=== PATIENT | female | born 1955 | race Caucasian/White ===

== ENCOUNTER 2016-06-13 16:34 | Inpatient (IN) | payer OTHER ==
[~2016-06-13] VITALS: Ht 160 cm; Wt 73.0 kg
[~2016-06-13 16:34] MED LIST: AMIT10 PO; LANSO15 PO; LEVO.025 PO; PROM25TA5 PO; ZOFR8TAB PO
[2016-06-13 16:47] VITALS: BP 142/100; PULSE 121; RESP 16; TEMP 98.3; O2SAT 97
[2016-06-13] MEDS ORDERED: RESP: ALBUTEROL 2.5 MG/3 ML NEB (SCH) INH ONE (17:30)
--- NOTE | 2016-06-13 17:36 | PD ---
HPI Chief Complaint: Psychiatric Symptoms Time Seen by Provider: 17:33 Travel History International Travel<30 days: No Contact w/Intl Traveler<30days: No Traveled to known affect area: No History of Present Illness HPI 60-year-old female that presents to the ED for evaluation of altered psych evaluation. Patient comes from a assisted-living facility and per report patient is here for basically psychiatric evaluation. Her report from assisted living facility patient has been hallucinating and seeing things that are not there. Per ED nurse report patient also has been talking to something that is not there. She reports no injuries. Nose is all homicidal ideation. She does use a urinary catheter chronically. She has a history of COPD and uses inhalers and nebulizers. Patient states that she does feel somewhat short of breath. She denies any chest pain though. She denies any fevers chills or sweats. She has had some falls recently secondary to chronic weakness but denies any head injury or loss of consciousness. Denies taking any blood thinners. She denies any drugs or alcohol. She does have a history of schizoaffective disorder and anemia. PFSH Past Medical History Asthma: Yes Blood Disorders: No Anxiety: Yes Heart Rhythm Problems: Yes Cancer: No Cardiovascular Problems: No High Cholesterol: No Chemotherapy: No Congestive Heart Failure: No Diabetes: No Diminished Hearing: No Endocrine: No Gastrointestinal Disorders: Yes (IBS) Genitourinary: Yes (stress incontinence ) Implanted Vascular Access Dvce: Yes Musculoskeletal: Yes Neurologic: No Psychiatric: Yes Respiratory: Yes Radiation Therapy: No Thyroid Disease: No Menopausal: Yes Past Surgical History Abdominal Surgery: Yes (REPAIR OF ABD MUSCLE) Body Medical Devices: breast implants Hysterectomy: Yes Joint Replacement: Yes (LEFT TKR) Other Surgery: Yes (abdomen/left knee/abdominal/partial hysterectomy) Social History Alcohol Use: Yes (2-3 GLASSES PER DAY ) Tobacco Use: No Substance Use: No Allergies-Medications (Allergen,Severity, Reaction): Coded Allergies: Cephalosporins (Verified Allergy, Severe, 06/13/16) Iodine (Verified Allergy, Severe, Anaphylaxis, 06/13/16) Latex (Verified Allergy, Severe, 06/13/16) Reglan (Verified Allergy, Severe, 06/13/16) Sulfa (Verified Allergy, Severe, 06/13/16) Reported Meds & Prescriptions Reported Meds & Active Scripts Active Levothyroxine 25 mcg (Levothyroxine Sodium) 25 Mcg Tab 25 Mcg PO DAILY Phenergan 25 mg (Promethazine HCl) 25 Mg Tab 25 Mg PO Q6H PRN Zofran Tab (Ondansetron HCl) 8 Mg Tab 8 Mg PO BID PRN Reported Prevacid 15 Mg Solutab (Lansoprazole) 15 Mg Tab 15 Mg PO DAILY Elavil 10 Mg Tab (Amitriptyline HCl) 10 Mg Tab 40 Mg PO HS Review of Systems Except as stated in HPI: all other systems reviewed are Neg Physical Exam Narrative GENERAL: SKIN: Warm and dry. HEAD: Atraumatic. Normocephalic. EYES: Pupils equal and round. No scleral icterus. No injection or drainage. ENT: No nasal bleeding or discharge. Mucous membranes pink and moist. Tongue is midline. No uvula deviation. NECK: Trachea midline. No JVD. CARDIOVASCULAR: Regular rate and rhythm. No murmurs, S3, S4. RESPIRATORY: No accessory muscle use. Clear to auscultation. Breath sounds equal bilaterally. GASTROINTESTINAL: Abdomen soft, non-tender, nondistended. Hepatic and splenic margins not palpable. MUSCULOSKELETAL: Extremities without clubbing, cyanosis, or edema. No obvious deformities. NEUROLOGICAL: Awake and alert. No obvious cranial nerve deficits. Motor grossly within normal limits. Five out of 5 muscle strength in the arms and legs. Normal speech. PSYCHIATRIC: psychotic mood and affect; insight and judgment questionable, seems to be talking with hallucinations Data Data Last Documented VS Vital Signs Date Time Temp Pulse Resp B/P Pulse Ox O2 Delivery O2 Flow Rate FiO2 06/13/16 16:47 98.3 121 16 142/100 97 Orders Complete Blood Count With Diff (06/13/16 16:55) Comprehensive Metabolic Panel (06/13/16 16:55) Drug Screen, Random Urine (06/13/16 16:55) Alcohol (Ethanol) (06/13/16 16:55) Psych Screen (06/13/16 16:55) Chest, Single Ap (06/13/16 17:29) Albuterol Neb (Albuterol Neb) (06/13/16 17:30) MDM Medical Decision Making Medical Screen Exam Complete: Yes Emergency Medical Condition: Yes Medical Record Reviewed: Yes Differential Diagnosis Depression versus suicidal ideation versus anxiety versus adjustment disorder versus mood disorder versus bipolar disorder versus schizophrenia versus paranoid disorder versus psychosis versus substance abuse versus alcohol abuse versus alcohol induced psychosis versus homicidality addition versus cutting versus personality disorder Narrative Course 60-year-old female that presents to the ED for evaluation of psych. Patient was properly examined and was found to have signs and symptoms consistent appears to be psychiatric illness. Labs and imaging ordered. EKG was ordered as patient was found to be tachycardic on initial examination. Rashaun Dave Jun 13, 2016 17:36
--- NOTE | 2016-06-13 18:06 | RADRPT ---
EXAM DATE/TIME: 06/13/2016 17:36 [facility] COMPARISON: CHEST SINGLE AP, January 13, 2015, 23:08. INDICATIONS : Wheezing. MEDICAL HISTORY : Lupus. Hypothyroidism. SURGICAL HISTORY : Esophageal dilations. ENCOUNTER: Subsequent ACUITY: 3 days PAIN SCORE: 0/10 LOCATION: Bilateral chest FINDINGS: Bibasilar streakiness is noted consistent with probable atelectasis. The heart is stable. The pulmo nary vascular pattern is normal. Degenerative changes are noted within the thoracic spine. CONCLUSION: Bibasilar streakiness consistent with probable atelectasis. Diogenes Lynch MD on June 13, 2016 at 17:50 Board Certified Radiologist. This report was verified electronically.
[2016-06-13 18:08] LABS: AUTOMATED NEUTROPHIL # 14.9 TH/MM3 (1.8-7.7); BASOPHIL # 0.1 TH/MM3 (0-0.2); BASOPHIL % 0.5 % (0.0-2.0); HEMATOCRIT 38.9 % (35.0-46.0); LYMPH % 1.9 % (9.0-44.0); LYMPHOCYTE # 0.3 TH/MM3 (1.0-4.8); MEAN CELL VOLUME 89.6 FL (80.0-100.0); MEAN CORPUSCULAR HEMOGLOBIN 30.4 PG (27.0-34.0); MEAN CORPUSCULAR HGB CONC 33.9 % (32.0-36.0); MONO % 2.5 % (0.0-8.0); NEUT % 95.1 % (16.0-70.0); PLATELET COUNT 200 TH/MM3 (150-450); RED BLOOD COUNT 4.34 MIL/MM3 (4.00-5.30); RED CELL DISTRIBUTION WIDTH 15.6 % (11.6-17.2); WHITE BLOOD COUNT 15.7 TH/MM3 (4.0-11.0)
[2016-06-13 18:14] LABS: AMPHETAMINE, URINE NEG (NEG); BARBITURATES, URINE NEG (NEG); COCAINE, URINE NEG (NEG); HEMO FLAGS AUTO DIFF
[2016-06-13 18:31] LABS: ANION GAP 10 MEQ/L (5-15); AST (GOT) 72 U/L (15-37); BICARBONATE 25.1 MEQ/L (21.0-32.0); BLOOD UREA NITROGEN 24 MG/DL (7-18); CHLORIDE 107 MEQ/L (98-107); GLOMERULAR FILTRATION RATE 69 ML/MIN (>89); POTASSIUM 4.2 MEQ/L (3.5-5.1); SODIUM (NA) 142 MEQ/L (136-145)
[2016-06-13] MEDS ORDERED: SODIUM CHLOR 0.9% 1000 ML INJ 1,000 ML IV ONE (18:32)
[2016-06-13 18:34] LABS: ALKALINE PHOSPHATASE 191 U/L (45-117); ALT (GPT) 123 U/L (10-53); TOTAL BILIRUBIN ADULT 0.7 MG/DL (0.2-1.0)
[2016-06-13] MEDS ORDERED: FERR325T PO (18:43)
[2016-06-13] MEDS ORDERED: LORA-392 PO (18:43)
[2016-06-13] MEDS ORDERED: PRED20 PO (18:43)
[2016-06-13] MEDS ORDERED: LAC-12LO3 TOPICAL (18:43)
[2016-06-13] MEDS ORDERED: HYDR50TA94 PO (18:43)
[2016-06-13] MEDS ORDERED: COLL30T TOPICAL (18:43)
[2016-06-13] MEDS ORDERED: OXYC-395 PO (18:43)
[2016-06-13] MEDS ORDERED: TRAZ50TA12 PO (18:43)
[2016-06-13] MEDS ORDERED: INSU1INJ18 SQ (18:43)
[2016-06-13] MEDS ORDERED: CHLO.12%30 SWISH-SPIT (18:43)
[2016-06-13] MEDS ORDERED: ZOFR4TAB PO (18:43)
[2016-06-13] MEDS ORDERED: SERO100T PO (18:43)
[2016-06-13] MEDS ORDERED: CALC1TAB12 PO (18:43)
[2016-06-13] MEDS ORDERED: VITA1000 PO (18:43)
[2016-06-13] MEDS ORDERED: MULTTAB67 PO (18:43)
[2016-06-13] MEDS ORDERED: FAMO20TA2 PO (18:43)
[2016-06-13] MEDS ORDERED: AMLO2.5T PO (18:43)
[2016-06-13] MEDS ORDERED: LEVO25TA4 PO (18:43)
[2016-06-13] MEDS ORDERED: NOVOLOGP2 SQ (18:43)
[2016-06-13] MEDS ORDERED: ASCO500C PO (18:43)
[2016-06-13] MEDS ORDERED: ACET650S4 RECTAL (18:43)
[2016-06-13] MEDS ORDERED: PERM5CRE11 TOPICAL (18:43)
[2016-06-13] MEDS ORDERED: LEXA10TA PO (18:43)
[2016-06-13] MEDS ORDERED: BACL10TA PO (18:43)
[2016-06-13] MEDS ORDERED: ERGO1CAP30 PO (18:43)
[2016-06-13 18:45] LABS: PLATELET ESTIMATE SMEAR NORMAL (NORMAL); PLATELET MORPHOLOGY NORMAL (NORMAL); SCAN/DIFF AUTO DIFF CONFIRMED
--- NOTE | 2016-06-13 19:03 | RADRPT ---
EXAM DATE/TIME: 06/13/2016 18:49 [facility] COMPARISON: CT BRAIN W/O CONTRAST, January 14, 2015, 17:32. INDICATIONS : Altered mental status. RADIATION DOSE: 38.36 CTDIvol (mGy) MEDICAL HISTORY : None Carcinoma, not otherwise specified. SURGICAL HISTORY : Hysterectomy. ENCOUNTER: Initial ACUITY: 1 day PAIN SCALE: Non-responsive LOCATION: cranial TECHNIQUE: Multiple contiguous axial images were obtained of the head. Using automated exposure control and adj ustment of the mA and/or kV according to patient size, radiation dose was kept as low as reasonably a chievable to obtain optimal diagnostic quality images. FINDINGS: CEREBRUM: The ventricles are normal for age. No evidence of midline shift, mass lesion, hemorrhage or acute in farction. No extra-axial fluid collections are seen. POSTERIOR FOSSA: The cerebellum and brainstem are intact. The 4th ventricle is midline. The cerebellopontine angle i s unremarkable. EXTRACRANIAL: The visualized portion of the orbits is intact. SKULL: The calvaria is intact. No evidence of skull fracture. CONCLUSION: Normal examination for a patient of this age. No significant change has occurred. Nba Marion MD on June 13, 2016 at 18:59 Board Certified Radiologist. This report was verified electronically.
[2016-06-13 19:22] LABS: BACTERIA, URINE FEW /hpf; BLOOD, URINE SMALL (NEG); COMMENT (UR) CATH-CULTURE IND; CULTURE IF INDICATED CATH CULTURE IND; GLUCOSE,URINE NEG (NEG); KETONE, URINE NEG (NEG); MUCUS URINE FEW /lpf (OCC); NITRITE,URINE NEG (NEG); PH, URINE 6.5 (5.0-8.5); URINE COLOR YELLOW (YELLW/STRAW)
[2016-06-13] MEDS ORDERED: CIPROFLOXACIN 200 MG PREMIX 100 ML IV ONE (19:30)
[2016-06-13 19:39] VITALS: PULSE 118
[2016-06-13 20:01] VITALS: BP 152/92; PULSE 109; RESP 16; TEMP 98.3; O2SAT 96
--- NOTE | 2016-06-13 20:02 | PD ---
Physical Exam Date Seen by Provider: Jun 13, 2016 Time Seen by Provider: 19:57 Narrative 60-year-old female that presents to the ED for evaluation of psych. Please refer to my previous note. Unfortunately my attending signed my note before I finished a note. This is just a continuation of my prior note. Data Data Last Documented VS Vital Signs Date Time Temp Pulse Resp B/P Pulse Ox O2 Delivery O2 Flow Rate FiO2 06/13/16 19:39 118 06/13/16 16:47 98.3 16 142/100 97 Orders Complete Blood Count With Diff (06/13/16 16:55) Comprehensive Metabolic Panel (06/13/16 16:55) Drug Screen, Random Urine (06/13/16 16:55) Alcohol (Ethanol) (06/13/16 16:55) Psych Screen (06/13/16 16:55) Chest, Single Ap (06/13/16 17:29) Albuterol Neb (Albuterol Neb) (06/13/16 17:30) Ct Brain W/O Iv Contrast(Rout) (06/13/16 17:37) Electrocardiogram (06/13/16 ) Sodium Chlor 0.9% 1000 Ml Inj (Ns 1000 M (06/13/16 18:32) Urinalysis - C+S If Indicated (06/13/16 18:47) Urine Culture (06/13/16 17:30) Ciprofloxacin 200 Mg Premix (Cipro 200 M (06/13/16 19:30) Admit Order (Ed Use Only) (06/13/16 19:55) Lactic Acid (06/13/16 19:56) Labs Laboratory Tests Test 06/13/16 17:30 White Blood Count 15.7 TH/MM3 Red Blood Count 4.34 MIL/MM3 Hemoglobin 13.2 GM/DL Hematocrit 38.9 % Mean Corpuscular Volume 89.6 FL Mean Corpuscular Hemoglobin 30.4 PG Mean Corpuscular Hemoglobin 33.9 % Concent Red Cell Distribution Width 15.6 % Platelet Count 200 TH/MM3 Mean Platelet Volume 7.9 FL Neutrophils (%) (Auto) 95.1 % Lymphocytes (%) (Auto) 1.9 % Monocytes (%) (Auto) 2.5 % Eosinophils (%) (Auto) 0.0 % Basophils (%) (Auto) 0.5 % Neutrophils # (Auto) 14.9 TH/MM3 Lymphocytes # (Auto) 0.3 TH/MM3 Monocytes # (Auto) 0.4 TH/MM3 Eosinophils # (Auto) 0.0 TH/MM3 Basophils # (Auto) 0.1 TH/MM3 CBC Comment AUTO DIFF Differential Comment AUTO DIFF CONFIRMED Platelet Estimate NORMAL Platelet Morphology Comment NORMAL Red Cell Morphology Comment NORMAL Urine Color YELLOW Urine Turbidity CLOUDY Urine pH 6.5 Urine Specific [place] 1.012 Urine Protein TRACE mg/dL Urine Glucose (UA) NEG mg/dL Urine Ketones NEG mg/dL Urine Occult Blood SMALL Urine Nitrite NEG Urine Bilirubin NEG Urine Urobilinogen LESS THAN 2.0 MG/DL Urine Leukocyte Esterase LARGE Urine RBC 4 /hpf Urine WBC 93 /hpf Urine Amorphous Sediment RARE Urine Bacteria FEW /hpf Urine Mucus FEW /lpf Microscopic Urinalysis Comment CATH-CULTURE IND Sodium Level 142 MEQ/L Potassium Level 4.2 MEQ/L Chloride Level 107 MEQ/L Carbon Dioxide Level 25.1 MEQ/L Anion Gap 10 MEQ/L Blood Urea Nitrogen 24 MG/DL Creatinine 0.84 MG/DL Estimat Glomerular Filtration 69 ML/MIN Rate Random Glucose 168 MG/DL Calcium Level 9.1 MG/DL Total Bilirubin 0.7 MG/DL Aspartate Amino Transf 72 U/L (AST/SGOT) Alanine Aminotransferase 123 U/L (ALT/SGPT) Alkaline Phosphatase 191 U/L Total Protein 6.7 GM/DL Albumin 3.2 GM/DL Urine Opiates Screen NEG Urine Barbiturates Screen NEG Urine Amphetamines Screen NEG Urine Benzodiazepines Screen NEG Urine Cocaine Screen NEG Urine Cannabinoids Screen NEG Ethyl Alcohol Level LESS THAN 3 MG/DL [facility] Medical Record Reviewed: Yes Supervised Visit with ESDRAS: No Interpretation(s) CBC & BMP Diagram 06/13/16 17:30 UA shows UTI EKG shows sinus tachycardia with no sign of ischemia read by me and attending. Last Impressions Head CT 06/13/16 9137 Signed Impressions: Service Date/Time: Monday, June 13, 2016 18:49 - CONCLUSION: Normal examination for a patient of this age. No significant change has occurred. Nba Marion MD CXR negative for acute disease LFTS elevated Differential Diagnosis Sepsis versus urosepsis versus psychosis Narrative Course 60-year-old female that presents to the ED for evaluation of psych. Patient was properly examined and was found to have signs and symptoms consistent appears to be psychosis with possible UTI. Patient has a urinary catheter. Labs and imaging were done. This is a continuation of my prior note. Labs show elevated WBCs as well as tachycardia on EKG as well as on initial presentation as well as what appears to be UTI. I cannot completely exclude the patient is having worsening psychosis secondary to UTI. Patient he has a catheter. Recomendation is for admission for medical for evaluation of the sepsis, IV fluids, antibiotics and have psych consult. Patient is agreeable with this plan. Case was discussed with His doctor or Dr. Harp who agrees to admission. Sepsis Criteria SIRS Criteria (2 or more): Heart rate over 90, WBC > 87855, < 4000 or > 10% bands Sepsis Criteria (SIRS+source): Infect source susp/known Criteria Outcome: Meets sepsis criteria Diagnosis Primary Impression: UTI (urinary tract infection) Qualified Code: N30.01 - Acute cystitis with hematuria Additional Impressions: Psychoses Qualified Code: F25.9 - Schizoaffective disorder, unspecified type Sepsis Qualified Code: A41.9 - Sepsis, due to unspecified organism Admitting Information Admitting Physician Requests: Rashaun Carvajal Jun 13, 2016 20:02
[2016-06-13] MEDS ORDERED: SODIUM CHLORIDE 0.9% FLUSH 5 ML FLUSH FLUSH PRN (20:15)
[2016-06-13] MEDS ORDERED: NALOXONE HCL 0.4 MG/ML AMP IV PRN (20:15)
[2016-06-13 20:19] VITALS: BP 173/80; PULSE 101; RESP 16; O2SAT 95
[2016-06-13 20:36] VITALS: BP 154/77; PULSE 90; RESP 13; O2SAT 95
[2016-06-13] MEDS: SODIUM CHLOR 0.9% 1000 ML INJ 1,000 ML IV SCH (20:53)
[2016-06-13] MEDS: SODIUM CHLORIDE 0.9% FLUSH 5 ML FLUSH FLUSH SCH (20:55)
--- NOTE | 2016-06-13 22:17 | HHI.HP ---
HPI Service [facility] Primary Care Physician No Primary Care Physician Admission Diagnosis UTI, sepsis, worsening psychosis Diagnoses: Chief Complaint: Hallucinations, confusion Travel History International Travel<30 Days: No Contact w/Intl Traveler <30 Da: No Traveled to Known Affected Are: No History of Present Illness History taken from patient, ED physician, and patients chart. 60-year-old female with a history of COPD, hypertension, diabetes, hypothyroidism, and schizoaffective disorder presented to the ED via [facility] from [facility] for psych eval. Per the report from the shelter chart patient was confused, combative and throwing herself on the floor. Upon admission patient was found to have a UTI. When Patient was examined she was very uncooperative and confused. She was stating the doctors and people in the halls were holding her against her will. She was able to answer some questions asked, and denies any fever, sob, chills or chest pain. She does have a urinary catheter and she does not know why or when it was last changed out. She also has a colostomy and she refused to allow me to see her dressing. She does have a cough, and she says she has had it for a long time She was recently screened by her primary Dr. Hill Chest xray on 05/28/16 was negative Bilateral doppler ultrasound on 05/31/16 was negative Review of Systems ROS Limitations: Uncooperative Constitutional: DENIES: Fever, Chills Respiratory: COMPLAINS OF: Cough, DENIES: Sputum production, Shortness of breath Cardiovascular: DENIES: Chest pain, Lower Extremity Edema Past Family Social History Past Medical History Per EMR Hypertension Schizoaffective disorder Anemia Diabetes Depression Anxiety Hypothyroidism Past Surgical History Per EMR December 2015 colostomy and ileostomy, status post bowel perforation expiratory lap Breast augmentation hysterectomy LTKR Reported Medications Reported Meds & Active Scripts Active Reported Vitamin D-1000 (Cholecalciferol) 1,000 Unit Tab 5,000 Units PO DAILY Vitamin C (Ascorbic Acid) 500 Mg Cap 500 Mg PO BID Trazodone (Trazodone HCl) 50 Mg Tab 25 Mg PO HS Seroquel (Quetiapine Fumarate) 100 Mg Tab 100 Mg PO BID Santyl Topical (Collagenase) 250 Unit/Gm Oint 1 Applic TOPICAL DAILY Prednisone 20 Mg Tab 20 Mg PO BID Oxycodone (Oxycodone HCl) 10 Mg Tab 10 Mg PO Q4H PRN Zofran (Ondansetron HCl) 4 Mg Tab 4 Mg PO Q8HR PRN Novolog Inj (Insulin Aspart) 1,000 Unit/10 Ml Vial 0 SQ DIRECTED Sliding Scale as directed. Multiple Vitamin 1 Tab 1 Tab PO DAILY Lexapro (Escitalopram Oxalate) 10 Mg Tab 10 Mg PO DAILY Levothyroxine (Levothyroxine Sodium) 25 Mcg Tab 25 Mcg PO DAILY Lac-Hydrin (Lactic Acid (Ammonium Lactate)) 12% Lotn 1 Applic TOPICAL BID Basaglar Kwikpen (Insulin Glargine) 100 Unit/Ml Pen 8 Units SQ HS Hydroxyzine HCl 50 Mg Tab 50 Mg PO HS Ferrous Sulfate 325 Mg Tab 325 Mg PO DAILY Famotidine 20 Mg Tab 20 Mg PO BID Ergocalciferol 50,000 Unit Cap 50,000 Units PO Q7D Elimite Topical (Permethrin) 5% Cream 1 Applic TOPICAL ONCE Chlorhexidine Gluconate (Mouth) Liq (Chlorhexidine Gluconate) 0.12% Soln 15 Ml SWISH-SPIT BID Calcium 500 +D (Calcium Carbonate-Cholecalciferol) 500-400 Mg-Unit Tab 1 Tab PO BID Baclofen 10 Mg Tab 10 Mg PO BID Ativan (Lorazepam) 0.5 Mg Tab 0.5 Mg PO Q4H PRN Amlodipine (Amlodipine Besylate) 2.5 Mg Tab 2.5 Mg PO DAILY Acetaminophen Supp (Acetaminophen) 650 Mg Supp 650 Mg RECTAL Q6H PRN Allergies: Coded Allergies: Cephalosporins (Verified Allergy, Severe, 06/13/16) Iodine (Verified Allergy, Severe, Anaphylaxis, 06/13/16) Latex (Verified Allergy, Severe, 06/13/16) Reglan (Verified Allergy, Severe, 06/13/16) Sulfa (Verified Allergy, Severe, 06/13/16) Active Ordered Medications Current Medications Medications (Trade) Dose Ordered Sig/Trent Route Start Time Stop Time Status Last Admin (NS 1000 ml Inj) 1,000 ml @ 100 mls/hr Q10H IV 06/13/16 20:02 06/13/16 20:53 (NS Flush) 2 ml UNSCH PRN FLUSH 06/13/16 20:15 (NS Flush) 2 ml BID FLUSH 06/13/16 21:00 (Lovenox Inj) 40 mg Q24H SQ 06/14/16 09:00 Naloxone HCl 0.4 mg 0.4 mg UNSCH PRN IV 06/13/16 20:15 (Cipro 400 Mg Premix) 200 ml @ 200 mls/hr Q12H IV 06/14/16 07:00 Family History Patient is uncooperative, denies any family history Social History Tobacco use: Denies Alcohol use: Daily Drug use denies Physical Exam Vital Signs Vital Signs Date Time Temp Pulse Resp B/P Pulse Ox O2 Delivery O2 Flow Rate FiO2 06/13/16 20:36 90 13 154/77 95 Room Air 06/13/16 20:22 99 18 06/13/16 20:19 101 16 173/80 95 Room Air 06/13/16 20:01 98.3 109 16 152/92 96 Room Air 06/13/16 19:39 118 06/13/16 16:47 98.3 121 16 142/100 97 Physical Exam GENERAL: This is a confused, uncooperative patient. SKIN: No rashes, ecchymoses or lesions. Cool and dry. HEAD: Atraumatic. Normocephalic. EYES: Pupils equal round and reactive. ENT: Nose without bleeding, purulent drainage or septal hematoma. NECK: Trachea midline. No JVD. CARDIOVASCULAR: Regular rate and rhythm without murmurs, gallops, or rubs. RESPIRATORY: Clear to auscultation. Breath sounds equal bilaterally. No wheezes , rales, or rhonchi. GASTROINTESTINAL: Abdomen soft, non-tender, nondistended. Colostomy bag in place. MUSCULOSKELETAL: Extremities without clubbing, cyanosis, or edema. No calf tenderness. URINARY: Catheter in place with cloudy urine with sediment NEUROLOGICAL: Awake and confused. Motor and sensory grossly within normal limits.Normal speech. Laboratory Laboratory Tests Test 06/13/16 17:30 White Blood Count 15.7 Red Blood Count 4.34 Hemoglobin 13.2 Hematocrit 38.9 Mean Corpuscular Volume 89.6 Mean Corpuscular Hemoglobin 30.4 Mean Corpuscular Hemoglobin 33.9 Concent Red Cell Distribution Width 15.6 Platelet Count 200 Mean Platelet Volume 7.9 Neutrophils (%) (Auto) 95.1 Lymphocytes (%) (Auto) 1.9 Monocytes (%) (Auto) 2.5 Eosinophils (%) (Auto) 0.0 Basophils (%) (Auto) 0.5 Neutrophils # (Auto) 14.9 Lymphocytes # (Auto) 0.3 Monocytes # (Auto) 0.4 Eosinophils # (Auto) 0.0 Basophils # (Auto) 0.1 CBC Comment AUTO DIFF Differential Comment AUTO DIFF CONFIRMED Platelet Estimate NORMAL Platelet Morphology Comment NORMAL Red Cell Morphology Comment NORMAL Urine Color YELLOW Urine Turbidity CLOUDY Urine pH 6.5 Urine Specific [place] 1.012 Urine Protein TRACE Urine Glucose (UA) NEG Urine Ketones NEG Urine Occult Blood SMALL Urine Nitrite NEG Urine Bilirubin NEG Urine Urobilinogen LESS THAN 2.0 Urine Leukocyte Esterase LARGE Urine RBC 4 Urine WBC 93 Urine Amorphous Sediment RARE Urine Bacteria FEW Urine Mucus FEW Microscopic Urinalysis Comment CATH-CULTURE IND Sodium Level 142 Potassium Level 4.2 Chloride Level 107 Carbon Dioxide Level 25.1 Anion Gap 10 Blood Urea Nitrogen 24 Creatinine 0.84 Estimat Glomerular Filtration 69 Rate Random Glucose 168 Calcium Level 9.1 Total Bilirubin 0.7 Aspartate Amino Transf 72 (AST/SGOT) Alanine Aminotransferase 123 (ALT/SGPT) Alkaline Phosphatase 191 Total Protein 6.7 Albumin 3.2 Urine Opiates Screen NEG Urine Barbiturates Screen NEG Urine Amphetamines Screen NEG Urine Benzodiazepines Screen NEG Urine Cocaine Screen NEG Urine Cannabinoids Screen NEG Ethyl Alcohol Level LESS THAN 3 Date/Time Procedure Status Source Growth 06/13/16 17:30 Urine Culture Received Urine Catheterized Urine Pending Result Diagram: 06/13/16 1730 06/13/16 1730 Imaging Last Impressions Head CT 06/13/16 1737 Signed Impressions: Service Date/Time: Monday, June 13, 2016 18:49 - CONCLUSION: Normal examination for a patient of this age. No significant change has occurred. Nba Marion MD Assessment and Plan Problem List: (1) Psychoses ICD Code: F29 Status: Acute (2) UTI (urinary tract infection) ICD Code: N39.0 Status: Acute (3) HTN (hypertension) ICD Code: I10 Status: Chronic (4) Diabetes ICD Code: E11.9 Status: Chronic (5) Hypothyroidism ICD Code: E03.9 Status: Chronic Assessment and Plan 60-year-old female with a history of COPD, hypertension, diabetes, hypothyroidism, and schizoaffective disorder presented to the ED via [facility] from [facility] for psych eval. Psychoses Images reviewed: Head CT unremarkable - Psych consult for recommendations -Cont home medications Lexapro, trazodone, Seroquel, and hydroxyzine UTI Labs: UA showed large leukocyte Esterase -Cipro 400mg IV Q12hrs -Culture pending Leukocytosis, likely due to UTI Labs reviewed: WBC 15.7, neutrophils 95% -CBC in a.m. -Antibiotics as above Hypertension,chronic -Monitor vital -Order home medications: Norvasc Diabetes, chronic -Accu checks ac and hs Hypothyroidism, chronic -continue home medications Synthroid DVT prophylaxis: Lovenox GI prophylaxis: Famotidine Written by Stefanie DEAN, acting as scribe for Dr. Harp on 06/13/16 at 2335. The documentation accurately reflects the work performed [id number] and decisions made by me and the physician Dr Harp on 06/13/16. The documentation accurately reflects the work performed [id number] by me on 06/13/16 at 2335 Discussed Condition With Patient, RN and ED physician Problem Qualifiers (1) Psychoses: Qualified Code: F25.9 - Schizoaffective disorder, unspecified type (2) UTI (urinary tract infection): Qualified Code: N30.01 - Acute cystitis with hematuria Stefanie Saenz Jun 13, 2016 22:17 Arlen Harp MD Jun 14, 2016 07:11
[2016-06-13 22:39] VITALS: BP_SYST 168; BP_SYST 174; BP_DIAS 94; PULSE 88; RESP 20; TEMP 97.8; O2SAT 96
[2016-06-14] MEDS ORDERED: GLUCAGON 1 MG/ML VIAL OTHER PRN (01:00)
[2016-06-14] MEDS ORDERED: DEXTROSE 50% IN WATER 50 ML VIAL(D50) IV PUSH PRN (01:00)
[2016-06-14] MEDS ORDERED: oxyCODONE/ACETAMINOPHEN 5 MG/325 MG TAB PO ONE (03:30)
[2016-06-14] MEDS: CIPROFLOXACIN 400 MG PREMIX 200 ML IV SCH ×2 (05:39→17:04)
[2016-06-14] MEDS: LEVOTHYROXINE SODIUM 25 MCG TAB PO SCH (05:39)
[2016-06-14] MEDS: SODIUM CHLOR 0.9% 1000 ML INJ 1,000 ML IV SCH ×2 (06:02→17:00)
[2016-06-14] MEDS: INSULIN ASPART SUPPLEMENTAL SCALE SQ SCH ×4 (06:20→20:32)
[2016-06-14 08:00] VITALS: BP 174/83; PULSE 83; PULSE 85; RESP 20; TEMP 96.8; O2SAT 93
[2016-06-14 08:49] LABS: AUTOMATED NEUTROPHIL # 13.3 TH/MM3 (1.8-7.7); BASOPHIL # 0.2 TH/MM3 (0-0.2); BASOPHIL % 1.3 % (0.0-2.0); EOSINOPHIL # 0.1 TH/MM3 (0-0.4); EOSINOPHIL % 0.5 % (0.0-4.0); HEMATOCRIT 38.9 % (35.0-46.0); LYMPH % 9.2 % (9.0-44.0); LYMPHOCYTE # 1.5 TH/MM3 (1.0-4.8); MEAN CELL VOLUME 88.6 FL (80.0-100.0); MEAN CORPUSCULAR HEMOGLOBIN 30.3 PG (27.0-34.0); MEAN CORPUSCULAR HGB CONC 34.2 % (32.0-36.0); MONO % 5.2 % (0.0-8.0); NEUT % 83.8 % (16.0-70.0); PLATELET COUNT 224 TH/MM3 (150-450); RED BLOOD COUNT 4.38 MIL/MM3 (4.00-5.30); RED CELL DISTRIBUTION WIDTH 15.4 % (11.6-17.2); WHITE BLOOD COUNT 15.9 TH/MM3 (4.0-11.0)
[2016-06-14 08:51] LABS: HEMO FLAGS AUTO DIFF
[2016-06-14] MEDS ORDERED: QUEtiapine FUMARATE 100 MG TAB PO SCH (09:00)
[2016-06-14 09:16] LABS: BICARBONATE 25.8 MEQ/L (21.0-32.0); POTASSIUM 3.3 MEQ/L (3.5-5.1)
[2016-06-14 09:50] LABS: SCAN/DIFF AUTO DIFF CONFIRMED
[2016-06-14] MEDS: ESCITALOPRAM OXALATE 10 MG TAB PO SCH (09:51)
[2016-06-14] MEDS: oxyCODONE/ACETAMINOPHEN 5 MG/325 MG TAB PO PRN ×2 (09:51→20:35)
[2016-06-14] MEDS: FERROUS SULFATE 325 MG (65 MG ELEMENTAL IRON) TAB PO SCH (09:51)
[2016-06-14] MEDS: predniSONE 20 MG TAB PO SCH ×2 (09:51→20:34)
[2016-06-14] MEDS: FAMOTIDINE 20 MG TAB PO SCH ×2 (09:51→20:34)
[2016-06-14] MEDS: ENOXAPARIN SODIUM 40 MG/0.4 ML SYRINGE SQ SCH (09:52)
[2016-06-14] MEDS: amLODIPine BESYLATE 5 MG TAB PO SCH (09:52)
[2016-06-14] MEDS: SODIUM CHLORIDE 0.9% FLUSH 5 ML FLUSH FLUSH SCH ×2 (09:52→20:32)
--- NOTE | 2016-06-14 09:58 | PD.CONS ---
Provisional Diagnosis Admission Date Jun 13, 2016 at 19:57 [place] I. Delirium due to underlying medical condition, medical induced psychosis [place] II. Deferred [place] III. DM, HTN, UTI History of Present Illness Service Psychiatry Consult Requested By Primary Care Physician No Primary Care Physician HPI The patient is a 60-year-old woman, with psychiatric history of schizoaffective disorder, no previous hospitalizations, no previous suicidal attempts, with a history of COPD, hypertension, diabetes, hypothyroidism, who presented to the ED via [facility] from [facility] for psych eval. Per the report from the long-term chart patient was confused, combative and throwing herself on the floor. Upon admission patient was found to have a UTI. When Patient was examined she was very uncooperative and confused. She was stating the doctors and people in the halls were holding her against her will. She was consulted to psychiatry due to visual hallucinations and erratic behavior, chart was reviewed, case discussed with nurse in charge. On evaluation patient was guarded, irritable, oppositional to the interview. She says that she doesn't need to be seen by a psychiatrist, and she doesn't have any psychiatric problem at the moment and her problem is a medical problem. She says that she has been having very dense while nightmares in the last 2 weeks, he some occasions he has been very difficult for her to differentiate between the nightmares and hallucinations. She also has been experiences periods of confusion and visual hallucinations of people around her, at times she has been reluctant to believe that they are unreal. But she denies depressive symptoms, denies anxiety, karolyn, suicidal or homicidal ideation. At this moment the patient denies any perceptual disturbances, denies confusion, denies memory problems. Patient is fully oriented 3, able to answer most of our questions, but refused to cooperate with cognitive test. Patient denies the use of alcohol or any illicit drugs. Review of Systems ROS Limitations: Uncooperative Constitutional: COMPLAINS OF: Change in appetite Eyes: DENIES: Blurred vision, Diplopia, Eye inflammation, Eye pain, Vision loss , Photosensitivity, Double Vision Respiratory: COMPLAINS OF: Cough Cardiovascular: DENIES: Chest pain, Palpitations, Syncope, Dyspnea on Exertion , PND, Lower Extremity Edema, Orthopnea, Claudication Gastrointestinal: DENIES: Abdominal pain, Black stools, Bloody stools, Constipation, Diarrhea, Nausea, Vomiting, Difficulty Swallowing, Anorexia Musculoskeletal: COMPLAINS OF: Joint pain, Back pain Hematologic/lymphatic: DENIES: Bruising, Lymphadenopathy Immunologic/allergic: DENIES: Eczema, Urticaria Neurologic: DENIES: Abnormal gait, Headache, Localized weakness, Paresthesias, Seizures, Speech Problems, Tremor, Poor Balance Psychiatric: COMPLAINS OF: Hallucinations Past Family Social History Coded Allergies: Cephalosporins (Verified Allergy, Severe, 06/13/16) Iodine (Verified Allergy, Severe, Anaphylaxis, 06/13/16) Latex (Verified Allergy, Severe, 06/13/16) Reglan (Verified Allergy, Severe, 06/13/16) Sulfa (Verified Allergy, Severe, 06/13/16) Reported Medications Cholecalciferol (Vitamin D-1000)1,000 Unit Tab5,000 Units PO DAILY #1 BOTTLE Ref 0 06/13/16 Ascorbic Acid (Vitamin C)500 Mg [id number] Mg PO BID Ref 0 06/13/16 Trazodone 50 Mg Tab25 Mg PO HS #30 TAB Ref 0 06/13/16 Quetiapine (Seroquel)100 Mg [id number] Mg PO BID #60 TAB Ref 0 06/13/16 Collagenase Topical (Santyl Topical)250 Unit/Gm Oint1 Applic TOPICAL DAILY #15 GM Ref 0 06/13/16 Prednisone 20 Mg Tab20 Mg PO BID Ref 0 06/13/16 Oxycodone 10 Mg Tab10 Mg PO Q4H PRN (PAIN) Ref 0 06/13/16 Ondansetron (Zofran)4 Mg Tab4 Mg PO Q8HR PRN (NAUSEA OR VOMITING) Ref 0 06/13/16 Insulin Aspart Inj (Novolog Inj)1,000 Unit/10 Ml Vial SQ DIRECTED #10 ML Ref 0 Sliding Scale as directed. 06/13/16 Multiple Vitamin 1 Tab1 Tab PO DAILY Ref 0 06/13/16 Escitalopram (Lexapro)10 Mg Tab10 Mg PO DAILY #30 TAB Ref 0 06/13/16 Levothyroxine 25 Mcg Tab25 Mcg PO DAILY #30 TAB Ref 0 06/13/16 Lactic Acid (Ammonium Lactate) (Lac-Hydrin)12% Lotn1 Applic TOPICAL BID #225 ML Ref 0 06/13/16 Insulin Glargine (Basaglar Kwikpen)100 Unit/Ml Pen8 Units SQ HS #5 PEN Ref 0 06/13/16 Hydroxyzine HCl 50 Mg Tab50 Mg PO HS Ref 0 06/13/16 Ferrous Sulfate 325 Mg Puy243 Mg PO DAILY #30 TAB Ref 0 06/13/16 Famotidine 20 Mg Tab20 Mg PO BID #60 TAB Ref 0 06/13/16 Ergocalciferol 50,000 Unit Cap50,000 Units PO Q7D #30 CAP Ref 0 06/13/16 Permethrin Topical (Elimite Topical)5% Cream1 Applic TOPICAL ONCE #1 TUBE Ref 0 06/13/16 Chlorhexidine Gluconate (Mouth) Liq 0.12% Soln15 Ml SWISH-SPIT BID #473 ML Ref 0 06/13/16 Calcium Carbonate-Cholecalciferol (Calcium 500 +D)500-400 Mg-Unit Tab1 Tab PO BID Ref 0 06/13/16 Baclofen 10 Mg Tab10 Mg PO BID Ref 0 06/13/16 Lorazepam (Ativan)0.5 Mg Tab0.5 Mg PO Q4H PRN (For mild anxiety / dyspnea) Ref 0 06/13/16 Amlodipine 2.5 Mg Tab2.5 Mg PO DAILY #30 TAB Ref 0 06/13/16 Acetaminophen Supp 650 Mg Alui302 Mg RECTAL Q6H PRN (FEVER) Ref 0 06/13/16 Current Medications Medications (Trade) Dose Ordered Sig/Trent Route Start Time Stop Time Status Last Admin (NS 1000 ml Inj) 1,000 ml @ 100 mls/hr Q10H IV 06/13/16 20:02 06/13/16 20:53 (NS Flush) 2 ml UNSCH PRN FLUSH 06/13/16 20:15 (NS Flush) 2 ml BID FLUSH 06/13/16 21:00 (Lovenox Inj) 40 mg Q24H SQ 06/14/16 09:00 Naloxone HCl 0.4 mg 0.4 mg UNSCH PRN IV 06/13/16 20:15 (Cipro 400 Mg Premix) 200 ml @ 200 mls/hr Q12H IV 06/14/16 07:00 06/14/16 05:39 (Norvasc) 2.5 mg DAILY PO 06/14/16 09:00 (Lexapro) 10 mg DAILY PO 06/14/16 09:00 (Atarax) 50 mg HS PO 06/14/16 21:00 (Synthroid) 25 mcg DAILY@0600 PO 06/14/16 06:00 06/14/16 05:39 (SEROquel) 100 mg BID PO 06/14/16 09:00 (Desyrel) 25 mg HS PO 06/14/16 21:00 (D50w (Vial) Inj) 25 ml UNSCH PRN IV PUSH 06/14/16 01:00 (Glucagon Inj) 1 mg UNSCH PRN OTHER 06/14/16 01:00 (Pepcid) 20 mg BID PO 06/14/16 09:00 (Ferrous Sulfate) 325 mg DAILY PO 06/14/16 09:00 (Deltasone) 20 mg BID PO 06/14/16 09:00 (Percocet 5-325 Mg) 1 tab Q6H PRN PO 06/14/16 07:45 Physical Exam Vital Signs Vital Signs Date Time Temp Pulse Resp B/P Pulse Ox O2 Delivery O2 Flow Rate FiO2 06/14/16 08:00 96.8 85 20 174/83 93 06/13/16 20:36 Room Air Mental Status Examination Appearance Overweight woman, age appearing, oppositional, irritable, resistant to the evaluation Speech: Hesitant Orientation: x3 Memory: Unremarkable Thought Process: Logical Thought Content: Unremarkable Hallucination Type: Visual Suicidal Ideation: No Previous Suicide Attempts: No Homicidal Ideation: No Previous Homicide Attempts: No Judgement: Poor Affect: Irritable Mood: Angry, Irritable Motor Activity: Normal gait Assessment & Plan Problem List: (1) Delirium due to another medical condition Assessment & Plan: The patient is a 60-year-old woman, with psychiatric history of schizoaffective disorder, she denies previous hospitalizations, she denies suicidal attempts, she is on Seroquel 100 mg twice a day, trazodone 50 mg, and citalopram 20 mg. Admitted due to new onset altered mental status, confusion, agitation and visual hallucinations in the context of underlines acute medical conditions, most probably UTI. On psychiatric evaluation patient is oppositional, irritable, refusing to cooperate with the argument that she is not here for any psychiatric evaluation , but medical problems. She denies depressive symptoms, denies anxiety, denies karolyn, but reports confusion, episodic vivid visual hallucinations and wild dreams. At the moment of the evaluation the patient denies this visual hallucinations, she doesn't seem to be internally preoccupied, she is oriented 3, doesn't seem to have any attention or concentration deficits. My impression is that this neuropsychiatric symptoms are secondary to delirium most probably related with acute UTI. Onset, progression, nature and frequency of these symptoms are no characteristics of a decompensation of primary psychiatric conditions. However, we will increase Seroquel to 100 mg in the morning and 200 mg at night. Would prescribe Haldol 5 mg IM when necessary aggressive behavior and agitation. Irritability, impulsiveness, oppositional behavior observed in this patient seems to be more part of her character than due to neuropsychiatric symptoms She does not meet criteria for psychiatric hospitalization at his mom We'll follow-up ICD Code: F05 Assessment & Plan Estimated LOS: Ronaldo Hdz MD Jun 14, 2016 09:58
[2016-06-14 12:00] VITALS: BP 131/75; PULSE 88; RESP 20; TEMP 96.6; O2SAT 95
--- NOTE | 2016-06-14 12:18 | HHI.PR ---
Subjective Remarks Follow up for confusion, combative behavior, with UTI. The patient is unpleasant this morning, demanding pain medications, initially refusing to discuss anything other than her pain medications. Also initially refusing any evaluation by the physician however after thorough discussion, she allows under the impression that she will be receiving pain medications after evaluation. She complains of pain throughout her head into the forehead/face, pain at back and bilateral feet, and diffuse non-localized abdominal pain. She otherwise denies any other medical complaints including no fever/chills, nausea/vomiting, or diarrhea. Objective Vitals Vital Signs Date Time Temp Pulse Resp B/P Pulse Ox O2 Delivery O2 Flow Rate FiO2 06/14/16 08:00 96.8 85 20 174/83 93 06/13/16 22:39 97.8 88 20 168/94 96 06/13/16 20:36 90 13 154/77 95 Room Air 06/13/16 20:22 99 18 06/13/16 20:19 101 16 173/80 95 Room Air 06/13/16 20:01 98.3 109 16 152/92 96 Room Air 06/13/16 19:39 118 06/13/16 16:47 98.3 121 16 142/100 97 I/O 06/13/16 06/13/16 06/13/16 06/14/16 06/14/16 06/14/16 06:59 14:59 22:59 06:59 14:59 22:59 Output Total 1200 ml Balance -1200 ml Output Urine Total 1200 ml Result Diagram: 06/14/16 0836 06/14/16 0836 Imaging Last Impressions Head CT 06/13/167 Signed Impressions: Service Date/Time: Monday, June 13, 2016 18:49 - CONCLUSION: Normal examination for a patient of this age. No significant change has occurred. Nba Marion MD Chest X-Ray 06/13/16 1729 Signed Impressions: Service Date/Time: Monday, June 13, 2016 17:36 - CONCLUSION: Bibasilar streakiness consistent with probable atelectasis. Diogenes Lynch MD Objective Remarks GENERAL: Well-nourished, well-developed obese unkempt appearing female patient in [place]. SKIN: Warm and dry. No rash. HEAD: Normocephalic. Atraumatic. EYES: Pupils equal and round. No scleral icterus. No injection or drainage. ENT: No nasal bleeding or discharge. Mucous membranes pink and moist. NECK: Supple. Trachea midline. CARDIOVASCULAR: Regular rate and rhythm. No murmur appreciated. RESPIRATORY: No accessory muscle use. Clear to auscultation. Breath sounds equal bilaterally. GASTROINTESTINAL: Abdomen soft, non-tender, nondistended. Normoactive bowel sounds x4. Colostomy in place. MUSCULOSKELETAL: No obvious deformities. Extremities without clubbing, cyanosis , or edema. NEUROLOGICAL: Awake and alert. No obvious cranial nerve deficits. Motor grossly within normal limits. Normal speech PSYCHIATRIC: Agitated and uncooperative mood; insight and judgment fair. Medications and IVs Current Medications Medications (Trade) Dose Ordered Sig/Trent Route Start Time Stop Time Status Last Admin (NS 1000 ml Inj) 1,000 ml @ 100 mls/hr Q10H IV 06/13/16 20:02 06/13/16 20:53 (NS Flush) 2 ml UNSCH PRN FLUSH 06/13/16 20:15 (NS Flush) 2 ml BID FLUSH 06/13/16 21:00 06/14/16 09:52 (Lovenox Inj) 40 mg Q24H SQ 06/14/16 09:00 06/14/16 09:52 Naloxone HCl 0.4 mg 0.4 mg UNSCH PRN IV 06/13/16 20:15 (Cipro 400 Mg Premix) 200 ml @ 200 mls/hr Q12H IV 06/14/16 07:00 06/14/16 05:39 (Norvasc) 2.5 mg DAILY PO 06/14/16 09:00 06/14/16 09:52 (Lexapro) 10 mg DAILY PO 06/14/16 09:00 06/14/16 09:51 (Atarax) 50 mg HS PO 06/14/16 21:00 (Synthroid) 25 mcg DAILY@0600 PO 06/14/16 06:00 06/14/16 05:39 (Desyrel) 25 mg HS PO 06/14/16 21:00 (D50w (Vial) Inj) 25 ml UNSCH PRN IV PUSH 06/14/16 01:00 (Glucagon Inj) 1 mg UNSCH PRN OTHER 06/14/16 01:00 (Pepcid) 20 mg BID PO 06/14/16 09:00 06/14/16 09:51 (Ferrous Sulfate) 325 mg DAILY PO 06/14/16 09:00 06/14/16 09:51 (Deltasone) 20 mg BID PO 06/14/16 09:00 06/14/16 09:51 (Percocet 5-325 Mg) 1 tab Q6H PRN PO 06/14/16 07:45 06/14/16 09:51 (SEROquel) 100 mg DAILY@0600 PO 06/15/16 06:00 (SEROquel) 200 mg HS PO 06/14/16 21:00 A/P Problem List: (1) Psychoses ICD Code: F29 Status: Acute (2) UTI (urinary tract infection) ICD Code: N39.0 Status: Acute (3) HTN (hypertension) ICD Code: I10 Status: Chronic (4) Diabetes ICD Code: E11.9 Status: Chronic (5) Hypothyroidism ICD Code: E03.9 Status: Chronic Assessment and Plan 60-year-old female with a history of COPD, hypertension, diabetes, hypothyroidism, and schizoaffective disorder presented to the ED via [facility] from [facility] for psych eval. Psychosis/Delirium: suspect secondary to UTI in addition to patient's underlying personality. Head CT images reviewed, unremarkable. UA +UTI, started on IV Cipro. Continued patient's Lexapro, trazodone, Seroquel, Hydroxizine. Psych consulted for assistance, increase Seroquel dosing to 100mg in am and 20mmg hs, added Haldo 5mg IM prn aggressive behavior/agitation. UTI: UA reviewed, showed large leukocyte Esterase. Continue Cipro 400mg IV Q12hrs. Follow urine culture. Leukocytosis, likely due to UTI: Labs reviewed, WBC 15.7, neutrophils 95%. CBC with persistent leukocytosis. Continue to monitor CBC. Hypertension,chronic: Continue patient's home Norvasc. Monitor BP, adjust antihypertensives as needed. Diabetes, chronic: Accu checks ac and hs, SSI. Hypothyroidism, chronic: continue home medications Synthroid DVT prophylaxis: Lovenox GI prophylaxis: Famotidine Written by Kate Reza, acting as scribe for Dr. Baird on 06/14/16 at 08: 40. The documentation accurately reflects the work performed [id number] by Dr. Baird on 06/14/16 at 08:40. Problem Qualifiers (1) Psychoses: Qualified Code: F25.9 - Schizoaffective disorder, unspecified type (2) UTI (urinary tract infection): Qualified Code: N30.01 - Acute cystitis with hematuria Kate Reza PA-C Jun 14, 2016 12:18 Colleen Baird MD Jun 14, 2016 15:28
--- NOTE | 2016-06-14 15:02 | EKG ---
Date Performed: 06/13/2016 Time Performed: 19:31:43 PTAGE: 60 years EKG: SINUS TACHYCARDIA POSSIBLE LEFT ATRIAL ENLARGEMENT BORDERLINE LEFT AXIS DEVIATION NONSPECIF IC ST & T-WAVE ABNORMALITY Since previous tracing, no significant change noted ABNORMAL RHYTHM ECG PREVIOUS TRACING : 01/14/2015 00.17 DOCTOR: Jalil Bazzi Interpretating Date/Time 06/14/2016 15:00:17
[2016-06-14 16:00] VITALS: BP 159/75; PULSE 90; RESP 20; TEMP 96.3; O2SAT 95
[2016-06-14 19:55] VITALS: BP 137/87; PULSE 91; RESP 21; TEMP 98.1; O2SAT 98
[2016-06-14 20:26] VITALS: PULSE 91
[2016-06-14] MEDS: QUEtiapine FUMARATE 200 MG TAB PO SCH (20:34)
[2016-06-14] MEDS: traZODone HCL 50 MG TAB PO SCH (20:34)
[2016-06-14] MEDS: hydrOXYzine HCL 50 MG TAB PO SCH (20:34)
[2016-06-15] VITALS (7 sets, daily range): BP systolic 104–152; BP diastolic 56–86; PULSE 74–93; RESP 18–20; TEMP 97.7–98.5; O2SAT 93–98
[2016-06-15] MEDS: SODIUM CHLOR 0.9% 1000 ML INJ 1,000 ML IV SCH ×3 (00:58→20:43)
[2016-06-15] MEDS: NYSTATIN 100,000 U/GM PWD 15 GM BTL TOPICAL SCH ×3 (00:59→20:43)
[2016-06-15] MEDS: oxyCODONE/ACETAMINOPHEN 5 MG/325 MG TAB PO PRN ×3 (05:44→20:42)
[2016-06-15] MEDS: CIPROFLOXACIN 400 MG PREMIX 200 ML IV SCH ×2 (05:44→18:44)
[2016-06-15] MEDS: LEVOTHYROXINE SODIUM 25 MCG TAB PO SCH (05:44)
[2016-06-15] MEDS: QUEtiapine FUMARATE 100 MG TAB PO SCH (05:44)
[2016-06-15 06:01] LABS: BACTERIA, URINE OCC /hpf; BLOOD, URINE SMALL (NEG); COMMENT (UR) CATH-CULTURE IND; CULTURE IF INDICATED CATH CULTURE IND; GLUCOSE,URINE NEG (NEG); KETONE, URINE NEG (NEG); MUCUS URINE FEW /lpf (OCC); NITRITE,URINE NEG (NEG); PH, URINE 6.5 (5.0-8.5); URINE COLOR YELLOW (YELLW/STRAW)
[2016-06-15] MEDS: INSULIN ASPART SUPPLEMENTAL SCALE SQ SCH ×4 (07:00→20:42)
[2016-06-15] MEDS ORDERED: POTASSIUM CHLORIDE 10 MEQ CONTROLLED RELEASE TAB PO ONE (07:30)
--- NOTE | 2016-06-15 09:06 | HHI.PR ---
Subjective Remarks Follow up for confusion, combative behavior, and UTI. The patient is sleeping upon our arrival, easily awakens. She is much more pleasant today. She states she is feeling much better. Her generalized pains have improved. Denies fevers or chills. She states she really appreciates the staff and everyone has been very nice to her. Night RN reports the patient was calm and cooperative throughout the night. The patient has no other medical complaints to report at this time. Objective Vitals Vital Signs Date Time Temp Pulse Resp B/P Pulse Ox O2 Delivery O2 Flow Rate FiO2 06/15/16 04:07 98.5 74 18 152/62 98 06/15/16 00:32 98.3 76 18 147/67 97 06/14/16 20:26 91 06/14/16 19:55 98.1 91 21 137/87 98 06/14/16 16:00 96.3 90 20 159/75 95 06/14/16 12:00 96.6 88 20 131/75 95 I/O 06/14/16 06/14/16 06/14/16 06/15/16 06/15/16 06/15/16 07:00 15:00 23:00 07:00 15:00 23:00 Intake Total 0 ml 250 ml Output Total 1200 ml 500 ml 0 ml Balance -1200 ml -500 ml 0 ml 250 ml Intake Oral 0 ml 250 ml Output Urine Total 1200 ml 500 ml 0 ml # Voids 1 1 Result Diagram: 06/14/16 0836 06/14/16 0836 Imaging Last Impressions Head CT 06/13/167 Signed Impressions: Service Date/Time: Monday, June 13, 2016 18:49 - CONCLUSION: Normal examination for a patient of this age. No significant change has occurred. Nba Marion MD Chest X-Ray 06/13/16 1729 Signed Impressions: Service Date/Time: Monday, June 13, 2016 17:36 - CONCLUSION: Bibasilar streakiness consistent with probable atelectasis. Diogenes Lynch MD Objective Remarks GENERAL: Well-nourished, well-developed obese unkempt appearing female patient in [facility]. SKIN: Warm and dry. No rash. HEENT: Normocephalic. Atraumatic. Pupils equal and round. No scleral icterus. Mucous membranes pink and moist. NECK: Supple. Trachea midline. CARDIOVASCULAR: Regular rate and rhythm. No murmur appreciated. RESPIRATORY: No accessory muscle use. Clear to auscultation. Breath sounds equal bilaterally. GASTROINTESTINAL: Abdomen soft, non-tender, nondistended. Normoactive bowel sounds x4. Colostomy in place. MUSCULOSKELETAL: No obvious deformities. Extremities without clubbing, cyanosis , or edema. NEUROLOGICAL: Awake and alert. No obvious cranial nerve deficits. Motor grossly within normal limits. Normal speech PSYCHIATRIC: Calm and cooperative mood; insight and judgment normal. Medications and IVs Current Medications Medications (Trade) Dose Ordered Sig/Trent Route Start Time Stop Time Status Last Admin (NS 1000 ml Inj) 1,000 ml @ 100 mls/hr Q10H IV 06/13/16 20:02 06/15/16 00:58 (NS Flush) 2 ml UNSCH PRN FLUSH 06/13/16 20:15 (NS Flush) 2 ml BID FLUSH 06/13/16 21:00 06/14/16 09:52 (Lovenox Inj) 40 mg Q24H SQ 06/14/16 09:00 06/14/16 09:52 Naloxone HCl 0.4 mg 0.4 mg UNSCH PRN IV 06/13/16 20:15 (Cipro 400 Mg Premix) 200 ml @ 200 mls/hr Q12H IV 06/14/16 07:00 06/15/16 05:44 (Norvasc) 2.5 mg DAILY PO 06/14/16 09:00 06/14/16 09:52 (Lexapro) 10 mg DAILY PO 06/14/16 09:00 06/14/16 09:51 (Atarax) 50 mg HS PO 06/14/16 21:00 06/14/16 20:34 (Synthroid) 25 mcg DAILY@0600 PO 06/14/16 06:00 06/15/16 05:44 (Desyrel) 25 mg HS PO 06/14/16 21:00 06/14/16 20:34 (D50w (Vial) Inj) 25 ml UNSCH PRN IV PUSH 06/14/16 01:00 (Glucagon Inj) 1 mg UNSCH PRN OTHER 06/14/16 01:00 (Pepcid) 20 mg BID PO 06/14/16 09:00 06/14/16 20:34 (Ferrous Sulfate) 325 mg DAILY PO 06/14/16 09:00 06/14/16 09:51 (Deltasone) 20 mg BID PO 06/14/16 09:00 06/14/16 20:34 (Percocet 5-325 Mg) 1 tab Q6H PRN PO 06/14/16 07:45 06/15/16 05:44 (SEROquel) 100 mg DAILY@0600 PO 06/15/16 06:00 06/15/16 05:44 (SEROquel) 200 mg HS PO 06/14/16 21:00 06/14/16 20:34 (Mycostatin Powder) 1 applic Q12HR TOPICAL 06/14/16 21:00 06/15/16 00:59 (Santyl Oint) 1 applic DAILY TOP 06/15/16 09:00 Urinary Catheter: Yes Assessment to: Continue Moon insert reason: Stage III/IV Press Ulcer Date of Insertion: Jun 14, 2016 Vascular Central Line Catheter: No A/P Problem List: (1) Psychoses ICD Code: F29 Status: Acute (2) UTI (urinary tract infection) ICD Code: N39.0 Status: Acute (3) HTN (hypertension) ICD Code: I10 Status: Chronic (4) Diabetes ICD Code: E11.9 Status: Chronic (5) Hypothyroidism ICD Code: E03.9 Status: Chronic Assessment and Plan 60-year-old female with a history of COPD, hypertension, diabetes, hypothyroidism, and schizoaffective disorder presented to the ED via EVAC from [facility] for psych eval. Psychosis/Delirium: suspect secondary to UTI in addition to patient's underlying personality. Head CT images reviewed, unremarkable. UA +UTI, started on IV Cipro. Continued patient's Lexapro, trazodone, Seroquel, Hydroxyzine. Psych consulted for assistance, increased Seroquel dosing to 100mg in am and 200mg hs, added Haldol 5mg IM prn aggressive behavior/agitation. Patient much improved. UTI: UA reviewed, showed large leukocyte Esterase. Moon replaced 06/14. Continue Cipro 400mg IV Q12hrs. Follow urine culture. Leukocytosis, likely due to UTI: Labs reviewed, WBC 15.7, neutrophils 95%. CBC with persistent leukocytosis. Continue to monitor CBC. Hypertension,chronic: Continue patient's home Norvasc. Monitor BP, adjust antihypertensives as needed. Diabetes, chronic: Accu checks ac and hs, SSI. Hypothyroidism, chronic: continue home medications Synthroid DVT prophylaxis: Lovenox GI prophylaxis: Famotidine Written by Kate Reza, acting as scribe for Dr. Baird on 06/15/16 at 07: 40. The documentation accurately reflects the work performed [id number] by me Dr. Baird on 06/15/16 at 07:40. Discharge Planning Possible discharge tomorrow, awaiting urine culture. Problem Qualifiers (1) Psychoses: Qualified Code: F25.9 - Schizoaffective disorder, unspecified type (2) UTI (urinary tract infection): Qualified Code: N30.01 - Acute cystitis with hematuria Kate Reza PA-C Jun 15, 2016 09:06 Colleen Baird MD Jun 15, 2016 20:52
--- NOTE | 2016-06-15 10:09 | HHI.PYPN ---
Subjective Remarks Patient was seen today for reevaluation, today she is calmer more cooperative than yesterday, she states that she feels much better, describes her mood as fine, no acute depressive symptoms. Patient had a good sleep last night, she denies recent visual hallucinations and vivid dreams. She denies suicidal and homicidal ideation. No agitation, aggressive behavior, mood and behavior dysregulation observed or reported. Patient is fully oriented in 3, no confusion, attention deficit, or any gross cognitive impairment observed. She has been medication compliant, increased Seroquel dose discussed with the patient, she agrees, denies any side effects. Review of Systems Other No significant changes since 06/14/2006 Objective Alert: Yes [employer]: Person, Place, Date, Situation Mood: Calm Affect: Labile Memory Intact: Immediate, Recent Hallucinations: Other (she denies) Delusions: No Delusion Type: Other (none elicited) Suicidal: Ideation (she denies) Homicidal: Ideation (she denies) Insight/Judgement fair Labs Test 06/15/16 05:41 Urine Color YELLOW Urine Turbidity CLEAR Urine pH 6.5 Urine Specific [place] 1.009 Urine Protein NEG mg/dL Urine Glucose (UA) NEG mg/dL Urine Ketones NEG mg/dL Urine Occult Blood SMALL Urine Nitrite NEG Urine Bilirubin NEG Urine Urobilinogen LESS THAN 2.0 MG/DL Urine Leukocyte Esterase MOD Urine RBC 3 /hpf Urine WBC 12 /hpf Urine Bacteria OCC /hpf Urine Mucus FEW /lpf Microscopic Urinalysis Comment CATH-CULTURE IND Date/Time Procedure Status Source Growth 06/15/16 05:41 Urine Culture Received Urine Catheterized Urine Pending 06/13/16 17:30 Urine Culture - Final Complete Urine Catheterized Urine Vitals/IOs Vital Signs Date Time Temp Pulse Resp B/P Pulse Ox O2 Delivery O2 Flow Rate FiO2 06/15/16 08:00 97.7 87 20 104/56 93 06/13/16 20:36 Room Air Intake and Output 06/14/16 06/14/16 06/14/16 07:59 15:59 23:59 Output Total 1200 ml 500 ml Balance -1200 ml -500 ml Assessment & Plan Problem List: (1) Delirium due to another medical condition Assessment & Plan: On psychiatric evaluation today the patient does not present any evidence of acute depression, karolyn, anxiety or perceptual disturbances. Patient is fully oriented 3, no confusion, delirium observe, she denies visual and auditory hallucinations, she denies suicidal anxiety. Patient has showed good response to medical treatment and psychotropics. Will continue current medication regimen. Patient does not need any immediate psychiatric intervention at this moment. ICD Code: F05 Assessment & Plan Estimated LOS: days Justification for Cont. Inpt. No psychiatric admission indicated at this time Ronaldo Duncan MD Jun 15, 2016 10:09
[2016-06-15] MEDS: SODIUM CHLORIDE 0.9% FLUSH 5 ML FLUSH FLUSH SCH ×2 (10:38→20:42)
[2016-06-15] MEDS: FERROUS SULFATE 325 MG (65 MG ELEMENTAL IRON) TAB PO SCH (10:41)
[2016-06-15] MEDS: predniSONE 20 MG TAB PO SCH ×2 (10:41→20:41)
[2016-06-15] MEDS: amLODIPine BESYLATE 5 MG TAB PO SCH (10:41)
[2016-06-15] MEDS: FAMOTIDINE 20 MG TAB PO SCH ×2 (10:41→20:41)
[2016-06-15] MEDS: ESCITALOPRAM OXALATE 10 MG TAB PO SCH (10:41)
[2016-06-15] MEDS: ENOXAPARIN SODIUM 40 MG/0.4 ML SYRINGE SQ SCH (10:42)
[2016-06-15] MEDS: COLLAGENASE OINT 30 GM TUBE TOP SCH (15:13)
[2016-06-15] MEDS: hydrOXYzine HCL 50 MG TAB PO SCH (20:41)
[2016-06-15] MEDS: QUEtiapine FUMARATE 200 MG TAB PO SCH (20:41)
[2016-06-15] MEDS: traZODone HCL 50 MG TAB PO SCH (20:41)
[2016-06-16] VITALS (10 sets, daily range): BP systolic 130–169; BP diastolic 69–84; PULSE 66–99; RESP 18–20; TEMP 97.6–98; O2SAT 94–97
[2016-06-16] MEDS: oxyCODONE/ACETAMINOPHEN 5 MG/325 MG TAB PO PRN ×4 (03:00→21:22)
[2016-06-16] MEDS: LEVOTHYROXINE SODIUM 25 MCG TAB PO SCH (05:21)
[2016-06-16] MEDS: QUEtiapine FUMARATE 100 MG TAB PO SCH (05:21)
[2016-06-16] MEDS: INSULIN ASPART SUPPLEMENTAL SCALE SQ SCH ×4 (06:10→21:18)
[2016-06-16] MEDS: SODIUM CHLOR 0.9% 1000 ML INJ 1,000 ML IV SCH ×2 (06:16→17:28)
[2016-06-16] MEDS: CIPROFLOXACIN 400 MG PREMIX 200 ML IV SCH ×2 (06:16→18:11)
[2016-06-16] MEDS: amLODIPine BESYLATE 5 MG TAB PO SCH (08:22)
[2016-06-16] MEDS: ENOXAPARIN SODIUM 40 MG/0.4 ML SYRINGE SQ SCH (08:22)
[2016-06-16] MEDS: predniSONE 20 MG TAB PO SCH ×2 (08:22→21:16)
[2016-06-16] MEDS: FAMOTIDINE 20 MG TAB PO SCH ×2 (08:22→21:16)
[2016-06-16] MEDS: ESCITALOPRAM OXALATE 10 MG TAB PO SCH (08:22)
[2016-06-16] MEDS: FERROUS SULFATE 325 MG (65 MG ELEMENTAL IRON) TAB PO SCH (08:22)
[2016-06-16] MEDS: NYSTATIN 100,000 U/GM PWD 15 GM BTL TOPICAL SCH ×2 (08:23→21:58)
[2016-06-16] MEDS: COLLAGENASE OINT 30 GM TUBE TOP SCH (08:23)
[2016-06-16 08:59] LABS: AUTOMATED NEUTROPHIL # 10.1 TH/MM3 (1.8-7.7); BASOPHIL % 0.1 % (0.0-2.0); EOSINOPHIL % 0.1 % (0.0-4.0); HEMATOCRIT 33.6 % (35.0-46.0); HEMO FLAGS DIFF FINAL; LYMPH % 6.2 % (9.0-44.0); LYMPHOCYTE # 0.7 TH/MM3 (1.0-4.8); MEAN CELL VOLUME 89.2 FL (80.0-100.0); MEAN CORPUSCULAR HEMOGLOBIN 30.1 PG (27.0-34.0); MEAN CORPUSCULAR HGB CONC 33.8 % (32.0-36.0); MONO % 4.6 % (0.0-8.0); PLATELET COUNT 167 TH/MM3 (150-450); RED BLOOD COUNT 3.77 MIL/MM3 (4.00-5.30); RED CELL DISTRIBUTION WIDTH 15.5 % (11.6-17.2); WHITE BLOOD COUNT 11.4 TH/MM3 (4.0-11.0)
[2016-06-16] MEDS: SODIUM CHLORIDE 0.9% FLUSH 5 ML FLUSH FLUSH SCH ×2 (09:00→21:00)
[2016-06-16 09:29] LABS: BICARBONATE 23.6 MEQ/L (21.0-32.0); POTASSIUM 3.6 MEQ/L (3.5-5.1)
--- NOTE | 2016-06-16 13:21 | HHI.PR ---
Subjective Remarks Follow up for sepsis with UTI. The patient is awake, alert, oriented today. She reports a mild headache however overall feels much improved. Denies fevers or chills. Denies any nausea/vomiting/diarrhea. Denies any other medical complaints at this time. Objective Vitals Vital Signs Date Time Temp Pulse Resp B/P Pulse Ox O2 Delivery O2 Flow Rate FiO2 06/16/16 11:38 97.9 92 18 130/ 94 06/16/16 08:07 97.7 81 18 134/76 97 06/16/16 04:02 97.8 66 18 169/77 95 06/16/16 03:57 20 06/16/16 00:17 97.6 69 18 145/69 95 06/16/16 00:00 75 06/15/16 20:00 87 06/15/16 19:07 80 06/15/16 16:00 98.2 93 20 135/77 94 I/O 06/15/16 06/15/16 06/15/16 06/16/16 06/16/16 06/16/16 07:00 15:00 23:00 07:00 15:00 23:00 Intake Total 0 ml 250 ml 400 ml 800 ml 480 ml Output Total 0 ml 1050 ml Balance 0 ml 250 ml 400 ml -250 ml 480 ml Intake Oral 0 ml 250 ml 480 ml IV Total 400 ml 800 ml Output Urine Total 0 ml 750 ml Stool Total 300 ml # Voids 1 1 Result Diagram: 06/16/16 0835 06/16/16 0835 Imaging Last Impressions Head CT 06/13/167 Signed Impressions: Service Date/Time: Monday, June 13, 2016 18:49 - CONCLUSION: Normal examination for a patient of this age. No significant change has occurred. Nba Marion MD Chest X-Ray 06/13/16 1729 Signed Impressions: Service Date/Time: Monday, June 13, 2016 17:36 - CONCLUSION: Bibasilar streakiness consistent with probable atelectasis. Diogenes Lynch MD Objective Remarks GENERAL: Well-nourished, well-developed obese unkempt appearing female patient in [facility]. SKIN: Warm and dry. No rash. HEENT: Normocephalic. Atraumatic. Pupils equal and round. No scleral icterus. Mucous membranes pink and moist. NECK: Supple. Trachea midline. CARDIOVASCULAR: Regular rate and rhythm. No murmur appreciated. RESPIRATORY: No accessory muscle use. Clear to auscultation. Breath sounds equal bilaterally. GASTROINTESTINAL: Abdomen soft, non-tender, nondistended. Normoactive bowel sounds x4. Colostomy in place. MUSCULOSKELETAL: No obvious deformities. Extremities without clubbing, cyanosis , or edema. NEUROLOGICAL: Awake and alert. No obvious cranial nerve deficits. Motor grossly within normal limits. Normal speech PSYCHIATRIC: Calm and cooperative mood; insight and judgment normal. Medications and IVs Current Medications Medications (Trade) Dose Ordered Sig/Trent Route Start Time Stop Time Status Last Admin (NS 1000 ml Inj) 1,000 ml @ 100 mls/hr Q10H IV 06/13/16 20:02 06/16/16 06:16 (NS Flush) 2 ml UNSCH PRN FLUSH 06/13/16 20:15 (NS Flush) 2 ml BID FLUSH 06/13/16 21:00 06/15/16 20:42 (Lovenox Inj) 40 mg Q24H SQ 06/14/16 09:00 06/16/16 08:22 Naloxone HCl 0.4 mg 0.4 mg UNSCH PRN IV 06/13/16 20:15 (Cipro 400 Mg Premix) 200 ml @ 200 mls/hr Q12H IV 06/14/16 07:00 06/16/16 06:16 (Norvasc) 2.5 mg DAILY PO 06/14/16 09:00 06/16/16 08:22 (Lexapro) 10 mg DAILY PO 06/14/16 09:00 06/16/16 08:22 (Atarax) 50 mg HS PO 06/14/16 21:00 06/15/16 20:41 (Synthroid) 25 mcg DAILY@0600 PO 06/14/16 06:00 06/16/16 05:21 (Desyrel) 25 mg HS PO 06/14/16 21:00 06/15/16 20:41 (D50w (Vial) Inj) 25 ml UNSCH PRN IV PUSH 06/14/16 01:00 (Glucagon Inj) 1 mg UNSCH PRN OTHER 06/14/16 01:00 (Pepcid) 20 mg BID PO 06/14/16 09:00 06/16/16 08:22 (Ferrous Sulfate) 325 mg DAILY PO 06/14/16 09:00 06/16/16 08:22 (Deltasone) 20 mg BID PO 06/14/16 09:00 06/16/16 08:22 (Percocet 5-325 Mg) 1 tab Q6H PRN PO 06/14/16 07:45 06/16/16 09:18 (SEROquel) 100 mg DAILY@0600 PO 06/15/16 06:00 06/16/16 05:21 (SEROquel) 200 mg HS PO 06/14/16 21:00 06/15/16 20:41 (Mycostatin Powder) 1 applic Q12HR TOPICAL 06/14/16 21:00 06/16/16 08:23 (Santyl Oint) 1 applic DAILY TOP 06/15/16 09:00 06/16/16 08:23 Urinary Catheter: Yes Assessment to: Continue Moon insert reason: Stage III/IV Press Ulcer Date of Insertion: Jun 14, 2016 Vascular Central Line Catheter: No A/P Problem List: (1) Psychoses ICD Code: F29 Status: Acute (2) UTI (urinary tract infection) ICD Code: N39.0 Status: Acute (3) HTN (hypertension) ICD Code: I10 Status: Chronic (4) Diabetes ICD Code: E11.9 Status: Chronic (5) Hypothyroidism ICD Code: E03.9 Status: Chronic Assessment and Plan 60-year-old female with a history of COPD, hypertension, diabetes, hypothyroidism, and schizoaffective disorder presented to the ED via [facility] from [facility] for psych eval. Metabolic Encephalopathy with Psychosis/Delirium: suspect secondary to UTI in addition to patient's underlying personality. Head CT images reviewed, unremarkable. UA +UTI, started on IV Cipro. Continued patient's Lexapro, trazodone, Seroquel, Hydroxyzine. Psych consulted for assistance, increased Seroquel dosing to 100mg in am and 200mg hs, added Haldol 5mg IM prn aggressive behavior/agitation. Patient's mood much improved. Sepsis with UTI: +leukocytosis WBC 15.7K, tachycardic. UA reviewed, showed large leuks. Moon replaced 06/14. Continue Cipro 400mg IV Q12hrs. Preliminary urine culture growing gram negative rods and S.aureus MRSA. Added IV Vanco. Consult infectious disease. Leukocytosis, secondary to UTI: Labs reviewed, WBC 15.7, neutrophils 95%. CBC with persistent leukocytosis. Continue to monitor CBC, improving, WBC 11K today. Hypertension,chronic: Continue patient's home Norvasc. Monitor BP, adjust antihypertensives as needed. Diabetes, chronic: Accu checks ac and hs, SSI. Hypothyroidism, chronic: continue home medications Synthroid Hypokalemia: K 3.3 on 06/15. Given oral KCl replacement. K 3.6 today. Resolved. DVT prophylaxis: Lovenox GI prophylaxis: Famotidine Written by Kate Reza, acting as scribe for Dr. Richard on 06/16/16 at 12 :00. Discharge Planning Admit to inpatient with sepsis/UTI. Awaiting infectious disease consultation. Attending Statement The documentation accurately reflects the work performed [id number] by me on 06/16/16 at 12:00. Problem Qualifiers (1) Psychoses: Qualified Code: F25.9 - Schizoaffective disorder, unspecified type (2) UTI (urinary tract infection): Qualified Code: N30.01 - Acute cystitis with hematuria (3) HTN (hypertension): Qualified Code: I10 - Essential hypertension Kate Reza PA-C Jun 16, 2016 13:21 Lopez Sheets MD Jun 22, 2016 20:26
[2016-06-16] MEDS ORDERED: Vancomycin Consult Pharmacy 1 EA OTHER SCH (13:30)
[2016-06-16] MEDS: VANCOMYCIN 1,000 MG/NS 250 ML IV SCH ×2 (15:21)
[2016-06-16] MEDS: QUEtiapine FUMARATE 200 MG TAB PO SCH (21:15)
[2016-06-16] MEDS: hydrOXYzine HCL 50 MG TAB PO SCH (21:16)
[2016-06-16] MEDS: traZODone HCL 50 MG TAB PO SCH (21:18)
[2016-06-17 03:36] VITALS: BP 151/96; PULSE 91; RESP 20; TEMP 97.9; O2SAT 96
[2016-06-17] MEDS: VANCOMYCIN 1,000 MG/NS 250 ML IV SCH ×4 (03:42→14:29)
[2016-06-17] MEDS: oxyCODONE/ACETAMINOPHEN 5 MG/325 MG TAB PO PRN ×5 (03:43→23:22)
[2016-06-17] MEDS: SODIUM CHLOR 0.9% 1000 ML INJ 1,000 ML IV SCH ×2 (05:13→14:29)
[2016-06-17] MEDS: QUEtiapine FUMARATE 100 MG TAB PO SCH (06:14)
[2016-06-17] MEDS: LEVOTHYROXINE SODIUM 25 MCG TAB PO SCH (06:14)
[2016-06-17] MEDS: CIPROFLOXACIN 400 MG PREMIX 200 ML IV SCH (06:15)
[2016-06-17] MEDS: INSULIN ASPART SUPPLEMENTAL SCALE SQ SCH ×4 (07:00→21:10)
[2016-06-17 08:02] VITALS: PULSE 72
[2016-06-17 08:47] VITALS: BP 138/76; PULSE 73; RESP 18; TEMP 97.1; O2SAT 96
[2016-06-17] MEDS: SODIUM CHLORIDE 0.9% FLUSH 5 ML FLUSH FLUSH SCH ×2 (09:00→21:00)
[2016-06-17] MEDS: ENOXAPARIN SODIUM 40 MG/0.4 ML SYRINGE SQ SCH (09:12)
[2016-06-17] MEDS: NYSTATIN 100,000 U/GM PWD 15 GM BTL TOPICAL SCH ×2 (09:12→21:00)
[2016-06-17] MEDS: amLODIPine BESYLATE 5 MG TAB PO SCH (09:12)
[2016-06-17] MEDS: FERROUS SULFATE 325 MG (65 MG ELEMENTAL IRON) TAB PO SCH (09:12)
[2016-06-17] MEDS: predniSONE 20 MG TAB PO SCH ×2 (09:12→20:58)
[2016-06-17] MEDS: FAMOTIDINE 20 MG TAB PO SCH ×2 (09:12→20:58)
[2016-06-17] MEDS: ESCITALOPRAM OXALATE 10 MG TAB PO SCH (09:12)
[2016-06-17] MEDS: COLLAGENASE OINT 30 GM TUBE TOP SCH ×2 (09:13→20:59)
--- NOTE | 2016-06-17 10:50 | RADRPT ---
EXAM DATE/TIME: 06/17/2016 10:02 [place] COMPARISON: No previous studies available for comparison. INDICATIONS : Fall pain with any motion. MEDICAL HISTORY : Renal calculi. SURGICAL HISTORY : Colostomy. ENCOUNTER: Subsequent ACUITY: 1 week PAIN SCORE: 10/10 LOCATION: Left hip FINDINGS: There is no acute fracture or dislocation of the bony pelvis. Mild degenerative changes are noted in volving the hip joints bilaterally. Mild degenerative changes and scoliosis of the lower lumbar spin e are noted. CONCLUSION: 1. No acute fracture or dislocation of the bony pelvis. 2. Mild degenerative changes involving the hip joints bilaterally. 3. Mild degenerative changes and scoliosis of the lower lumbar spine. Diogenes Lynch MD on June 17, 2016 at 10:36 Board Certified Radiologist. This report was verified electronically.
[2016-06-17 12:02] VITALS: BP 153/70; PULSE 75; RESP 18; TEMP 97.7; O2SAT 96
--- NOTE | 2016-06-17 12:18 | HHI.PR ---
Subjective Remarks Follow-up for UTI. The patient states that she is not doing well today. She complains of pain in her left hip. She says that she had a recent fall where she landed there. She states "I feel like it's fractured". When asked about her fall she states "I don't want to talk about it". She says occasionally she feels feverish and has nausea. She denies any shortness of breath and states her breathing is at baseline. She states that she remembers feeling confused yesterday, but she feels she is thinking clearer today. She denies any change in her ostomy output. Objective Vitals Vital Signs Date Time Temp Pulse Resp B/P Pulse Ox O2 Delivery O2 Flow Rate FiO2 06/17/16 12:02 97.7 75 18 153/70 96 06/17/16 08:47 97.1 73 18 138/76 96 06/17/16 08:02 72 06/17/16 04:45 18 06/17/16 03:36 97.9 91 20 151/96 96 06/16/16 23:56 97.9 81 20 148/74 95 06/16/16 21:18 89 06/16/16 19:26 97.8 96 18 151/84 95 06/16/16 15:05 98.0 99 20 150/79 94 I/O 06/16/16 06/16/16 06/16/16 06/17/16 06/17/16 06/17/16 07:00 15:00 23:00 07:00 15:00 23:00 Intake Total 800 ml 480 ml 500 ml Output Total 1050 ml 1200 ml 1000 ml 1000 ml Balance -250 ml -720 ml -1000 ml -500 ml Intake Oral 480 ml 200 ml IV Total 800 ml 300 ml Output Urine Total 750 ml 900 ml 1000 ml 1000 ml Stool Total 300 ml 300 ml # Voids 1 Result Diagram: 06/16/16 0835 06/16/16 0835 Imaging Last Impressions Hip and Pelvis X-Ray 06/17/16 0000 Signed Impressions: Service Date/Time: Friday, June 17, 2016 10:02 - CONCLUSION: 1. No acute fracture or dislocation of the bony pelvis. 2. Mild degenerative changes involving the hip joints bilaterally. 3. Mild degenerative changes and scoliosis of the lower lumbar spine. Diogenes Lynch MD Head CT 06/13/16 9977 Signed Impressions: Service Date/Time: Monday, June 13, 2016 18:49 - CONCLUSION: Normal examination for a patient of this age. No significant change has occurred. Nba Marion MD Chest X-Ray 06/13/16 1729 Signed Impressions: Service Date/Time: Monday, June 13, 2016 17:36 - CONCLUSION: Bibasilar streakiness consistent with probable atelectasis. Diogenes Lynch MD Objective Remarks GENERAL: Well-developed well-nourished obese. In no acute distress. SKIN: Warm and dry. Stage IV decubitus ulcer. HEENT: Normocephalic. Pupils equal and round. Mucous membranes pink and moist. CARDIOVASCULAR: Regular rate and rhythm. No murmur appreciated. RESPIRATORY: No accessory muscle use. Clear to auscultation. Breath sounds equal bilaterally. GASTROINTESTINAL: Abdomen soft, non-tender, nondistended. Bowel sounds x4. Ostomy in place. MUSCULOSKELETAL: No obvious deformities. No clubbing or cyanosis. No edema. NEUROLOGICAL: Awake and alert. No focal neurological deficits. Moves upper and lower extremities spontaneously. Normal speech. PSYCHIATRIC: Appropriate mood and affect; insight and judgment normal. Medications and IVs Current Medications Medications (Trade) Dose Ordered Sig/Trent Route Start Time Stop Time Status Last Admin (NS 1000 ml Inj) 1,000 ml @ 100 mls/hr Q10H IV 06/13/16 20:02 06/22/16 15:03 (NS Flush) 2 ml UNSCH PRN FLUSH 06/13/16 20:15 (NS Flush) 2 ml BID FLUSH 06/13/16 21:00 06/21/16 20:18 (Lovenox Inj) 40 mg Q24H SQ 06/14/16 09:00 06/22/16 08:28 (Narcan Inj) 0.4 mg UNSCH PRN IV 06/13/16 20:15 (Norvasc) 2.5 mg DAILY PO 06/14/16 09:00 06/22/16 08:27 (Lexapro) 10 mg DAILY PO 06/14/16 09:00 06/22/16 08:28 (Atarax) 50 mg HS PO 06/14/16 21:00 06/22/16 19:32 (Synthroid) 25 mcg DAILY@0600 PO 06/14/16 06:00 06/22/16 05:56 (Desyrel) 25 mg HS PO 06/14/16 21:00 06/22/16 19:32 (D50w (Vial) Inj) 25 ml UNSCH PRN IV PUSH 06/14/16 01:00 (Glucagon Inj) 1 mg UNSCH PRN OTHER 06/14/16 01:00 (Pepcid) 20 mg BID PO 06/14/16 09:00 06/22/16 19:32 (Ferrous Sulfate) 325 mg DAILY PO 06/14/16 09:00 06/22/16 08:26 (Deltasone) 20 mg BID PO 06/14/16 09:00 06/22/16 19:32 (SEROquel) 100 mg DAILY@0600 PO 06/15/16 06:00 06/22/16 05:56 (SEROquel) 200 mg HS PO 06/14/16 21:00 06/22/16 21:02 (Mycostatin Powder) 1 applic Q12HR TOPICAL 06/14/16 21:00 06/22/16 19:33 (Santyl Oint) 1 applic DAILY TOP 06/15/16 09:00 06/22/16 08:30 Oxycodone/ Acetaminophen 1 tab 1 tab Q4H PRN PO 06/17/16 11:45 06/22/16 21:03 (Zosyn 3.375 Gm Premix) 50 ml @ 100 mls/hr Q6H IV 06/17/16 14:00 06/22/16 19:32 (Ativan) 0.5 mg Q4H PRN PO 06/19/16 17:00 06/22/16 21:03 Date of Insertion: Jun 14, 2016 A/P Problem List: (1) Psychoses ICD Code: F29 Status: Acute (2) UTI (urinary tract infection) ICD Code: N39.0 Status: Acute (3) HTN (hypertension) ICD Code: I10 Status: Chronic (4) Diabetes ICD Code: E11.9 Status: Chronic (5) Hypothyroidism ICD Code: E03.9 Status: Chronic Assessment and Plan 60-year-old female with a history of COPD, hypertension, diabetes, hypothyroidism, and schizoaffective disorder presented to the ED via [facility] from [facility] for psych eval. Metabolic Encephalopathy with Psychosis/Delirium: suspect secondary to UTI in addition to patient's underlying personality. Head CT unremarkable. UA +UTI, started on IV Cipro. Continued patient's Lexapro, trazodone, Seroquel, Hydroxyzine. Psych consulted for assistance, increased Seroquel dosing to 100mg in am and 200mg hs, added Haldol 5mg IM prn aggressive behavior/agitation. Patient's mood much improved. Sepsis with UTI: +leukocytosis, tachycardic. Urine culture growing Escherichia coli, MRSA, and Raoultella Ornithinolytica. Moon replaced 06/14. Change IV Cipro to Zosyn based on sensitivities. Continue IV vancomycin. Consulted infectious disease appreciate specialist input. Leukocytosis, secondary to UTI: WBC 15.7, trending down to 11.4. Continue to monitor CBC, improving. Left hip pain: Reportedly secondary to recent fall. Checked x-ray of the left hip and pelvis, no acute fractures, chronic changes. PT eval. Continue pain control with Percocet. Hypertension,chronic: Continue patient's home Norvasc. Monitor BP, adjust antihypertensives as needed. Diabetes, chronic: Accu checks ac and hs, SSI. Hypothyroidism, chronic: continue home medications Synthroid Hypokalemia: K 3.3 on 06/15. Given oral KCl replacement. K 3.6. Resolved. DVT prophylaxis: Lovenox GI prophylaxis: Famotidine Written by Burke Oneal, acting as scribe for Dr. Richard on 06/17/16 at 12:14. Discharge Planning Disposition pending clinical course. Attending Statement The documentation accurately reflects the work performed [id number] by me on 06/17/16 at 12:14. Problem Qualifiers (1) Psychoses: Qualified Code: F25.9 - Schizoaffective disorder, unspecified type (2) UTI (urinary tract infection): Qualified Code: N30.01 - Acute cystitis with hematuria (3) HTN (hypertension): Qualified Code: I10 - Essential hypertension Burke Oneal Jun 17, 2016 12:18 Lopez Sheets MD Jun 22, 2016 21:11
[2016-06-17] MEDS: PIPERACIL-TAZO 3.375 GM PREMIX 50 ML IV SCH ×2 (13:04→20:57)
[2016-06-17 16:43] VITALS: BP 142/76; PULSE 78; RESP 18; TEMP 97.7; O2SAT 95
[2016-06-17 19:52] VITALS: BP 151/77; PULSE 83; RESP 18; TEMP 98.9; O2SAT 98
[2016-06-17] MEDS: QUEtiapine FUMARATE 200 MG TAB PO SCH (20:58)
[2016-06-17] MEDS: hydrOXYzine HCL 50 MG TAB PO SCH (20:58)
[2016-06-17] MEDS: traZODone HCL 50 MG TAB PO SCH (20:59)
--- NOTE | 2016-06-17 21:34 | PD.ID.CON ---
History of Present Illness Service ID Consult Requested By Kate DEAN Reason for Consult complicated UTI Primary Care Physician No Primary Care Physician Diagnoses: History of Present Illness 60 yo female whose health rapidly started deteriorate about 2 mos ago. She is a poor historia and states she has memory deficits. HSe tells me she falls ferquently and her L hip and head are hurting She [facility] combativeness and delirium Her urinalysis was abnormal and she was started on broad spectrum abx (zosyn and vancomycin) SHe grew out MRSA and two gram negative rods ESCHERICHIA COLI and RAOULTELLA ORNITHINOLYTICA Pt denied any urinary simptoms. SHe did not have a fever but had leukocytosis on presentation which has improved since admission Blood clx not done on admission Review of Systems ROS Limitations: Poor Historian Past Family Social History Allergies: Coded Allergies: Cephalosporins (Verified Allergy, Severe, 06/13/16) Iodine (Verified Allergy, Severe, Anaphylaxis, 06/13/16) Latex (Verified Allergy, Severe, 06/13/16) Reglan (Verified Allergy, Severe, 06/13/16) Sulfa (Verified Allergy, Severe, 06/13/16) *MDRO Multi-Drug Resistant Organism (Verified Adverse Reaction, Unknown, MRSA, 06/16/16) MRSA (urine) - 06/15/16 Past Medical History schizoaffective disorder, no previous hospitalizations, no previous suicidal attempts, with a history of COPD, hypertension, diabetes, hypothyroidism, Past Surgical History esophageal dilation L knee replacement Active Ordered Medications Medications where reviewed in EMR Antibiotics Include: zosyn vancomycin Family History Non-Contributory. Social History No Tobacco. No ETOH. No Illicit Drugs. Physical Exam Vital Signs Vital Signs Date Time Temp Pulse Resp B/P Pulse Ox O2 Delivery O2 Flow Rate FiO2 06/17/16 20:02 18 06/17/16 19:52 98.9 83 18 151/77 98 06/17/16 16:43 97.7 78 18 142/76 95 06/17/16 12:02 97.7 75 18 153/70 96 06/17/16 08:47 97.1 73 18 138/76 96 06/17/16 08:02 72 06/17/16 04:45 18 06/17/16 03:36 97.9 91 20 151/96 96 06/16/16 23:56 97.9 81 20 148/74 95 06/16/16 21:18 89 Physical Exam CONSTITUTIONAL/GENERAL: This is an obese cushingoid appearing female patient with central obesity and wasted extremeties , in no apparent distress. TUBES/LINES/DRAINS: SKIN: No jaundice, rashes, or lesions. Ecchymoses on upper extremities. Skin temperature appropriate. Not diaphoretic. HEAD: Atraumatic. Normocephalic. EYES: Pupils equal and round and reactive. Extraocular motions intact. No scleral icterus. No injection or drainage. Fundi not examined. ENT: Hearing grossly normal. Nose without bleeding or purulent drainage. Oral mucosae without visible erythema, exudates, masses, or lesions. NECK: Trachea midline. Supple, nontender. CARDIOVASCULAR: Regular rate and rhythm without murmurs, gallops, or rubs. No JVD. Peripheral pulses symmetric. RESPIRATORY/CHEST: Symmetric, unlabored respirations. Clear to auscultation. Breath sounds equal bilaterally. No wheezes, rales, or rhonchi. GASTROINTESTINAL: Abdomen soft, non-tender, nondistended. No hepato-splenomegaly , or palpable masses. No guarding. Bowel sounds present. GENITOURINARY: Without palpable bladder distension. MUSCULOSKELETAL: Extremities without clubbing, cyanosis, + trace edema. + L hip joint tenderness no effusion noted. No calf tenderness. No mottling or clubbing. LYMPHATICS: No palpable cervical or supraclavicular adenopathy. NEUROLOGICAL: Awake and alert. Motor and sensory grossly within normal limits. Follows commands. Normal speech. Problems with memory. Moves all extremities. PSYCHIATRIC: Irritable, forgetful, but overall cooperative and calm Laboratory Date/Time Procedure Status Source Growth 06/15/16 05:41 Urine Culture - Final Complete Urine Catheterized Urine Escherichia Coli Raoultella Ornithinolytica S. Aureus Mrsa Result Diagram: 06/16/16 0835 06/16/16 0835 Imaging Last Impressions Hip and Pelvis X-Ray 06/17/16 0000 Signed Impressions: Service Date/Time: Friday, June 17, 2016 10:02 - CONCLUSION: 1. No acute fracture or dislocation of the bony pelvis. 2. Mild degenerative changes involving the hip joints bilaterally. 3. Mild degenerative changes and scoliosis of the lower lumbar spine. Diogenes Lynch MD Head CT 06/13/16 1737 Signed Impressions: Service Date/Time: Monday, June 13, 2016 18:49 - CONCLUSION: Normal examination for a patient of this age. No significant change has occurred. Nba Marion MD Chest X-Ray 06/13/16 1729 Signed Impressions: Service Date/Time: Monday, June 13, 2016 17:36 - CONCLUSION: Bibasilar streakiness consistent with probable atelectasis. Diogenes Lynch MD Assessment and Plan Assessment and Plan UTI, ESCHERICHIA COLI and RAOULTELLA ORNITHINOLYTICA MRSA bacteriuria- likely colonisation - tyically not a urinary pathogen COndition improved - cont zosyn, vanco for now - Repeat UA, C+S - chk blood clx to exclude occult MRSA bactermeia since frequently MRSA bacteruria is a secondary to bacteremia - consider to chk cortisol levels (pt has cushingoid appearance and newlky diagnosed DM w/o external sterroids) Ashia Bazzi MD Jun 17, 2016 21:34 Ashia Bazzi MD Jun 17, 2016 21:34
[2016-06-17 23:48] LABS: BLOOD, URINE TRACE (NEG); COMMENT (UR) CATH-CULTURE IND; CULTURE IF INDICATED CATH CULTURE IND; GLUCOSE,URINE NEG (NEG); HYALINE CAST, URINE 1 /lpf (RARE); KETONE, URINE NEG (NEG); MUCUS URINE FEW /lpf (OCC); NITRITE,URINE POS (NEG); PH, URINE 5.5 (5.0-8.5); URINE COLOR LIGHT-YELLOW (YELLW/STRAW)
[2016-06-18] VITALS (10 sets, daily range): BP systolic 116–167; BP diastolic 64–89; PULSE 66–98; RESP 16–20; TEMP 97.5–98.9; O2SAT 94–98
[2016-06-18] MEDS: SODIUM CHLOR 0.9% 1000 ML INJ 1,000 ML IV SCH ×3 (02:11→20:02)
[2016-06-18] MEDS: PIPERACIL-TAZO 3.375 GM PREMIX 50 ML IV SCH ×4 (02:11→20:01)
[2016-06-18] MEDS ORDERED: PHARMACY ORDERED LAB XX ONE ×2 (02:45→14:45)
[2016-06-18] MEDS: VANCOMYCIN 1,000 MG/NS 250 ML IV SCH ×4 (03:25→16:03)
[2016-06-18] MEDS: LEVOTHYROXINE SODIUM 25 MCG TAB PO SCH (06:37)
[2016-06-18] MEDS: QUEtiapine FUMARATE 100 MG TAB PO SCH (06:37)
[2016-06-18] MEDS: INSULIN ASPART SUPPLEMENTAL SCALE SQ SCH ×4 (07:00→20:05)
[2016-06-18] MEDS: FERROUS SULFATE 325 MG (65 MG ELEMENTAL IRON) TAB PO SCH (09:14)
[2016-06-18] MEDS: amLODIPine BESYLATE 5 MG TAB PO SCH (09:14)
[2016-06-18] MEDS: predniSONE 20 MG TAB PO SCH ×2 (09:14→20:01)
[2016-06-18] MEDS: FAMOTIDINE 20 MG TAB PO SCH ×2 (09:14→20:02)
[2016-06-18] MEDS: ENOXAPARIN SODIUM 40 MG/0.4 ML SYRINGE SQ SCH (09:14)
[2016-06-18] MEDS: ESCITALOPRAM OXALATE 10 MG TAB PO SCH (09:14)
[2016-06-18] MEDS: SODIUM CHLORIDE 0.9% FLUSH 5 ML FLUSH FLUSH SCH ×2 (09:15→20:04)
[2016-06-18] MEDS: COLLAGENASE OINT 30 GM TUBE TOP SCH (09:15)
[2016-06-18] MEDS: NYSTATIN 100,000 U/GM PWD 15 GM BTL TOPICAL SCH ×2 (09:16→20:05)
--- NOTE | 2016-06-18 09:29 | HHI.PR ---
Subjective Remarks Follow-up for UTI. The patient states that she feels tired today. She reports occasional nausea, no vomiting. She reports occasional chills, no fevers. She continues to complain of left hip pain, 78/10 in severity. She does not typically have an indwelling Moon catheter, however is demanding to keep Moon catheter for now with severe hip pain. Objective Vitals Vital Signs Date Time Temp Pulse Resp B/P Pulse Ox O2 Delivery O2 Flow Rate FiO2 06/18/16 05:50 68 06/18/16 04:28 98.1 74 18 145/74 98 06/18/16 04:25 98.4 06/18/16 02:05 18 06/18/16 00:17 98.9 74 18 154/73 97 06/17/16 19:52 98.9 83 18 151/77 98 06/17/16 16:43 97.7 78 18 142/76 95 06/17/16 12:02 97.7 75 18 153/70 96 I/O 06/17/16 06/17/16 06/17/16 06/18/16 06/18/16 06/18/16 07:00 15:00 23:00 07:00 15:00 23:00 Intake Total 500 ml 1240 ml 240 ml Output Total 1000 ml 1800 ml 1200 ml Balance -500 ml -560 ml -960 ml Intake Oral 200 ml 540 ml 240 ml IV Total 300 ml 700 ml Output Urine Total 1000 ml 1500 ml 1200 ml Stool Total 300 ml # Voids 1 2 Result Diagram: 06/16/16 0835 06/18/16 0542 Imaging Last Impressions Hip and Pelvis X-Ray 06/17/16 0000 Signed Impressions: Service Date/Time: Friday, June 17, 2016 10:02 - CONCLUSION: 1. No acute fracture or dislocation of the bony pelvis. 2. Mild degenerative changes involving the hip joints bilaterally. 3. Mild degenerative changes and scoliosis of the lower lumbar spine. Diogenes Lynch MD Head CT 06/13/16 8194 Signed Impressions: Service Date/Time: Monday, June 13, 2016 18:49 - CONCLUSION: Normal examination for a patient of this age. No significant change has occurred. Nba Marion MD Chest X-Ray 06/13/16 0657 Signed Impressions: Service Date/Time: Monday, June 13, 2016 17:36 - CONCLUSION: Bibasilar streakiness consistent with probable atelectasis. Diogenes Lynch MD Objective Remarks GENERAL: Well-developed well-nourished obese. In no acute distress. SKIN: Warm and dry. Stage IV decubitus ulcer. Areas of ecchymosis on the upper extremities. HEENT: Normocephalic. Pupils equal and round. Mucous membranes pink and moist. CARDIOVASCULAR: Regular rate and rhythm. No murmur appreciated. RESPIRATORY: No accessory muscle use. Clear to auscultation. Breath sounds equal bilaterally. GASTROINTESTINAL: Abdomen soft, non-tender, nondistended. Bowel sounds x4. Ostomy in place. MUSCULOSKELETAL: No obvious deformities. No clubbing or cyanosis. No edema. NEUROLOGICAL: Awake and alert. No focal neurological deficits. Moves upper and lower extremities spontaneously. Normal speech. PSYCHIATRIC: Appropriate mood and affect; insight and judgment normal. Date of Insertion: Jun 14, 2016 A/P Problem List: (1) Psychoses ICD Code: F29 Status: Acute (2) UTI (urinary tract infection) ICD Code: N39.0 Status: Acute (3) HTN (hypertension) ICD Code: I10 Status: Chronic (4) Diabetes ICD Code: E11.9 Status: Chronic (5) Hypothyroidism ICD Code: E03.9 Status: Chronic Assessment and Plan 60-year-old female with a history of COPD, hypertension, diabetes, hypothyroidism, and schizoaffective disorder presented to the ED via EVAC from [facility] for psych eval. Metabolic Encephalopathy with Psychosis/Delirium: suspect secondary to UTI in addition to patient's underlying personality. Head CT unremarkable. UA +UTI, started on IV Cipro. Continued patient's Lexapro, trazodone, Seroquel, Hydroxyzine. Psych consulted for assistance, increased Seroquel dosing to 100mg in am and 200mg hs, added Haldol 5mg IM prn aggressive behavior/agitation. Patient's mood much improved. Sepsis with UTI: +leukocytosis, tachycardic. Urine culture growing Escherichia coli, MRSA, and Raoultella Ornithinolytica. Moon replaced 06/14. Changed IV Cipro to Zosyn based on sensitivities. Continue IV vancomycin. Consulted infectious disease, blood and urine cultures were ordered and recommend continue current antibiotics, appreciate specialist input. Follow-up cultures. Leukocytosis, secondary to UTI: WBC 15.7, trending down to 11.4. Continue to monitor CBC, improving. Left hip pain: Reportedly secondary to recent fall. Checked x-ray of the left hip and pelvis, no acute fractures, chronic changes. PT eval, continue rehabilitation. Continue pain control with Percocet. Hypertension,chronic: Continue patient's home Norvasc. Monitor BP, adjust antihypertensives as needed. Diabetes, chronic: Accu checks ac and hs, SSI. Hypothyroidism, chronic: continue home medications Synthroid Hypokalemia: K 3.3 on 06/15. Given oral KCl replacement. K 3.6. Resolved. DVT prophylaxis: Lovenox GI prophylaxis: Famotidine Written by Burke Oneal, acting as scribe for Dr. Richard on 06/18/16 at 09:28. Discharge Planning Disposition pending clinical course. Attending Statement The documentation accurately reflects the work performed [id number] by me on 06/18/16 at 09:28. Problem Qualifiers (1) Psychoses: Qualified Code: F25.9 - Schizoaffective disorder, unspecified type (2) UTI (urinary tract infection): Qualified Code: N30.01 - Acute cystitis with hematuria (3) HTN (hypertension): Qualified Code: I10 - Essential hypertension Burke Oneal Jun 18, 2016 09:29 Lopez Sheets MD Jun 22, 2016 21:56
[2016-06-18] MEDS: oxyCODONE/ACETAMINOPHEN 5 MG/325 MG TAB PO PRN ×3 (11:06→20:02)
[2016-06-18] MEDS: QUEtiapine FUMARATE 200 MG TAB PO SCH (20:01)
[2016-06-18] MEDS: traZODone HCL 50 MG TAB PO SCH (20:01)
[2016-06-18] MEDS: hydrOXYzine HCL 50 MG TAB PO SCH (20:02)
[2016-06-19] MEDS: PIPERACIL-TAZO 3.375 GM PREMIX 50 ML IV SCH ×4 (01:20→20:20)
[2016-06-19] MEDS: oxyCODONE/ACETAMINOPHEN 5 MG/325 MG TAB PO PRN ×5 (01:42→21:34)
[2016-06-19] MEDS: VANCOMYCIN 1,000 MG/NS 250 ML IV SCH ×4 (01:42→17:21)
[2016-06-19 03:37] VITALS: BP 143/63; PULSE 73; RESP 18; TEMP 96.8; O2SAT 95
[2016-06-19 05:25] LABS: AUTOMATED NEUTROPHIL # 10.9 TH/MM3 (1.8-7.7); BASOPHIL % 0.3 % (0.0-2.0); EOSINOPHIL % 0.1 % (0.0-4.0); HEMATOCRIT 33.2 % (35.0-46.0); HEMO FLAGS DIFF FINAL; LYMPH % 3.2 % (9.0-44.0); LYMPHOCYTE # 0.4 TH/MM3 (1.0-4.8); MEAN CELL VOLUME 89.1 FL (80.0-100.0); MEAN CORPUSCULAR HGB CONC 33.7 % (32.0-36.0); MONO % 2.9 % (0.0-8.0); NEUT % 93.5 % (16.0-70.0); PLATELET COUNT 132 TH/MM3 (150-450); RED BLOOD COUNT 3.72 MIL/MM3 (4.00-5.30); RED CELL DISTRIBUTION WIDTH 15.2 % (11.6-17.2); WHITE BLOOD COUNT 11.7 TH/MM3 (4.0-11.0)
[2016-06-19 05:47] LABS: BICARBONATE 21.4 MEQ/L (21.0-32.0); POTASSIUM 4.5 MEQ/L (3.5-5.1)
[2016-06-19] MEDS: QUEtiapine FUMARATE 100 MG TAB PO SCH (06:07)
[2016-06-19] MEDS: LEVOTHYROXINE SODIUM 25 MCG TAB PO SCH (06:07)
[2016-06-19] MEDS: SODIUM CHLOR 0.9% 1000 ML INJ 1,000 ML IV SCH ×3 (06:09→20:21)
[2016-06-19] MEDS: INSULIN ASPART SUPPLEMENTAL SCALE SQ SCH ×4 (06:09→20:20)
--- NOTE | 2016-06-19 07:17 | HHI.PR ---
Subjective Remarks Follow up for UTI. Ms. Eduardo is doing well. Denies any chest pain, shortness of breath, fever, chills. She is tolerating diet well. She has persistent hip pain which along with her lower ext weakness make it difficult for her to walk. She would like to keep albrecht cath for now. Objective Vitals Vital Signs Date Time Temp Pulse Resp B/P Pulse Ox O2 Delivery O2 Flow Rate FiO2 06/19/16 03:37 96.8 73 18 143/63 95 06/18/16 23:36 97.8 69 16 116/64 94 06/18/16 19:55 97.6 68 18 136/69 97 06/18/16 16:00 97.9 98 18 167/74 96 06/18/16 12:00 97.9 75 18 139/86 97 06/18/16 09:46 97.5 87 20 143/89 96 06/18/16 08:40 66 I/O 06/18/16 06/18/16 06/18/16 06/19/16 06/19/16 06/19/16 06:59 14:59 22:59 06:59 14:59 22:59 Intake Total 240 ml 60 ml 480 ml 360 ml Output Total 1200 ml 250 ml 1500 ml 480 ml Balance -960 ml -190 ml -1020 ml -120 ml Intake Oral 240 ml 60 ml 480 ml 360 ml Output Urine Total 1200 ml 250 ml 1500 ml 480 ml # Voids 2 # Bowel Movements 0 0 Result Diagram: 06/19/16 0414 06/19/16 0414 Imaging Last Impressions Hip and Pelvis X-Ray 06/17/16 0000 Signed Impressions: Service Date/Time: Friday, June 17, 2016 10:02 - CONCLUSION: 1. No acute fracture or dislocation of the bony pelvis. 2. Mild degenerative changes involving the hip joints bilaterally. 3. Mild degenerative changes and scoliosis of the lower lumbar spine. Diogenes Lynch MD Head CT 06/13/161736 Signed Impressions: Service Date/Time: Monday, June 13, 2016 18:49 - CONCLUSION: Normal examination for a patient of this age. No significant change has occurred. Nba Marion MD Chest X-Ray 06/13/161728 Signed Impressions: Service Date/Time: Monday, June 13, 2016 17:36 - CONCLUSION: Bibasilar streakiness consistent with probable atelectasis. Diogenes Lynch MD Objective Remarks GENERAL: Alert, lethargic, NAD. SKIN: Warm and dry. Stage IV decub ulcer. HEAD: Normocephalic. EYES: No scleral icterus. No injection or drainage. NECK: Supple, trachea midline. No JVD or lymphadenopathy. CARDIOVASCULAR: Regular rate and rhythm without murmurs, gallops, or rubs. RESPIRATORY: Breath sounds equal bilaterally. No accessory muscle use. GASTROINTESTINAL: Abdomen soft, non-tender, nondistended. Ostomy in place. MUSCULOSKELETAL: No cyanosis, or edema. BACK: Nontender without obvious deformity. No CVA tenderness. Procedures None. Date of Insertion: Jun 14, 2016 A/P Problem List: (1) Psychoses ICD Code: F29 Status: Acute (2) UTI (urinary tract infection) ICD Code: N39.0 Status: Acute (3) HTN (hypertension) ICD Code: I10 Status: Chronic (4) Diabetes ICD Code: E11.9 Status: Chronic (5) Hypothyroidism ICD Code: E03.9 Status: Chronic Assessment and Plan 60-year-old female with a history of COPD, hypertension, diabetes, hypothyroidism, and schizoaffective disorder presented to the ED via [facility]AC from [facility] for psych eval. - Metabolic Encephalopathy with Psychosis/Delirium - suspect secondary to UTI in addition to patient's underlying personality. - Head CT unremarkable. UA shows +UTI - Currently on Vanc/Zosyn. - Continued patient's Lexapro, trazodone, Seroquel, Hydroxyzine. - Psych consulted for assistance, increased Seroquel dosing to 100mg in am and 200mg hs, added Haldol 5mg IM prn Patient's - mood much improved. Sepsis with UTI: +leukocytosis, tachycardic. - Urine culture growing Escherichia coli, MRSA, and Raoultella Ornithinolytica. - Albrecht replaced 06/14/2016. Continue IV vancomycin and zosyn. - Consulted infectious disease, blood and urine cultures were ordered and recommend continue current antibiotics. - Blood cultures negative so far. If Blood cx continues to be negative, we can probably discontinue Vancomycin. - Will discuss with ID (Dr. Bazzi) on 06/20/2016. - WBC 15.7, trending down to 11.7. Left hip pain: Reportedly secondary to recent fall. - Checked x-ray of the left hip and pelvis, no acute fractures, chronic changes. - PT eval, continue rehabilitation. Continue pain control with Percocet. Hypertension,chronic: Continue patient's home Norvasc. Monitor BP, adjust antihypertensives as needed. Diabetes, chronic - Continue sliding scale insulin. Hypothyroidism, chronic: continue home medications Synthroid Hypokalemia: K 3.3 on 06/15. Given oral KCl replacement. K 3.6. Resolved. DVT prophylaxis: Lovenox Problem Qualifiers (1) Psychoses: Qualified Code: F25.9 - Schizoaffective disorder, unspecified type (2) UTI (urinary tract infection): Qualified Code: N30.01 - Acute cystitis with hematuria (3) HTN (hypertension): Qualified Code: I10 - Essential hypertension Nikhil Limon DO Jun 19, 2016 07:17
[2016-06-19 08:00] VITALS: BP 135/77; PULSE 72; RESP 18; TEMP 96.5; O2SAT 93
[2016-06-19] MEDS: SODIUM CHLORIDE 0.9% FLUSH 5 ML FLUSH FLUSH SCH ×2 (09:00→20:19)
[2016-06-19 09:10] VITALS: O2SAT 99
[2016-06-19] MEDS: FERROUS SULFATE 325 MG (65 MG ELEMENTAL IRON) TAB PO SCH (09:21)
[2016-06-19] MEDS: predniSONE 20 MG TAB PO SCH ×2 (09:21→20:23)
[2016-06-19] MEDS: FAMOTIDINE 20 MG TAB PO SCH ×2 (09:21→20:20)
[2016-06-19] MEDS: ENOXAPARIN SODIUM 40 MG/0.4 ML SYRINGE SQ SCH (09:21)
[2016-06-19] MEDS: ESCITALOPRAM OXALATE 10 MG TAB PO SCH (09:21)
[2016-06-19] MEDS: amLODIPine BESYLATE 5 MG TAB PO SCH (09:21)
[2016-06-19] MEDS: NYSTATIN 100,000 U/GM PWD 15 GM BTL TOPICAL SCH ×2 (09:22→20:21)
[2016-06-19] MEDS: COLLAGENASE OINT 30 GM TUBE TOP SCH (09:22)
[2016-06-19 12:00] VITALS: BP 128/74; PULSE 81; RESP 20; TEMP 97.4; O2SAT 91
[2016-06-19] MEDS ORDERED: PHARMACY ORDERED LAB XX ONE (14:45)
[2016-06-19 16:00] VITALS: BP 139/69; PULSE 99; RESP 20; TEMP 98.4; O2SAT 93
[2016-06-19] MEDS: LORazepam 0.5 MG TAB PO PRN ×2 (17:21→21:34)
[2016-06-19 20:00] VITALS: BP 156/76; PULSE 86; RESP 20; TEMP 98; O2SAT 93
[2016-06-19] MEDS: traZODone HCL 50 MG TAB PO SCH (20:20)
[2016-06-19] MEDS: hydrOXYzine HCL 50 MG TAB PO SCH (20:20)
[2016-06-19] MEDS: QUEtiapine FUMARATE 200 MG TAB PO SCH (20:20)
[2016-06-20] VITALS: BP 130/78; PULSE 82; RESP 18; TEMP 98; O2SAT 93
[2016-06-20] MEDS: PIPERACIL-TAZO 3.375 GM PREMIX 50 ML IV SCH ×4 (02:18→20:38)
[2016-06-20] MEDS: VANCOMYCIN 1,000 MG/NS 250 ML IV SCH ×4 (05:25→17:20)
[2016-06-20] MEDS: LEVOTHYROXINE SODIUM 25 MCG TAB PO SCH (05:25)
[2016-06-20] MEDS: QUEtiapine FUMARATE 100 MG TAB PO SCH (05:25)
[2016-06-20] MEDS: INSULIN ASPART SUPPLEMENTAL SCALE SQ SCH ×4 (05:47→20:39)
[2016-06-20] MEDS: oxyCODONE/ACETAMINOPHEN 5 MG/325 MG TAB PO PRN ×4 (06:29→20:40)
[2016-06-20 08:00] VITALS: BP 134/75; PULSE 76; RESP 18; TEMP 97.4; O2SAT 95
--- NOTE | 2016-06-20 08:59 | HHI.PR ---
Subjective Remarks Follow-up for UTI. Patient is currently doing well. Denies any fever or chills. Tolerating diet well. We discussed again regarding discharge plan. Patient is planning to go to stay with her ex- for a few days before she finds some kind of arrangements through her [facility]iscopal. Objective Vitals Vital Signs Date Time Temp Pulse Resp B/P Pulse Ox O2 Delivery O2 Flow Rate FiO2 06/20/16 08:00 97.4 76 18 134/75 95 06/20/16 00:00 98.0 82 18 130/78 93 06/19/16 20:00 98.0 86 20 156/76 93 06/19/16 16:00 98.4 99 20 139/69 93 06/19/16 12:00 97.4 81 20 128/74 91 06/19/16 09:10 99 21 I/O 06/19/16 06/19/16 06/19/16 06/20/16 06/20/16 06/20/16 07:00 15:00 23:00 07:00 15:00 23:00 Intake Total 360 ml 800 ml 1097 ml 120 ml Output Total 480 ml 2000 ml 300 ml 800 ml Balance -120 ml -1200 ml 797 ml -680 ml Intake Oral 360 ml 800 ml 320 ml 120 ml IV Total 777 ml Output Urine Total 480 ml 1650 ml 300 ml 600 ml Stool Total 350 ml 200 ml # Bowel Movements 0 Result Diagram: 06/19/16 0414 06/20/16 0613 Imaging Last Impressions Hip and Pelvis X-Ray 06/17/16 0000 Signed Impressions: Service Date/Time: Friday, June 17, 2016 10:02 - CONCLUSION: 1. No acute fracture or dislocation of the bony pelvis. 2. Mild degenerative changes involving the hip joints bilaterally. 3. Mild degenerative changes and scoliosis of the lower lumbar spine. Diogenes Lynch MD Head CT 06/13/16 1297 Signed Impressions: Service Date/Time: Monday, June 13, 2016 18:49 - CONCLUSION: Normal examination for a patient of this age. No significant change has occurred. Nba Marion MD Chest X-Ray 06/13/16 1729 Signed Impressions: Service Date/Time: Monday, June 13, 2016 17:36 - CONCLUSION: Bibasilar streakiness consistent with probable atelectasis. Diogenes Lynch MD Objective Remarks GENERAL: Alert, lethargic, NAD. SKIN: Warm and dry. Stage IV decub ulcer. HEAD: Normocephalic. EYES: No scleral icterus. No injection or drainage. NECK: Supple, trachea midline. No JVD or lymphadenopathy. CARDIOVASCULAR: Regular rate and rhythm without murmurs, gallops, or rubs. RESPIRATORY: Breath sounds equal bilaterally. No accessory muscle use. GASTROINTESTINAL: Abdomen soft, non-tender, nondistended. Ostomy in place. MUSCULOSKELETAL: No cyanosis, or edema. BACK: Nontender without obvious deformity. No CVA tenderness. Procedures None. Date of Insertion: Jun 14, 2016 A/P Problem List: (1) Psychoses ICD Code: F29 Status: Acute (2) UTI (urinary tract infection) ICD Code: N39.0 Status: Acute (3) HTN (hypertension) ICD Code: I10 Status: Chronic (4) Diabetes ICD Code: E11.9 Status: Chronic (5) Hypothyroidism ICD Code: E03.9 Status: Chronic Assessment and Plan 60-year-old female with a history of COPD, hypertension, diabetes, hypothyroidism, and schizoaffective disorder presented to the ED via [facility]AC from [facility] for psych eval. - Metabolic Encephalopathy with Psychosis/Delirium - suspect secondary to UTI in addition to patient's underlying personality. - Head CT unremarkable. UA shows +UTI - Currently on Vanc/Zosyn. - Continued Lexapro 10mg Qday, trazodone 25mg HS, Seroquel 100mg QAM and 200mg HS, Hydroxyzine 50mg HS. - Psych consulted for assistance, increased Seroquel dosing to 100mg in am and 200mg hs. Sepsis with UTI: +leukocytosis, tachycardic. - Urine culture growing Escherichia coli, MRSA, and Raoultella Ornithinolytica. - Moon replaced 06/14/2016. Continue IV vancomycin and Zosyn. - Consulted infectious disease is following. - Blood cultures negative so far. If Blood cx continues to be negative, we can probably discontinue Vancomycin. - Will attempt to discuss with ID, Dr. Bazzi. - WBC 15.7 --> 11.7. - CBC, BMP, AM Cortisol tomorrow AM. Left hip pain: Reportedly secondary to recent fall. - Checked x-ray of the left hip and pelvis, no acute fractures, chronic changes. - PT eval, continue rehabilitation. Continue pain control with Percocet. Hypertension,chronic: Continue patient's home Norvasc. Monitor BP, adjust antihypertensives as needed. Diabetes, chronic - Continue sliding scale insulin. Hypothyroidism, chronic: continue home medications Synthroid Hypokalemia: K 3.3 on 06/15. Given oral KCl replacement. K 3.6. Resolved. DVT prophylaxis: Lovenox Problem Qualifiers (1) Psychoses: Qualified Code: F25.9 - Schizoaffective disorder, unspecified type (2) UTI (urinary tract infection): Qualified Code: N30.01 - Acute cystitis with hematuria (3) HTN (hypertension): Qualified Code: I10 - Essential hypertension Nikhil Limon DO Jun 20, 2016 8:59 am
[2016-06-20] MEDS: SODIUM CHLORIDE 0.9% FLUSH 5 ML FLUSH FLUSH SCH ×2 (09:00→20:38)
[2016-06-20] MEDS: FAMOTIDINE 20 MG TAB PO SCH ×2 (09:05→20:39)
[2016-06-20] MEDS: ENOXAPARIN SODIUM 40 MG/0.4 ML SYRINGE SQ SCH (09:05)
[2016-06-20] MEDS: amLODIPine BESYLATE 5 MG TAB PO SCH (09:05)
[2016-06-20] MEDS: FERROUS SULFATE 325 MG (65 MG ELEMENTAL IRON) TAB PO SCH (09:05)
[2016-06-20] MEDS: predniSONE 20 MG TAB PO SCH ×2 (09:06→20:42)
[2016-06-20] MEDS: LORazepam 0.5 MG TAB PO PRN ×2 (09:06→20:40)
[2016-06-20] MEDS: ESCITALOPRAM OXALATE 10 MG TAB PO SCH (09:07)
[2016-06-20] MEDS: COLLAGENASE OINT 30 GM TUBE TOP SCH (09:09)
[2016-06-20] MEDS: NYSTATIN 100,000 U/GM PWD 15 GM BTL TOPICAL SCH ×2 (09:09→20:40)
[2016-06-20] MEDS: SODIUM CHLOR 0.9% 1000 ML INJ 1,000 ML IV SCH ×2 (11:12→20:40)
[2016-06-20 12:00] VITALS: BP 136/75; PULSE 74; RESP 18; TEMP 97.1; O2SAT 95
--- NOTE | 2016-06-20 14:58 | HHI.IDPN ---
Subjective Subjective Remarks no co no fever repeat UA clx wo MRSA Antibiotics zosyn vanco Allergies: Coded Allergies: Cephalosporins (Verified Allergy, Severe, 06/13/16) Iodine (Verified Allergy, Severe, Anaphylaxis, 06/13/16) Latex (Verified Allergy, Severe, 06/13/16) Reglan (Verified Allergy, Severe, 06/13/16) Sulfa (Verified Allergy, Severe, 06/13/16) *MDRO Multi-Drug Resistant Organism (Verified Adverse Reaction, Unknown, MRSA, 06/16/16) MRSA (urine) - 06/15/16 Objective . Vital Signs Date Time Temp Pulse Resp B/P Pulse Ox O2 Delivery O2 Flow Rate FiO2 06/20/16 12:00 97.1 74 18 136/75 95 06/20/16 08:00 97.4 76 18 134/75 95 06/20/16 00:00 98.0 82 18 130/78 93 06/19/16 20:00 98.0 86 20 156/76 93 06/19/16 16:00 98.4 99 20 139/69 93 06/19/16 06/19/16 06/20/16 15:00 23:00 07:00 Intake Total 800 ml 1097 ml 120 ml Output Total 2000 ml 300 ml 800 ml Balance -1200 ml 797 ml -680 ml Intake Oral 800 ml 320 ml 120 ml IV Total 777 ml Output Urine Total 1650 ml 300 ml 600 ml Stool Total 350 ml 200 ml # Bowel Movements 0 . Laboratory Tests Test 06/19/16 04:14 White Blood Count 11.7 TH/MM3 Red Blood Count 3.72 MIL/MM3 Hemoglobin 11.2 GM/DL Hematocrit 33.2 % Mean Corpuscular Volume 89.1 FL Mean Corpuscular Hemoglobin 30.0 PG Mean Corpuscular Hemoglobin 33.7 % Concent Red Cell Distribution Width 15.2 % Platelet Count 132 TH/MM3 Mean Platelet Volume 8.1 FL Neutrophils (%) (Auto) 93.5 % Lymphocytes (%) (Auto) 3.2 % Monocytes (%) (Auto) 2.9 % Eosinophils (%) (Auto) 0.1 % Basophils (%) (Auto) 0.3 % Neutrophils # (Auto) 10.9 TH/MM3 Lymphocytes # (Auto) 0.4 TH/MM3 Monocytes # (Auto) 0.3 TH/MM3 Eosinophils # (Auto) 0.0 TH/MM3 Basophils # (Auto) 0.0 TH/MM3 CBC Comment DIFF FINAL Differential Comment Laboratory Tests Test 06/19/16 06/20/16 04:14 06:13 Sodium Level 139 MEQ/L Potassium Level 4.5 MEQ/L Chloride Level 107 MEQ/L Carbon Dioxide Level 21.4 MEQ/L Anion Gap 11 MEQ/L Blood Urea Nitrogen 20 MG/DL Creatinine 0.89 MG/DL 0.55 MG/DL Estimat Glomerular Filtration 64 ML/MIN 112 ML/MIN Rate Random Glucose 152 MG/DL Calcium Level 8.3 MG/DL Microbiology Date/Time Procedure Status Source Growth 06/17/16 22:34 Aerobic Blood Culture - Preliminary Resulted Blood Peripheral NO GROWTH IN 3 DAYS 06/17/16 22:34 Anaerobic Blood Culture - Preliminary Resulted Blood Peripheral NO GROWTH IN 3 DAYS 06/17/16 22:39 Aerobic Blood Culture - Preliminary Resulted Blood Peripheral NO GROWTH IN 3 DAYS 06/17/16 22:39 Anaerobic Blood Culture - Preliminary Resulted Blood Peripheral NO GROWTH IN 3 DAYS 06/17/16 22:40 Urine Culture - Final Complete Urine Catheterized Urine Escherichia Coli Imaging Last Impressions Hip and Pelvis X-Ray 06/17/16 0000 Signed Impressions: Service Date/Time: Friday, June 17, 2016 10:02 - CONCLUSION: 1. No acute fracture or dislocation of the bony pelvis. 2. Mild degenerative changes involving the hip joints bilaterally. 3. Mild degenerative changes and scoliosis of the lower lumbar spine. Diogenes Lynch MD Head CT 06/13/161736 Signed Impressions: Service Date/Time: Monday, June 13, 2016 18:49 - CONCLUSION: Normal examination for a patient of this age. No significant change has occurred. Nba Marion MD Chest X-Ray 06/13/161728 Signed Impressions: Service Date/Time: Monday, June 13, 2016 17:36 - CONCLUSION: Bibasilar streakiness consistent with probable atelectasis. Diogenes Lynch MD Physical Exam CONSTITUTIONAL/GENERAL: This is an obese cushingoid appearing female patient with central obesity and wasted extremeties , in no apparent distress. TUBES/LINES/DRAINS: SKIN: No jaundice, rashes, or lesions. Ecchymoses on upper extremities. Skin temperature appropriate. Not diaphoretic. EYES: Pupils equal and round and reactive. Extraocular motions intact. No scleral icterus. No injection or drainage. Fundi not examined. ENT: Oral mucosae without visible erythema, exudates, masses, or lesions. CARDIOVASCULAR: Regular rate and rhythm without murmurs, gallops, or rubs. No JVD. Peripheral pulses symmetric. RESPIRATORY/CHEST: Symmetric, unlabored respirations. Clear to auscultation. Breath sounds equal bilaterally. No wheezes, rales, or rhonchi. GASTROINTESTINAL: Abdomen soft, non-tender, nondistended. No hepato-splenomegaly , or palpable masses. No guarding. Bowel sounds present. GENITOURINARY: Without palpable bladder distension. Moon oin place with clear yellow urine MUSCULOSKELETAL: Extremities without clubbing, cyanosis, + trace edema. +\No mottling or clubbing. NEUROLOGICAL: Awake and alert. Non focal PSYCHIATRIC: cooperative and calm Assessment & Plan Remarks UTI, ? sepsis ESCHERICHIA COLI, RAOULTELLA ORNITHINOLYTICA MRSA bacteruria likely colonisation - tyically not a urinary pathogen - no MRSA bactremiea clinically improved - cont zosyn, - dc vancomycin -will dc on Ertapenem to complet 2 wks of tx; no oral options for RAOULTELLA - chk blood clx to exclude occult MRSA bactermeia since frequently MRSA bacteruria is a secondary to bacteremia - consider to chk cortisol levels (pt has cushingoid appearance and newlky diagnosed DM w/o external sterroids) Ashia Bazzi MD Jun 20, 2016 14:58
[2016-06-20 16:00] VITALS: BP 156/72; PULSE 103; RESP 17; TEMP 98.3; O2SAT 95
[2016-06-20 20:00] VITALS: BP 153/96; PULSE 100; RESP 20; TEMP 97.8; O2SAT 94
[2016-06-20] MEDS: hydrOXYzine HCL 50 MG TAB PO SCH (20:38)
[2016-06-20] MEDS: QUEtiapine FUMARATE 200 MG TAB PO SCH (20:39)
[2016-06-20] MEDS: traZODone HCL 50 MG TAB PO SCH (20:39)
[2016-06-21] VITALS: BP 111/57; PULSE 79; RESP 20; TEMP 96.8; O2SAT 95
[2016-06-21] MEDS: PIPERACIL-TAZO 3.375 GM PREMIX 50 ML IV SCH ×4 (01:29→20:18)
[2016-06-21] MEDS: QUEtiapine FUMARATE 100 MG TAB PO SCH (04:19)
[2016-06-21] MEDS: VANCOMYCIN 1,000 MG/NS 250 ML IV SCH ×2 (04:19)
[2016-06-21] MEDS: LEVOTHYROXINE SODIUM 25 MCG TAB PO SCH (04:19)
[2016-06-21 04:45] LABS: AUTOMATED NEUTROPHIL # 10.5 TH/MM3 (1.8-7.7); BASOPHIL # 0.1 TH/MM3 (0-0.2); BASOPHIL % 0.5 % (0.0-2.0); EOSINOPHIL # 0.1 TH/MM3 (0-0.4); EOSINOPHIL % 0.6 % (0.0-4.0); HEMATOCRIT 32.5 % (35.0-46.0); HEMO FLAGS DIFF FINAL; LYMPH % 2.9 % (9.0-44.0); LYMPHOCYTE # 0.3 TH/MM3 (1.0-4.8); MEAN CORPUSCULAR HEMOGLOBIN 30.2 PG (27.0-34.0); MEAN CORPUSCULAR HGB CONC 33.6 % (32.0-36.0); MONO % 4.2 % (0.0-8.0); NEUT % 91.8 % (16.0-70.0); PLATELET COUNT 147 TH/MM3 (150-450); RED CELL DISTRIBUTION WIDTH 15.6 % (11.6-17.2); WHITE BLOOD COUNT 11.5 TH/MM3 (4.0-11.0)
[2016-06-21 05:06] LABS: BICARBONATE 25.7 MEQ/L (21.0-32.0)
[2016-06-21] MEDS: INSULIN ASPART SUPPLEMENTAL SCALE SQ SCH ×4 (05:11→20:17)
[2016-06-21 08:00] VITALS: BP 146/70; PULSE 80; RESP 18; TEMP 96.8; O2SAT 96
[2016-06-21] MEDS: FAMOTIDINE 20 MG TAB PO SCH ×2 (08:01→20:18)
[2016-06-21] MEDS: amLODIPine BESYLATE 5 MG TAB PO SCH (08:01)
[2016-06-21] MEDS: ESCITALOPRAM OXALATE 10 MG TAB PO SCH (08:01)
[2016-06-21] MEDS: ENOXAPARIN SODIUM 40 MG/0.4 ML SYRINGE SQ SCH (08:01)
[2016-06-21] MEDS: SODIUM CHLORIDE 0.9% FLUSH 5 ML FLUSH FLUSH SCH ×2 (08:01→20:18)
[2016-06-21] MEDS: LORazepam 0.5 MG TAB PO PRN ×3 (08:01→20:18)
[2016-06-21] MEDS: SODIUM CHLOR 0.9% 1000 ML INJ 1,000 ML IV SCH ×3 (08:01→20:19)
[2016-06-21] MEDS: FERROUS SULFATE 325 MG (65 MG ELEMENTAL IRON) TAB PO SCH (08:01)
[2016-06-21] MEDS: predniSONE 20 MG TAB PO SCH ×2 (08:01→20:18)
[2016-06-21] MEDS: NYSTATIN 100,000 U/GM PWD 15 GM BTL TOPICAL SCH ×2 (08:02→20:19)
[2016-06-21] MEDS: COLLAGENASE OINT 30 GM TUBE TOP SCH (08:02)
[2016-06-21] MEDS: oxyCODONE/ACETAMINOPHEN 5 MG/325 MG TAB PO PRN ×2 (11:40→20:19)
[2016-06-21 12:00] VITALS: BP 143/68; PULSE 76; RESP 18; TEMP 97.3; O2SAT 96
--- NOTE | 2016-06-21 14:25 | HHI.PR ---
Subjective Remarks Follow up for UTI. The patient is awake, alert. Reports feeling well. She has no complaints today. No fevers or chills. Discussed discharge planning, the patient reports she is looking for an apartment through her [facility], explained that she will need 2 weeks of antibiotics and would be best for her to go to rehab in the meantime, patient is agreeable. Objective Vitals Vital Signs Date Time Temp Pulse Resp B/P Pulse Ox O2 Delivery O2 Flow Rate FiO2 06/21/16 12:00 97.3 76 18 143/68 96 06/21/16 08:00 96.8 80 18 146/70 96 06/21/16 00:00 96.8 79 20 111/57 95 06/20/16 20:00 97.8 100 20 153/96 94 06/20/16 16:00 98.3 103 17 156/72 95 I/O 06/20/16 06/20/16 06/20/16 06/21/16 06/21/16 06/21/16 07:00 15:00 23:00 07:00 15:00 23:00 Intake Total 120 ml 480 ml 2164 ml 715 ml 480 ml Output Total 800 ml 1600 ml 1400 ml 1600 ml 1700 ml Balance -680 ml -1120 ml 764 ml -885 ml -1220 ml Intake Oral 120 ml 480 ml 480 ml 0 ml 480 ml IV Total 1684 ml 715 ml Output Urine Total 600 ml 1350 ml 1200 ml 1450 ml 1450 ml Stool Total 200 ml 250 ml 200 ml 150 ml 250 ml Result Diagram: 06/21/16 0429 06/21/16 0429 Imaging Last Impressions Hip and Pelvis X-Ray 06/17/16 0000 Signed Impressions: Service Date/Time: Friday, June 17, 2016 10:02 - CONCLUSION: 1. No acute fracture or dislocation of the bony pelvis. 2. Mild degenerative changes involving the hip joints bilaterally. 3. Mild degenerative changes and scoliosis of the lower lumbar spine. Diogenes Lynch MD Head CT 06/13/16 4267 Signed Impressions: Service Date/Time: Monday, June 13, 2016 18:49 - CONCLUSION: Normal examination for a patient of this age. No significant change has occurred. Nba Marion MD Chest X-Ray 06/13/16 7088 Signed Impressions: Service Date/Time: Monday, June 13, 2016 17:36 - CONCLUSION: Bibasilar streakiness consistent with probable atelectasis. Diogenes Lynch MD Objective Remarks GENERAL: Well-nourished, well-developed obese unkempt appearing female patient in NAD. SKIN: Warm and dry. No rash. HEENT: Normocephalic. Atraumatic. No scleral icterus. Mucous membranes pink and moist. NECK: Supple. Trachea midline. CARDIOVASCULAR: Regular rate and rhythm. No murmur appreciated. RESPIRATORY: No accessory muscle use. Clear to auscultation. Breath sounds equal bilaterally. GASTROINTESTINAL: Abdomen soft, non-tender, nondistended. Normoactive bowel sounds x4. Colostomy in place. MUSCULOSKELETAL: No obvious deformities. Extremities without clubbing, cyanosis , or edema. NEUROLOGICAL: Awake and alert. No obvious cranial nerve deficits. Motor grossly within normal limits. Normal speech PSYCHIATRIC: Calm and cooperative mood; insight and judgment normal. Procedures None. Medications and IVs Current Medications Medications (Trade) Dose Ordered Sig/Trent Route Start Time Stop Time Status Last Admin (NS 1000 ml Inj) 1,000 ml @ 100 mls/hr Q10H IV 06/13/16 20:02 06/21/16 08:01 (NS Flush) 2 ml UNSCH PRN FLUSH 06/13/16 20:15 (NS Flush) 2 ml BID FLUSH 06/13/16 21:00 06/21/16 08:01 (Lovenox Inj) 40 mg Q24H SQ 06/14/16 09:00 06/21/16 08:01 (Narcan Inj) 0.4 mg UNSCH PRN IV 06/13/16 20:15 (Norvasc) 2.5 mg DAILY PO 06/14/16 09:00 06/21/16 08:01 (Lexapro) 10 mg DAILY PO 06/14/16 09:00 06/21/16 08:01 (Atarax) 50 mg HS PO 06/14/16 21:00 06/20/16 20:38 (Synthroid) 25 mcg DAILY@0600 PO 06/14/16 06:00 06/21/16 04:19 (Desyrel) 25 mg HS PO 06/14/16 21:00 06/20/16 20:39 (D50w (Vial) Inj) 25 ml UNSCH PRN IV PUSH 06/14/16 01:00 (Glucagon Inj) 1 mg UNSCH PRN OTHER 06/14/16 01:00 (Pepcid) 20 mg BID PO 06/14/16 09:00 06/21/16 08:01 (Ferrous Sulfate) 325 mg DAILY PO 06/14/16 09:00 06/21/16 08:01 (Deltasone) 20 mg BID PO 06/14/16 09:00 06/21/16 08:01 (SEROquel) 100 mg DAILY@0600 PO 06/15/16 06:00 06/21/16 04:19 (SEROquel) 200 mg HS PO 06/14/16 21:00 06/20/16 20:39 (Mycostatin Powder) 1 applic Q12HR TOPICAL 06/14/16 21:00 06/21/16 08:02 (Santyl Oint) 1 applic DAILY TOP 06/15/16 09:00 06/21/16 08:02 Oxycodone/ Acetaminophen 1 tab 1 tab Q4H PRN PO 06/17/16 11:45 06/21/16 11:40 (Zosyn 3.375 Gm Premix) 50 ml @ 100 mls/hr Q6H IV 06/17/16 14:00 06/21/16 13:53 (Ativan) 0.5 mg Q4H PRN PO 06/19/16 17:00 06/21/16 13:53 Urinary Catheter: Yes Assessment to: Continue Moon insert reason: Stage III/IV Press Ulcer Date of Insertion: Jun 14, 2016 A/P Problem List: (1) Psychoses ICD Code: F29 Status: Acute (2) UTI (urinary tract infection) ICD Code: N39.0 Status: Acute (3) HTN (hypertension) ICD Code: I10 Status: Chronic (4) Diabetes ICD Code: E11.9 Status: Chronic (5) Hypothyroidism ICD Code: E03.9 Status: Chronic Assessment and Plan 60-year-old female with a history of COPD, hypertension, diabetes, hypothyroidism, and schizoaffective disorder presented to the ED via [facility] from [facility] for psych eval. - Metabolic Encephalopathy with Psychosis/Delirium - suspect secondary to UTI in addition to patient's underlying personality. - Head CT unremarkable. UA shows +UTI - Currently on Vanc/Zosyn. - Continued Lexapro 10mg Qday, trazodone 25mg HS, Seroquel 100mg bid, Hydroxyzine 50mg HS. - Psych consulted for assistance, increased Seroquel dosing to 100mg in am and 200mg hs. Sepsis with UTI: +leukocytosis, tachycardic. - Urine culture growing Escherichia coli, MRSA, and Raoultella Ornithinolytica. - Moon replaced 06/14/2016. Given IV vancomycin and Zosyn. - Consulted infectious disease is following. - Blood cultures negative x4days, therefore IV Vanco discontinued, continued IV Zosyn - WBC 15.7 --> 11.7. - CBC, BMP, AM Cortisol 12.7. - ID recommending likely dc on Ertapenem Left hip pain: Reportedly secondary to recent fall. - Checked x-ray of the left hip and pelvis, no acute fractures, chronic changes. - PT eval, continue rehabilitation. Continue pain control with Percocet. Hypertension,chronic: Continue patient's home Norvasc. Monitor BP, adjust antihypertensives as needed. Diabetes, chronic - Continue sliding scale insulin. Hypothyroidism, chronic: continue home medications Synthroid Hypokalemia: K 3.3 on 06/15. Given oral KCl replacement. K 3.6. Resolved. DVT prophylaxis: Lovenox Written by Kate Reza, acting as scribe for Dr. Limon on 06/21/16 at 11: 45. The documentation accurately reflects the work performed [id number] by me on 06/21/16 at 11:45. Discharge Planning Case management assisting with discharge plan, will need 2 weeks of IV abx, prefer patient go to SNF/rehab. Problem Qualifiers (1) Psychoses: Qualified Code: F25.9 - Schizoaffective disorder, unspecified type (2) UTI (urinary tract infection): Qualified Code: N30.01 - Acute cystitis with hematuria (3) HTN (hypertension): Qualified Code: I10 - Essential hypertension Kate Reza PA-C Jun 21, 2016 14:25 Nikhil Limon DO Jun 21, 2016 19:21
[2016-06-21 16:00] VITALS: BP 152/81; PULSE 106; RESP 18; TEMP 96.9; O2SAT 94
[2016-06-21 20:00] VITALS: BP 146/70; PULSE 102; RESP 18; TEMP 99.1; O2SAT 95
[2016-06-21] MEDS: traZODone HCL 50 MG TAB PO SCH (20:18)
[2016-06-21] MEDS: QUEtiapine FUMARATE 200 MG TAB PO SCH (20:18)
[2016-06-21] MEDS: hydrOXYzine HCL 50 MG TAB PO SCH (20:18)
[2016-06-22] VITALS: BP 133/58; PULSE 86; RESP 19; TEMP 98.1; O2SAT 96
[2016-06-22] MEDS: PIPERACIL-TAZO 3.375 GM PREMIX 50 ML IV SCH ×4 (01:34→19:32)
[2016-06-22] MEDS: LORazepam 0.5 MG TAB PO PRN ×5 (01:38→21:03)
[2016-06-22] MEDS: oxyCODONE/ACETAMINOPHEN 5 MG/325 MG TAB PO PRN ×5 (01:38→21:03)
[2016-06-22] MEDS: QUEtiapine FUMARATE 100 MG TAB PO SCH (05:56)
[2016-06-22] MEDS: INSULIN ASPART SUPPLEMENTAL SCALE SQ SCH ×4 (05:56→19:39)
[2016-06-22] MEDS: LEVOTHYROXINE SODIUM 25 MCG TAB PO SCH (05:56)
[2016-06-22 08:00] VITALS: BP 144/70; PULSE 77; RESP 18; TEMP 97.9; O2SAT 97
[2016-06-22] MEDS: FAMOTIDINE 20 MG TAB PO SCH ×2 (08:26→19:32)
[2016-06-22] MEDS: FERROUS SULFATE 325 MG (65 MG ELEMENTAL IRON) TAB PO SCH (08:26)
[2016-06-22] MEDS: amLODIPine BESYLATE 5 MG TAB PO SCH (08:27)
[2016-06-22] MEDS: predniSONE 20 MG TAB PO SCH ×2 (08:28→19:32)
[2016-06-22] MEDS: ESCITALOPRAM OXALATE 10 MG TAB PO SCH (08:28)
[2016-06-22] MEDS: ENOXAPARIN SODIUM 40 MG/0.4 ML SYRINGE SQ SCH (08:28)
[2016-06-22] MEDS: COLLAGENASE OINT 30 GM TUBE TOP SCH (08:30)
[2016-06-22] MEDS: NYSTATIN 100,000 U/GM PWD 15 GM BTL TOPICAL SCH ×2 (08:30→19:33)
[2016-06-22] MEDS: SODIUM CHLORIDE 0.9% FLUSH 5 ML FLUSH FLUSH SCH ×2 (08:32→19:32)
[2016-06-22 12:00] VITALS: BP 136/68; PULSE 76; RESP 18; TEMP 98.1; O2SAT 98
--- NOTE | 2016-06-22 14:54 | HHI.PR ---
Subjective Remarks Follow up for UTI. The patient is awake, alert, sitting in bedside chair, states she had a very hard time getting from the bed to the chair. Otherwise denies any other medical complaints. Patient seen with leather case finisher at bedside, Angie has accepted this patient back to the facility however the patient is adamantly refusing to go back there despite multiple attempts of discussing this. She is open to finding other facilities in the area, however if unable to locate a SNF, the patient would like to go home with [facility]. We thoroughly discussed the risks of going home when PT recommends rehab and the patient still would like to go home if no rehab facility accepts her. Objective Vitals Vital Signs Date Time Temp Pulse Resp B/P Pulse Ox O2 Delivery O2 Flow Rate FiO2 06/22/16 12:00 98.1 76 18 136/68 98 06/22/16 08:00 97.9 77 18 144/70 97 06/22/16 00:00 98.1 86 19 133/58 96 06/21/16 20:00 99.1 102 18 146/70 95 06/21/16 16:00 96.9 106 18 152/81 94 I/O 06/21/16 06/21/16 06/21/16 06/22/16 06/22/16 06/22/16 07:00 15:00 23:00 07:00 15:00 23:00 Intake Total 715 ml 926 ml 950 ml 960 ml Output Total 1600 ml 1700 ml 1550 ml 400 ml Balance -885 ml -774 ml -600 ml 560 ml Intake Oral 0 ml 480 ml 240 ml 240 ml IV Total 715 ml 446 ml 710 ml 720 ml Output Urine Total 1450 ml 1450 ml 1200 ml 400 ml Stool Total 150 ml 250 ml 350 ml 0 ml Result Diagram: 06/21/16 0429 06/21/16 042 Objective Remarks GENERAL: Well-nourished, well-developed obese unkempt appearing female patient in NAD. SKIN: Warm and dry. No rash. HEENT: Normocephalic. Atraumatic. No scleral icterus. Mucous membranes pink and moist. NECK: Supple. Trachea midline. CARDIOVASCULAR: Regular rate and rhythm. No murmur appreciated. RESPIRATORY: No accessory muscle use. Clear to auscultation. Breath sounds equal bilaterally. GASTROINTESTINAL: Abdomen soft, non-tender, nondistended. Normoactive bowel sounds x4. Colostomy in place. MUSCULOSKELETAL: No obvious deformities. Extremities without clubbing, cyanosis , or edema. NEUROLOGICAL: Awake and alert. No obvious cranial nerve deficits. Motor grossly within normal limits. Normal speech PSYCHIATRIC: Calm and cooperative mood; insight and judgment normal. Procedures None. Medications and IVs Current Medications Medications (Trade) Dose Ordered Sig/Trent Route Start Time Stop Time Status Last Admin (NS 1000 ml Inj) 1,000 ml @ 100 mls/hr Q10H IV 06/13/16 20:02 06/21/16 20:19 (NS Flush) 2 ml UNSCH PRN FLUSH 06/13/16 20:15 (NS Flush) 2 ml BID FLUSH 06/13/16 21:00 06/21/16 20:18 (Lovenox Inj) 40 mg Q24H SQ 06/14/16 09:00 06/22/16 08:28 (Narcan Inj) 0.4 mg UNSCH PRN IV 06/13/16 20:15 (Norvasc) 2.5 mg DAILY PO 06/14/16 09:00 06/22/16 08:27 (Lexapro) 10 mg DAILY PO 06/14/16 09:00 06/22/16 08:28 (Atarax) 50 mg HS PO 06/14/16 21:00 06/21/16 20:18 (Synthroid) 25 mcg DAILY@0600 PO 06/14/16 06:00 06/22/16 05:56 (Desyrel) 25 mg HS PO 06/14/16 21:00 06/21/16 20:18 (D50w (Vial) Inj) 25 ml UNSCH PRN IV PUSH 06/14/16 01:00 (Glucagon Inj) 1 mg UNSCH PRN OTHER 06/14/16 01:00 (Pepcid) 20 mg BID PO 06/14/16 09:00 06/22/16 08:26 (Ferrous Sulfate) 325 mg DAILY PO 06/14/16 09:00 06/22/16 08:26 (Deltasone) 20 mg BID PO 06/14/16 09:00 06/22/16 08:28 (SEROquel) 100 mg DAILY@0600 PO 06/15/16 06:00 06/22/16 05:56 (SEROquel) 200 mg HS PO 06/14/16 21:00 06/21/16 20:18 (Mycostatin Powder) 1 applic Q12HR TOPICAL 06/14/16 21:00 06/22/16 08:30 (Santyl Oint) 1 applic DAILY TOP 06/15/16 09:00 06/22/16 08:30 Oxycodone/ Acetaminophen 1 tab 1 tab Q4H PRN PO 06/17/16 11:45 06/22/16 12:26 (Zosyn 3.375 Gm Premix) 50 ml @ 100 mls/hr Q6H IV 06/17/16 14:00 06/22/16 08:26 (Ativan) 0.5 mg Q4H PRN PO 06/19/16 17:00 06/22/16 12:26 Urinary Catheter: Yes Assessment to: Continue Moon insert reason: Prolonged Immobilization Date of Insertion: Jun 14, 2016 A/P Problem List: (1) Psychoses ICD Code: F29 Status: Acute (2) UTI (urinary tract infection) ICD Code: N39.0 Status: Acute (3) HTN (hypertension) ICD Code: I10 Status: Chronic (4) Diabetes ICD Code: E11.9 Status: Chronic (5) Hypothyroidism ICD Code: E03.9 Status: Chronic Assessment and Plan 60-year-old female with a history of COPD, hypertension, diabetes, hypothyroidism, and schizoaffective disorder presented to the ED via [facility] from [facility] for psych eval. - Metabolic Encephalopathy with Psychosis/Delirium - suspect secondary to UTI in addition to patient's underlying personality. - Head CT unremarkable. UA shows +UTI - Currently on Vanc/Zosyn. - Continued Lexapro 10mg Qday, trazodone 25mg HS, Seroquel 100mg bid, Hydroxyzine 50mg HS. - Psych consulted for assistance, increased Seroquel dosing to 100mg in am and 200mg hs. Sepsis with UTI: +leukocytosis, tachycardic. - Urine culture growing Escherichia coli, MRSA, and Raoultella Ornithinolytica. - Moon replaced 06/14/2016. Given IV vancomycin and Zosyn. - Consulted infectious disease is following. - Blood cultures negative x4days, therefore IV Vanco discontinued - WBC 15.7 --> 11.7. - CBC, BMP, AM Cortisol 12.7. - Continue on IV Zosyn for now, ID recommending likely dc on Ertapenem Left hip pain: Reportedly secondary to recent fall. - Checked x-ray of the left hip and pelvis, no acute fractures, chronic changes. - PT eval, continue rehabilitation. Continue pain control with Percocet. Hypertension,chronic: Continue patient's home Norvasc. Monitor BP, adjust antihypertensives as needed. Diabetes, chronic - Continue sliding scale insulin. Hypothyroidism, chronic: continue home medications Synthroid Hypokalemia: K 3.3 on 06/15. Given oral KCl replacement. K 3.6. Resolved. 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 Limon on 06/22/16 at 14: 20. The documentation accurately reflects the work performed [id number] by me on 06/22/16 at 14:20. Discharge Planning Case management assisting with discharge plan, will need 2 weeks of IV abx, prefer patient go to SNF/rehab, she was accepted back to [facility] however patient adamantly declines. CM will attempt to arrange placement at other facilities, however if unsuccessful, will plan to discharge home with [facility] per the patient's wishes. Problem Qualifiers (1) Psychoses: Qualified Code: F25.9 - Schizoaffective disorder, unspecified type (2) UTI (urinary tract infection): Qualified Code: N30.01 - Acute cystitis with hematuria (3) HTN (hypertension): Qualified Code: I10 - Essential hypertension Kate Reza PA-C Jun 22, 2016 14:54 Nikhil Limon DO Jun 22, 2016 23:21
[2016-06-22] MEDS: SODIUM CHLOR 0.9% 1000 ML INJ 1,000 ML IV SCH (15:03)
[2016-06-22 16:00] VITALS: BP 165/77; PULSE 109; RESP 20; TEMP 97.3; O2SAT 95
[2016-06-22] MEDS: hydrOXYzine HCL 50 MG TAB PO SCH (19:32)
[2016-06-22] MEDS: traZODone HCL 50 MG TAB PO SCH (19:32)
[2016-06-22 20:00] VITALS: BP 160/74; PULSE 88; RESP 20; TEMP 97.8; O2SAT 96
[2016-06-22] MEDS: QUEtiapine FUMARATE 200 MG TAB PO SCH (21:02)
[2016-06-23] VITALS: BP 154/78; PULSE 80; RESP 20; TEMP 98; O2SAT 95
[2016-06-23] MEDS: SODIUM CHLOR 0.9% 1000 ML INJ 1,000 ML IV SCH ×3 (00:02→21:19)
[2016-06-23] MEDS: oxyCODONE/ACETAMINOPHEN 5 MG/325 MG TAB PO PRN ×3 (02:09→20:44)
[2016-06-23] MEDS: LORazepam 0.5 MG TAB PO PRN ×2 (02:09→18:37)
[2016-06-23] MEDS: PIPERACIL-TAZO 3.375 GM PREMIX 50 ML IV SCH ×4 (02:10→20:45)
[2016-06-23] MEDS: QUEtiapine FUMARATE 100 MG TAB PO SCH (05:41)
[2016-06-23] MEDS: LEVOTHYROXINE SODIUM 25 MCG TAB PO SCH (05:41)
[2016-06-23] MEDS: INSULIN ASPART SUPPLEMENTAL SCALE SQ SCH ×4 (05:41→21:30)
[2016-06-23 08:00] VITALS: BP 136/76; PULSE 78; RESP 18; TEMP 97.9; O2SAT 95
[2016-06-23] MEDS: SODIUM CHLORIDE 0.9% FLUSH 5 ML FLUSH FLUSH SCH ×2 (09:00→21:00)
[2016-06-23] MEDS: ENOXAPARIN SODIUM 40 MG/0.4 ML SYRINGE SQ SCH (09:11)
[2016-06-23] MEDS: predniSONE 20 MG TAB PO SCH ×2 (09:11→20:45)
[2016-06-23] MEDS: FAMOTIDINE 20 MG TAB PO SCH ×2 (09:11→20:45)
[2016-06-23] MEDS: FERROUS SULFATE 325 MG (65 MG ELEMENTAL IRON) TAB PO SCH (09:11)
[2016-06-23] MEDS: amLODIPine BESYLATE 5 MG TAB PO SCH (09:11)
[2016-06-23] MEDS: ESCITALOPRAM OXALATE 10 MG TAB PO SCH (09:11)
[2016-06-23] MEDS: COLLAGENASE OINT 30 GM TUBE TOP SCH (09:12)
[2016-06-23] MEDS: NYSTATIN 100,000 U/GM PWD 15 GM BTL TOPICAL SCH ×2 (09:12→21:00)
[2016-06-23 12:00] VITALS: BP 138/74; PULSE 93; RESP 18; TEMP 98.6; O2SAT 95
[2016-06-23 13:10] LABS: AUTOMATED NEUTROPHIL # 12.4 TH/MM3 (1.8-7.7); BASOPHIL % 0.3 % (0.0-2.0); EOSINOPHIL # 0.1 TH/MM3 (0-0.4); EOSINOPHIL % 0.9 % (0.0-4.0); LYMPH % 3.7 % (9.0-44.0); LYMPHOCYTE # 0.5 TH/MM3 (1.0-4.8); MEAN CELL VOLUME 91.8 FL (80.0-100.0); MEAN CORPUSCULAR HGB CONC 33.7 % (32.0-36.0); NEUT % 92.1 % (16.0-70.0); PLATELET COUNT 175 TH/MM3 (150-450); RED BLOOD COUNT 3.82 MIL/MM3 (4.00-5.30); RED CELL DISTRIBUTION WIDTH 15.9 % (11.6-17.2); WHITE BLOOD COUNT 13.5 TH/MM3 (4.0-11.0)
[2016-06-23 13:14] LABS: HEMO FLAGS AUTO DIFF
[2016-06-23 13:43] LABS: ALKALINE PHOSPHATASE 171 U/L (45-117); ALT (GPT) 211 U/L (10-53); ANION GAP 9 MEQ/L (5-15); AST (GOT) 93 U/L (15-37); BICARBONATE 25.7 MEQ/L (21.0-32.0); BLOOD UREA NITROGEN 18 MG/DL (7-18); CHLORIDE 106 MEQ/L (98-107); GLOMERULAR FILTRATION RATE 88 ML/MIN (>89); POTASSIUM 3.9 MEQ/L (3.5-5.1); SODIUM (NA) 141 MEQ/L (136-145); TOTAL BILIRUBIN ADULT 0.6 MG/DL (0.2-1.0)
[2016-06-23 14:14] LABS: BANDS 3 % (0-6); EOSINOPHILS 1 % (0-4); NEUTROPHIL # MANUAL DIFF 12.4 TH/MM3 (1.8-7.7); POLYS (SEG NEUTROPHILS) 89 % (16-70); SCAN/DIFF FINAL DIFF MANUAL; WBC DIFF SAMPLE 100
[2016-06-23 14:15] LABS: PLATELET ESTIMATE SMEAR NORMAL (NORMAL); PLATELET MORPHOLOGY NORMAL (NORMAL)
[2016-06-23 16:00] VITALS: BP 142/76; PULSE 93; RESP 18; TEMP 98.5; O2SAT 95
[2016-06-23 17:39] VITALS: BP 120/71; PULSE 87; RESP 16; TEMP 97.5; O2SAT 96
[2016-06-23 20:00] VITALS: BP 168/86; PULSE 97; RESP 18; TEMP 97.6; O2SAT 95
[2016-06-23] MEDS: traZODone HCL 50 MG TAB PO SCH (20:45)
[2016-06-23] MEDS: hydrOXYzine HCL 50 MG TAB PO SCH (20:45)
[2016-06-23] MEDS: QUEtiapine FUMARATE 200 MG TAB PO SCH (21:17)
--- NOTE | 2016-06-23 23:55 | HHI.PR ---
Subjective Remarks late entry. Patient seen today around 11 AM. Says she is feeling all right. Denies any chest pain or shortness of breath. Objective Vital Signs Date Time Temp Pulse Resp B/P Pulse Ox O2 Delivery O2 Flow Rate FiO2 06/23/16 21:45 18 06/23/16 20:00 97.6 97 18 168/86 95 06/23/16 17:39 97.5 87 16 120/71 96 06/23/16 16:00 98.5 93 18 142/76 95 06/23/16 12:00 98.6 93 18 138/74 95 06/23/16 08:00 97.9 78 18 136/76 95 06/23/16 00:00 98.0 80 20 154/78 95 06/23/16 00:00 98.0 80 20 154/78 95 I/O 06/22/16 06/22/16 06/22/16 06/23/16 06/23/16 06/23/16 06:59 14:59 22:59 06:59 14:59 22:59 Intake Total 960 ml 600 ml 1398 ml 1248 ml 1365 ml Output Total 400 ml 1000 ml 600 ml 1000 ml 1650 ml Balance 560 ml -400 ml 798 ml 248 ml -285 ml Intake Oral 240 ml 600 ml 360 ml 240 ml 600 ml IV Total 720 ml 1038 ml 1008 ml 765 ml Output Urine Total 400 ml 700 ml 600 ml 1000 ml 1250 ml Stool Total 0 ml 300 ml 400 ml # Bowel Movements 0 0 Result Diagram: 06/23/16 1230 06/23/16 1230 Objective Remarks GENERAL: patient sitting up in bed. appears comfortable. Alert. oriented x3. SKIN: Warm and dry. HEAD: Normocephalic. EYES: No scleral icterus. No injection or drainage. NECK: Supple, trachea midline. No JVD. CARDIOVASCULAR: Regular rate and rhythm without murmurs, gallops, or rubs. RESPIRATORY: Breath sounds equal bilaterally. No accessory muscle use. GASTROINTESTINAL: Abdomen soft, non-tender, nondistended. MUSCULOSKELETAL: No cyanosis, or edema. BACK: Nontender without obvious deformity. No CVA tenderness. A/P Assessment and Plan 60-year-old female with a history of COPD, hypertension, diabetes, hypothyroidism, and schizoaffective disorder presented to the ED via [facility] from [facility] for psych eval. //Metabolic Encephalopathy with Psychosis/Delirium - suspect secondary to UTI in addition to patient's underlying personality. - Head CT unremarkable. UA shows +UTI - Currently on Vanc/Zosyn. - Continued Lexapro 10mg Qday, trazodone 25mg HS, Seroquel 100mg bid, Hydroxyzine 50mg HS. - Psych consulted for assistance, increased Seroquel dosing to 100mg in am and 200mg hs. - Patient appears to be doing well on evaluation 06/23. Continue monitor. //Sepsis with UTI: +leukocytosis, tachycardic. - Urine culture growing Escherichia coli, MRSA, and Raoultella Ornithinolytica. - Moon replaced 06/14/2016. Given IV vancomycin and Zosyn. - Consulted infectious disease is following. - Blood cultures negative x4days, therefore IV Vanco discontinued - WBC 15.7 --> 11.7. - CBC, BMP, AM Cortisol 12.7. - Continue on IV Zosyn for now, ID recommending likely dc on Ertapenem - Stop date for IV ertapenem 07/01/15. //Left hip pain: Reportedly secondary to recent fall. - Checked x-ray of the left hip and pelvis, no acute fractures, chronic changes. - PT eval, continue rehabilitation. Continue pain control with Percocet. //Hypertension,chronic: - Blood pressure acceptable. - Continue home Norvasc. M - Continue monitor blood pressure and adjust medications as necessary. //Diabetes, chronic - Continue sliding scale insulin. //Hypothyroidism, chronic: continue home medications Synthroid //Hypokalemia: Resolved after replacement. //Possible Damon's Disease: -patient to pursue outpatient Cushings Disease work up through PCP and referral to endocrinology //DVT prophylaxis: Lovenox Discharge Planning - As per infectious disease recommendations, Patient will need IV ertapenem with stop date 07/01/15. - Patient would benefit from SNF/rehabilitation. Referrals are out. Appreciate case management assistance. - If unsuccessful at SNF placement, may consider home with home health care. Craig Fernando MD Jun 23, 2016 23:55
[2016-06-24] VITALS: BP 140/66; PULSE 79; RESP 17; TEMP 98; O2SAT 95
[2016-06-24] MEDS: PIPERACIL-TAZO 3.375 GM PREMIX 50 ML IV SCH ×4 (02:42→20:36)
[2016-06-24 04:00] VITALS: BP 131/66; PULSE 77; RESP 18; TEMP 96.4; O2SAT 98
[2016-06-24] MEDS: QUEtiapine FUMARATE 100 MG TAB PO SCH (04:22)
[2016-06-24] MEDS: LEVOTHYROXINE SODIUM 25 MCG TAB PO SCH (04:22)
[2016-06-24] MEDS: oxyCODONE/ACETAMINOPHEN 5 MG/325 MG TAB PO PRN ×4 (04:26→21:15)
[2016-06-24] MEDS: SODIUM CHLOR 0.9% 1000 ML INJ 1,000 ML IV SCH ×2 (05:59→16:56)
[2016-06-24] MEDS: INSULIN ASPART SUPPLEMENTAL SCALE SQ SCH ×4 (06:13→20:43)
[2016-06-24 07:35] LABS: BASOPHIL # 0.1 TH/MM3 (0-0.2); BASOPHIL % 0.5 % (0.0-2.0); EOSINOPHIL # 0.1 TH/MM3 (0-0.4); EOSINOPHIL % 0.5 % (0.0-4.0); HEMATOCRIT 31.2 % (35.0-46.0); LYMPH % 5.7 % (9.0-44.0); LYMPHOCYTE # 0.6 TH/MM3 (1.0-4.8); MEAN CORPUSCULAR HEMOGLOBIN 30.1 PG (27.0-34.0); MEAN CORPUSCULAR HGB CONC 33.4 % (32.0-36.0); NEUT % 89.3 % (16.0-70.0); PLATELET COUNT 170 TH/MM3 (150-450); RED BLOOD COUNT 3.47 MIL/MM3 (4.00-5.30); RED CELL DISTRIBUTION WIDTH 16.3 % (11.6-17.2); WHITE BLOOD COUNT 11.2 TH/MM3 (4.0-11.0)
[2016-06-24 07:47] LABS: HEMO FLAGS AUTO DIFF
[2016-06-24 08:00] VITALS: BP 142/80; PULSE 75; RESP 20; TEMP 96.9; O2SAT 97
[2016-06-24 08:07] LABS: BICARBONATE 24.3 MEQ/L (21.0-32.0)
[2016-06-24] MEDS: NYSTATIN 100,000 U/GM PWD 15 GM BTL TOPICAL SCH ×2 (09:00→20:38)
[2016-06-24] MEDS: COLLAGENASE OINT 30 GM TUBE TOP SCH (09:00)
[2016-06-24] MEDS: ENOXAPARIN SODIUM 40 MG/0.4 ML SYRINGE SQ SCH (09:00)
[2016-06-24 09:31] LABS: BANDS 4 % (0-6); EOSINOPHILS 1 % (0-4); METAMYELOCYTES 1 % (0-1); NEUTROPHIL # MANUAL DIFF 10.6 TH/MM3 (1.8-7.7); PLATELET ESTIMATE SMEAR NORMAL (NORMAL); PLATELET MORPHOLOGY NORMAL (NORMAL); POLYS (SEG NEUTROPHILS) 90 % (16-70); SCAN/DIFF FINAL DIFF MANUAL; WBC DIFF SAMPLE 100
[2016-06-24] MEDS: amLODIPine BESYLATE 5 MG TAB PO SCH (09:44)
[2016-06-24] MEDS: FAMOTIDINE 20 MG TAB PO SCH ×2 (09:44→20:37)
[2016-06-24] MEDS: SODIUM CHLORIDE 0.9% FLUSH 5 ML FLUSH FLUSH SCH ×2 (09:45→20:37)
[2016-06-24] MEDS: FERROUS SULFATE 325 MG (65 MG ELEMENTAL IRON) TAB PO SCH (09:45)
[2016-06-24] MEDS: predniSONE 20 MG TAB PO SCH ×2 (09:45→20:37)
[2016-06-24] MEDS: ESCITALOPRAM OXALATE 10 MG TAB PO SCH (09:45)
[2016-06-24 12:00] VITALS: BP 142/79; PULSE 81; RESP 20; TEMP 96.8; O2SAT 94
[2016-06-24 16:00] VITALS: BP 128/67; PULSE 86; RESP 20; TEMP 98.1; O2SAT 97
[2016-06-24] MEDS: LORazepam 0.5 MG TAB PO PRN (18:37)
--- NOTE | 2016-06-24 19:50 | HHI.PR ---
Subjective Remarks denies cp/sob denies fevers denies chills as per RN - has hemorrhage on inner corner of right eye Objective Vitals Vital Signs Date Time Temp Pulse Resp B/P Pulse Ox O2 Delivery O2 Flow Rate FiO2 06/24/16 16:00 98.1 86 20 128/67 97 06/24/16 12:00 96.8 81 20 142/79 94 06/24/16 08:00 96.9 75 20 142/80 97 06/24/16 05:26 18 06/24/16 04:00 96.4 77 18 131/66 98 06/24/16 00:00 98.0 79 17 140/66 95 06/23/16 20:00 97.6 97 18 168/86 95 I/O 06/23/16 06/23/16 06/23/16 06/24/16 06/24/16 06/24/16 07:00 15:00 23:00 07:00 15:00 23:00 Intake Total 1248 ml 1365 ml 120 ml 780 ml Output Total 1000 ml 1650 ml 450 ml 1200 ml 1400 ml Balance 248 ml -285 ml -450 ml -1080 ml -620 ml Intake Oral 240 ml 600 ml 120 ml 780 ml IV Total 1008 ml 765 ml Output Urine Total 1000 ml 1250 ml 450 ml 1200 ml 1400 ml Stool Total 400 ml # Bowel Movements 0 0 0 Result Diagram: 06/24/16 0710 06/24/16 0710 Imaging Last Impressions Hip and Pelvis X-Ray 06/17/16 0000 Signed Impressions: Service Date/Time: Friday, June 17, 2016 10:02 - CONCLUSION: 1. No acute fracture or dislocation of the bony pelvis. 2. Mild degenerative changes involving the hip joints bilaterally. 3. Mild degenerative changes and scoliosis of the lower lumbar spine. Diogenes Lynch MD Head CT 06/13/16 5817 Signed Impressions: Service Date/Time: Monday, June 13, 2016 18:49 - CONCLUSION: Normal examination for a patient of this age. No significant change has occurred. Nba Marion MD Chest X-Ray 06/13/169 Signed Impressions: Service Date/Time: Monday, June 13, 2016 17:36 - CONCLUSION: Bibasilar streakiness consistent with probable atelectasis. Diogenes Lynch MD Objective Remarks GENERAL: patient sitting up in bed. appears comfortable. Alert. oriented x3. SKIN: Warm and dry. HEAD: Normocephalic. EYES: No scleral icterus. No injection or drainage. NECK: Supple, trachea midline. No JVD. CARDIOVASCULAR: Regular rate and rhythm without murmurs, gallops, or rubs. RESPIRATORY: Breath sounds equal bilaterally. No accessory muscle use. GASTROINTESTINAL: Abdomen soft, non-tender, nondistended. MUSCULOSKELETAL: No cyanosis, or edema. BACK: Nontender without obvious deformity. No CVA tenderness. Procedures None. Medications and IVs Current Medications Medications (Trade) Dose Ordered Sig/Trent Route Start Time Stop Time Status Last Admin (NS 1000 ml Inj) 1,000 ml @ 100 mls/hr Q10H IV 06/13/16 20:02 06/24/16 16:56 (NS Flush) 2 ml UNSCH PRN FLUSH 06/13/16 20:15 (NS Flush) 2 ml BID FLUSH 06/13/16 21:00 06/24/16 09:45 (Lovenox Inj) 40 mg Q24H SQ 06/14/16 09:00 06/23/16 09:11 (Narcan Inj) 0.4 mg UNSCH PRN IV 06/13/16 20:15 (Norvasc) 2.5 mg DAILY PO 06/14/16 09:00 06/24/16 09:44 (Lexapro) 10 mg DAILY PO 06/14/16 09:00 06/24/16 09:45 (Atarax) 50 mg HS PO 06/14/16 21:00 06/23/16 20:45 (Synthroid) 25 mcg DAILY@0600 PO 06/14/16 06:00 06/24/16 04:22 (Desyrel) 25 mg HS PO 06/14/16 21:00 06/23/16 20:45 (D50w (Vial) Inj) 25 ml UNSCH PRN IV PUSH 06/14/16 01:00 (Glucagon Inj) 1 mg UNSCH PRN OTHER 06/14/16 01:00 (Pepcid) 20 mg BID PO 06/14/16 09:00 06/24/16 09:44 (Ferrous Sulfate) 325 mg DAILY PO 06/14/16 09:00 06/24/16 09:45 (Deltasone) 20 mg BID PO 06/14/16 09:00 06/24/16 09:45 (SEROquel) 100 mg DAILY@0600 PO 06/15/16 06:00 06/24/16 04:22 (SEROquel) 200 mg HS PO 06/14/16 21:00 06/23/16 21:17 (Mycostatin Powder) 1 applic Q12HR TOPICAL 06/14/16 21:00 06/24/16 09:00 (Santyl Oint) 1 applic DAILY TOP 06/15/16 09:00 06/24/16 09:00 Oxycodone/ Acetaminophen 1 tab 1 tab Q4H PRN PO 06/17/16 11:45 06/24/16 16:56 (Zosyn 3.375 Gm Premix) 50 ml @ 100 mls/hr Q6H IV 06/17/16 14:00 06/24/16 15:28 (Ativan) 0.5 mg Q4H PRN PO 06/19/16 17:00 06/24/16 18:37 Date of Insertion: Jun 14, 2016 A/P Problem List: (1) Sepsis ICD Code: A41.9 Status: Acute Plan: Sepsis secondary to urinary tract infection. Urine culture grew Escherichia coli, MRSA, Raoultella Orniyhinolytica. Patient treated with IV vancomycin and Zosyn. We'll replace 06/14/16. Infectious disease consulted. Blood cultures negative to date. Leukocytosis trending down WBC 15.7 ---> 11.7 A.m. cortisol Continue IV antibiotics as per ID. The patient currently on IV Zosyn. Patient will be discharged on ertapenem Stop date for IV ertapenem 07/01/15 (2) UTI (urinary tract infection) ICD Code: N39.0 Status: Acute Plan: As above (3) HTN (hypertension) ICD Code: I10 Status: Chronic Plan: BP seems stable. Patient with episodes of high blood pressure likely related to pain. Continue with Norvasc. (4) Diabetes ICD Code: E11.9 Status: Acute Plan: This is a new onset diabetes, hemoglobin A1c 5.0 in 2014. We'll order diabetes education consult. Blood sugars stable. Continue necessary with insulin NovoLog. Check hemoglobin A1c. (5) Hypothyroidism ICD Code: E03.9 Status: Chronic Plan: Continue Synthroid. Check TSH. It has not been checked in a year. Last TSH was within normal range at 2.14. (6) Metabolic encephalopathy ICD Code: G93.41 Status: Acute Plan: Likely secondary to sepsis with UTI. Now resolved. Head CT unremarkable. Continue Lexapro, trazodone, Seroquel hydroxy signed. Site consulted increase Seroquel to 100 mg in a.m. and 200 mg at at bedtime. Patient doing well. (7) Transaminitis ICD Code: R74.0 Status: Chronic Plan: Patient has had elevated liver enzymes since 2015, now actually lower. However AST on admission 72 trending up to 93. ALT trending up from 123-211. Patient had a negative hepatitis profile in 2015. Continue to monitor LFTs, check hepatitis profile and liver ultrasound. (8) Subconjunctival hemorrhage, non-traumatic ICD Code: H11.30 Status: Acute Plan: Patient has a is spontaneous conjunctival hemorrhage of the right eye. This is self-limited and has not treatment. Discharge Planning Pending placement Problem Qualifiers (1) Sepsis: Qualified Code: A41.9 - Sepsis, due to unspecified organism (2) UTI (urinary tract infection): Qualified Code: N30.01 - Acute cystitis with hematuria (3) HTN (hypertension): Qualified Code: I10 - Essential hypertension (4) Diabetes: Qualified Code: E11.8 - Type 2 diabetes mellitus with complication, without long-term current use of insulin (5) Hypothyroidism: Qualified Code: E03.9 - Hypothyroidism, unspecified type (6) Subconjunctival hemorrhage, non-traumatic: Qualified Code: H11.31 - Subconjunctival hemorrhage, non-traumatic, right Lopez Sheets MD Jun 24, 2016 19:50
[2016-06-24 20:00] VITALS: BP 151/78; PULSE 98; RESP 18; TEMP 98.4; O2SAT 94
[2016-06-24] MEDS: traZODone HCL 50 MG TAB PO SCH (20:37)
[2016-06-24] MEDS: QUEtiapine FUMARATE 200 MG TAB PO SCH (20:38)
[2016-06-24] MEDS: hydrOXYzine HCL 50 MG TAB PO SCH (20:39)
[2016-06-25] VITALS: BP 127/61; PULSE 78; RESP 18; TEMP 97.5; O2SAT 94
[2016-06-25] MEDS: SODIUM CHLOR 0.9% 1000 ML INJ 1,000 ML IV SCH (01:48)
[2016-06-25] MEDS: PIPERACIL-TAZO 3.375 GM PREMIX 50 ML IV SCH ×4 (01:48→20:12)
[2016-06-25] MEDS: oxyCODONE/ACETAMINOPHEN 5 MG/325 MG TAB PO PRN ×5 (01:49→20:13)
[2016-06-25 04:03] VITALS: BP 161/77; PULSE 73; RESP 16; TEMP 96.9; O2SAT 97
[2016-06-25] MEDS: QUEtiapine FUMARATE 100 MG TAB PO SCH (05:42)
[2016-06-25] MEDS: LEVOTHYROXINE SODIUM 25 MCG TAB PO SCH (05:43)
[2016-06-25] MEDS: INSULIN ASPART SUPPLEMENTAL SCALE SQ SCH ×4 (05:44→20:37)
[2016-06-25 08:00] VITALS: BP 174/81; PULSE 85; RESP 19; TEMP 97.4; O2SAT 97
--- NOTE | 2016-06-25 08:17 | HHI.PR ---
Subjective Remarks fu sepsis/uti, encephalopathy patient denies cp/sob denies diarrhea no rash afebrile stable vital signs states had a rough night has pain all over - neck, back Objective Vitals Vital Signs Date Time Temp Pulse Resp B/P Pulse Ox O2 Delivery O2 Flow Rate FiO2 06/25/16 04:03 96.9 73 16 161/77 97 06/25/16 03:16 18 06/25/16 00:00 97.5 78 18 127/61 94 06/24/16 20:00 98.4 98 18 151/78 94 06/24/16 16:00 98.1 86 20 128/67 97 06/24/16 12:00 96.8 81 20 142/79 94 I/O 06/24/16 06/24/16 06/24/16 06/25/16 06/25/16 06/25/16 07:00 15:00 23:00 07:00 15:00 23:00 Intake Total 120 ml 1500 ml 120 ml Output Total 1200 ml 1600 ml 550 ml Balance -1080 ml -100 ml -430 ml Intake Oral 120 ml 1500 ml 120 ml Output Urine Total 1200 ml 1600 ml 550 ml # Bowel Movements 0 1 Result Diagram: 06/24/16 0710 06/24/16 0710 Imaging Last Impressions Hip and Pelvis X-Ray 06/17/16 0000 Signed Impressions: Service Date/Time: Friday, June 17, 2016 10:02 - CONCLUSION: 1. No acute fracture or dislocation of the bony pelvis. 2. Mild degenerative changes involving the hip joints bilaterally. 3. Mild degenerative changes and scoliosis of the lower lumbar spine. Diogenes Lynch MD Head CT 06/13/16 Signed Impressions: Service Date/Time: Monday, June 13, 2016 18:49 - CONCLUSION: Normal examination for a patient of this age. No significant change has occurred. Nba Marion MD Chest X-Ray 06/13/161728 Signed Impressions: Service Date/Time: Monday, June 13, 2016 17:36 - CONCLUSION: Bibasilar streakiness consistent with probable atelectasis. Diogenes Lynch MD Objective Remarks GENERAL: patient sitting up in bed. appears comfortable. Alert. oriented x3. SKIN: Warm and dry. HEAD: Normocephalic. EYES: No scleral icterus. No injection or drainage. NECK: Supple, trachea midline. No JVD. CARDIOVASCULAR: Regular rate and rhythm without murmurs, gallops, or rubs. RESPIRATORY: Breath sounds equal bilaterally. No accessory muscle use. GASTROINTESTINAL: Abdomen soft, non-tender, nondistended. MUSCULOSKELETAL: No cyanosis, or edema. BACK: Nontender without obvious deformity. No CVA tenderness. Procedures None. Medications and IVs Current Medications Medications (Trade) Dose Ordered Sig/Trent Route Start Time Stop Time Status Last Admin (NS 1000 ml Inj) 1,000 ml @ 100 mls/hr Q10H IV 06/13/16 20:02 06/25/16 01:48 (NS Flush) 2 ml UNSCH PRN FLUSH 06/13/16 20:15 (NS Flush) 2 ml BID FLUSH 06/13/16 21:00 06/24/16 20:37 (Lovenox Inj) 40 mg Q24H SQ 06/14/16 09:00 06/23/16 09:11 (Narcan Inj) 0.4 mg UNSCH PRN IV 06/13/16 20:15 (Norvasc) 2.5 mg DAILY PO 06/14/16 09:00 06/24/16 09:44 (Lexapro) 10 mg DAILY PO 06/14/16 09:00 06/24/16 09:45 (Atarax) 50 mg HS PO 06/14/16 21:00 06/23/16 20:45 (Synthroid) 25 mcg DAILY@0600 PO 06/14/16 06:00 06/25/16 05:43 (Desyrel) 25 mg HS PO 06/14/16 21:00 06/24/16 20:37 (D50w (Vial) Inj) 25 ml UNSCH PRN IV PUSH 06/14/16 01:00 (Glucagon Inj) 1 mg UNSCH PRN OTHER 06/14/16 01:00 (Pepcid) 20 mg BID PO 06/14/16 09:00 06/24/16 20:37 (Ferrous Sulfate) 325 mg DAILY PO 06/14/16 09:00 06/24/16 09:45 (Deltasone) 20 mg BID PO 06/14/16 09:00 06/24/16 20:37 (SEROquel) 100 mg DAILY@0600 PO 06/15/16 06:00 12/31/16 05:42 (SEROquel) 200 mg HS PO 06/14/16 21:00 06/24/16 20:38 (Mycostatin Powder) 1 applic Q12HR TOPICAL 06/14/16 21:00 06/24/16 20:38 (Santyl Oint) 1 applic DAILY TOP 06/15/16 09:00 06/24/16 09:00 Oxycodone/ Acetaminophen 1 tab 1 tab Q4H PRN PO 06/17/16 11:45 06/25/16 05:43 (Zosyn 3.375 Gm Premix) 50 ml @ 100 mls/hr Q6H IV 06/17/16 14:00 06/25/16 01:48 (Ativan) 0.5 mg Q4H PRN PO 06/19/16 17:00 06/24/16 18:37 Urinary Catheter: No Date of Insertion: Jun 14, 2016 Vascular Central Line Catheter: No A/P Problem List: (1) Sepsis ICD Code: A41.9 Status: Acute Plan: Sepsis secondary to urinary tract infection. Urine culture grew Escherichia coli, MRSA, Raoultella Orniyhinolytica. Patient treated with IV vancomycin and Zosyn. We'll replace 06/14/16. Infectious disease consulted. Blood cultures negative to date. Leukocytosis trending down WBC 15.7 ---> 11.7 A.m. cortisol Continue IV antibiotics as per ID. The patient currently on IV Zosyn. Patient will be discharged on ertapenem Stop date for IV ertapenem 07/01/15 Dc IV fluids - sepsis resolved (2) UTI (urinary tract infection) ICD Code: N39.0 Status: Acute Plan: As above (3) HTN (hypertension) ICD Code: I10 Status: Chronic Plan: BP seems stable. Patient with episodes of high blood pressure likely related to pain. Continue with Norvasc. (4) Diabetes ICD Code: E11.9 Status: Acute Plan: This is a new onset diabetes, hemoglobin A1c 5.0 in 2014. We'll order diabetes education consult. Blood sugars stable. Continue necessary with insulin NovoLog. Check hemoglobin A1c. Patient currently on prednisone 20 mg po bid ---> taper dose to off. 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 (5) Hypothyroidism ICD Code: E03.9 Status: Chronic Plan: Continue Synthroid. Check TSH. It has not been checked in a year. Last TSH was within normal range at 2.14. (6) Metabolic encephalopathy ICD Code: G93.41 Status: Acute Plan: Likely secondary to sepsis with UTI. Now resolved. Head CT unremarkable. Continue Lexapro, trazodone, Seroquel hydroxy signed. Site consulted increase Seroquel to 100 mg in a.m. and 200 mg at at bedtime. Patient doing well. (7) Transaminitis ICD Code: R74.0 Status: Chronic Plan: Patient has had elevated liver enzymes since 2015, now actually lower. However AST on admission 72 trending up to 93. ALT trending up from 123-211. Patient had a negative hepatitis profile in 2014. Continue to monitor LFTs, check hepatitis profile and liver ultrasound. (8) Subconjunctival hemorrhage, non-traumatic ICD Code: H11.30 Status: Acute Plan: Patient has a is spontaneous conjunctival hemorrhage of the right eye. This is self-limited and has not treatment. Assessment and Plan GI prophylaxis: Add PPI. DVT prophylaxis: Lovenox subcutaneous. Discharge Planning Pending placement Problem Qualifiers (1) Sepsis: Qualified Code: A41.9 - Sepsis, due to unspecified organism (2) UTI (urinary tract infection): Qualified Code: N30.01 - Acute cystitis with hematuria (3) HTN (hypertension): Qualified Code: I10 - Essential hypertension (4) Diabetes: Qualified Code: E11.8 - Type 2 diabetes mellitus with complication, without long-term current use of insulin (5) Hypothyroidism: Qualified Code: E03.9 - Hypothyroidism, unspecified type (6) Subconjunctival hemorrhage, non-traumatic: Qualified Code: H11.31 - Subconjunctival hemorrhage, non-traumatic, right Lopez Sheets MD Jun 25, 2016 08:17
[2016-06-25] MEDS: SODIUM CHLORIDE 0.9% FLUSH 5 ML FLUSH FLUSH SCH ×2 (09:00→20:14)
[2016-06-25] MEDS: ENOXAPARIN SODIUM 40 MG/0.4 ML SYRINGE SQ SCH (09:34)
[2016-06-25] MEDS: ESCITALOPRAM OXALATE 10 MG TAB PO SCH (09:34)
[2016-06-25] MEDS: FAMOTIDINE 20 MG TAB PO SCH ×2 (09:34→20:13)
[2016-06-25] MEDS: amLODIPine BESYLATE 5 MG TAB PO SCH (09:35)
[2016-06-25] MEDS: FERROUS SULFATE 325 MG (65 MG ELEMENTAL IRON) TAB PO SCH (09:36)
[2016-06-25] MEDS: COLLAGENASE OINT 30 GM TUBE TOP SCH (09:37)
[2016-06-25] MEDS: NYSTATIN 100,000 U/GM PWD 15 GM BTL TOPICAL SCH ×2 (09:37→20:37)
[2016-06-25] MEDS: predniSONE 20 MG TAB PO SCH (09:37)
[2016-06-25 12:00] VITALS: BP 142/65; PULSE 84; RESP 18; TEMP 97.1; O2SAT 95
[2016-06-25 12:05] LABS: AUTOMATED NEUTROPHIL # 10.6 TH/MM3 (1.8-7.7); BASOPHIL # 0.1 TH/MM3 (0-0.2); BASOPHIL % 0.8 % (0.0-2.0); EOSINOPHIL # 0.1 TH/MM3 (0-0.4); EOSINOPHIL % 0.5 % (0.0-4.0); HEMATOCRIT 34.3 % (35.0-46.0); LYMPH % 5.2 % (9.0-44.0); LYMPHOCYTE # 0.6 TH/MM3 (1.0-4.8); MEAN CELL VOLUME 91.1 FL (80.0-100.0); MEAN CORPUSCULAR HEMOGLOBIN 30.4 PG (27.0-34.0); MEAN CORPUSCULAR HGB CONC 33.4 % (32.0-36.0); MONO % 3.9 % (0.0-8.0); NEUT % 89.6 % (16.0-70.0); PLATELET COUNT 174 TH/MM3 (150-450); RED BLOOD COUNT 3.76 MIL/MM3 (4.00-5.30); RED CELL DISTRIBUTION WIDTH 16.3 % (11.6-17.2); WHITE BLOOD COUNT 11.8 TH/MM3 (4.0-11.0)
[2016-06-25 12:08] LABS: HEMO FLAGS AUTO DIFF
[2016-06-25 12:40] LABS: ALKALINE PHOSPHATASE 190 U/L (45-117); ALT (GPT) 266 U/L (10-53); ANION GAP 11 MEQ/L (5-15); AST (GOT) 109 U/L (15-37); BICARBONATE 23.9 MEQ/L (21.0-32.0); BLOOD UREA NITROGEN 18 MG/DL (7-18); CHLORIDE 104 MEQ/L (98-107); GLOMERULAR FILTRATION RATE 102 ML/MIN (>89); POTASSIUM 3.5 MEQ/L (3.5-5.1); SODIUM (NA) 139 MEQ/L (136-145); TOTAL BILIRUBIN ADULT 0.7 MG/DL (0.2-1.0)
[2016-06-25 13:59] LABS: SCAN/DIFF AUTO DIFF CONFIRMED
[2016-06-25 16:00] VITALS: BP 108/82; PULSE 79; RESP 18; TEMP 97.1; O2SAT 97
[2016-06-25] MEDS: LORazepam 0.5 MG TAB PO PRN (17:37)
[2016-06-25 20:03] VITALS: BP 176/82; PULSE 93; RESP 18; TEMP 97; O2SAT 97
[2016-06-25] MEDS: traZODone HCL 50 MG TAB PO SCH (20:13)
[2016-06-25] MEDS: hydrOXYzine HCL 50 MG TAB PO SCH (20:13)
[2016-06-25] MEDS: QUEtiapine FUMARATE 200 MG TAB PO SCH (20:13)
--- NOTE | 2016-06-25 21:29 | RADRPT ---
EXAM DATE/TIME: 06/25/2016 15:51 [facility] COMPARISON: No previous studies available for comparison. INDICATIONS : Elevated labs. MEDICAL HISTORY : Schizoaffective disorder. Irritable bowel syndrome. SURGICAL HISTORY : Total knee replacement, left. Implanted vascular device. Breast implants. Repair abdominal musc le. ENCOUNTER: Initial ACUITY: 2 weeks PAIN SCORE: 2/10 LOCATION: Bilateral upper quadrant MEASUREMENTS: LIVER: 19.6 cm length COMMON DUCT: 4 mm RIGHT KIDNEY: 9.9 x 5.1 x 5.1 cm SPLEEN: 11.6 cm length FINDINGS: LIVER: Enlarged and mild fatty infiltrated. No focal hepatic lesions seen. No ductal dilatation. COMMON DUCT: No intraluminal mass or stone visualized. Normal flow velocity and direction in the main portal vein. GALLBLADDER: Contains no stones, demonstrates no wall thickening or pericholecystic fluid. PANCREAS: The visualized portions are within normal limits. RIGHT KIDNEY: No hydronephrosis, stone or mass. SPLEEN: No focal lesion. CONCLUSION: Enlarged liver with fatty infiltration. Right upper quadrant ultrasound otherwise within normal limit juan Veras MD on June 25, 2016 at 21:26 Board Certified Radiologist. This report was verified electronically.
[2016-06-26 00:03] VITALS: BP 120/78; PULSE 82; RESP 16; TEMP 97.6; O2SAT 97
[2016-06-26] MEDS: oxyCODONE/ACETAMINOPHEN 5 MG/325 MG TAB PO PRN ×5 (02:08→20:21)
[2016-06-26] MEDS: PIPERACIL-TAZO 3.375 GM PREMIX 50 ML IV SCH ×4 (02:08→20:18)
[2016-06-26 04:03] VITALS: BP 130/75; PULSE 70; RESP 17; TEMP 97.4; O2SAT 96
[2016-06-26] MEDS: QUEtiapine FUMARATE 100 MG TAB PO SCH (05:30)
[2016-06-26] MEDS: LEVOTHYROXINE SODIUM 25 MCG TAB PO SCH (05:30)
[2016-06-26] MEDS: INSULIN ASPART SUPPLEMENTAL SCALE SQ SCH ×4 (06:09→20:46)
[2016-06-26 08:00] VITALS: BP 143/85; PULSE 81; RESP 16; TEMP 97.8; O2SAT 97
[2016-06-26] MEDS: predniSONE 20 MG TAB PO SCH (08:13)
[2016-06-26] MEDS: FAMOTIDINE 20 MG TAB PO SCH ×2 (08:14→20:20)
[2016-06-26] MEDS: amLODIPine BESYLATE 5 MG TAB PO SCH (08:14)
[2016-06-26] MEDS: FERROUS SULFATE 325 MG (65 MG ELEMENTAL IRON) TAB PO SCH (08:14)
[2016-06-26] MEDS: ESCITALOPRAM OXALATE 10 MG TAB PO SCH (08:14)
[2016-06-26] MEDS: SODIUM CHLORIDE 0.9% FLUSH 5 ML FLUSH FLUSH SCH ×2 (08:16→20:19)
[2016-06-26] MEDS: NYSTATIN 100,000 U/GM PWD 15 GM BTL TOPICAL SCH ×2 (08:17→20:46)
[2016-06-26] MEDS: ENOXAPARIN SODIUM 40 MG/0.4 ML SYRINGE SQ SCH (08:17)
[2016-06-26] MEDS: COLLAGENASE OINT 30 GM TUBE TOP SCH (08:17)
[2016-06-26 10:55] LABS: AUTOMATED NEUTROPHIL # 12.1 TH/MM3 (1.8-7.7); BASOPHIL # 0.1 TH/MM3 (0-0.2); BASOPHIL % 0.7 % (0.0-2.0); EOSINOPHIL # 0.2 TH/MM3 (0-0.4); EOSINOPHIL % 1.5 % (0.0-4.0); HEMATOCRIT 34.9 % (35.0-46.0); LYMPH % 5.8 % (9.0-44.0); LYMPHOCYTE # 0.8 TH/MM3 (1.0-4.8); MEAN CELL VOLUME 91.3 FL (80.0-100.0); MEAN CORPUSCULAR HEMOGLOBIN 30.8 PG (27.0-34.0); MEAN CORPUSCULAR HGB CONC 33.7 % (32.0-36.0); MONO % 3.7 % (0.0-8.0); NEUT % 88.3 % (16.0-70.0); PLATELET COUNT 192 TH/MM3 (150-450); RED BLOOD COUNT 3.82 MIL/MM3 (4.00-5.30); RED CELL DISTRIBUTION WIDTH 16.5 % (11.6-17.2); WHITE BLOOD COUNT 13.7 TH/MM3 (4.0-11.0)
[2016-06-26 10:57] LABS: HEMO FLAGS AUTO DIFF
[2016-06-26 11:11] LABS: ANION GAP 12 MEQ/L (5-15); AST (GOT) 98 U/L (15-37); BLOOD UREA NITROGEN 21 MG/DL (7-18); CHLORIDE 100 MEQ/L (98-107); GLOMERULAR FILTRATION RATE 79 ML/MIN (>89); POTASSIUM 3.3 MEQ/L (3.5-5.1); SODIUM (NA) 137 MEQ/L (136-145)
[2016-06-26 11:14] LABS: ALKALINE PHOSPHATASE 186 U/L (45-117); ALT (GPT) 271 U/L (10-53); TOTAL BILIRUBIN ADULT 0.7 MG/DL (0.2-1.0)
[2016-06-26 11:39] LABS: BANDS 7 % (0-6); MYELOCYTES 2 % (0-0); NEUTROPHIL # MANUAL DIFF 11.9 TH/MM3 (1.8-7.7); OVALOCYTES 1+ (NORMAL); POLYS (SEG NEUTROPHILS) 78 % (16-70); WBC DIFF SAMPLE 100
[2016-06-26 11:40] LABS: PLATELET ESTIMATE SMEAR NORMAL (NORMAL); PLATELET MORPHOLOGY NORMAL (NORMAL); SCAN/DIFF FINAL DIFF MANUAL
[2016-06-26 12:00] VITALS: BP 138/75; PULSE 95; RESP 16; TEMP 98; O2SAT 96
[2016-06-26] MEDS: LORazepam 0.5 MG TAB PO PRN (15:08)
[2016-06-26 16:00] VITALS: BP 141/80; PULSE 98; RESP 16; TEMP 98.1; O2SAT 97
[2016-06-26 20:00] VITALS: BP 138/82; PULSE 92; RESP 18; TEMP 98.2; O2SAT 95
[2016-06-26] MEDS: hydrOXYzine HCL 50 MG TAB PO SCH (20:20)
[2016-06-26] MEDS: traZODone HCL 50 MG TAB PO SCH (20:20)
[2016-06-26] MEDS: QUEtiapine FUMARATE 200 MG TAB PO SCH (20:20)
--- NOTE | 2016-06-26 21:07 | HHI.PR ---
Subjective Remarks deferred entry patient seen earlier at 5 pm denies cp/sob denies fevers/chills denies diarrhea denies abdominal pain Objective Vitals Vital Signs Date Time Temp Pulse Resp B/P Pulse Ox O2 Delivery O2 Flow Rate FiO2 06/26/16 20:00 98.2 92 18 138/82 95 06/26/16 16:00 98.1 98 16 141/80 97 06/26/16 12:00 98.0 95 16 138/75 96 06/26/16 08:00 97.8 81 16 143/85 97 06/26/16 04:03 97.4 70 17 130/75 96 06/26/16 00:03 97.6 82 16 120/78 97 I/O 06/25/16 06/25/16 06/25/16 06/26/16 06/26/16 06/26/16 07:00 15:00 23:00 07:00 15:00 23:00 Intake Total 120 ml 600 ml 454 ml 340 ml 600 ml 65 ml Output Total 550 ml 1800 ml 800 ml 950 ml 2350 ml 250 ml Balance -430 ml -1200 ml -346 ml -610 ml -1750 ml -185 ml Intake Oral 120 ml 600 ml 120 ml 240 ml 600 ml IV Total 334 ml 100 ml 65 ml Output Urine Total 550 ml 1600 ml 200 ml 950 ml 1750 ml Stool Total 200 ml 600 ml 600 ml 250 ml Result Diagram: 06/26/16 1010 06/26/16 1010 Imaging Last Impressions Liver Ultrasound 06/25/16 0000 Signed Impressions: Service Date/Time: Saturday, June 25, 2016 15:51 - CONCLUSION: Enlarged liver with fatty infiltration. Right upper quadrant ultrasound otherwise within normal limits. Andres Vears MD Hip and Pelvis X-Ray 06/17/16 0000 Signed Impressions: Service Date/Time: Friday, June 17, 2016 10:02 - CONCLUSION: 1. No acute fracture or dislocation of the bony pelvis. 2. Mild degenerative changes involving the hip joints bilaterally. 3. Mild degenerative changes and scoliosis of the lower lumbar spine. Diogenes Lynch MD Head CT 06/13/16 1737 Signed Impressions: Service Date/Time: Monday, June 13, 2016 18:49 - CONCLUSION: Normal examination for a patient of this age. No significant change has occurred. Nba Marion MD Chest X-Ray 06/13/16 6380 Signed Impressions: Service Date/Time: Monday, June 13, 2016 17:36 - CONCLUSION: Bibasilar streakiness consistent with probable atelectasis. Diogenes Lynch MD Objective Remarks GENERAL: patient sitting up in bed. appears comfortable. Alert. oriented x3. SKIN: Warm and dry. HEAD: Normocephalic. EYES: No scleral icterus. No injection or drainage. NECK: Supple, trachea midline. No JVD. CARDIOVASCULAR: Regular rate and rhythm without murmurs, gallops, or rubs. RESPIRATORY: Breath sounds equal bilaterally. No accessory muscle use. GASTROINTESTINAL: Abdomen soft, non-tender, nondistended. MUSCULOSKELETAL: No cyanosis, or edema. BACK: Nontender without obvious deformity. No CVA tenderness. Procedures None. Medications and IVs Current Medications Medications (Trade) Dose Ordered Sig/Trent Route Start Time Stop Time Status Last Admin (NS Flush) 2 ml UNSCH PRN FLUSH 06/13/16 20:15 (NS Flush) 2 ml BID FLUSH 06/13/16 21:00 06/26/16 20:19 (Lovenox Inj) 40 mg Q24H SQ 06/14/16 09:00 06/26/16 08:17 (Narcan Inj) 0.4 mg UNSCH PRN IV 06/13/16 20:15 (Norvasc) 2.5 mg DAILY PO 06/14/16 09:00 06/26/16 08:14 (Lexapro) 10 mg DAILY PO 06/14/16 09:00 06/26/16 08:14 (Atarax) 50 mg HS PO 06/14/16 21:00 06/26/16 20:20 (Synthroid) 25 mcg DAILY@0600 PO 06/14/16 06:00 06/26/16 05:30 (Desyrel) 25 mg HS PO 06/14/16 21:00 06/26/16 20:20 (D50w (Vial) Inj) 25 ml UNSCH PRN IV PUSH 06/14/16 01:00 (Glucagon Inj) 1 mg UNSCH PRN OTHER 06/14/16 01:00 (Pepcid) 20 mg BID PO 06/14/16 09:00 06/26/16 20:20 (Ferrous Sulfate) 325 mg DAILY PO 06/14/16 09:00 06/26/16 08:14 (SEROquel) 100 mg DAILY@0600 PO 06/15/16 06:00 06/26/16 05:30 (SEROquel) 200 mg HS PO 06/14/16 21:00 06/26/16 20:20 (Mycostatin Powder) 1 applic Q12HR TOPICAL 06/14/16 21:00 06/26/16 20:46 (Santyl Oint) 1 applic DAILY TOP 06/15/16 09:00 06/26/16 08:17 Oxycodone/ Acetaminophen 1 tab 1 tab Q4H PRN PO 06/17/16 11:45 06/27/16 00:23 (Zosyn 3.375 Gm Premix) 50 ml @ 100 mls/hr Q6H IV 06/17/16 14:00 06/26/16 20:18 (Ativan) 0.5 mg Q4H PRN PO 06/19/16 17:00 06/26/16 15:08 (Deltasone) 10 mg DAILY PO 06/27/16 09:00 Date of Insertion: Jun 14, 2016 A/P Problem List: (1) Sepsis ICD Code: A41.9 Status: Acute Plan: Sepsis secondary to urinary tract infection. Urine culture grew Escherichia coli, MRSA, Raoultella Orniyhinolytica. Patient treated with IV vancomycin and Zosyn. We'll replace 06/14/16. Infectious disease consulted. Blood cultures negative to date. Leukocytosis stable WBC 15.7 ---> 11.7 ---> 13 no signs of infection Continue IV antibiotics as per ID. The patient currently on IV Zosyn. Patient will be discharged on ertapenem Stop date for IV ertapenem 07/01/15 Dc IV fluids - sepsis resolved (2) UTI (urinary tract infection) ICD Code: N39.0 Status: Acute Plan: As above (3) HTN (hypertension) ICD Code: I10 Status: Chronic Plan: BP seems stable. Patient with episodes of high blood pressure likely related to pain. Continue with Norvasc. (4) Diabetes ICD Code: E11.9 Status: Acute Plan: This is a new onset diabetes, hemoglobin A1c 5.0 in 2014. We'll order diabetes education consult. Blood sugars stable. Continue necessary with insulin NovoLog. Check hemoglobin A1c. Patient currently on prednisone 20 mg po bid ---> taper dose to off. 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 (5) Hypothyroidism ICD Code: E03.9 Status: Chronic Plan: Continue Synthroid. Check TSH. It has not been checked in a year. Last TSH was within normal range at 2.14. (6) Metabolic encephalopathy ICD Code: G93.41 Status: Acute Plan: Likely secondary to sepsis with UTI. Now resolved. Head CT unremarkable. Continue Lexapro, trazodone, Seroquel hydroxy signed. Site consulted increase Seroquel to 100 mg in a.m. and 200 mg at at bedtime. Patient doing well. (7) Transaminitis ICD Code: R74.0 Status: Chronic Plan: Patient has had elevated liver enzymes since 2014, now actually lower. However AST on admission 72 trending up to 93. ALT trending up from 123-211. Patient had a negative hepatitis profile in 2014. Continue to monitor LFTs, check hepatitis profile and liver ultrasound. 06/26/16 liver us showed fatty liver, patient has never had this worked up. LFT's stable continue to monitor. GI consult. (8) Subconjunctival hemorrhage, non-traumatic ICD Code: H11.30 Status: Acute Plan: Patient has a is spontaneous conjunctival hemorrhage of the right eye. This is self-limited and has not treatment. Assessment and Plan GI prophylaxis: Add PPI. DVT prophylaxis: Lovenox subcutaneous. Discharge Planning Pending placement Problem Qualifiers (1) Sepsis: Qualified Code: A41.9 - Sepsis, due to unspecified organism (2) UTI (urinary tract infection): Qualified Code: N30.01 - Acute cystitis with hematuria (3) HTN (hypertension): Qualified Code: I10 - Essential hypertension (4) Diabetes: Qualified Code: E11.8 - Type 2 diabetes mellitus with complication, without long-term current use of insulin (5) Hypothyroidism: Qualified Code: E03.9 - Hypothyroidism, unspecified type (6) Subconjunctival hemorrhage, non-traumatic: Qualified Code: H11.31 - Subconjunctival hemorrhage, non-traumatic, right Lopez Sheets MD Jun 26, 2016 21:07
[2016-06-27] VITALS: BP 118/62; PULSE 88; RESP 18; TEMP 97.6; O2SAT 97
[2016-06-27] MEDS: oxyCODONE/ACETAMINOPHEN 5 MG/325 MG TAB PO PRN ×5 (00:23→20:49)
[2016-06-27] MEDS: PIPERACIL-TAZO 3.375 GM PREMIX 50 ML IV SCH ×4 (02:11→19:33)
[2016-06-27] MEDS: LORazepam 0.5 MG TAB PO PRN ×3 (02:16→19:33)
[2016-06-27 04:00] VITALS: BP 116/92; PULSE 81; RESP 17; TEMP 97.8; O2SAT 95
[2016-06-27] MEDS: QUEtiapine FUMARATE 100 MG TAB PO SCH (05:11)
[2016-06-27] MEDS: LEVOTHYROXINE SODIUM 25 MCG TAB PO SCH (05:11)
[2016-06-27] MEDS: INSULIN ASPART SUPPLEMENTAL SCALE SQ SCH ×4 (06:06→20:50)
[2016-06-27] MEDS: ENOXAPARIN SODIUM 40 MG/0.4 ML SYRINGE SQ SCH (09:00)
[2016-06-27] MEDS: NYSTATIN 100,000 U/GM PWD 15 GM BTL TOPICAL SCH ×2 (09:00→19:36)
[2016-06-27] MEDS: COLLAGENASE OINT 30 GM TUBE TOP SCH (09:00)
[2016-06-27 09:52] VITALS: BP 121/67; PULSE 102; RESP 18; TEMP 97.9; O2SAT 93
[2016-06-27] MEDS: amLODIPine BESYLATE 5 MG TAB PO SCH (09:54)
[2016-06-27] MEDS: FERROUS SULFATE 325 MG (65 MG ELEMENTAL IRON) TAB PO SCH (09:54)
[2016-06-27] MEDS: ESCITALOPRAM OXALATE 10 MG TAB PO SCH (09:54)
[2016-06-27] MEDS: SODIUM CHLORIDE 0.9% FLUSH 5 ML FLUSH FLUSH SCH ×2 (09:55→19:35)
[2016-06-27] MEDS: FAMOTIDINE 20 MG TAB PO SCH ×2 (09:55→19:34)
[2016-06-27] MEDS: predniSONE 10 MG TAB PO SCH (09:55)
[2016-06-27 12:15] VITALS: BP 133/78; PULSE 76; RESP 18; TEMP 97.9; O2SAT 95
--- NOTE | 2016-06-27 13:56 | PD.CONS ---
HPI History of Present Illness This is a 60 year old female admitted follow an episode of acute psychosis.She is alert and cooperative today, but is a poor historian. During this admission she was found to have elevated liver enzymes, today's labs show Bilirubin of 0.7 , AST of 98, ALT of 271 and Alk phos of 186. A hepatitis profile was negative. A liver ultrasound was done during this admission which showed enlarged liver with fatty infiltration. She has had chronic transaminitis since 2014. She does have a psychiatric history and takes medications that could possible cause elevation of liver enzymes. She has used alcohol in the past but currently is in a nursing facility. Dereje abdominal pain or nausea, no vomiting. H&H are stable. (Stacie Brown) PFSH Past Medical History Per EMR Hypertension Schizoaffective disorder Anemia Diabetes Depression Anxiety Hypothyroidism Past Surgical History Per EMR December 2015 colostomy and ileostomy, status post bowel perforation expiratory lap Breast augmentation hysterectomy LTKR (Stacie Brown) Coded Allergies: Cephalosporins (Verified Allergy, Severe, 06/13/16) Iodine (Verified Allergy, Severe, Anaphylaxis, 06/13/16) Latex (Verified Allergy, Severe, 06/13/16) Reglan (Verified Allergy, Severe, 06/13/16) Sulfa (Verified Allergy, Severe, 06/13/16) *MDRO Multi-Drug Resistant Organism (Verified Adverse Reaction, Unknown, MRSA, 06/16/16) MRSA (urine) - 06/15/16 Medications Reported Meds & Active Scripts Active Reported Vitamin D-1000 (Cholecalciferol) 1,000 Unit Tab 5,000 Units PO DAILY Vitamin C (Ascorbic Acid) 500 Mg Cap 500 Mg PO BID Trazodone (Trazodone HCl) 50 Mg Tab 25 Mg PO HS Seroquel (Quetiapine Fumarate) 100 Mg Tab 100 Mg PO BID Santyl Topical (Collagenase) 250 Unit/Gm Oint 1 Applic TOPICAL DAILY Prednisone 20 Mg Tab 20 Mg PO BID Oxycodone (Oxycodone HCl) 10 Mg Tab 10 Mg PO Q4H PRN Zofran (Ondansetron HCl) 4 Mg Tab 4 Mg PO Q8HR PRN Novolog Inj (Insulin Aspart) 1,000 Unit/10 Ml Vial 0 SQ DIRECTED Sliding Scale as directed. Multiple Vitamin 1 Tab 1 Tab PO DAILY Lexapro (Escitalopram Oxalate) 10 Mg Tab 10 Mg PO DAILY Levothyroxine (Levothyroxine Sodium) 25 Mcg Tab 25 Mcg PO DAILY Lac-Hydrin (Lactic Acid (Ammonium Lactate)) 12% Lotn 1 Applic TOPICAL BID Basaglar Kwikpen (Insulin Glargine) 100 Unit/Ml Pen 8 Units SQ HS Hydroxyzine HCl 50 Mg Tab 50 Mg PO HS Ferrous Sulfate 325 Mg Tab 325 Mg PO DAILY Famotidine 20 Mg Tab 20 Mg PO BID Ergocalciferol 50,000 Unit Cap 50,000 Units PO Q7D Elimite Topical (Permethrin) 5% Cream 1 Applic TOPICAL ONCE Chlorhexidine Gluconate (Mouth) Liq (Chlorhexidine Gluconate) 0.12% Soln 15 Ml SWISH-SPIT BID Calcium 500 +D (Calcium Carbonate-Cholecalciferol) 500-400 Mg-Unit Tab 1 Tab PO BID Baclofen 10 Mg Tab 10 Mg PO BID Ativan (Lorazepam) 0.5 Mg Tab 0.5 Mg PO Q4H PRN Amlodipine (Amlodipine Besylate) 2.5 Mg Tab 2.5 Mg PO DAILY Acetaminophen Supp (Acetaminophen) 650 Mg Supp 650 Mg RECTAL Q6H PRN Family History Denies significant family history Social History Tobacco use: Denies Alcohol use: Daily Drug use denies (Stacie Brown) GI Exam Vitals I&O Vital Signs Date Time Temp Pulse Resp B/P Pulse Ox O2 Delivery O2 Flow Rate FiO2 06/27/16 12:15 97.9 76 18 133/78 95 06/27/16 09:52 97.9 102 18 121/67 93 06/27/16 04:00 97.8 81 17 116/92 95 06/27/16 00:00 97.6 88 18 118/62 97 06/26/16 20:00 98.2 92 18 138/82 95 06/26/16 16:00 98.1 98 16 141/80 97 I/O 06/26/16 06/26/16 06/26/16 06/27/16 06/27/16 06/27/16 07:00 15:00 23:00 07:00 15:00 23:00 Intake Total 340 ml 600 ml 175 ml 220 ml 720 ml Output Total 950 ml 2350 ml 1375 ml 500 ml 500 ml Balance -610 ml -1750 ml -1200 ml -280 ml 220 ml Intake Oral 240 ml 600 ml 120 ml 720 ml IV Total 100 ml 175 ml 100 ml Output Urine Total 950 ml 1750 ml 1000 ml 300 ml 500 ml Stool Total 600 ml 375 ml 200 ml # Bowel Movements 0 0 1 Imaging Last 72 hours Impressions Liver Ultrasound 06/25/16 0000 Signed Impressions: Service Date/Time: Saturday, June 25, 2016 15:51 - CONCLUSION: Enlarged liver with fatty infiltration. Right upper quadrant ultrasound otherwise within normal limits. Andres Veras MD Physical Examination HEENT: Pupils round and reactive to light; normocephalic; atraumatic; no jaundice. Throat is clear. NECK: Neck is supple, no JVD, no lymphadenopathy. CHEST: Chest is clear to auscultation and percussion. CARDIAC: Regular rate and rhythm with no murmur gallop or rubs. ABDOMEN: Soft, nondistended, nontender; no hepatosplenomegaly; bowel sounds are present in all four quadrants. EXTREMITIES: No clubbing, cyanosis, or edema. SKIN: Normal; no rash; no jaundice. CH[employer] LOOM CONTROL: No focal deficits; alert and oriented times three. (Stacie Brown) Assessment and Plan Assessment: (1) Transaminitis Plan: Has elevation of liver enzymes this has been chronic since 2014 Could be related to use of Psych medications or Fatty liver and an US of liver showed enlarged fatty liver Hepatitis profile was negative Denies abdominal pain Liver Ultrasound 06/25/16 Enlarged liver with fatty infiltration. Right upper quadrant ultrasound otherwise within normal limits (2) Diabetes Plan: per hospitalist (3) Psychoses Plan: followed by hospitalist (4) Fatty liver Plan: US liver showed fatty liver Has Hx of ETOH use Plan This is a 60 year old female with chronic elevation of LFt's could be related to Fatty liver, medications and Has a Hx of ETOH use. Hepatitis profile was negative. Plan -Check LFT's in -Check AFP, ASMA, LULY, AMA -Avoid hepatotoxic medications -Low cholesterol diet and weight loss -Avoid Alcohol -Further recommendations will follow Thank you for this consultation Patient was seen and examined by Dr. Tarango and myself, this note is written on his behalf (Stacie Brown) Physician Comments Seen and examined, plan as above, will continue work up for chronic liver disease while in the hospital. Further recommendations to follow. (Liseth Tarango MD) Problem Qualifiers (1) Diabetes: Qualified Code: E11.8 - Type 2 diabetes mellitus with complication, without long-term current use of insulin (2) Psychoses: Qualified Code: F25.9 - Schizoaffective disorder, unspecified type Stacie Brown Jun 27, 2016 13:56 Liseth Tarango MD Jun 27, 2016 14:32
[2016-06-27 16:00] VITALS: BP 140/83; PULSE 94; RESP 18; TEMP 98.3; O2SAT 94
[2016-06-27 17:58] LABS: HEMOGLOBIN A1b 1.8 %; HEMOGLOBIN Ao 85.3 %; HEMOGLOBIN LA1C 1.9 %; HEMOGLOBIN P3 4.2 %
--- NOTE | 2016-06-27 19:24 | HHI.PR ---
Subjective Remarks No major overnight events Denies chest pain/shortness of breath. Denies diarrhea No rash States she stood up with PT for a few seconds Denies nausea, vomiting or abdominal pain Objective Vitals Vital Signs Date Time Temp Pulse Resp B/P Pulse Ox O2 Delivery O2 Flow Rate FiO2 06/27/16 16:00 98.3 94 18 140/83 94 06/27/16 12:15 97.9 76 18 133/78 95 06/27/16 09:52 97.9 102 18 121/67 93 06/27/16 04:00 97.8 81 17 116/92 95 06/27/16 00:00 97.6 88 18 118/62 97 06/26/16 20:00 98.2 92 18 138/82 95 I/O 06/26/16 06/26/16 06/26/16 06/27/16 06/27/16 06/27/16 06:59 14:59 22:59 06:59 14:59 22:59 Intake Total 340 ml 600 ml 175 ml 220 ml 1080 ml Output Total 950 ml 2350 ml 1375 ml 500 ml 500 ml Balance -610 ml -1750 ml -1200 ml -280 ml 580 ml Intake Oral 240 ml 600 ml 120 ml 1080 ml IV Total 100 ml 175 ml 100 ml Output Urine Total 950 ml 1750 ml 1000 ml 300 ml 500 ml Stool Total 600 ml 375 ml 200 ml # Bowel Movements 0 0 2 Result Diagram: 06/26/16 1010 06/26/16 1010 Imaging Last Impressions Liver Ultrasound 06/25/16 0000 Signed Impressions: Service Date/Time: Saturday, June 25, 2016 15:51 - CONCLUSION: Enlarged liver with fatty infiltration. Right upper quadrant ultrasound otherwise within normal limits. Andres Veras MD Hip and Pelvis X-Ray 06/17/16 0000 Signed Impressions: Service Date/Time: Friday, June 17, 2016 10:02 - CONCLUSION: 1. No acute fracture or dislocation of the bony pelvis. 2. Mild degenerative changes involving the hip joints bilaterally. 3. Mild degenerative changes and scoliosis of the lower lumbar spine. Diogenes Lynch MD Head CT 06/13/16 1737 Signed Impressions: Service Date/Time: Monday, June 13, 2016 18:49 - CONCLUSION: Normal examination for a patient of this age. No significant change has occurred. Nba Marion MD Chest X-Ray 06/13/169 Signed Impressions: Service Date/Time: Monday, June 13, 2016 17:36 - CONCLUSION: Bibasilar streakiness consistent with probable atelectasis. Diogenes Lynch MD Objective Remarks GENERAL: patient sitting up in bed. appears comfortable. Alert. oriented x3. SKIN: Warm and dry. HEAD: Normocephalic. EYES: No scleral icterus. No injection or drainage. NECK: Supple, trachea midline. No JVD. CARDIOVASCULAR: Regular rate and rhythm without murmurs, gallops, or rubs. RESPIRATORY: Breath sounds equal bilaterally. No accessory muscle use. GASTROINTESTINAL: Abdomen soft, non-tender, nondistended. MUSCULOSKELETAL: No cyanosis, or edema. BACK: Nontender without obvious deformity. No CVA tenderness. Procedures None. Medications and IVs Last Impressions Liver Ultrasound 06/25/16 0000 Signed Impressions: Service Date/Time: Saturday, June 25, 2016 15:51 - CONCLUSION: Enlarged liver with fatty infiltration. Right upper quadrant ultrasound otherwise within normal limits. Andres Veras MD Hip and Pelvis X-Ray 06/17/16 0000 Signed Impressions: Service Date/Time: Friday, June 17, 2016 10:02 - CONCLUSION: 1. No acute fracture or dislocation of the bony pelvis. 2. Mild degenerative changes involving the hip joints bilaterally. 3. Mild degenerative changes and scoliosis of the lower lumbar spine. Diogenes Lynch MD Head CT 06/13/167 Signed Impressions: Service Date/Time: Monday, June 13, 2016 18:49 - CONCLUSION: Normal examination for a patient of this age. No significant change has occurred. Nba Marion MD Chest X-Ray 06/13/169 Signed Impressions: Service Date/Time: Monday, June 13, 2016 17:36 - CONCLUSION: Bibasilar streakiness consistent with probable atelectasis. Diogenes Lynch MD Date of Insertion: Jun 14, 2016 A/P Problem List: (1) Sepsis ICD Code: A41.9 Status: Acute (2) UTI (urinary tract infection) ICD Code: N39.0 Status: Acute (3) HTN (hypertension) ICD Code: I10 Status: Chronic (4) Diabetes ICD Code: E11.9 Status: Acute (5) Hypothyroidism ICD Code: E03.9 Status: Chronic (6) Metabolic encephalopathy ICD Code: G93.41 Status: Acute (7) Transaminitis ICD Code: R74.0 Status: Chronic (8) Subconjunctival hemorrhage, non-traumatic ICD Code: H11.30 Status: Acute Assessment and Plan (1) Sepsis Plan: Sepsis secondary to urinary tract infection. Urine culture grew Escherichia coli, MRSA, Raoultella Orniyhinolytica. Patient treated with IV vancomycin and Zosyn. We'll replace 06/14/16. Infectious disease consulted. Blood cultures negative to date. Leukocytosis stable WBC 15.7 ---> 11.7 ---> 13 no signs of infection Continue IV antibiotics as per ID. The patient currently on IV Zosyn. Patient will be discharged on ertapenem Stop date for IV ertapenem 07/01/15 Dc IV fluids - sepsis resolved (2) UTI (urinary tract infection) Plan: As above (3) HTN (hypertension) Plan: BP seems stable. Patient with episodes of high blood pressure likely related to pain. Continue with Norvasc. (4) Diabetes Plan: This is a new onset diabetes, hemoglobin A1c 5.0 in 2014. We'll order diabetes education consult. Blood sugars stable. Continue necessary with insulin NovoLog. Check hemoglobin A1c. Patient currently on prednisone 20 mg po bid ---> taper dose to off. 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 (5) Hypothyroidism Plan: Continue Synthroid. Check TSH. It has not been checked in a year. Last TSH was within normal range at 2.14. TSH 0.507 lower end of normal range. (6) Metabolic encephalopathy Plan: Likely secondary to sepsis with UTI. Now resolved. Head CT unremarkable. Continue Lexapro, trazodone, Seroquel hydroxy signed. Site consulted increase Seroquel to 100 mg in a.m. and 200 mg at at bedtime. Patient doing well. (7) Transaminitis Plan: Patient has had elevated liver enzymes since 2014, now actually lower. However AST on admission 72 trending up to 93. ALT trending up from 123-211. Patient had a negative hepatitis profile in 2014. Continue to monitor LFTs, check hepatitis profile and liver ultrasound. 06/26/16 liver us showed fatty liver, patient has never had this worked up. LFT's stable continue to monitor. GI consult. 06/27/16 appreciate GI recommendations. Transaminitis likely secondary to fatty liver. Workup has been ordered for chronic liver disease. Hepatitis profile negative. (8) Subconjunctival hemorrhage, non-traumatic Plan: Patient has a is spontaneous conjunctival hemorrhage of the right eye. This is self-limited and has not treatment. GI prophylaxis: Add PPI. DVT prophylaxis: Lovenox subcutaneous. Discharge Planning Discharge pending placement. Case management to assist. Problem Qualifiers (1) Sepsis: Qualified Code: A41.9 - Sepsis, due to unspecified organism (2) UTI (urinary tract infection): Qualified Code: N30.01 - Acute cystitis with hematuria (3) HTN (hypertension): Qualified Code: I10 - Essential hypertension (4) Diabetes: Qualified Code: E11.8 - Type 2 diabetes mellitus with complication, without long-term current use of insulin (5) Hypothyroidism: Qualified Code: E03.9 - Hypothyroidism, unspecified type (6) Subconjunctival hemorrhage, non-traumatic: Qualified Code: H11.31 - Subconjunctival hemorrhage, non-traumatic, right Lopez Sheets MD Jun 27, 2016 19:24
[2016-06-27] MEDS: hydrOXYzine HCL 50 MG TAB PO SCH (19:33)
[2016-06-27] MEDS: traZODone HCL 50 MG TAB PO SCH (20:50)
[2016-06-27] MEDS: QUEtiapine FUMARATE 200 MG TAB PO SCH (20:55)
[2016-06-27 22:00] VITALS: BP 126/78; PULSE 105; RESP 18; TEMP 98.1; O2SAT 95
[2016-06-28 01:30] VITALS: BP 133/80; PULSE 90; RESP 18; TEMP 98.2; O2SAT 95
[2016-06-28] MEDS: PIPERACIL-TAZO 3.375 GM PREMIX 50 ML IV SCH ×4 (02:48→20:23)
[2016-06-28] MEDS: oxyCODONE/ACETAMINOPHEN 5 MG/325 MG TAB PO PRN ×4 (02:50→20:23)
[2016-06-28 05:00] VITALS: BP 121/88; PULSE 86; RESP 16; TEMP 97.6; O2SAT 94
[2016-06-28] MEDS: INSULIN ASPART SUPPLEMENTAL SCALE SQ SCH ×5 (05:19→20:23)
[2016-06-28] MEDS: LEVOTHYROXINE SODIUM 25 MCG TAB PO SCH (05:20)
[2016-06-28] MEDS: QUEtiapine FUMARATE 100 MG TAB PO SCH (05:20)
[2016-06-28 08:00] VITALS: BP 128/89; PULSE 86; RESP 18; TEMP 97.6; O2SAT 98
[2016-06-28] MEDS: NYSTATIN 100,000 U/GM PWD 15 GM BTL TOPICAL SCH ×2 (09:00→20:26)
[2016-06-28] MEDS: COLLAGENASE OINT 30 GM TUBE TOP SCH (09:00)
[2016-06-28] MEDS: ENOXAPARIN SODIUM 40 MG/0.4 ML SYRINGE SQ SCH (09:18)
[2016-06-28] MEDS: predniSONE 10 MG TAB PO SCH (09:18)
[2016-06-28] MEDS: ESCITALOPRAM OXALATE 10 MG TAB PO SCH (09:18)
[2016-06-28] MEDS: FAMOTIDINE 20 MG TAB PO SCH ×2 (09:18→20:22)
[2016-06-28] MEDS: amLODIPine BESYLATE 5 MG TAB PO SCH (09:19)
[2016-06-28] MEDS: FERROUS SULFATE 325 MG (65 MG ELEMENTAL IRON) TAB PO SCH (09:19)
[2016-06-28] MEDS: SODIUM CHLORIDE 0.9% FLUSH 5 ML FLUSH FLUSH SCH ×2 (09:20→20:23)
--- NOTE | 2016-06-28 11:58 | HHI.GIFU ---
Subjective Remarks Patient resting in bed watching TV, denies nausea, vomiting or abdominal pain ( Michelle Mathews) Objective Vitals I&O Vital Signs Date Time Temp Pulse Resp B/P Pulse Ox O2 Delivery O2 Flow Rate FiO2 06/28/16 08:00 97.6 86 18 128/89 98 06/28/16 05:00 97.6 86 16 121/88 94 06/28/16 01:30 98.2 90 18 133/80 95 06/27/16 22:00 98.1 105 18 126/78 95 06/27/16 16:00 98.3 94 18 140/83 94 06/27/16 12:15 97.9 76 18 133/78 95 I/O 06/27/16 06/27/16 06/27/16 06/28/16 06/28/16 06/28/16 07:00 15:00 23:00 07:00 15:00 23:00 Intake Total 220 ml 1080 ml 480 ml 240 ml 360 ml Output Total 500 ml 500 ml 650 ml 325 ml Balance -280 ml 580 ml -170 ml -85 ml 360 ml Intake Oral 120 ml 1080 ml 480 ml 240 ml 360 ml IV Total 100 ml Output Urine Total 300 ml 500 ml 650 ml 325 ml Stool Total 200 ml # Bowel Movements 0 2 Laboratory Laboratory Tests Test 06/28/16 06:46 Tumor Marker Alpha Fetoprotein 2.0 Imaging Last Impressions Liver Ultrasound 06/25/16 0000 Signed Impressions: Service Date/Time: Saturday, June 25, 2016 15:51 - CONCLUSION: Enlarged liver with fatty infiltration. Right upper quadrant ultrasound otherwise within normal limits. Andres Veras MD Hip and Pelvis X-Ray 06/17/16 0000 Signed Impressions: Service Date/Time: Friday, June 17, 2016 10:02 - CONCLUSION: 1. No acute fracture or dislocation of the bony pelvis. 2. Mild degenerative changes involving the hip joints bilaterally. 3. Mild degenerative changes and scoliosis of the lower lumbar spine. Diogenes Lynch MD Head CT 06/13/16 3733 Signed Impressions: Service Date/Time: Monday, June 13, 2016 18:49 - CONCLUSION: Normal examination for a patient of this age. No significant change has occurred. Nba Marion MD Chest X-Ray 06/13/16 1334 Signed Impressions: Service Date/Time: Monday, June 13, 2016 17:36 - CONCLUSION: Bibasilar streakiness consistent with probable atelectasis. Diogenes Lynch MD Physical Exam HEENT: Pupils round and reactive to light; normocephalic; atraumatic; no jaundice. Throat is clear. NECK: Neck is supple, no JVD, no lymphadenopathy. CHEST: Chest is clear to auscultation and percussion. CARDIAC: Regular rate and rhythm with no murmur gallop or rubs. ABDOMEN: Soft, nondistended, nontender; no hepatosplenomegaly; bowel sounds are present in all four quadrants. EXTREMITIES: No clubbing, cyanosis, or edema. SKIN: Normal; no rash; no jaundice. ORGANIZATIONAL DEVELOPMENT MANAGER: No focal deficits; alert and oriented times three. (Michelle Mathews) Assessment and Plan Assessment: (1) Transaminitis Plan: Has elevation of liver enzymes this has been chronic since 2014 Could be related to use of Psych medications or Fatty liver and an US of liver showed enlarged fatty liver Hepatitis profile was negative Denies abdominal pain Liver Ultrasound 06/25/16 Enlarged liver with fatty infiltration. Right upper quadrant ultrasound otherwise within normal limits (2) Diabetes Plan: per hospitalist (3) Psychoses Plan: followed by hospitalist (4) Fatty liver Plan: - Transaminitis- US liver showed fatty liver Has Hx of ETOH use AMA, ASMA, LULY pending, lfts basically no significant change, remain elevated , Hepatitis panel negative Plan This is a 60 year old female with chronic elevation of LFt's could be related to Fatty liver, medications and Has a Hx of ETOH use. Hepatitis profile was negative, AFP 2.0 Plan -Check LFT's in am -Await ASMA, LULY, AMA -Avoid hepatotoxic medications -Low cholesterol diet and weight loss -Avoid Alcohol -Further recommendations will follow - Patient seen and examined by Dr. Nguyen and myself and this note is written on his behalf. (Michelle Mathews) Assessment: (1) Transaminitis Plan: Has elevation of liver enzymes this has been chronic since 2014 Could be related to use of Psych medications or Fatty liver and an US of liver showed enlarged fatty liver Hepatitis profile was negative Denies abdominal pain Liver Ultrasound 06/25/16 Enlarged liver with fatty infiltration. Right upper quadrant ultrasound otherwise within normal limits (2) Diabetes Plan: per hospitalist (3) Psychoses Plan: followed by hospitalist (4) Fatty liver Plan: - Transaminitis- US liver showed fatty liver Has Hx of ETOH use AMA, ASMA, LULY pending, lfts basically no significant change, remain elevated , Hepatitis panel negative Physician Comments Patient was seen and examined, agree with above note. we will check labs, continue supportive care. use to be heavy ETOH use until last year. (Pro Nguyen MD) Problem Qualifiers (1) Diabetes: Qualified Code: E11.8 - Type 2 diabetes mellitus with complication, without long-term current use of insulin (2) Psychoses: Qualified Code: F25.9 - Schizoaffective disorder, unspecified type Michelle Mathews Jun 28, 2016 11:58 Pro Nguyen MD Jun 28, 2016 22:03
[2016-06-28 12:00] VITALS: BP 126/64; PULSE 94; RESP 20; TEMP 97.7; O2SAT 95
[2016-06-28] MEDS: LORazepam 0.5 MG TAB PO PRN ×2 (13:31→18:27)
--- NOTE | 2016-06-28 17:05 | HHI.PR ---
Subjective Remarks Denies cp/sob denies fevers/chills stable vital signs Objective Vitals Vital Signs Date Time Temp Pulse Resp B/P Pulse Ox O2 Delivery O2 Flow Rate FiO2 06/28/16 12:00 97.7 94 20 126/64 95 06/28/16 08:00 97.6 86 18 128/89 98 06/28/16 05:00 97.6 86 16 121/88 94 06/28/16 01:30 98.2 90 18 133/80 95 06/27/16 22:00 98.1 105 18 126/78 95 I/O 06/27/16 06/27/16 06/27/16 06/28/16 06/28/16 06/28/16 07:00 15:00 23:00 07:00 15:00 23:00 Intake Total 220 ml 1080 ml 480 ml 240 ml 1080 ml Output Total 500 ml 500 ml 650 ml 325 ml 800 ml Balance -280 ml 580 ml -170 ml -85 ml 280 ml Intake Oral 120 ml 1080 ml 480 ml 240 ml 1080 ml IV Total 100 ml Output Urine Total 300 ml 500 ml 650 ml 325 ml 800 ml Stool Total 200 ml # Bowel Movements 0 2 Result Diagram: 06/26/16 1010 06/26/16 1010 Imaging Last Impressions Liver Ultrasound 06/25/16 0000 Signed Impressions: Service Date/Time: Saturday, June 25, 2016 15:51 - CONCLUSION: Enlarged liver with fatty infiltration. Right upper quadrant ultrasound otherwise within normal limits. Andres Veras MD Hip and Pelvis X-Ray 06/17/16 0000 Signed Impressions: Service Date/Time: Friday, June 17, 2016 10:02 - CONCLUSION: 1. No acute fracture or dislocation of the bony pelvis. 2. Mild degenerative changes involving the hip joints bilaterally. 3. Mild degenerative changes and scoliosis of the lower lumbar spine. Diogenes Lynch MD Head CT 06/13/16 1737 Signed Impressions: Service Date/Time: Monday, June 13, 2016 18:49 - CONCLUSION: Normal examination for a patient of this age. No significant change has occurred. Nba Marion MD Chest X-Ray 06/13/16 1729 Signed Impressions: Service Date/Time: Monday, June 13, 2016 17:36 - CONCLUSION: Bibasilar streakiness consistent with probable atelectasis. Diogenes Lynch MD Objective Remarks GENERAL: patient sitting up in bed. appears comfortable. Alert. oriented x3. SKIN: Warm and dry. HEAD: Normocephalic. EYES: No scleral icterus. No injection or drainage. NECK: Supple, trachea midline. No JVD. CARDIOVASCULAR: Regular rate and rhythm without murmurs, gallops, or rubs. RESPIRATORY: Breath sounds equal bilaterally. No accessory muscle use. GASTROINTESTINAL: Abdomen soft, non-tender, nondistended. MUSCULOSKELETAL: No cyanosis, or edema. BACK: Nontender without obvious deformity. No CVA tenderness. Procedures None. Medications and IVs Current Medications Medications (Trade) Dose Ordered Sig/Trent Route Start Time Stop Time Status Last Admin (NS Flush) 2 ml UNSCH PRN FLUSH 06/13/16 20:15 (NS Flush) 2 ml BID FLUSH 06/13/16 21:00 06/28/16 09:20 (Lovenox Inj) 40 mg Q24H SQ 06/14/16 09:00 06/28/16 09:18 (Narcan Inj) 0.4 mg UNSCH PRN IV 06/13/16 20:15 (Norvasc) 2.5 mg DAILY PO 06/14/16 09:00 06/28/16 09:19 (Lexapro) 10 mg DAILY PO 06/14/16 09:00 06/28/16 09:18 (Atarax) 50 mg HS PO 06/14/16 21:00 06/27/16 19:33 (Synthroid) 25 mcg DAILY@0600 PO 06/14/16 06:00 06/28/16 05:20 (Desyrel) 25 mg HS PO 06/14/16 21:00 06/27/16 20:50 (D50w (Vial) Inj) 25 ml UNSCH PRN IV PUSH 06/14/16 01:00 (Glucagon Inj) 1 mg UNSCH PRN OTHER 06/14/16 01:00 (Pepcid) 20 mg BID PO 06/14/16 09:00 06/28/16 09:18 (Ferrous Sulfate) 325 mg DAILY PO 06/14/16 09:00 06/28/16 09:19 (SEROquel) 100 mg DAILY@0600 PO 06/15/16 06:00 06/28/16 05:20 (SEROquel) 200 mg HS PO 06/14/16 21:00 06/27/16 20:55 (Mycostatin Powder) 1 applic Q12HR TOPICAL 06/14/16 21:00 06/28/16 09:00 (Santyl Oint) 1 applic DAILY TOP 06/15/16 09:00 06/28/16 09:00 Oxycodone/ Acetaminophen 1 tab 1 tab Q4H PRN PO 06/17/16 11:45 06/28/16 15:17 (Zosyn 3.375 Gm Premix) 50 ml @ 100 mls/hr Q6H IV 06/17/16 14:00 06/28/16 15:17 (Ativan) 0.5 mg Q4H PRN PO 06/19/16 17:00 06/28/16 18:27 (Deltasone) 10 mg DAILY PO 06/27/16 09:00 06/28/16 09:18 Date of Insertion: Jun 14, 2016 A/P Problem List: (1) Sepsis ICD Code: A41.9 Status: Acute (2) UTI (urinary tract infection) ICD Code: N39.0 Status: Acute (3) HTN (hypertension) ICD Code: I10 Status: Chronic (4) Diabetes ICD Code: E11.9 Status: Acute (5) Hypothyroidism ICD Code: E03.9 Status: Chronic (6) Metabolic encephalopathy ICD Code: G93.41 Status: Acute (7) Transaminitis ICD Code: R74.0 Status: Chronic (8) Subconjunctival hemorrhage, non-traumatic ICD Code: H11.30 Status: Acute Assessment and Plan (1) Sepsis Plan: Sepsis secondary to urinary tract infection. Urine culture grew Escherichia coli, MRSA, Raoultella Orniyhinolytica. Patient treated with IV vancomycin and Zosyn. We'll replace 06/14/16. Infectious disease consulted. Blood cultures negative to date. Leukocytosis stable WBC 15.7 ---> 11.7 ---> 13 no signs of infection Continue IV antibiotics as per ID. The patient currently on IV Zosyn. Patient will be discharged on ertapenem Stop date for IV ertapenem 07/01/15 Dc IV fluids - sepsis resolved (2) UTI (urinary tract infection) Plan: As above (3) HTN (hypertension) Plan: BP seems stable. Patient with episodes of high blood pressure likely related to pain. Continue with Norvasc. (4) Diabetes Plan: This is a new onset diabetes, hemoglobin A1c 5.0 in 2015. We'll order diabetes education consult. Blood sugars stable. Continue necessary with insulin NovoLog. Check hemoglobin A1c. Decrease prednisone to 5 mg po daily keep for a couple days then decrease to 2.5 and then stop (5) Hypothyroidism Plan: Continue Synthroid. Check TSH. It has not been checked in a year. Last TSH was within normal range at 2.14. TSH 0.507 lower end of normal range. (6) Metabolic encephalopathy Plan: Likely secondary to sepsis with UTI. Now resolved. Head CT unremarkable. Continue Lexapro, trazodone, Seroquel hydroxy signed. Site consulted increase Seroquel to 100 mg in a.m. and 200 mg at at bedtime. Patient doing well. (7) Transaminitis Plan: Patient has had elevated liver enzymes since 2015, now actually lower. However AST on admission 72 trending up to 93. ALT trending up from 123-211. Patient had a negative hepatitis profile in 2014. Continue to monitor LFTs, check hepatitis profile and liver ultrasound. 06/26/16 liver us showed fatty liver, patient has never had this worked up. LFT's stable continue to monitor. GI consult. 06/27/16 appreciate GI recommendations. Transaminitis likely secondary to fatty liver. Workup has been ordered for chronic liver disease. Hepatitis profile negative. (8) Subconjunctival hemorrhage, non-traumatic Plan: Patient has a is spontaneous conjunctival hemorrhage of the right eye. This is self-limited and has not treatment. GI prophylaxis: Add PPI. DVT prophylaxis: Lovenox subcutaneous. Discharge Planning Discharge pending placement. Case management to assist. Problem Qualifiers (1) Sepsis: Qualified Code: A41.9 - Sepsis, due to unspecified organism (2) UTI (urinary tract infection): Qualified Code: N30.01 - Acute cystitis with hematuria (3) HTN (hypertension): Qualified Code: I10 - Essential hypertension (4) Diabetes: Qualified Code: E11.8 - Type 2 diabetes mellitus with complication, without long-term current use of insulin (5) Hypothyroidism: Qualified Code: E03.9 - Hypothyroidism, unspecified type (6) Subconjunctival hemorrhage, non-traumatic: Qualified Code: H11.31 - Subconjunctival hemorrhage, non-traumatic, right Lopez Sheets MD Jun 28, 2016 17:05
[2016-06-28 17:09] VITALS: BP 157/77; PULSE 115; RESP 20; TEMP 98.4; O2SAT 96
[2016-06-28] MEDS: traZODone HCL 50 MG TAB PO SCH (20:22)
[2016-06-28] MEDS: hydrOXYzine HCL 50 MG TAB PO SCH (20:22)
[2016-06-28] MEDS: QUEtiapine FUMARATE 200 MG TAB PO SCH (20:22)
[2016-06-28 21:30] VITALS: BP 123/68; PULSE 96; RESP 18; TEMP 97.9; O2SAT 96
[2016-06-29 01:30] VITALS: BP 126/75; PULSE 85; RESP 16; TEMP 97.9; O2SAT 95
[2016-06-29] MEDS: PIPERACIL-TAZO 3.375 GM PREMIX 50 ML IV SCH ×4 (02:50→21:13)
[2016-06-29] MEDS: oxyCODONE/ACETAMINOPHEN 5 MG/325 MG TAB PO PRN ×4 (02:51→21:20)
[2016-06-29 05:00] VITALS: BP 138/74; PULSE 84; RESP 18; TEMP 97.8; O2SAT 96
[2016-06-29] MEDS: LEVOTHYROXINE SODIUM 25 MCG TAB PO SCH (05:36)
[2016-06-29] MEDS: QUEtiapine FUMARATE 100 MG TAB PO SCH (05:36)
[2016-06-29] MEDS: INSULIN ASPART SUPPLEMENTAL SCALE SQ SCH ×4 (05:40→21:41)
[2016-06-29] MEDS: COLLAGENASE OINT 30 GM TUBE TOP SCH (07:23)
[2016-06-29 08:00] VITALS: BP 141/69; PULSE 75; RESP 18; TEMP 97.1; O2SAT 96
[2016-06-29 08:37] LABS: INDIRECT BILIRUBIN 0.5 MG/DL (0.0-0.8); TOTAL BILIRUBIN ADULT 0.9 MG/DL (0.2-1.0)
[2016-06-29] MEDS: FERROUS SULFATE 325 MG (65 MG ELEMENTAL IRON) TAB PO SCH (08:46)
[2016-06-29] MEDS: FAMOTIDINE 20 MG TAB PO SCH ×2 (08:46→21:13)
[2016-06-29] MEDS: amLODIPine BESYLATE 5 MG TAB PO SCH (08:46)
[2016-06-29] MEDS: SODIUM CHLORIDE 0.9% FLUSH 5 ML FLUSH FLUSH SCH ×2 (08:46→21:13)
[2016-06-29] MEDS: ESCITALOPRAM OXALATE 10 MG TAB PO SCH (08:46)
[2016-06-29] MEDS: ENOXAPARIN SODIUM 40 MG/0.4 ML SYRINGE SQ SCH (08:47)
[2016-06-29] MEDS: NYSTATIN 100,000 U/GM PWD 15 GM BTL TOPICAL SCH ×2 (08:48→21:00)
[2016-06-29] MEDS: predniSONE 5 MG TAB PO SCH (08:48)
[2016-06-29 12:00] VITALS: BP 121/69; PULSE 89; RESP 16; TEMP 97.3; O2SAT 96
--- NOTE | 2016-06-29 12:18 | HHI.GIFU ---
Subjective Remarks Patient is resting in bed, with complaints of hip, and back pain, but no nausea , vomiting or abd pain (Reid,Michelle EL TEACHER) Objective Vitals I&O Vital Signs Date Time Temp Pulse Resp B/P Pulse Ox O2 Delivery O2 Flow Rate FiO2 06/29/16 08:00 97.1 75 18 141/69 96 06/29/16 05:00 97.8 84 18 138/74 96 06/29/16 01:30 97.9 85 16 126/75 95 06/28/16 21:30 97.9 96 18 123/68 96 06/28/16 17:09 98.4 115 20 157/77 96 I/O 06/28/16 06/28/16 06/28/16 06/29/16 06/29/16 06/29/16 06:59 14:59 22:59 06:59 14:59 22:59 Intake Total 240 ml 1080 ml 360 ml Output Total 325 ml 800 ml 1000 ml 350 ml Balance -85 ml 280 ml -640 ml -350 ml Intake Oral 240 ml 1080 ml 360 ml Output Urine Total 325 ml 800 ml 1000 ml 350 ml # Bowel Movements 1 Laboratory Laboratory Tests Test 06/29/16 07:15 Total Bilirubin 0.9 Direct Bilirubin 0.4 Indirect Bilirubin 0.5 Aspartate Amino Transf 40 (AST/SGOT) Alanine Aminotransferase 162 (ALT/SGPT) Alkaline Phosphatase 159 Total Protein 5.6 Albumin 2.4 Imaging Last Impressions Liver Ultrasound 06/25/16 0000 Signed Impressions: Service Date/Time: Saturday, June 25, 2016 15:51 - CONCLUSION: Enlarged liver with fatty infiltration. Right upper quadrant ultrasound otherwise within normal limits. Andres Veras MD Hip and Pelvis X-Ray 06/17/16 0000 Signed Impressions: Service Date/Time: Friday, June 17, 2016 10:02 - CONCLUSION: 1. No acute fracture or dislocation of the bony pelvis. 2. Mild degenerative changes involving the hip joints bilaterally. 3. Mild degenerative changes and scoliosis of the lower lumbar spine. Diogenes Lynch MD Head CT 06/13/16 8917 Signed Impressions: Service Date/Time: Monday, June 13, 2016 18:49 - CONCLUSION: Normal examination for a patient of this age. No significant change has occurred. Nba Marion MD Chest X-Ray 06/13/16 2553 Signed Impressions: Service Date/Time: Monday, June 13, 2016 17:36 - CONCLUSION: Bibasilar streakiness consistent with probable atelectasis. Diogenes Lynch MD Physical Exam HEENT: Pupils round and reactive to light; normocephalic; atraumatic; no jaundice. Throat is clear. NECK: Neck is supple, no JVD, no lymphadenopathy. CHEST: Chest is clear to auscultation and percussion. CARDIAC: Regular rate and rhythm with no murmur gallop or rubs. ABDOMEN: Soft, nondistended, nontender; no hepatosplenomegaly; bowel sounds are present in all four quadrants. EXTREMITIES: No clubbing, cyanosis, or edema. SKIN: Normal; no rash; no jaundice. SKEINER: No focal deficits; alert and oriented times three. (Michelle Mathews) Assessment and Plan Assessment: (1) Transaminitis Plan: Has elevation of liver enzymes this has been chronic since 2014 Could be related to use of Psych medications or Fatty liver and an US of liver showed enlarged fatty liver Hepatitis profile was negative Denies abdominal pain Liver Ultrasound 06/25/16 Enlarged liver with fatty infiltration. Right upper quadrant ultrasound otherwise within normal limits (2) Diabetes Plan: per hospitalist (3) Psychoses Plan: followed by hospitalist (4) Fatty liver Plan: - Transaminitis- US liver showed fatty liver Has Hx of ETOH use AMA, ASMA, LULY pending, lfts basically no significant change, remain elevated , Hepatitis panel negative Plan This is a 60 year old female with chronic elevation of LFT's could be related to Fatty liver, medications and Has a Hx of ETOH use. Hepatitis profile was negative, AFP 2.0 LFTs trending down, ASMA, LULY, AMA pending Plan -Check LFT's in am -Await ASMA, LULY, AMA -Avoid hepatotoxic medications -Low cholesterol diet and weight loss -Avoid Alcohol -Further recommendations will follow - Patient seen and examined by Dr. Nguyen and myself and this note is written on his behalf. (Michelle Mathews) Physician Comments Patient was seen and examined, agree with above note and plan, labs pending. ( Pro Nguyen MD) Problem Qualifiers (1) Diabetes: Qualified Code: E11.8 - Type 2 diabetes mellitus with complication, without long-term current use of insulin (2) Psychoses: Qualified Code: F25.9 - Schizoaffective disorder, unspecified type Michelle Mathews Jun 29, 2016 12:18 rPo Nguyen MD Jun 29, 2016 20:33
[2016-06-29] MEDS: LORazepam 0.5 MG TAB PO PRN ×2 (14:48→19:51)
--- NOTE | 2016-06-29 15:52 | HHI.PR ---
Subjective Remarks patient complains of pain underneath the breast, no shortness of breath very tender to even light touch- she jumped and cursed Objective Vitals Vital Signs Date Time Temp Pulse Resp B/P Pulse Ox O2 Delivery O2 Flow Rate FiO2 06/29/16 12:00 97.3 89 16 121/69 96 06/29/16 08:00 97.1 75 18 141/69 96 06/29/16 05:00 97.8 84 18 138/74 96 06/29/16 01:30 97.9 85 16 126/75 95 06/28/16 21:30 97.9 96 18 123/68 96 06/28/16 17:09 98.4 115 20 157/77 96 I/O 06/28/16 06/28/16 06/28/16 06/29/16 06/29/16 06/29/16 07:00 15:00 23:00 07:00 15:00 23:00 Intake Total 240 ml 1080 ml 360 ml 100 ml Output Total 325 ml 800 ml 1000 ml 350 ml Balance -85 ml 280 ml -640 ml -350 ml 100 ml Intake Oral 240 ml 1080 ml 360 ml IV Total 100 ml Output Urine Total 325 ml 800 ml 1000 ml 350 ml # Bowel Movements 1 Result Diagram: 06/26/16 1010 06/26/16 1010 Imaging Last Impressions Liver Ultrasound 06/25/16 0000 Signed Impressions: Service Date/Time: Saturday, June 25, 2016 15:51 - CONCLUSION: Enlarged liver with fatty infiltration. Right upper quadrant ultrasound otherwise within normal limits. Andres Veras MD Hip and Pelvis X-Ray 06/17/16 0000 Signed Impressions: Service Date/Time: Friday, June 17, 2016 10:02 - CONCLUSION: 1. No acute fracture or dislocation of the bony pelvis. 2. Mild degenerative changes involving the hip joints bilaterally. 3. Mild degenerative changes and scoliosis of the lower lumbar spine. Diogenes Lynch MD Head CT 06/13/16 3297 Signed Impressions: Service Date/Time: Monday, June 13, 2016 18:49 - CONCLUSION: Normal examination for a patient of this age. No significant change has occurred. Nba Marion MD Chest X-Ray 06/13/16 6559 Signed Impressions: Service Date/Time: Monday, June 13, 2016 17:36 - CONCLUSION: Bibasilar streakiness consistent with probable atelectasis. Diogenes Lynch MD Objective Remarks awake and alert, oriented x anicteric, kaplan facies chest wall/breasts area- tender to touch regular rhythm soft nontender extremities no edema Procedures None. Urinary Catheter: Yes Albrecht insert reason: Prolonged Immobilization Date of Insertion: Jun 14, 2016 A/P Problem List: (1) Sepsis ICD Code: A41.9 Status: Acute (2) UTI (urinary tract infection) ICD Code: N39.0 Status: Acute (3) HTN (hypertension) ICD Code: I10 Status: Chronic (4) Diabetes ICD Code: E11.9 Status: Acute (5) Hypothyroidism ICD Code: E03.9 Status: Chronic (6) Metabolic encephalopathy ICD Code: G93.41 Status: Acute (7) Transaminitis ICD Code: R74.0 Status: Chronic (8) Subconjunctival hemorrhage, non-traumatic ICD Code: H11.30 Status: Acute Assessment and Plan (1) Sepsis Plan: Sepsis secondary to urinary tract infection. Urine culture grew Escherichia coli, MRSA, Raoultella Orniyhinolytica. Patient treated with IV vancomycin and Zosyn. We'll replace 06/14/16. Infectious disease consulted. Blood cultures negative to date. Leukocytosis stable WBC 15.7 ---> 11.7 ---> 13 no signs of infection Continue IV antibiotics as per ID. The patient currently on IV Zosyn. (2) UTI (urinary tract infection) Plan: As above- albrecht in place- (3) HTN (hypertension) Plan: BP seems stable. Patient with episodes of high blood pressure likely related to pain. Continue with Norvasc. (4) Diabetes Plan: This is a new onset diabetes, hemoglobin A1c 5.0 in 2014. We'll order diabetes education consult. Blood sugars stable. Continue necessary with insulin NovoLog. Check hemoglobin A1c. Decrease prednisone to 5 mg po daily keep for a couple days then decrease to 2.5 and then stop (5) Hypothyroidism Plan: Continue Synthroid. Check TSH. It has not been checked in a year. Last TSH was within normal range at 2.14. TSH 0.507 lower end of normal range. (6) Metabolic encephalopathy Plan: Likely secondary to sepsis with UTI. Now resolved. Head CT unremarkable. Continue Lexapro, trazodone, Seroquel hydroxy signed. Site consulted increase Seroquel to 100 mg in a.m. and 200 mg at at bedtime. Patient doing well. (7) Transaminitis Plan: Patient has had elevated liver enzymes since 2014, now actually lower. However AST on admission 72 trending up to 93. ALT trending up from 123-211. Patient had a negative hepatitis profile in 2014. Continue to monitor LFTs, check hepatitis profile and liver ultrasound. 06/26/16 liver us showed fatty liver, patient has never had this worked up. LFT's stable continue to monitor. GI consult. 06/27/16 appreciate GI recommendations. Transaminitis likely secondary to fatty liver. Workup has been ordered for chronic liver disease. Hepatitis profile negative. (8) Subconjunctival hemorrhage, non-traumatic Plan: Patient has a is spontaneous conjunctival hemorrhage of the right eye. This is self-limited and has not treatment. Sacral decubitus- wound care team ff GI prophylaxis: Add PPI. DVT prophylaxis: Lovenox subcutaneous. patient refused to go back to to [facility] Discharge Planning Problem Qualifiers (1) Sepsis: Qualified Code: A41.9 - Sepsis, due to unspecified organism (2) UTI (urinary tract infection): (3) HTN (hypertension): Qualified Code: I10 - Essential hypertension (4) Diabetes: Qualified Code: E11.8 - Type 2 diabetes mellitus with complication, without long-term current use of insulin (5) Hypothyroidism: Qualified Code: E03.9 - Hypothyroidism, unspecified type (6) Subconjunctival hemorrhage, non-traumatic: Qualified Code: H11.31 - Subconjunctival hemorrhage, non-traumatic, right Nicolasa Mckeon MD Jun 29, 2016 15:52 Nicolasa Mckeon MD Jun 29, 2016 15:52
[2016-06-29 16:00] VITALS: BP 141/69; PULSE 86; RESP 16; TEMP 97.2; O2SAT 96
[2016-06-29 20:05] VITALS: BP 144/75; PULSE 95; RESP 18; TEMP 98.4; O2SAT 97
[2016-06-29] MEDS: QUEtiapine FUMARATE 200 MG TAB PO SCH (21:13)
[2016-06-29] MEDS: hydrOXYzine HCL 50 MG TAB PO SCH (21:13)
[2016-06-29] MEDS: traZODone HCL 50 MG TAB PO SCH (21:20)
[2016-06-29 23:55] LABS: MITOCHONDRIAL ABS LESS THAN 20.0 U (())
[2016-06-30 00:30] VITALS: BP 135/74; PULSE 98; RESP 18; TEMP 97.9; O2SAT 95
[2016-06-30] MEDS: oxyCODONE/ACETAMINOPHEN 5 MG/325 MG TAB PO PRN ×5 (01:23→21:32)
[2016-06-30] MEDS: PIPERACIL-TAZO 3.375 GM PREMIX 50 ML IV SCH ×4 (01:24→21:37)
[2016-06-30 04:00] VITALS: BP 129/78; PULSE 81; RESP 16; TEMP 98; O2SAT 96
[2016-06-30] MEDS: LEVOTHYROXINE SODIUM 25 MCG TAB PO SCH (05:38)
[2016-06-30] MEDS: QUEtiapine FUMARATE 100 MG TAB PO SCH (05:38)
[2016-06-30] MEDS: INSULIN ASPART SUPPLEMENTAL SCALE SQ SCH ×4 (05:42→21:00)
[2016-06-30 08:00] VITALS: BP 134/75; PULSE 88; RESP 20; TEMP 97.6; O2SAT 97
[2016-06-30] MEDS: amLODIPine BESYLATE 5 MG TAB PO SCH (08:51)
[2016-06-30] MEDS: predniSONE 5 MG TAB PO SCH (08:51)
[2016-06-30] MEDS: SODIUM CHLORIDE 0.9% FLUSH 5 ML FLUSH FLUSH SCH ×2 (08:51→21:37)
[2016-06-30] MEDS: FERROUS SULFATE 325 MG (65 MG ELEMENTAL IRON) TAB PO SCH (08:51)
[2016-06-30] MEDS: ESCITALOPRAM OXALATE 10 MG TAB PO SCH (08:51)
[2016-06-30] MEDS: ENOXAPARIN SODIUM 40 MG/0.4 ML SYRINGE SQ SCH (08:51)
[2016-06-30] MEDS: FAMOTIDINE 20 MG TAB PO SCH ×2 (08:51→21:31)
[2016-06-30] MEDS: COLLAGENASE OINT 30 GM TUBE TOP SCH (08:54)
[2016-06-30] MEDS: NYSTATIN 100,000 U/GM PWD 15 GM BTL TOPICAL SCH ×2 (08:57→21:37)
[2016-06-30] MEDS: LORazepam 0.5 MG TAB PO PRN (10:36)
[2016-06-30 11:30] VITALS: BP 121/64; PULSE 85; RESP 20; TEMP 97.9; O2SAT 94
--- NOTE | 2016-06-30 12:32 | HHI.GIFU ---
Subjective Remarks Patient is resting in bed no nausea, no vomiting or abdominal pain. (Michelle Mathews) Objective Vitals I&O Vital Signs Date Time Temp Pulse Resp B/P Pulse Ox O2 Delivery O2 Flow Rate FiO2 06/30/16 08:00 97.6 88 20 134/75 97 06/30/16 04:00 98.0 81 16 129/78 96 06/30/16 00:30 97.9 98 18 135/74 95 06/29/16 20:05 98.4 95 18 144/75 97 06/29/16 16:00 97.2 86 16 141/69 96 I/O 06/29/16 06/29/16 06/29/16 06/30/16 06/30/16 06/30/16 07:00 15:00 23:00 07:00 15:00 23:00 Intake Total 580 ml 480 ml 120 ml Output Total 350 ml 650 ml 650 ml 450 ml Balance -350 ml -70 ml -170 ml -330 ml Intake Oral 480 ml 480 ml 120 ml IV Total 100 ml Output Urine Total 350 ml 650 ml 650 ml 450 ml # Bowel Movements 1 2 Laboratory Laboratory Tests Test 06/29/16 07:15 Total Bilirubin 0.9 MG/DL Direct Bilirubin 0.4 MG/DL Indirect Bilirubin 0.5 MG/DL Aspartate Amino Transf 40 U/L (AST/SGOT) Alanine Aminotransferase 162 U/L (ALT/SGPT) Alkaline Phosphatase 159 U/L Total Protein 5.6 GM/DL Albumin 2.4 GM/DL Imaging Last Impressions Liver Ultrasound 06/25/16 0000 Signed Impressions: Service Date/Time: Saturday, June 25, 2016 15:51 - CONCLUSION: Enlarged liver with fatty infiltration. Right upper quadrant ultrasound otherwise within normal limits. Andres Veras MD Hip and Pelvis X-Ray 06/17/16 0000 Signed Impressions: Service Date/Time: Friday, June 17, 2016 10:02 - CONCLUSION: 1. No acute fracture or dislocation of the bony pelvis. 2. Mild degenerative changes involving the hip joints bilaterally. 3. Mild degenerative changes and scoliosis of the lower lumbar spine. Diogenes Lynch MD Head CT 06/13/16 1737 Signed Impressions: Service Date/Time: Monday, June 13, 2016 18:49 - CONCLUSION: Normal examination for a patient of this age. No significant change has occurred. Nba Marion MD Chest X-Ray 06/13/16 [id number] Signed Impressions: Service Date/Time: Monday, June 13, 2016 17:36 - CONCLUSION: Bibasilar streakiness consistent with probable atelectasis. Diogenes Lynch MD Physical Exam HEENT: Pupils round and reactive to light; normocephalic; atraumatic; no jaundice. Throat is clear. NECK: Neck is supple, no JVD, no lymphadenopathy. CHEST: Chest is clear to auscultation and percussion. CARDIAC: Regular rate and rhythm with no murmur gallop or rubs. ABDOMEN: Soft, nondistended, nontender; no hepatosplenomegaly; bowel sounds are present in all four quadrants. Ostomy in place EXTREMITIES: No clubbing, cyanosis, or edema. SKIN: Normal; no rash; no jaundice. 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 (Michelle Mathews) Assessment and Plan Assessment: (1) Transaminitis Plan: Trending down but continue to be high Has elevation of liver enzymes this has been chronic since 2014 Could be related to use of Psych medications or Fatty liver and an US of liver showed enlarged fatty liver Hepatitis profile was negative AMA negative, ASMA negative, AMA negative Denies abdominal pain Liver Ultrasound 06/25/16 Enlarged liver with fatty infiltration. Right upper quadrant ultrasound otherwise within normal limits (2) Diabetes Plan: per hospitalist (3) Psychoses Plan: followed by hospitalist (4) Fatty liver Plan: - Transaminitis- US liver showed fatty liver Has Hx of ETOH use AMA negative, ASMA negative, LULY negative, lfts trending down, remain elevated, Hepatitis panel negative (5) UTI (urinary tract infection) Plan: per attending Plan This is a 60 year old female with chronic elevation of LFT's could be related to Fatty liver, medications and Has a Hx of ETOH use. Hepatitis profile was negative, AFP 2.0 LFTs trending down, ASMA, LULY, AMA negative so far, improvement in LFTs but continue to be high. Plan -Check LFT's in am - will add Ceruloplasmin, Alpha 1 antitrypsin, celiac panel, iron and ferritin - If LFTs continue to be high, consider liver Bx -Avoid hepatotoxic medications -Low cholesterol diet and weight loss -Avoid Alcohol -Further recommendations will follow - Patient seen and examined by Dr. Nguyen and myself and this note is written on his behalf. (Michelle Mathews) Physician Comments Patient was seen and examined, agree with above note and plan, await labs results (Pro Nguyen MD) Problem Qualifiers (1) Diabetes: Qualified Code: E11.8 - Type 2 diabetes mellitus with complication, without long-term current use of insulin (2) Psychoses: Qualified Code: F25.9 - Schizoaffective disorder, unspecified type (3) UTI (urinary tract infection): Michelle Mathews Jun 30, 2016 12:32 Pro Nguyen MD Jun 30, 2016 20:11
[2016-06-30 15:45] VITALS: BP 135/69; PULSE 91; RESP 20; TEMP 98; O2SAT 94
--- NOTE | 2016-06-30 16:38 | HHI.PR ---
Subjective Remarks no nausea or vomiting ordenies any pain states she ate pretty good and food here is good Objective Vitals Vital Signs Date Time Temp Pulse Resp B/P Pulse Ox O2 Delivery O2 Flow Rate FiO2 06/30/16 11:30 97.9 85 20 121/64 94 06/30/16 08:00 97.6 88 20 134/75 97 06/30/16 04:00 98.0 81 16 129/78 96 06/30/16 00:30 97.9 98 18 135/74 95 06/29/16 20:05 98.4 95 18 144/75 97 I/O 06/29/16 06/29/16 06/29/16 06/30/16 06/30/16 06/30/16 07:00 15:00 23:00 07:00 15:00 23:00 Intake Total 580 ml 480 ml 120 ml 330 ml Output Total 350 ml 650 ml 650 ml 450 ml 625 ml Balance -350 ml -70 ml -170 ml -330 ml -295 ml Intake Oral 480 ml 480 ml 120 ml 330 ml IV Total 100 ml Output Urine Total 350 ml 650 ml 650 ml 450 ml 425 ml Stool Total 200 ml # Bowel Movements 1 2 Result Diagram: 06/26/16 1010 06/26/16 1010 Imaging Last Impressions Liver Ultrasound 06/25/16 0000 Signed Impressions: Service Date/Time: Saturday, June 25, 2016 15:51 - CONCLUSION: Enlarged liver with fatty infiltration. Right upper quadrant ultrasound otherwise within normal limits. Andres Veras MD Hip and Pelvis X-Ray 06/17/16 0000 Signed Impressions: Service Date/Time: Friday, June 17, 2016 10:02 - CONCLUSION: 1. No acute fracture or dislocation of the bony pelvis. 2. Mild degenerative changes involving the hip joints bilaterally. 3. Mild degenerative changes and scoliosis of the lower lumbar spine. Diogenes Lynch MD Head CT 06/13/16 1737 Signed Impressions: Service Date/Time: Monday, June 13, 2016 18:49 - CONCLUSION: Normal examination for a patient of this age. No significant change has occurred. Nba Marion MD Chest X-Ray 06/13/16 1729 Signed Impressions: Service Date/Time: Monday, June 13, 2016 17:36 - CONCLUSION: Bibasilar streakiness consistent with probable atelectasis. Diogenes Lynch MD Objective Remarks awake and alert, oriented x anicteric, kaplan facies regular rhythm soft nontender, good bowel sounds extremities no edema Procedures None. Date of Insertion: Jun 14, 2016 A/P Problem List: (1) Sepsis ICD Code: A41.9 Status: Acute (2) UTI (urinary tract infection) ICD Code: N39.0 Status: Acute (3) HTN (hypertension) ICD Code: I10 Status: Chronic (4) Diabetes ICD Code: E11.9 Status: Acute (5) Hypothyroidism ICD Code: E03.9 Status: Chronic (6) Metabolic encephalopathy ICD Code: G93.41 Status: Acute (7) Transaminitis ICD Code: R74.0 Status: Chronic (8) Subconjunctival hemorrhage, non-traumatic ICD Code: H11.30 Status: Acute Assessment and Plan (1) Sepsis Plan: Sepsis secondary to urinary tract infection. Urine culture grew Escherichia coli, MRSA, Raoultella Orniyhinolytica. Patient treated with IV vancomycin and Zosyn. We'll replace 06/14/16. Infectious disease consulted. Blood cultures negative to date. Leukocytosis stable WBC 15.7 ---> 11.7 ---> 13 no signs of infection Continue IV antibiotics as per ID. The patient currently on IV Zosyn. (2) UTI (urinary tract infection) Plan: As above- albrecht in place- (3) HTN (hypertension) Plan: BP seems stable. Patient with episodes of high blood pressure likely related to pain. Continue with Norvasc. (4) Diabetes Plan: This is a new onset diabetes, hemoglobin A1c 5.0 in 2014. diabetes education consult. Blood sugars stable. Continue necessary with insulin NovoLog. Decrease prednisone to 5 mg po daily keep for a couple days then decrease to 2.5 and then stop (5) Hypothyroidism Plan: Continue Synthroid. Check TSH. It has not been checked in a year. Last TSH was within normal range at 2.14. TSH 0.507 lower end of normal range. (6) Metabolic encephalopathy Plan: Likely secondary to sepsis with UTI. Now resolved. Head CT unremarkable. Continue Lexapro, trazodone, Seroquel hydroxy signed. Site consulted increase Seroquel to 100 mg in a.m. and 200 mg at at bedtime. Patient doing well. (7) Transaminitis Plan: Patient has had elevated liver enzymes since 2014, now actually lower. However AST on admission 72 trending up to 93. ALT trending up from 123-211. Patient had a negative hepatitis profile in 2014. Continue to monitor LFTs, check hepatitis profile and liver ultrasound. 06/26/16 liver us showed fatty liver, patient has never had this worked up. LFT's stable continue to monitor. GI consult. 06/27/16 appreciate GI recommendations. Transaminitis likely secondary to fatty liver. Workup has been ordered for chronic liver disease. Hepatitis profile negative. (8) Subconjunctival hemorrhage, non-traumatic Plan: Patient has a is spontaneous conjunctival hemorrhage of the right eye. This is self-limited and has not treatment. Sacral decubitus wound care team ff along with us GI prophylaxis: Add PPI. DVT prophylaxis: Lovenox subcutaneous. patient refused to go back to to [facility] Discharge Planning Problem Qualifiers (1) Sepsis: Qualified Code: A41.9 - Sepsis, due to unspecified organism (2) UTI (urinary tract infection): (3) HTN (hypertension): Qualified Code: I10 - Essential hypertension (4) Diabetes: Qualified Code: E11.8 - Type 2 diabetes mellitus with complication, without long-term current use of insulin (5) Hypothyroidism: Qualified Code: E03.9 - Hypothyroidism, unspecified type (6) Subconjunctival hemorrhage, non-traumatic: Qualified Code: H11.31 - Subconjunctival hemorrhage, non-traumatic, right Nicolasa Mckeon MD Jun 30, 2016 16:38 Nicolasa Mckeon MD Jun 30, 2016 16:38
[2016-06-30 20:00] VITALS: BP 144/79; PULSE 93; RESP 18; TEMP 97.7; O2SAT 94
[2016-06-30] MEDS: QUEtiapine FUMARATE 200 MG TAB PO SCH (21:30)
[2016-06-30] MEDS: traZODone HCL 50 MG TAB PO SCH (21:31)
[2016-06-30] MEDS: hydrOXYzine HCL 50 MG TAB PO SCH (21:31)
[2016-07-01] VITALS: BP 135/77; PULSE 90; RESP 17; TEMP 97.6; O2SAT 96
[2016-07-01] MEDS: PIPERACIL-TAZO 3.375 GM PREMIX 50 ML IV SCH ×4 (01:29→20:51)
[2016-07-01] MEDS: oxyCODONE/ACETAMINOPHEN 5 MG/325 MG TAB PO PRN ×5 (02:32→20:50)
[2016-07-01 04:00] VITALS: BP 127/69; PULSE 85; RESP 17; TEMP 97.8; O2SAT 95
[2016-07-01] MEDS: QUEtiapine FUMARATE 100 MG TAB PO SCH (04:45)
[2016-07-01] MEDS: LEVOTHYROXINE SODIUM 25 MCG TAB PO SCH (04:45)
[2016-07-01] MEDS: INSULIN ASPART SUPPLEMENTAL SCALE SQ SCH ×4 (04:48→21:00)
[2016-07-01 07:28] LABS: ALT (GPT) 90 U/L (10-53); AST (GOT) 20 U/L (15-37); TRANSFERRIN IRON PROFILE 260 MG/DL (200-360)
[2016-07-01 07:32] LABS: ALKALINE PHOSPHATASE 161 U/L (45-117); FERRITIN 205 NG/ML (8-252); INDIRECT BILIRUBIN 0.3 MG/DL (0.0-0.8); TOTAL BILIRUBIN ADULT 0.7 MG/DL (0.2-1.0)
[2016-07-01 08:00] VITALS: BP 133/76; PULSE 87; RESP 17; TEMP 97.8; O2SAT 94
[2016-07-01] MEDS: SODIUM CHLORIDE 0.9% FLUSH 5 ML FLUSH FLUSH SCH ×2 (08:28→20:51)
[2016-07-01] MEDS: FERROUS SULFATE 325 MG (65 MG ELEMENTAL IRON) TAB PO SCH (08:28)
[2016-07-01] MEDS: ESCITALOPRAM OXALATE 10 MG TAB PO SCH (08:28)
[2016-07-01] MEDS: FAMOTIDINE 20 MG TAB PO SCH ×2 (08:29→20:50)
[2016-07-01] MEDS: ENOXAPARIN SODIUM 40 MG/0.4 ML SYRINGE SQ SCH (08:29)
[2016-07-01] MEDS: amLODIPine BESYLATE 5 MG TAB PO SCH (08:29)
[2016-07-01] MEDS: predniSONE 5 MG TAB PO SCH (08:29)
[2016-07-01] MEDS: NYSTATIN 100,000 U/GM PWD 15 GM BTL TOPICAL SCH ×2 (08:37→20:51)
[2016-07-01] MEDS: COLLAGENASE OINT 30 GM TUBE TOP SCH (08:42)
[2016-07-01] MEDS: LORazepam 0.5 MG TAB PO PRN ×2 (11:32→18:45)
[2016-07-01 12:00] VITALS: BP 119/73; PULSE 87; RESP 16; TEMP 98; O2SAT 94
--- NOTE | 2016-07-01 14:56 | HHI.GIFU ---
Subjective Remarks Resting in bed. No N/V. Tolerating diet. (Doreen Sosa Jayleentrent DEAN) Objective Vitals I&O Vital Signs Date Time Temp Pulse Resp B/P Pulse Ox O2 Delivery O2 Flow Rate FiO2 07/01/16 08:00 97.8 87 17 133/76 94 07/01/16 04:12 16 07/01/16 04:00 97.8 85 17 127/69 95 07/01/16 00:00 97.6 90 17 135/77 96 06/30/16 20:00 97.7 93 18 144/79 94 06/30/16 15:45 98.0 91 20 135/69 94 I/O 06/30/16 06/30/16 06/30/16 07/01/16 07/01/16 07/01/16 07:00 15:00 23:00 07:00 15:00 23:00 Intake Total 120 ml 330 ml 240 ml 120 ml 52 ml Output Total 450 ml 625 ml 650 ml 1000 ml Balance -330 ml -295 ml -410 ml -880 ml 52 ml Intake Oral 120 ml 330 ml 240 ml 120 ml IV Total 52 ml Output Urine Total 450 ml 425 ml 650 ml 1000 ml Stool Total 200 ml # Bowel Movements 2 Laboratory Laboratory Tests Test 07/01/16 06:40 Iron Level 56 Total Iron Binding Capacity 364 Percent Iron Saturation 15.4 Ferritin 205 Total Bilirubin 0.7 Direct Bilirubin 0.4 Indirect Bilirubin 0.3 Aspartate Amino Transf 20 (AST/SGOT) Alanine Aminotransferase 90 (ALT/SGPT) Alkaline Phosphatase 161 Total Protein 6.0 Albumin 2.4 Imaging Last Impressions Liver Ultrasound 06/25/16 0000 Signed Impressions: Service Date/Time: Saturday, June 25, 2016 15:51 - CONCLUSION: Enlarged liver with fatty infiltration. Right upper quadrant ultrasound otherwise within normal limits. Andres Veras MD Hip and Pelvis X-Ray 06/17/16 0000 Signed Impressions: Service Date/Time: Friday, June 17, 2016 10:02 - CONCLUSION: 1. No acute fracture or dislocation of the bony pelvis. 2. Mild degenerative changes involving the hip joints bilaterally. 3. Mild degenerative changes and scoliosis of the lower lumbar spine. Diogenes Lynch MD Head CT 06/13/16 6887 Signed Impressions: Service Date/Time: Monday, June 13, 2016 18:49 - CONCLUSION: Normal examination for a patient of this age. No significant change has occurred. Nba Marion MD Chest X-Ray 06/13/16 1729 Signed Impressions: Service Date/Time: Monday, June 13, 2016 17:36 - CONCLUSION: Bibasilar streakiness consistent with probable atelectasis. Diogenes Lynch MD Physical Exam HEENT: Normocephalic; atraumatic; no jaundice. CHEST: CTA CARDIAC: RRR ABDOMEN: Soft, nondistended, nontender; no hepatosplenomegaly; bowel sounds are present in all four quadrants. Ostomy in place EXTREMITIES: Generalized edema. SKIN: Multiple ecchymotic areas. 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 (Doreen Sosa) Assessment and Plan Plan ASSESSMENT: - Acute transaminitis. Pt has chronic elevation of LFT's, possibly related to fatty liver, medications. Does have hx of ETOH use, but has not had any in over a year. AFP 2.0, Hepatitis panel negative, Iron saturation 15.4% , AMA < 20, ASMA negative, Ceruloplasmin pending, Alpha 1 antitrypsin pending, Celiac panel pending. Liver Ultrasound (06/25/16)-----> Enlarged liver with fatty infiltration. Right upper quadrant ultrasound otherwise within normal limits. LFTs trending down. T. Bili 0.7, AST 20, ALT 90, Alk Phosph 161. ? Related sepsis, medications, fatty liver disease. - Sepsis/UTI, Cx with E.Coli, MRSA, [place] Ornithinolytica. Abx per ID. - HTN, DM, Hypothyroidism per primary Plan - MILEY - Await liver workup - Monitor liver enzymes - Avoid hepatotoxic meds - Supportive care - Further recommendations to follow based on results of above - Pt seen and examined by Dr. Nguyen and myself and this note is written on his behalf (Doreen Sosa) Physician Comments Patient was seen and examined, agree with above note and plan, await full w/u, consider liver Bx (Pro Nguyen MD) Doreen Sosa Jul 01, 2016 14:56 Pro Nguyen MD Jul 02, 2016 07:59
[2016-07-01 16:00] VITALS: BP 145/80; PULSE 100; RESP 16; TEMP 98; O2SAT 95
--- NOTE | 2016-07-01 16:06 | HHI.PR ---
Subjective Remarks no complains Objective Vitals Vital Signs Date Time Temp Pulse Resp B/P Pulse Ox O2 Delivery O2 Flow Rate FiO2 07/01/16 08:00 97.8 87 17 133/76 94 07/01/16 04:12 16 07/01/16 04:00 97.8 85 17 127/69 95 07/01/16 00:00 97.6 90 17 135/77 96 06/30/16 20:00 97.7 93 18 144/79 94 I/O 06/30/16 06/30/16 06/30/16 07/01/16 07/01/16 07/01/16 07:00 15:00 23:00 07:00 15:00 23:00 Intake Total 120 ml 330 ml 240 ml 120 ml 52 ml Output Total 450 ml 625 ml 650 ml 1000 ml Balance -330 ml -295 ml -410 ml -880 ml 52 ml Intake Oral 120 ml 330 ml 240 ml 120 ml IV Total 52 ml Output Urine Total 450 ml 425 ml 650 ml 1000 ml Stool Total 200 ml # Bowel Movements 2 Imaging Last Impressions Liver Ultrasound 06/25/16 0000 Signed Impressions: Service Date/Time: Saturday, June 25, 2016 15:51 - CONCLUSION: Enlarged liver with fatty infiltration. Right upper quadrant ultrasound otherwise within normal limits. Andres Veras MD Hip and Pelvis X-Ray 06/17/16 0000 Signed Impressions: Service Date/Time: Friday, June 17, 2016 10:02 - CONCLUSION: 1. No acute fracture or dislocation of the bony pelvis. 2. Mild degenerative changes involving the hip joints bilaterally. 3. Mild degenerative changes and scoliosis of the lower lumbar spine. Diogenes Lynch MD Head CT 06/13/168 Signed Impressions: Service Date/Time: Monday, June 13, 2016 18:49 - CONCLUSION: Normal examination for a patient of this age. No significant change has occurred. Nba Marion MD Chest X-Ray 06/13/16 8769 Signed Impressions: Service Date/Time: Monday, June 13, 2016 17:36 - CONCLUSION: Bibasilar streakiness consistent with probable atelectasis. Diogenes Lynch MD Objective Remarks awake and alert, oriented x 3 anicteric, kaplan facies regular rhythm soft nontender, good bowel sounds extremities no edema Procedures None. Date of Insertion: Jun 14, 2016 A/P Problem List: (1) Sepsis ICD Code: A41.9 Status: Acute (2) UTI (urinary tract infection) ICD Code: N39.0 Status: Acute (3) HTN (hypertension) ICD Code: I10 Status: Chronic (4) Diabetes ICD Code: E11.9 Status: Acute (5) Hypothyroidism ICD Code: E03.9 Status: Chronic (6) Metabolic encephalopathy ICD Code: G93.41 Status: Acute (7) Transaminitis ICD Code: R74.0 Status: Chronic (8) Subconjunctival hemorrhage, non-traumatic ICD Code: H11.30 Status: Acute Assessment and Plan (1) Sepsis Plan: Sepsis secondary to urinary tract infection. Urine culture grew Escherichia coli, MRSA, Raoultella Orniyhinolytica. Patient treated with IV vancomycin and Zosyn. We'll replace 06/14/16. Infectious disease ff Blood cultures negative to date. Leukocytosis stable WBC 15.7 ---> 11.7 ---> 13 no signs of infection on IV Zosyn. sisnce 06/17- last dose today - will verify with ID (2) UTI (urinary tract infection) Plan: As above- albrecht in place- patient refused to havi it taken out- aware of risks (3) HTN (hypertension) Plan: BP seems stable. Patient with episodes of high blood pressure likely related to pain. Continue with Norvasc. (4) Diabetes Plan: This is a new onset diabetes, hemoglobin A1c 5.0 in 2014. We'll order diabetes education consult. Blood sugars stable. Continue necessary with insulin NovoLog. Decrease prednisone to 5 mg po daily keep for a couple days then decrease to 2.5 and then stop (5) Hypothyroidism Plan: Continue Synthroid. TSH 0.507 lower end of normal range. recheck in 6 weeks (6) Metabolic encephalopathy Plan: Likely secondary to sepsis with UTI. Now resolved. Head CT unremarkable. Continue Lexapro, trazodone, Seroquel hydroxy signed. Site consulted increase Seroquel to 100 mg in a.m. and 200 mg at at bedtime. Patient doing well. (7) Transaminitis Plan: Patient has had elevated liver enzymes since 2014, now actually lower. However AST on admission 72 trending up to 93. ALT trending up from 123-211. Patient had a negative hepatitis profile in 2014. Continue to monitor LFTs, check hepatitis profile and liver ultrasound. 06/26/16 liver us showed fatty liver, patient has never had this worked up. LFT's stable continue to monitor. GI consult. 06/27/16 appreciate GI recommendations. Transaminitis likely secondary to fatty liver. Workup has been ordered for chronic liver disease. Hepatitis profile negative. (8) Subconjunctival hemorrhage, non-traumatic Plan: Patient has a is spontaneous conjunctival hemorrhage of the right eye. This is self-limited and has not treatment. Sacral decubitus- wound care team ff GI prophylaxis:pPI. DVT prophylaxis: Lovenox subcutaneous. patient refused to go back to to [facility] Discharge Planning Problem Qualifiers (1) Sepsis: Qualified Code: A41.9 - Sepsis, due to unspecified organism (2) UTI (urinary tract infection): (3) HTN (hypertension): Qualified Code: I10 - Essential hypertension (4) Diabetes: Qualified Code: E11.8 - Type 2 diabetes mellitus with complication, without long-term current use of insulin (5) Hypothyroidism: Qualified Code: E03.9 - Hypothyroidism, unspecified type (6) Subconjunctival hemorrhage, non-traumatic: Qualified Code: H11.31 - Subconjunctival hemorrhage, non-traumatic, right Nicolasa Mckeon MD Jul 01, 2016 16:06 Nicolasa Mckeon MD Jul 01, 2016 16:06
--- NOTE | 2016-07-01 16:26 | HHI.PR ---
Addendum to Inpatient Note Additional Information Last day of abx today; pt completed 14 days of abx OK to dc dw Ashia Vizcaino MD Jul 01, 2016 16:26
[2016-07-01 20:00] VITALS: BP 145/77; PULSE 97; RESP 18; TEMP 98; O2SAT 96
[2016-07-01] MEDS: QUEtiapine FUMARATE 200 MG TAB PO SCH (20:50)
[2016-07-01] MEDS: traZODone HCL 50 MG TAB PO SCH (20:50)
[2016-07-01] MEDS: hydrOXYzine HCL 50 MG TAB PO SCH (20:51)
[2016-07-02] VITALS: BP 109/62; PULSE 86; RESP 19; TEMP 97.1; O2SAT 96
[2016-07-02] MEDS: PIPERACIL-TAZO 3.375 GM PREMIX 50 ML IV SCH ×4 (01:10→20:40)
[2016-07-02] MEDS: oxyCODONE/ACETAMINOPHEN 5 MG/325 MG TAB PO PRN ×5 (03:52→21:38)
[2016-07-02] MEDS: LORazepam 0.5 MG TAB PO PRN ×4 (03:55→18:01)
[2016-07-02 04:00] VITALS: BP 133/85; PULSE 90; RESP 19; TEMP 98.1; O2SAT 95
[2016-07-02] MEDS: LEVOTHYROXINE SODIUM 25 MCG TAB PO SCH (06:37)
[2016-07-02] MEDS: QUEtiapine FUMARATE 100 MG TAB PO SCH (06:37)
[2016-07-02] MEDS: INSULIN ASPART SUPPLEMENTAL SCALE SQ SCH ×4 (06:43→20:39)
[2016-07-02 08:00] VITALS: BP 123/84; PULSE 94; RESP 16; TEMP 97.8; O2SAT 94
--- NOTE | 2016-07-02 08:52 | HHI.PR ---
Subjective Remarks no complains "comfortable, watching TV" no diarrhea Objective Vitals Vital Signs Date Time Temp Pulse Resp B/P Pulse Ox O2 Delivery O2 Flow Rate FiO2 07/02/16 05:44 16 07/02/16 04:00 98.1 90 19 133/85 95 07/02/16 00:00 97.1 86 19 109/62 96 07/01/16 20:00 98.0 97 18 145/77 96 07/01/16 16:00 98.0 100 16 145/80 95 07/01/16 12:00 98.0 87 16 119/73 94 I/O 07/01/16 07/01/16 07/01/16 07/02/16 07/02/16 07/02/16 07:00 15:00 23:00 07:00 15:00 23:00 Intake Total 120 ml 652 ml 240 ml Output Total 1000 ml 650 ml 500 ml 800 ml Balance -880 ml 2 ml -500 ml -560 ml Intake Oral 120 ml 600 ml 240 ml IV Total 52 ml Output Urine Total 1000 ml 650 ml 500 ml 800 ml # Bowel Movements 1 Imaging Last Impressions Liver Ultrasound 06/25/16 0000 Signed Impressions: Service Date/Time: Saturday, June 25, 2016 15:51 - CONCLUSION: Enlarged liver with fatty infiltration. Right upper quadrant ultrasound otherwise within normal limits. Andres Veras MD Hip and Pelvis X-Ray 06/17/16 0000 Signed Impressions: Service Date/Time: Friday, June 17, 2016 10:02 - CONCLUSION: 1. No acute fracture or dislocation of the bony pelvis. 2. Mild degenerative changes involving the hip joints bilaterally. 3. Mild degenerative changes and scoliosis of the lower lumbar spine. Diogenes Lynch MD Head CT 06/13/167 Signed Impressions: Service Date/Time: Monday, June 13, 2016 18:49 - CONCLUSION: Normal examination for a patient of this age. No significant change has occurred. Nba Marion MD Chest X-Ray 06/13/16 1729 Signed Impressions: Service Date/Time: Monday, June 13, 2016 17:36 - CONCLUSION: Bibasilar streakiness consistent with probable atelectasis. Diogenes Lynch MD Objective Remarks awake and alert, oriented x 3 anicteric, kaplan facies regular rhythm soft nontender, good bowel sounds extremities no edema Procedures None. Urinary Catheter: Yes Assessment to: Continue Albrecht insert reason: Prolonged Immobilization Date of Insertion: Jun 14, 2016 A/P Problem List: (1) Sepsis ICD Code: A41.9 Status: Acute (2) UTI (urinary tract infection) ICD Code: N39.0 Status: Acute (3) HTN (hypertension) ICD Code: I10 Status: Chronic (4) Diabetes ICD Code: E11.9 Status: Acute (5) Hypothyroidism ICD Code: E03.9 Status: Chronic (6) Metabolic encephalopathy ICD Code: G93.41 Status: Acute (7) Transaminitis ICD Code: R74.0 Status: Chronic (8) Subconjunctival hemorrhage, non-traumatic ICD Code: H11.30 Status: Acute Assessment and Plan (1) Sepsis Plan: Sepsis secondary to urinary tract infection. Urine culture grew Escherichia coli, MRSA, Raoultella Orniyhinolytica. Patient treated with IV vancomycin and Zosyn. We'll replace 06/14/16. Infectious disease ff Blood cultures negative to date. Leukocytosis stable WBC 15.7 ---> 11.7 ---> 13 no signs of infection ID ff - on Zosyn (2) UTI (urinary tract infection) Plan: As above- albrecht in place- patient refused to have it taken out- aware of risks (3) HTN (hypertension) Plan: BP seems stable. Patient with episodes of high blood pressure likely related to pain. Continue with Norvasc. (4) DM type 2 Plan: This is a new onset diabetes, hemoglobin A1c 5.0 in 2014. Blood sugars stable. Continue necessary with insulin NovoLog. Decrease prednisone to 5 mg po daily keep for a couple days then decrease to 2.5 and then stop (5) Hypothyroidism Plan: Continue Synthroid. TSH 0.507 lower end of normal range. recheck in 6 weeks (6) Metabolic encephalopathy- resolved Plan: Likely secondary to sepsis with UTI. Now resolved. Head CT unremarkable. Continue Lexapro, trazodone, Seroquel hydroxy signed. Site consulted increase Seroquel to 100 mg in a.m. and 200 mg at at bedtime. Patient doing well. (7) Transaminitis Plan: Patient has had elevated liver enzymes since 2014, now actually lower. However AST on admission 72 trending up to 93. ALT trending up from 123-211. Patient had a negative hepatitis profile in 2014. Continue to monitor LFTs, check hepatitis profile and liver ultrasound. 06/26/16 liver us showed fatty liver, patient has never had this worked up. LFT's stable continue to monitor. GI consult. 06/27/16 appreciate GI recommendations. Transaminitis likely secondary to fatty liver. Workup has been ordered for chronic liver disease. Hepatitis profile negative. (8) Subconjunctival hemorrhage, non-traumatic resolved Plan: Patient has a is spontaneous conjunctival hemorrhage of the right eye. This is self-limited and has not treatment. Sacral decubitus- wound care team ff GI prophylaxis:pPI. DVT prophylaxis: Lovenox subcutaneous. patient refused to go back to to [place] with SHELLEY- 07/02- not until Monday- no place Problem Qualifiers (1) Sepsis: Qualified Code: A41.9 - Sepsis, due to unspecified organism (2) UTI (urinary tract infection): (3) HTN (hypertension): Qualified Code: I10 - Essential hypertension (4) Diabetes: Qualified Code: E11.8 - Type 2 diabetes mellitus with complication, without long-term current use of insulin (5) Hypothyroidism: Qualified Code: E03.9 - Hypothyroidism, unspecified type (6) Subconjunctival hemorrhage, non-traumatic: Qualified Code: H11.31 - Subconjunctival hemorrhage, non-traumatic, right Nicolasa Mckeon MD Jul 02, 2016 08:52
[2016-07-02] MEDS: SODIUM CHLORIDE 0.9% FLUSH 5 ML FLUSH FLUSH SCH (09:39)
[2016-07-02] MEDS: COLLAGENASE OINT 30 GM TUBE TOP SCH (09:40)
[2016-07-02] MEDS: amLODIPine BESYLATE 5 MG TAB PO SCH (09:40)
[2016-07-02] MEDS: ESCITALOPRAM OXALATE 10 MG TAB PO SCH (09:40)
[2016-07-02] MEDS: FAMOTIDINE 20 MG TAB PO SCH ×2 (09:40→21:37)
[2016-07-02] MEDS: FERROUS SULFATE 325 MG (65 MG ELEMENTAL IRON) TAB PO SCH (09:40)
[2016-07-02] MEDS: ENOXAPARIN SODIUM 40 MG/0.4 ML SYRINGE SQ SCH (09:40)
[2016-07-02] MEDS: NYSTATIN 100,000 U/GM PWD 15 GM BTL TOPICAL SCH ×2 (09:40→21:00)
[2016-07-02] MEDS: predniSONE 5 MG TAB PO SCH (09:46)
--- NOTE | 2016-07-02 10:10 | HHI.GIFU ---
Subjective Remarks Resting in bed. Mild nausea earlier without vomiting. No pain. Tolerating diet. (Doreen Sosa) Objective Vitals I&O Vital Signs Date Time Temp Pulse Resp B/P Pulse Ox O2 Delivery O2 Flow Rate FiO2 07/02/16 08:00 97.8 94 16 123/84 94 07/02/16 05:44 16 07/02/16 04:00 98.1 90 19 133/85 95 07/02/16 00:00 97.1 86 19 109/62 96 07/01/16 20:00 98.0 97 18 145/77 96 07/01/16 16:00 98.0 100 16 145/80 95 07/01/16 12:00 98.0 87 16 119/73 94 I/O 07/01/16 07/01/16 07/01/16 07/02/16 07/02/16 07/02/16 07:00 15:00 23:00 07:00 15:00 23:00 Intake Total 120 ml 652 ml 240 ml Output Total 1000 ml 650 ml 500 ml 800 ml Balance -880 ml 2 ml -500 ml -560 ml Intake Oral 120 ml 600 ml 240 ml IV Total 52 ml Output Urine Total 1000 ml 650 ml 500 ml 800 ml # Bowel Movements 1 Imaging Last Impressions Liver Ultrasound 06/25/16 0000 Signed Impressions: Service Date/Time: Saturday, June 25, 2016 15:51 - CONCLUSION: Enlarged liver with fatty infiltration. Right upper quadrant ultrasound otherwise within normal limits. Andres Veras MD Hip and Pelvis X-Ray 06/17/16 0000 Signed Impressions: Service Date/Time: Friday, June 17, 2016 10:02 - CONCLUSION: 1. No acute fracture or dislocation of the bony pelvis. 2. Mild degenerative changes involving the hip joints bilaterally. 3. Mild degenerative changes and scoliosis of the lower lumbar spine. Diogenes Lynch MD Head CT 06/13/16 1737 Signed Impressions: Service Date/Time: Monday, June 13, 2016 18:49 - CONCLUSION: Normal examination for a patient of this age. No significant change has occurred. Nba Marion MD Chest X-Ray 06/13/16 1729 Signed Impressions: Service Date/Time: Monday, June 13, 2016 17:36 - CONCLUSION: Bibasilar streakiness consistent with probable atelectasis. Diogenes Lynch MD Physical Exam HEENT: Real shaped face Normocephalic; atraumatic; no jaundice. CHEST: CTA CARDIAC: RRR ABDOMEN: Soft, nondistended, nontender; no hepatosplenomegaly; bowel sounds are present in all four quadrants. Ostomy in place EXTREMITIES: Generalized edema. SKIN: Multiple ecchymotic areas. CAROUSEL ATTENDANT: No focal deficits; alert and oriented times three. (Doreen Sosa) Assessment and Plan Plan ASSESSMENT: - Acute transaminitis. Pt has chronic elevation of LFT's, possibly related to fatty liver, medications. Does have hx of ETOH use, but has not had any in over a year. AFP 2.0, Hepatitis panel negative, Iron saturation 15.4% , AMA < 20, ASMA negative, Ceruloplasmin pending, Alpha 1 antitrypsin pending, Celiac panel pending. Liver Ultrasound (06/25/16)-----> Enlarged liver with fatty infiltration. Right upper quadrant ultrasound otherwise within normal limits. LFTs trending down. T. Bili 0.4 AST 20, ALT 90, Alk Phosph 161 yesterday, none today. Have been trending down, will recheck in am ? Related sepsis, medications, fatty liver disease. - Sepsis/UTI, Cx with E.Coli, MRSA, Raoul[place] Ornithinolytica. Abx per ID. - HTN, DM, Hypothyroidism per primary Plan - MILEY - Await liver workup - LFT in am - Avoid hepatotoxic meds - Supportive care - Further recommendations to follow based on results of above - Pt seen and examined by Dr. Nguyen and myself and this note is written on his behalf (Doreen Sosa) Physician Comments patient was seen and examined, agree with above note, supportive care, await labs but LFTs improving. (Pro Nguyen MD) Doreen Sosa Jul 02, 2016 10:10 Pro Nguyen MD Jul 02, 2016 11:52
[2016-07-02 12:00] VITALS: BP 126/66; PULSE 89; RESP 16; TEMP 98.1; O2SAT 95
[2016-07-02 16:00] VITALS: BP 95/74; PULSE 89; RESP 18; TEMP 98.1; O2SAT 97
[2016-07-02] MEDS ORDERED: ONDANSETRON HCL 4 MG/2 ML VIAL IV PUSH PRN (17:45)
[2016-07-02 20:00] VITALS: BP 135/71; PULSE 99; RESP 18; TEMP 97.9; O2SAT 95
[2016-07-02] MEDS: QUEtiapine FUMARATE 200 MG TAB PO SCH (21:37)
[2016-07-02] MEDS: hydrOXYzine HCL 50 MG TAB PO SCH (21:37)
[2016-07-02] MEDS: traZODone HCL 50 MG TAB PO SCH (21:37)
[2016-07-03] VITALS: BP 133/72; PULSE 91; RESP 17; TEMP 97.6; O2SAT 95
[2016-07-03] MEDS: oxyCODONE/ACETAMINOPHEN 5 MG/325 MG TAB PO PRN ×6 (01:30→23:04)
[2016-07-03] MEDS: PIPERACIL-TAZO 3.375 GM PREMIX 50 ML IV SCH ×3 (01:30→13:29)
[2016-07-03 04:00] VITALS: BP 114/65; PULSE 88; RESP 18; TEMP 98; O2SAT 94
[2016-07-03] MEDS: LEVOTHYROXINE SODIUM 25 MCG TAB PO SCH (06:03)
[2016-07-03] MEDS: QUEtiapine FUMARATE 100 MG TAB PO SCH (06:03)
[2016-07-03] MEDS: SODIUM CHLORIDE 0.9% FLUSH 5 ML FLUSH FLUSH SCH ×3 (06:04→23:04)
[2016-07-03] MEDS: INSULIN ASPART SUPPLEMENTAL SCALE SQ SCH ×4 (06:04→21:00)
[2016-07-03 08:00] VITALS: BP 115/71; PULSE 85; RESP 18; TEMP 97.8; O2SAT 95
[2016-07-03 08:19] LABS: INDIRECT BILIRUBIN 0.3 MG/DL (0.0-0.8); TOTAL BILIRUBIN ADULT 0.7 MG/DL (0.2-1.0)
[2016-07-03] MEDS: amLODIPine BESYLATE 5 MG TAB PO SCH (09:39)
[2016-07-03] MEDS: ENOXAPARIN SODIUM 40 MG/0.4 ML SYRINGE SQ SCH (09:39)
[2016-07-03] MEDS: predniSONE 5 MG TAB PO SCH (09:39)
[2016-07-03] MEDS: LORazepam 0.5 MG TAB PO PRN (09:40)
[2016-07-03] MEDS: ESCITALOPRAM OXALATE 10 MG TAB PO SCH (09:40)
[2016-07-03] MEDS: NYSTATIN 100,000 U/GM PWD 15 GM BTL TOPICAL SCH ×2 (09:40→23:07)
[2016-07-03] MEDS: FAMOTIDINE 20 MG TAB PO SCH ×2 (09:40→23:03)
[2016-07-03] MEDS: COLLAGENASE OINT 30 GM TUBE TOP SCH (09:40)
[2016-07-03] MEDS: FERROUS SULFATE 325 MG (65 MG ELEMENTAL IRON) TAB PO SCH (09:40)
[2016-07-03 11:50] VITALS: BP 119/69; PULSE 86; RESP 20; TEMP 97.8; O2SAT 93
[2016-07-03 16:00] VITALS: BP 128/71; PULSE 87; RESP 20; TEMP 97.9; O2SAT 20
--- NOTE | 2016-07-03 16:12 | HHI.PR ---
Subjective Remarks denies any abdominal pain tolerated po more today, very minimal nausea colostomy bag with stools Objective Vitals Vital Signs Date Time Temp Pulse Resp B/P Pulse Ox O2 Delivery O2 Flow Rate FiO2 07/03/16 11:50 97.8 86 20 119/69 93 07/03/16 08:00 97.8 85 18 115/71 95 07/03/16 04:00 98.0 88 18 114/65 94 07/03/16 00:00 97.6 91 17 133/72 95 07/02/16 20:00 97.9 99 18 135/71 95 I/O 07/02/16 07/02/16 07/02/16 07/03/16 07/03/16 07/03/16 07:00 15:00 23:00 07:00 15:00 23:00 Intake Total 240 ml 720 ml 480 ml 240 ml Output Total 800 ml 850 ml 575 ml Balance -560 ml -130 ml -95 ml 240 ml Intake Oral 240 ml 720 ml 480 ml 240 ml Output Urine Total 800 ml 700 ml 450 ml Stool Total 150 ml 125 ml # Bowel Movements 2 1 Imaging Last Impressions Liver Ultrasound 06/25/16 0000 Signed Impressions: Service Date/Time: Saturday, June 25, 2016 15:51 - CONCLUSION: Enlarged liver with fatty infiltration. Right upper quadrant ultrasound otherwise within normal limits. Andres Veras MD Hip and Pelvis X-Ray 06/17/16 0000 Signed Impressions: Service Date/Time: Friday, June 17, 2016 10:02 - CONCLUSION: 1. No acute fracture or dislocation of the bony pelvis. 2. Mild degenerative changes involving the hip joints bilaterally. 3. Mild degenerative changes and scoliosis of the lower lumbar spine. Diogenes Lynch MD Head CT 06/13/167 Signed Impressions: Service Date/Time: Monday, June 13, 2016 18:49 - CONCLUSION: Normal examination for a patient of this age. No significant change has occurred. Nba Marion MD Chest X-Ray 06/13/16 1729 Signed Impressions: Service Date/Time: Monday, June 13, 2016 17:36 - CONCLUSION: Bibasilar streakiness consistent with probable atelectasis. Diogenes Lynch MD Objective Remarks awake and alert, oriented x 3 anicteric, kaplan facies regular rhythm soft nontender, good bowel sounds, colostomy bag with stools extremities no edema Procedures None. Urinary Catheter: Yes Assessment to: Continue Date of Insertion: Jun 14, 2016 A/P Problem List: (1) Sepsis ICD Code: A41.9 Status: Acute (2) UTI (urinary tract infection) ICD Code: N39.0 Status: Acute (3) HTN (hypertension) ICD Code: I10 Status: Chronic (4) Diabetes ICD Code: E11.9 Status: Acute (5) Hypothyroidism ICD Code: E03.9 Status: Chronic (6) Metabolic encephalopathy ICD Code: G93.41 Status: Acute (7) Transaminitis ICD Code: R74.0 Status: Chronic (8) Subconjunctival hemorrhage, non-traumatic ICD Code: H11.30 Status: Acute Assessment and Plan (1) Sepsis Plan: Sepsis secondary to urinary tract infection. Urine culture grew Escherichia coli, MRSA, Raoultella Orniyhinolytica. Patient treated with IV vancomycin and Zosyn. We'll replace 06/14/16. Infectious disease ff Blood cultures negative to date. Leukocytosis stable S/P Zosyn course (2) UTI (urinary tract infection) Plan: As above- albrecht in place- patient refused to have it taken out- aware of risks d/w her 07/03 (3) HTN (hypertension) Plan: BP seems stable. Patient with episodes of high blood pressure likely related to pain. Continue with Norvasc. (4) DM type 2 Plan: This is a new onset diabetes, hemoglobin A1c 5.0 in 2014. Blood sugars stable. Continue necessary with insulin NovoLog. Decrease prednisone to 5 mg po daily keep for a couple days then decrease to 2.5 and then stop (5) Hypothyroidism Plan: Continue Synthroid. TSH 0.507 lower end of normal range. recheck in 6 weeks (6) Metabolic encephalopathy- resolved Plan: Likely secondary to sepsis with UTI. Now resolved. Head CT unremarkable. Continue Lexapro, trazodone, Seroquel hydroxy signed. Site consulted increase Seroquel to 100 mg in a.m. and 200 mg at at bedtime. Patient doing well. (7) Transaminitis Plan: Patient has had elevated liver enzymes since 2014, now actually lower. However AST on admission 72 trending up to 93. ALT trending up from 123-211. Patient had a negative hepatitis profile in 2014. Continue to monitor LFTs, check hepatitis profile and liver ultrasound. 06/26/16 liver us showed fatty liver, patient has never had this worked up. LFT's stable continue to monitor. GI consult. 06/27/16 appreciate GI recommendations. Transaminitis likely secondary to fatty liver. Workup has been ordered for chronic liver disease. Hepatitis profile negative. (8) Subconjunctival hemorrhage, non-traumatic resolved Plan: Patient has a is spontaneous conjunctival hemorrhage of the right eye. This is self-limited and has not treatment. Sacral decubitus- wound care team ff GI prophylaxis:pPI. DVT prophylaxis: Lovenox subcutaneous. patient refused to go back to to [employer] [place] with [facility]LLEY- 07/02- not until Monday- no place - placement issues Problem Qualifiers (1) Sepsis: Qualified Code: A41.9 - Sepsis, due to unspecified organism (2) UTI (urinary tract infection): (3) HTN (hypertension): Qualified Code: I10 - Essential hypertension (4) Diabetes: Qualified Code: E11.8 - Type 2 diabetes mellitus with complication, without long-term current use of insulin (5) Hypothyroidism: Qualified Code: E03.9 - Hypothyroidism, unspecified type (6) Subconjunctival hemorrhage, non-traumatic: Qualified Code: H11.31 - Subconjunctival hemorrhage, non-traumatic, right Nicolasa Mckeon MD Jul 03, 2016 16:12
[2016-07-03] MEDS ORDERED: PILL SPLITTER OTHER PRN (16:15)
[2016-07-03] MEDS ORDERED: LORazepam 0.5 MG TAB PO PRN (18:00)
[2016-07-03 20:00] VITALS: BP 118/69; PULSE 78; RESP 18; TEMP 98.1; O2SAT 96
[2016-07-03] MEDS: QUEtiapine FUMARATE 200 MG TAB PO SCH (21:00)
[2016-07-03] MEDS: hydrOXYzine HCL 50 MG TAB PO SCH (21:00)
[2016-07-03] MEDS: traZODone HCL 50 MG TAB PO SCH (23:04)
[2016-07-04] VITALS: BP 131/60; PULSE 80; RESP 18; TEMP 97.7; O2SAT 96
[2016-07-04 04:00] VITALS: BP 118/65; PULSE 86; RESP 18; TEMP 97.4; O2SAT 96
[2016-07-04] MEDS: INSULIN ASPART SUPPLEMENTAL SCALE SQ SCH ×4 (05:20→21:00)
[2016-07-04] MEDS: LEVOTHYROXINE SODIUM 25 MCG TAB PO SCH (05:21)
[2016-07-04] MEDS: oxyCODONE/ACETAMINOPHEN 5 MG/325 MG TAB PO PRN ×5 (05:21→22:01)
[2016-07-04] MEDS: QUEtiapine FUMARATE 100 MG TAB PO SCH (05:21)
[2016-07-04 08:00] VITALS: BP 120/62; PULSE 86; RESP 16; TEMP 97.6; O2SAT 96
[2016-07-04] MEDS: SODIUM CHLORIDE 0.9% FLUSH 5 ML FLUSH FLUSH SCH ×2 (09:00→22:03)
[2016-07-04] MEDS: FAMOTIDINE 20 MG TAB PO SCH ×2 (09:01→22:02)
[2016-07-04] MEDS: amLODIPine BESYLATE 5 MG TAB PO SCH (09:02)
[2016-07-04] MEDS: ESCITALOPRAM OXALATE 10 MG TAB PO SCH (09:02)
[2016-07-04] MEDS: FERROUS SULFATE 325 MG (65 MG ELEMENTAL IRON) TAB PO SCH (09:02)
[2016-07-04] MEDS: ENOXAPARIN SODIUM 40 MG/0.4 ML SYRINGE SQ SCH (09:03)
[2016-07-04] MEDS: predniSONE 5 MG TAB PO SCH (09:03)
[2016-07-04] MEDS: NYSTATIN 100,000 U/GM PWD 15 GM BTL TOPICAL SCH ×2 (09:04→21:00)
[2016-07-04] MEDS: COLLAGENASE OINT 30 GM TUBE TOP SCH (09:04)
[2016-07-04 12:00] VITALS: BP 120/62; PULSE 86; RESP 16; TEMP 97.4; O2SAT 96
--- NOTE | 2016-07-04 12:25 | HHI.GIFU ---
Subjective Remarks Resting in bed. No n/v. No abdominal pain. Tolerating diet. (SosaDoreen Jayleentrent DEAN) Objective Vitals I&O Vital Signs Date Time Temp Pulse Resp B/P Pulse Ox O2 Delivery O2 Flow Rate FiO2 07/04/16 08:00 97.6 86 16 120/62 96 07/04/16 04:00 97.4 86 18 118/65 96 07/04/16 00:00 97.7 80 18 131/60 96 07/03/16 20:00 98.1 78 18 118/69 96 07/03/16 16:00 97.9 87 20 128/71 20 I/O 07/03/16 07/03/16 07/03/16 07/04/16 07/04/16 07/04/16 07:00 15:00 23:00 07:00 15:00 23:00 Intake Total 240 ml 300 ml 480 ml 120 ml Output Total 850 ml 500 ml 600 ml 400 ml Balance 240 ml -550 ml -20 ml -480 ml -400 ml Intake Oral 240 ml 300 ml 480 ml 120 ml Output Urine Total 750 ml 500 ml 600 ml Stool Total 100 ml 400 ml # Bowel Movements 1 0 Imaging Last Impressions Liver Ultrasound 06/25/16 0000 Signed Impressions: Service Date/Time: Saturday, June 25, 2016 15:51 - CONCLUSION: Enlarged liver with fatty infiltration. Right upper quadrant ultrasound otherwise within normal limits. Andres Veras MD Hip and Pelvis X-Ray 06/17/16 0000 Signed Impressions: Service Date/Time: Friday, June 17, 2016 10:02 - CONCLUSION: 1. No acute fracture or dislocation of the bony pelvis. 2. Mild degenerative changes involving the hip joints bilaterally. 3. Mild degenerative changes and scoliosis of the lower lumbar spine. Diogenes Lynch MD Head CT 06/13/167 Signed Impressions: Service Date/Time: Monday, June 13, 2016 18:49 - CONCLUSION: Normal examination for a patient of this age. No significant change has occurred. Nba Marion MD Chest X-Ray 06/13/16 1729 Signed Impressions: Service Date/Time: Monday, June 13, 2016 17:36 - CONCLUSION: Bibasilar streakiness consistent with probable atelectasis. Diogenes Lynch MD Physical Exam HEENT: Real shaped face Normocephalic; atraumatic; no jaundice. CHEST: CTA CARDIAC: RRR ABDOMEN: Soft, nondistended, nontender; no hepatosplenomegaly; bowel sounds are present in all four quadrants. EXTREMITIES: Generalized edema. SKIN: Multiple ecchymotic areas. GOVERNMENT SERVICES PROFESSIONAL: No focal deficits; alert and oriented times three. (Doreen Sosa) Assessment and Plan Plan ASSESSMENT: - Acute transaminitis. Pt has chronic elevation of LFT's, possibly related to fatty liver, medications. Does have hx of ETOH use, but has not had any in over a year. AFP 2.0, Hepatitis panel negative, Iron saturation 15.4% , AMA < 20, ASMA negative, Ceruloplasmin 27, Alpha 1 antitrypsin 177, Celiac panel pending. Liver Ultrasound (06/25/16)-----> Enlarged liver with fatty infiltration. Right upper quadrant ultrasound otherwise within normal limits. LFTs continue to trending down. T. Bili 0.4 AST 20, ALT 62, Alk Phosph 187. ? Related sepsis, medications, fatty liver disease. - Sepsis/UTI, Cx with E.Coli, MRSA, Raoultell Ornithinolytica. Abx per ID. - HTN, DM, Hypothyroidism per primary Plan - MILEY - Await celiac panel - Monitor LFTs - Avoid hepatotoxic meds - GI will sign off, please reconsult as needed - Pt seen and examined by Dr. Benavidez and myself and this note is written on his behalf (Doreen Sosa) Physician Comments Patient was seen and examined Agree with above Continue with current supportive care Monitor labs May consider liver biopsy if LFTs elevation persists Follow-up with GI as outpatient We will sign off (Jose Benavidez MD) Doreen Sosa Jul 04, 2016 12:25 Jose Benavidez MD Jul 04, 2016 14:50
--- NOTE | 2016-07-04 12:34 | HHI.PR ---
Subjective Remarks states she did well with PT this am no abdominal pain or nausea today refused to have albrecht catheter removed =- feels too weak to get up to use BR- d/ w bedside commode and staff to help her -"not novw" she does not want to go back to [facility] her CM working with us Objective Vitals Vital Signs Date Time Temp Pulse Resp B/P Pulse Ox O2 Delivery O2 Flow Rate FiO2 07/04/16 08:00 97.6 86 16 120/62 96 07/04/16 04:00 97.4 86 18 118/65 96 07/04/16 00:00 97.7 80 18 131/60 96 07/03/16 20:00 98.1 78 18 118/69 96 07/03/16 16:00 97.9 87 20 128/71 20 I/O 07/03/16 07/03/16 07/03/16 07/04/16 07/04/16 07/04/16 07:00 15:00 23:00 07:00 15:00 23:00 Intake Total 240 ml 300 ml 480 ml 120 ml Output Total 850 ml 500 ml 600 ml 400 ml Balance 240 ml -550 ml -20 ml -480 ml -400 ml Intake Oral 240 ml 300 ml 480 ml 120 ml Output Urine Total 750 ml 500 ml 600 ml Stool Total 100 ml 400 ml # Bowel Movements 1 0 Imaging Last Impressions Liver Ultrasound 06/25/16 0000 Signed Impressions: Service Date/Time: Saturday, June 25, 2016 15:51 - CONCLUSION: Enlarged liver with fatty infiltration. Right upper quadrant ultrasound otherwise within normal limits. Andres Veras MD Hip and Pelvis X-Ray 06/17/16 0000 Signed Impressions: Service Date/Time: Friday, June 17, 2016 10:02 - CONCLUSION: 1. No acute fracture or dislocation of the bony pelvis. 2. Mild degenerative changes involving the hip joints bilaterally. 3. Mild degenerative changes and scoliosis of the lower lumbar spine. Diogenes Lynch MD Head CT 06/13/16 [id number] Signed Impressions: Service Date/Time: Monday, June 13, 2016 18:49 - CONCLUSION: Normal examination for a patient of this age. No significant change has occurred. Nba Marion MD Chest X-Ray 06/13/16 3715 Signed Impressions: Service Date/Time: Monday, June 13, 2016 17:36 - CONCLUSION: Bibasilar streakiness consistent with probable atelectasis. Diogenes Lynch MD Objective Remarks awake and alert, oriented x 3 anicteric, kaplan facies regular rhythm soft nontender, good bowel sounds, colostomy bag with stools extremities no edema moves all extremitiees spontaenously- LE strength stronger Procedures None. Urinary Catheter: Yes Albrecht insert reason: Prolonged Immobilization Date of Insertion: Jun 14, 2016 A/P Problem List: (1) Sepsis ICD Code: A41.9 Status: Acute (2) UTI (urinary tract infection) ICD Code: N39.0 Status: Acute (3) HTN (hypertension) ICD Code: I10 Status: Chronic (4) Diabetes ICD Code: E11.9 Status: Acute (5) Hypothyroidism ICD Code: E03.9 Status: Chronic (6) Metabolic encephalopathy ICD Code: G93.41 Status: Acute (7) Transaminitis ICD Code: R74.0 Status: Chronic (8) Subconjunctival hemorrhage, non-traumatic ICD Code: H11.30 Status: Acute Assessment and Plan (1) Sepsis- S/P zosyn course 07/03 Plan: Sepsis secondary to urinary tract infection. Urine culture grew Escherichia coli, MRSA, Raoultella Orniyhinolytica. Blood cultures negative to date. (2) UTI (urinary tract infection) Plan: As above- albrecht in place- patient refused to have it taken out- aware of risks d/w her 07/03, 07/04 (3) HTN (hypertension) Plan: BP seems stable. Patient with episodes of high blood pressure likely related to pain. Continue with Norvasc. (4) DM type 2 Plan: This is a new onset diabetes, hemoglobin A1c 5.0 in 2014. Blood sugars stable. Continue necessary with insulin NovoLog. On prednisone to 5 mg po daily keep for a couple days then decrease to 2.5 and then stop (5) Hypothyroidism Plan: Continue Synthroid. TSH 0.507 lower end of normal range. recheck in 6 weeks (6) Metabolic encephalopathy- resolved Plan: Likely secondary to sepsis with UTI. Now resolved. Head CT unremarkable. Continue Lexapro, trazodone, Seroquel hydroxy signed. Site consulted increase Seroquel to 100 mg in a.m. and 200 mg at at bedtime. Patient doing well. (7) Transaminitis Plan: Patient has had elevated liver enzymes since 2014, now actually lower. However AST on admission 72 trending up to 93. ALT trending up from 123-211. Patient had a negative hepatitis profile in 2014. Continue to monitor LFTs, check hepatitis profile and liver ultrasound. 06/26/16 liver us showed fatty liver, patient has never had this worked up. LFT's stable continue to monitor. GI consult. 06/27/16 appreciate GI recommendations. Transaminitis likely secondary to fatty liver. Workup has been ordered for chronic liver disease. Hepatitis profile negative. (8) Subconjunctival hemorrhage, non-traumatic resolved Plan: Patient has a is spontaneous conjunctival hemorrhage of the right eye. This is self-limited and has not treatment. Sacral decubitus- wound care team ff GI prophylaxis:pPI. DVT prophylaxis: Lovenox subcutaneous. [facility]- 07/02- not until Monday- no place - placement issues- CM ff along with us Problem Qualifiers (1) Sepsis: Qualified Code: A41.9 - Sepsis, due to unspecified organism (2) UTI (urinary tract infection): (3) HTN (hypertension): Qualified Code: I10 - Essential hypertension (4) Diabetes: Qualified Code: E11.8 - Type 2 diabetes mellitus with complication, without long-term current use of insulin (5) Hypothyroidism: Qualified Code: E03.9 - Hypothyroidism, unspecified type (6) Subconjunctival hemorrhage, non-traumatic: Qualified Code: H11.31 - Subconjunctival hemorrhage, non-traumatic, right Nicolasa Mckeon MD Jul 04, 2016 12:34 Nicolasa Mckeon MD Jul 04, 2016 12:34 Nicolasa Mcekon MD Jul 04, 2016 12:34
[2016-07-04] MEDS: LORazepam 0.5 MG TAB PO PRN ×2 (13:36→22:02)
[2016-07-04 16:00] VITALS: BP 124/64; PULSE 84; RESP 18; TEMP 97.2; O2SAT 98
[2016-07-04 20:03] VITALS: BP 131/77; PULSE 85; RESP 17; TEMP 97.6; O2SAT 95
[2016-07-04] MEDS: QUEtiapine FUMARATE 200 MG TAB PO SCH (22:02)
[2016-07-04] MEDS: hydrOXYzine HCL 50 MG TAB PO SCH (22:02)
[2016-07-04] MEDS: traZODone HCL 50 MG TAB PO SCH (22:02)
[2016-07-05 00:03] VITALS: BP 138/63; PULSE 89; RESP 17; TEMP 98.1; O2SAT 95
[2016-07-05] MEDS: oxyCODONE/ACETAMINOPHEN 5 MG/325 MG TAB PO PRN ×4 (03:58→19:39)
[2016-07-05 04:03] VITALS: BP 132/71; PULSE 90; RESP 17; TEMP 98.4; O2SAT 94
[2016-07-05] MEDS: QUEtiapine FUMARATE 100 MG TAB PO SCH (06:51)
[2016-07-05] MEDS: LEVOTHYROXINE SODIUM 25 MCG TAB PO SCH (06:51)
[2016-07-05] MEDS: INSULIN ASPART SUPPLEMENTAL SCALE SQ SCH ×4 (06:51→21:00)
[2016-07-05 07:30] VITALS: BP 145/67; PULSE 96; RESP 20; TEMP 98; O2SAT 91
--- NOTE | 2016-07-05 09:03 | HHI.PR ---
Subjective Remarks patient appetitie improves, toleating very well, no nausea or vomiting colosotomy bag with brown soft stools Objective Vitals Vital Signs Date Time Temp Pulse Resp B/P Pulse Ox O2 Delivery O2 Flow Rate FiO2 07/05/16 04:03 98.4 90 17 132/71 94 07/05/16 00:03 98.1 89 17 138/63 95 07/04/16 23:01 18 07/04/16 20:03 97.6 85 17 131/77 95 07/04/16 16:00 97.2 84 18 124/64 98 07/04/16 12:00 97.4 86 16 120/62 96 I/O 07/04/16 07/04/16 07/04/16 07/05/16 07/05/16 07/05/16 07:00 15:00 23:00 07:00 15:00 23:00 Intake Total 120 ml 960 ml 480 ml 240 ml Output Total 600 ml 1175 ml 850 ml 850 ml Balance -480 ml -215 ml -370 ml -610 ml Intake Oral 120 ml 960 ml 480 ml 240 ml Output Urine Total 600 ml 675 ml 850 ml 850 ml Stool Total 500 ml # Bowel Movements 0 0 0 Imaging Last Impressions Liver Ultrasound 06/25/16 0000 Signed Impressions: Service Date/Time: Saturday, June 25, 2016 15:51 - CONCLUSION: Enlarged liver with fatty infiltration. Right upper quadrant ultrasound otherwise within normal limits. Andres Veras MD Hip and Pelvis X-Ray 06/17/16 0000 Signed Impressions: Service Date/Time: Friday, June 17, 2016 10:02 - CONCLUSION: 1. No acute fracture or dislocation of the bony pelvis. 2. Mild degenerative changes involving the hip joints bilaterally. 3. Mild degenerative changes and scoliosis of the lower lumbar spine. Diogenes Lynch MD Head CT 06/13/16 1737 Signed Impressions: Service Date/Time: Monday, June 13, 2016 18:49 - CONCLUSION: Normal examination for a patient of this age. No significant change has occurred. Nba Marion MD Chest X-Ray 06/13/16 1729 Signed Impressions: Service Date/Time: Monday, June 13, 2016 17:36 - CONCLUSION: Bibasilar streakiness consistent with probable atelectasis. Diogenes Lynch MD Objective Remarks awake and alert, oriented x 3 anicteric, kaplan facies regular rhythm soft nontender, good bowel sounds, colostomy bag with stools extremities no edema moves all extremities spontaneously- LE strength 5/5 Procedures None. Date of Insertion: Jun 14, 2016 A/P Problem List: (1) Sepsis ICD Code: A41.9 Status: Acute (2) UTI (urinary tract infection) ICD Code: N39.0 Status: Acute (3) HTN (hypertension) ICD Code: I10 Status: Chronic (4) Diabetes ICD Code: E11.9 Status: Acute (5) Hypothyroidism ICD Code: E03.9 Status: Chronic (6) Metabolic encephalopathy ICD Code: G93.41 Status: Acute (7) Transaminitis ICD Code: R74.0 Status: Chronic (8) Subconjunctival hemorrhage, non-traumatic ICD Code: H11.30 Status: Acute Assessment and Plan (1) Sepsis- S/P zosyn course 07/03 Plan: Sepsis secondary to urinary tract infection. Urine culture grew Escherichia coli, MRSA, Raoultella Orniyhinolytica. Blood cultures negative to date. (2) UTI (urinary tract infection) S/P antibiotic course Plan: As above- albrecht in place- patient refused to have it taken out- aware of risks d/w her 07/03, 07/04 (3) HTN (hypertension) Plan: BP seems stable. Patient with episodes of high blood pressure likely related to pain. Continue with Norvasc. (4) DM type 2 Plan: This is a new onset diabetes, hemoglobin A1c 5.0 in 2014. Blood sugars stable. Continue necessary with insulin NovoLog. On prednisone to 5 mg po daily keep for a couple days then decrease to 2.5 and then stop (5) Hypothyroidism Plan: Continue Synthroid. TSH 0.507 lower end of normal range. recheck in 6 weeks (6) Metabolic encephalopathy- resolved Plan: Likely secondary to sepsis with UTI. Now resolved. Head CT unremarkable. Continue Lexapro, trazodone, Seroquel hydroxy signed. Site consulted increase Seroquel to 100 mg in a.m. and 200 mg at at bedtime. Patient doing well. (7) Transaminitis- trending down Plan: Patient has had elevated liver enzymes since 2014, now actually lower. However AST on admission 72 trending up to 93. ALT trending up from 123-211. Patient had a negative hepatitis profile in 2014. Continue to monitor LFTs, check hepatitis profile and liver ultrasound. 06/26/16 liver us showed fatty liver, patient has never had this worked up. LFT's stable continue to monitor. 06/27/16 appreciate GI recommendations. Transaminitis likely secondary to fatty liver. . Hepatitis profile negative. ff up as OP GI ff- cleared for DC- OP ff up with them (8) Subconjunctival hemorrhage, non-traumatic resolved Plan: Patient has a is spontaneous conjunctival hemorrhage of the right eye. This is self-limited and has not treatment. Sacral decubitus- wound care team ff GI prophylaxis:pPI. DVT prophylaxis: Lovenox subcutaneous. patient refused to go back to to [facility] DC with [facility]- 07/02- not until Monday- no place - placement issues- CM ff along with us Problem Qualifiers (1) Sepsis: Qualified Code: A41.9 - Sepsis, due to unspecified organism (2) UTI (urinary tract infection): (3) HTN (hypertension): Qualified Code: I10 - Essential hypertension (4) Diabetes: Qualified Code: E11.8 - Type 2 diabetes mellitus with complication, without long-term current use of insulin (5) Hypothyroidism: Qualified Code: E03.9 - Hypothyroidism, unspecified type (6) Subconjunctival hemorrhage, non-traumatic: Qualified Code: H11.31 - Subconjunctival hemorrhage, non-traumatic, right Nicolasa Mckeon MD Jul 05, 2016 09:03
[2016-07-05] MEDS: LORazepam 0.5 MG TAB PO PRN ×2 (09:54→17:39)
[2016-07-05] MEDS: ESCITALOPRAM OXALATE 10 MG TAB PO SCH (09:54)
[2016-07-05] MEDS: predniSONE 5 MG TAB PO SCH (09:54)
[2016-07-05] MEDS: FAMOTIDINE 20 MG TAB PO SCH ×2 (09:54→21:05)
[2016-07-05] MEDS: FERROUS SULFATE 325 MG (65 MG ELEMENTAL IRON) TAB PO SCH (09:54)
[2016-07-05] MEDS: amLODIPine BESYLATE 5 MG TAB PO SCH (09:54)
[2016-07-05] MEDS: SODIUM CHLORIDE 0.9% FLUSH 5 ML FLUSH FLUSH SCH ×2 (09:55→21:05)
[2016-07-05] MEDS: ENOXAPARIN SODIUM 40 MG/0.4 ML SYRINGE SQ SCH (09:55)
[2016-07-05] MEDS: COLLAGENASE OINT 30 GM TUBE TOP SCH (09:55)
[2016-07-05] MEDS: NYSTATIN 100,000 U/GM PWD 15 GM BTL TOPICAL SCH ×2 (09:56→21:06)
[2016-07-05 12:00] VITALS: BP 134/69; PULSE 94; RESP 20; TEMP 98.3; O2SAT 91
[2016-07-05] MEDS ORDERED: LORA-392 PO (12:04)
[2016-07-05] MEDS ORDERED: QUET1TAB9 PO (12:04)
[2016-07-05] MEDS ORDERED: SERO100T PO (12:04)
[2016-07-05] MEDS ORDERED: OXYC1TAB63 PO (12:04)
[2016-07-05] MEDS ORDERED: PRED5TAB PO (12:06)
--- NOTE | 2016-07-05 12:09 | HHI.DS ---
Discharge Summary Admission Date Jun 16, 2016 at 13:13 Discharge Date: Jul 05, 2016 Admitting Diagnosis UTI, sepsis, worsening psychosis (1) Sepsis ICD Code: A41.9 Diagnosis: Principal (2) UTI (urinary tract infection) ICD Code: N39.0 Diagnosis: Principal (3) HTN (hypertension) ICD Code: I10 Diagnosis: Secondary (4) Diabetes ICD Code: E11.9 Diagnosis: Secondary (5) Hypothyroidism ICD Code: E03.9 Diagnosis: Secondary (6) Metabolic encephalopathy ICD Code: G93.41 Diagnosis: Secondary (7) Transaminitis ICD Code: R74.0 Diagnosis: Secondary (8) Subconjunctival hemorrhage, non-traumatic ICD Code: H11.30 Diagnosis: Secondary Procedures None. Brief History - From Admission History taken from patient, ED physician, and patients chart. 60-year-old female with a history of COPD, hypertension, diabetes, hypothyroidism, and schizoaffective disorder presented to the ED via [facility] from [facility] for psych eval. Per the report from the group home chart patient was confused, combative and throwing herself on the floor. Upon admission patient was found to have a UTI. When Patient was examined she was very uncooperative and confused. She was stating the doctors and people in the halls were holding her against her will. She was able to answer some questions asked, and denies any fever, sob, chills or chest pain. She does have a urinary catheter and she does not know why or when it was last changed out. She also has a colostomy and she refused to allow me to see her dressing. She does have a cough, and she says she has had it for a long time She was recently screened by her primary Dr. Hill Chest xray on 05/28/16 was negative Bilateral doppler ultrasound on 05/31/16 was negative Significant Findings Laboratory Tests Test 07/03/16 06:02 Direct Bilirubin 0.4 MG/DL (0.0-0.2) Alanine Aminotransferase 62 U/L (10-53) (ALT/SGPT) Alkaline Phosphatase 187 U/L (45-117) Albumin 2.6 GM/DL (3.4-5.0) Imaging Last Impressions Liver Ultrasound 06/25/16 0000 Signed Impressions: Service Date/Time: Saturday, June 25, 2016 15:51 - CONCLUSION: Enlarged liver with fatty infiltration. Right upper quadrant ultrasound otherwise within normal limits. Andres Veras MD Hip and Pelvis X-Ray 06/17/16 0000 Signed Impressions: Service Date/Time: Friday, June 17, 2016 10:02 - CONCLUSION: 1. No acute fracture or dislocation of the bony pelvis. 2. Mild degenerative changes involving the hip joints bilaterally. 3. Mild degenerative changes and scoliosis of the lower lumbar spine. Diogenes Lynch MD Head CT 06/13/16 1737 Signed Impressions: Service Date/Time: Monday, June 13, 2016 18:49 - CONCLUSION: Normal examination for a patient of this age. No significant change has occurred. Nba Marion MD Chest X-Ray 06/13/16 1729 Signed Impressions: Service Date/Time: Monday, June 13, 2016 17:36 - CONCLUSION: Bibasilar streakiness consistent with probable atelectasis. Diogenes Lynch MD PE at Discharge awake and alert, oriented x 3 anicteric, kaplan facies regular rhythm soft nontender, good bowel sounds, colostomy bag with stools extremities no edema moves all extremities spontaneously- LE strength 5/5 Pt update on day of discharge awake and alert, afebrile no shortness of breath feeling stronger, motivated Hospital Course (1) Sepsis- S/P zosyn course 07/03 Plan: Sepsis secondary to urinary tract infection. Urine culture grew Escherichia coli, MRSA, Raoultella Orniyhinolytica. Blood cultures negative to date. (2) UTI (urinary tract infection) S/P antibiotic course Plan: As above- albrecht in place- patient refused to have it taken out- aware of risks d/w her 07/03, 07/04, 07/05 (3) HTN (hypertension) Plan: BP seems stable. Patient with episodes of high blood pressure likely related to pain. Continue with Norvasc. (4) DM type 2, steroid induced- good readings off Insulin Plan: This is a new onset diabetes, hemoglobin A1c 5.0 in 2014. Blood sugars stable- not requiring insulin . Continue necessary with insulin NovoLog. Patient not on any standing insulin regimen On prednisone to 5 mg po daily keep for a couple days then decrease to 2.5 and then stop (5) Hypothyroidism Plan: Continue Synthroid. TSH 0.507 lower end of normal range. recheck in 6 weeks (6) Metabolic encephalopathy- resolved Plan: Likely secondary to sepsis with UTI. Now resolved. Head CT unremarkable. Continue Lexapro, trazodone, Seroquel hydroxy signed. Site consulted increase Seroquel to 100 mg in a.m. and 200 mg at at bedtime. Patient doing well. (7) Transaminitis- trending down Plan: Patient has had elevated liver enzymes since 2014, now actually lower. However AST on admission 72 trending up to 93. ALT trending up from 123-211. Patient had a negative hepatitis profile in 2014. Continue to monitor LFTs, check hepatitis profile and liver ultrasound. 06/26/16 liver us showed fatty liver, patient has never had this worked up. LFT's stable continue to monitor. 06/27/16 appreciate GI recommendations. Transaminitis likely secondary to fatty liver. . Hepatitis profile negative. ff up as OP GI ff- cleared for DC- OP ff up with them (8) Subconjunctival hemorrhage, non-traumatic resolved Plan: Patient has a is spontaneous conjunctival hemorrhage of the right eye. This is self-limited and has not treatment. Sacral decubitus- wound care team ff GI prophylaxis:pPI. DVT prophylaxis: Lovenox subcutaneous. patient refused to go back to to [facility] DC with [facility]- 07/06- SNF accepted her today now patient refusing to leave- we called her ex to inform him Pt Condition on Discharge: Stable Discharge Disposition: Discharge to SNF Discharge Time: <= 30 minutes Discharge Instructions DIET: Follow Instructions for: Heart Healthy Diet, Diabetic Diet Speech Therapy-Diet Recommends: Regular Activities you can perform: Weight Bearing as Willis Activities to Avoid: Lifting/Bending, Weight Bearing, Prolonged Standing, Strenuous Activity Other Activity Instructions: multimedia manager supervision with all activities Follow up Referrals: Gastroenterology with Liseth Tarango MD New Orders: COMP MET PROF (CMP) - 07/08/16 New Medications: Lorazepam (Ativan) 0.5 Mg Tab 0.5 MG PO BID PRN For mild anxiety / dyspnea #10 TAB Oxycodone-Acetaminophen (Oxycodone-Acetaminophen) 5-325 mg Tab 1 TAB PO Q6HR PRN pain >5 #20 Ref 0 TAB Prednisone (Prednisone) 5 Mg Tab 2.5 MG PO DAILY taper #3 Ref 0 TAB Quetiapine (Quetiapine) 200 Mg Tab 200 MG PO HS psych Days 30 TAB Quetiapine (Seroquel) 100 Mg Tab 100 MG PO DAILY@0600 psychi #30 TAB Continued Medications: Acetaminophen Supp (Acetaminophen Supp) 650 Mg Supp 650 MG RECTAL Q6H PRN FEVER Ref 0 SUPP Amlodipine (Amlodipine) 2.5 Mg Tab 2.5 MG PO DAILY Blood Pressure Management #30 Ref 0 TAB Ascorbic Acid (Vitamin C) 500 Mg Cap 500 MG PO BID Nutritional Supplement Ref 0 CAP Calcium Carbonate-Cholecalciferol (Calcium 500 +D) 500-400 Mg-Unit Tab 1 TAB PO BID Calcium Supplement Ref 0 TAB Chlorhexidine Gluconate (Mouth) Liq (Chlorhexidine Gluconate (Mouth) Liq) 0.12% Soln 15 ML SWISH-SPIT BID #473 Ref 0 ML Cholecalciferol (Vitamin D-1000) 1,000 Unit Tab 5000 UNITS PO DAILY Nutritional Supplement #1 Ref 0 BOTTLE Collagenase Topical (Santyl Topical) 250 Unit/Gm Oint 1 APPLIC TOPICAL DAILY Wound Management #15 Ref 0 GM Ergocalciferol (Ergocalciferol) 50,000 Unit Cap 03735 UNITS PO Q7D Nutritional Supplement #30 Ref 0 CAP Escitalopram (Lexapro) 10 Mg Tab 10 MG PO DAILY #30 Ref 0 TAB Famotidine (Famotidine) 20 Mg Tab 20 MG PO BID #60 Ref 0 TAB Ferrous Sulfate (Ferrous Sulfate) 325 Mg Tab 325 MG PO DAILY Nutritional Supplement #30 Ref 0 TAB Hydroxyzine HCl (Hydroxyzine HCl) 50 Mg Tab 50 MG PO HS Ref 0 TAB Insulin Aspart Inj (Novolog Inj) 1,000 Unit/10 Ml Vial 0 SQ DIRECTED Sliding Scale as directed. Blood Sugar Management #10 Ref 0 ML Lactic Acid (Ammonium Lactate) (Lac-Hydrin) 12% Lotn 1 APPLIC TOPICAL BID #225 Ref 0 ML Levothyroxine (Levothyroxine) 25 Mcg Tab 25 MCG PO DAILY Thyroid #30 Ref 0 TAB Multiple Vitamin (Multiple Vitamin) 1 Tab 1 TAB PO DAILY Nutritional Supplement Ref 0 TAB Trazodone (Trazodone) 50 Mg Tab 25 MG PO HS Control Depression #30 Ref 0 TAB Discontinued Medications: Baclofen (Baclofen) 10 Mg Tab 10 MG PO BID Muscle Spasm Ref 0 TAB Insulin Glargine (Basaglar Kwikpen) 100 Unit/Ml Pen 8 UNITS SQ HS Blood Sugar Management #5 Ref 0 PEN Lorazepam (Ativan) 0.5 Mg Tab 0.5 MG PO Q4H PRN For mild anxiety / dyspnea Ref 0 TAB Ondansetron (Zofran) 4 Mg Tab 4 MG PO Q8HR PRN NAUSEA OR VOMITING Ref 0 TAB Oxycodone (Oxycodone) 10 Mg Tab 10 MG PO Q4H PRN PAIN Ref 0 TAB Permethrin Topical (Elimite Topical) 5% Cream 1 APPLIC TOPICAL ONCE Scabies #1 Ref 0 TUBE Prednisone (Prednisone) 20 Mg Tab 20 MG PO BID Ref 0 TAB Quetiapine (Seroquel) 100 Mg Tab 100 MG PO BID #60 Ref 0 TAB Nicolasa Mckeon MD Jul 05, 2016 12:09
[2016-07-05 16:00] VITALS: BP 132/65; PULSE 94; RESP 20; TEMP 98; O2SAT 96
[2016-07-05 20:00] VITALS: BP 153/89; PULSE 99; RESP 16; TEMP 98.6; O2SAT 95
[2016-07-05] MEDS: hydrOXYzine HCL 50 MG TAB PO SCH (21:00)
[2016-07-05] MEDS: traZODone HCL 50 MG TAB PO SCH (21:05)
[2016-07-05] MEDS: QUEtiapine FUMARATE 200 MG TAB PO SCH (21:05)
[2016-07-06] VITALS (7 sets, daily range): BP systolic 119–158; BP diastolic 56–81; PULSE 95–103; RESP 16–20; TEMP 97.9–98.8; O2SAT 91–95
[2016-07-06] MEDS: oxyCODONE/ACETAMINOPHEN 5 MG/325 MG TAB PO PRN ×6 (00:24→23:49)
[2016-07-06] MEDS: LORazepam 0.5 MG TAB PO PRN ×2 (01:22→08:54)
[2016-07-06] MEDS ORDERED: MORPHINE SULFATE 4 MG/ML INJ IV PUSH ONE (04:00)
[2016-07-06] MEDS: LEVOTHYROXINE SODIUM 25 MCG TAB PO SCH (04:12)
[2016-07-06] MEDS: QUEtiapine FUMARATE 100 MG TAB PO SCH (04:12)
[2016-07-06] MEDS: INSULIN ASPART SUPPLEMENTAL SCALE SQ SCH ×4 (07:00→19:55)
[2016-07-06] MEDS: ESCITALOPRAM OXALATE 10 MG TAB PO SCH (08:54)
[2016-07-06] MEDS: FAMOTIDINE 20 MG TAB PO SCH ×2 (08:54→20:57)
[2016-07-06] MEDS: FERROUS SULFATE 325 MG (65 MG ELEMENTAL IRON) TAB PO SCH (08:54)
[2016-07-06] MEDS: amLODIPine BESYLATE 5 MG TAB PO SCH (08:54)
[2016-07-06] MEDS: ENOXAPARIN SODIUM 40 MG/0.4 ML SYRINGE SQ SCH (08:55)
[2016-07-06] MEDS: predniSONE 5 MG TAB PO SCH (08:55)
[2016-07-06] MEDS: SODIUM CHLORIDE 0.9% FLUSH 5 ML FLUSH FLUSH SCH ×2 (08:55→20:56)
[2016-07-06] MEDS: NYSTATIN 100,000 U/GM PWD 15 GM BTL TOPICAL SCH ×2 (08:59→20:59)
[2016-07-06] MEDS: COLLAGENASE OINT 30 GM TUBE TOP SCH (08:59)
--- NOTE | 2016-07-06 09:33 | HHI.PR ---
Subjective Remarks no complains d/w her DC planning- SNF accepted her adamantly refused to go states she has not spoken to her ex Objective Vitals Vital Signs Date Time Temp Pulse Resp B/P Pulse Ox O2 Delivery O2 Flow Rate FiO2 07/06/16 08:00 98.1 97 20 119/56 92 07/06/16 07:46 18 07/06/16 04:00 97.9 99 18 127/66 95 07/06/16 00:00 98.1 101 16 127/80 95 07/05/16 20:00 98.6 99 16 153/89 95 07/05/16 16:00 98.0 94 20 132/65 96 07/05/16 12:00 98.3 94 20 134/69 91 I/O 07/05/16 07/05/16 07/05/16 07/06/16 07/06/16 07/06/16 07:00 15:00 23:00 07:00 15:00 23:00 Intake Total 240 ml 840 ml 240 ml 100 ml Output Total 850 ml 450 ml 500 ml 300 ml Balance -610 ml 390 ml -260 ml -200 ml Intake Oral 240 ml 840 ml 240 ml 100 ml IV Total 0 ml Output Urine Total 850 ml 450 ml 500 ml 300 ml # Bowel Movements 0 0 Imaging Last Impressions Liver Ultrasound 06/25/16 0000 Signed Impressions: Service Date/Time: Saturday, June 25, 2016 15:51 - CONCLUSION: Enlarged liver with fatty infiltration. Right upper quadrant ultrasound otherwise within normal limits. Andres Veras MD Hip and Pelvis X-Ray 06/17/16 0000 Signed Impressions: Service Date/Time: Friday, June 17, 2016 10:02 - CONCLUSION: 1. No acute fracture or dislocation of the bony pelvis. 2. Mild degenerative changes involving the hip joints bilaterally. 3. Mild degenerative changes and scoliosis of the lower lumbar spine. Diogenes Lynch MD Head CT 06/13/16 1737 Signed Impressions: Service Date/Time: Monday, June 13, 2016 18:49 - CONCLUSION: Normal examination for a patient of this age. No significant change has occurred. Nba Marion MD Chest X-Ray 06/13/16 1729 Signed Impressions: Service Date/Time: Monday, June 13, 2016 17:36 - CONCLUSION: Bibasilar streakiness consistent with probable atelectasis. Diogenes Lynch MD Objective Remarks awake and alert, oriented x 3 anicteric, regular rhythm soft nontender, good bowel sounds, colostomy bag with stools extremities no edema moves all extremities spontaneously- LE strength 5/5 Procedures None. Date of Insertion: Jun 14, 2016 A/P Problem List: (1) Sepsis ICD Code: A41.9 Status: Acute (2) UTI (urinary tract infection) ICD Code: N39.0 Status: Acute (3) HTN (hypertension) ICD Code: I10 Status: Chronic (4) Diabetes ICD Code: E11.9 Status: Acute (5) Hypothyroidism ICD Code: E03.9 Status: Chronic (6) Metabolic encephalopathy ICD Code: G93.41 Status: Acute (7) Transaminitis ICD Code: R74.0 Status: Chronic (8) Subconjunctival hemorrhage, non-traumatic ICD Code: H11.30 Status: Acute Assessment and Plan (1) Sepsis- S/P zosyn course 07/03 Plan: Sepsis secondary to urinary tract infection. Urine culture grew Escherichia coli, MRSA, Raoultella Orniyhinolytica. Blood cultures negative to date. (2) UTI (urinary tract infection) S/P antibiotic course Plan: As above- albrecht in place- patient refused to have it taken out- aware of risks d/w her 07/03, 07/04, 07/05 (3) HTN (hypertension) Plan: BP seems stable. Patient with episodes of high blood pressure likely related to pain. Continue with Norvasc. (4) DM type 2 Plan: This is a new onset diabetes, hemoglobin A1c 5.0 in 2014. Blood sugars stable. Continue necessary with insulin NovoLog. On prednisone to 5 mg po daily keep for a couple days then decrease to 2.5 and then stop (5) Hypothyroidism Plan: Continue Synthroid. TSH 0.507 lower end of normal range. recheck in 6 weeks (6) Metabolic encephalopathy- resolved Plan: Likely secondary to sepsis with UTI. Now resolved. Head CT unremarkable. Continue Lexapro, trazodone, Seroquel hydroxy signed. Site consulted increase Seroquel to 100 mg in a.m. and 200 mg at at bedtime. Patient doing well. (7) Transaminitis- trending down Plan: Patient has had elevated liver enzymes since 2014, now actually lower. However AST on admission 72 trending up to 93. ALT trending up from 123-211. Patient had a negative hepatitis profile in 2014. Continue to monitor LFTs, check hepatitis profile and liver ultrasound. 06/26/16 liver us showed fatty liver, patient has never had this worked up. LFT's stable continue to monitor. 06/27/16 appreciate GI recommendations. Transaminitis likely secondary to fatty liver. . Hepatitis profile negative. ff up as OP GI ff- cleared for DC- OP ff up with them (8) Subconjunctival hemorrhage, non-traumatic resolved Plan: Patient has a is spontaneous conjunctival hemorrhage of the right eye. This is self-limited and has not treatment. Sacral decubitus- wound care team ff GI prophylaxis:pPI. DVT prophylaxis: Lovenox subcutaneous. patient refused to go back to to [facility] DC with [facility]- 07/06- SNF accepted her today now patient refusing to leave- we called her ex to inform him Problem Qualifiers (1) Sepsis: Qualified Code: A41.9 - Sepsis, due to unspecified organism (2) UTI (urinary tract infection): (3) HTN (hypertension): Qualified Code: I10 - Essential hypertension (4) Diabetes: Qualified Code: E11.8 - Type 2 diabetes mellitus with complication, without long-term current use of insulin (5) Hypothyroidism: Qualified Code: E03.9 - Hypothyroidism, unspecified type (6) Subconjunctival hemorrhage, non-traumatic: Qualified Code: H11.31 - Subconjunctival hemorrhage, non-traumatic, right Nicolasa Mckeon MD Jul 06, 2016 09:33
[2016-07-06] MEDS: QUEtiapine FUMARATE 200 MG TAB PO SCH (20:56)
[2016-07-06] MEDS: hydrOXYzine HCL 50 MG TAB PO SCH (20:57)
[2016-07-06] MEDS: traZODone HCL 50 MG TAB PO SCH (20:57)
[2016-07-07] VITALS: BP 135/75; PULSE 99; RESP 18; TEMP 99.3; O2SAT 93
[2016-07-07] MEDS: LORazepam 0.5 MG TAB PO PRN ×3 (03:57→23:45)
[2016-07-07] MEDS: oxyCODONE/ACETAMINOPHEN 5 MG/325 MG TAB PO PRN ×6 (03:57→23:45)
[2016-07-07 04:00] VITALS: BP 127/63; PULSE 83; RESP 16; TEMP 98.7; O2SAT 96
[2016-07-07] MEDS: QUEtiapine FUMARATE 100 MG TAB PO SCH (06:19)
[2016-07-07] MEDS: LEVOTHYROXINE SODIUM 25 MCG TAB PO SCH (06:19)
[2016-07-07] MEDS: INSULIN ASPART SUPPLEMENTAL SCALE SQ SCH ×4 (06:20→21:00)
[2016-07-07 08:00] VITALS: BP 132/67; PULSE 97; RESP 16; TEMP 99; O2SAT 90
[2016-07-07] MEDS: amLODIPine BESYLATE 5 MG TAB PO SCH (08:01)
[2016-07-07] MEDS: predniSONE 5 MG TAB PO SCH (08:01)
[2016-07-07] MEDS: ESCITALOPRAM OXALATE 10 MG TAB PO SCH (08:01)
[2016-07-07] MEDS: FAMOTIDINE 20 MG TAB PO SCH ×2 (08:01→21:29)
[2016-07-07] MEDS: FERROUS SULFATE 325 MG (65 MG ELEMENTAL IRON) TAB PO SCH (08:01)
[2016-07-07] MEDS: ENOXAPARIN SODIUM 40 MG/0.4 ML SYRINGE SQ SCH (08:01)
[2016-07-07] MEDS: SODIUM CHLORIDE 0.9% FLUSH 5 ML FLUSH FLUSH SCH ×2 (08:02→21:36)
[2016-07-07] MEDS: NYSTATIN 100,000 U/GM PWD 15 GM BTL TOPICAL SCH ×2 (08:13→21:35)
[2016-07-07] MEDS: COLLAGENASE OINT 30 GM TUBE TOP SCH (08:13)
[2016-07-07 12:44] VITALS: BP 120/80; PULSE 102; RESP 16; TEMP 98.8; O2SAT 93
--- NOTE | 2016-07-07 15:51 | HHI.PR ---
Subjective Remarks Follow-up for abdominal pain X Complaining of severe abdominal pain, left lower quadrant, colicky, waxes and wanes. No nausea or vomiting. No diarrhea. No urinary symptoms. Afebrile. Objective Vitals Vital Signs Date Time Temp Pulse Resp B/P Pulse Ox O2 Delivery O2 Flow Rate FiO2 07/07/16 12:44 98.8 102 16 120/80 93 07/07/16 08:00 99.0 97 16 132/67 90 07/07/16 04:00 98.7 83 16 127/63 96 07/07/16 00:00 99.3 99 18 135/75 93 07/06/16 20:00 98.4 96 16 158/70 94 07/06/16 16:00 98.8 95 20 139/81 91 I/O 07/06/16 07/06/16 07/06/16 07/07/16 07/07/16 07/07/16 07:00 15:00 23:00 07:00 15:00 23:00 Intake Total 100 ml 120 ml 480 ml 240 ml Output Total 300 ml 500 ml 300 ml 200 ml Balance -200 ml -380 ml 180 ml 40 ml Intake Oral 100 ml 120 ml 480 ml 240 ml Output Urine Total 300 ml 500 ml 300 ml 200 ml # Bowel Movements 0 Objective Remarks Not in distress, well-nourished, looks stated age PERRL, pink conjunctiva without injection, anicteric Nose without bleeding, airway patent, oropharynx clear Supple neck, no masses or thyromegaly, trachea midline Normal rate and regular rhythm, no murmurs gallops or rubs appreciated. Clear to auscultation and symmetric bilaterally, normal respiratory effort. Normal bowel sounds, soft, left lower quadrant mildly tender, there is a hematoma, no guarding. Extremities without clubbing, cyanosis, or edema. No rash of generalized distribution. Skin is warm and dry. AAO x3, no cranial nerve deficits, moves all 4 extremities, no focal neurologic deficits Normal mood, appropriate affect Procedures None. Date of Insertion: Jun 14, 2016 A/P Problem List: (1) Sepsis ICD Code: A41.9 Status: Acute (2) UTI (urinary tract infection) ICD Code: N39.0 Status: Acute (3) HTN (hypertension) ICD Code: I10 Status: Chronic (4) Diabetes ICD Code: E11.9 Status: Acute (5) Hypothyroidism ICD Code: E03.9 Status: Chronic (6) Metabolic encephalopathy ICD Code: G93.41 Status: Acute (7) Transaminitis ICD Code: R74.0 Status: Chronic (8) Subconjunctival hemorrhage, non-traumatic ICD Code: H11.30 Status: Acute Assessment and Plan Sepsis- S/P zosyn course 07/03 - Sepsis secondary to urinary tract infection. Urine culture grew Escherichia coli, MRSA, Raoultella Orniyhinolytica. Blood cultures negative to date. Severe Abdominal pain-left lower quadrant, could be from hematoma, versus stones , check CT scan of the abdomen. Check CBC and BMP tomorrow. UTI (urinary tract infection) S/P antibiotic course-Moon catheter in place. Patient refused removal. Patient aware of the risk. HTN (hypertension) Plan: BP seems stable. Patient with episodes of high blood pressure likely related to pain. Continue with Norvasc. DM type 2 Plan: This is a new onset diabetes, hemoglobin A1c 5.0 in 2014. Blood sugars stable. Continue necessary with insulin NovoLog. On prednisone to 5 mg po daily keep for a couple days then decrease to 2.5 and then stop Hypothyroidism-continue Synthroid Metabolic encephalopathy- resolved Plan: Likely secondary to sepsis with UTI. Now resolved. Head CT unremarkable. Continue Lexapro, trazodone, Seroquel hydroxy signed. Site consulted increase Seroquel to 100 mg in a.m. and 200 mg at at bedtime. Patient doing well. Transaminitis- trending down Plan: Patient has had elevated liver enzymes since 2014, now actually lower. However AST on admission 72 trending up to 93. ALT trending up from 123-211. Patient had a negative hepatitis profile in 2014. Continue to monitor LFTs, check hepatitis profile and liver ultrasound. 06/26/16 liver us showed fatty liver, patient has never had this worked up. LFT's stable continue to monitor. 06/27/16 appreciate GI recommendations. Transaminitis likely secondary to fatty liver. . Hepatitis profile negative. ff up as OP GI ff- cleared for DC- OP ff up with them Subconjunctival hemorrhage, non-traumatic resolved Plan: Patient has a is spontaneous conjunctival hemorrhage of the right eye. This is self-limited and has not treatment. Sacral decubitus- wound care team ff GI prophylaxis:pPI. DVT prophylaxis: Lovenox subcutaneous. Problem Qualifiers (1) Sepsis: Qualified Code: A41.9 - Sepsis, due to unspecified organism (2) UTI (urinary tract infection): (3) HTN (hypertension): Qualified Code: I10 - Essential hypertension (4) Diabetes: Qualified Code: E11.8 - Type 2 diabetes mellitus with complication, without long-term current use of insulin (5) Hypothyroidism: Qualified Code: E03.9 - Hypothyroidism, unspecified type (6) Subconjunctival hemorrhage, non-traumatic: Qualified Code: H11.31 - Subconjunctival hemorrhage, non-traumatic, right Fang Lopez MD Jul 07, 2016 15:51
[2016-07-07 16:00] VITALS: BP 134/65; PULSE 113; RESP 16; TEMP 97.3; O2SAT 93
[2016-07-07] MEDS ORDERED: DIATRIZOATE MEGLUM/DIATRIZOATE SOD 9 ML CUP PO ONE (17:00)
[2016-07-07] MEDS: QUEtiapine FUMARATE 200 MG TAB PO SCH (21:00)
[2016-07-07] MEDS: hydrOXYzine HCL 50 MG TAB PO SCH (21:29)
[2016-07-07] MEDS: traZODone HCL 50 MG TAB PO SCH (21:29)
--- NOTE | 2016-07-07 21:37 | RADRPT ---
EXAM DATE/TIME: 07/07/2016 20:38 [facility] COMPARISON: No previous studies available for comparison. INDICATIONS : LLQ abdominal pain for one week. ORAL CONTRAST: Prescribed oral contrast ingested. RADIATION DOSE: 20.71 CTDIvol (mGy) MEDICAL HISTORY : Gastroesophageal reflux disease. Skin cancer; IBS. SURGICAL HISTORY : Hysterectomy. ENCOUNTER: Initial ACUITY: 1 week PAIN SCALE: 8/10 LOCATION: Abdomen/pelvis TECHNIQUE: Volumetric scanning of the abdomen and pelvis was performed. Using automated exposure control and adjustment of the mA and/or kV according to patient size, radiation dose was kept as low as reasonably achievable to obtain optimal diagnostic quality images. FINDINGS: There are minimal bibasilar parenchymal changes noted. Breast implants are evident. Mu ltiple small gallstones are noted. The liver is free of focal defects. Spleen is unremarkable. Panc reas and adrenals appear normal. There is a hernia in the right midabdomen. This does contain bowel but does not appear to be incarcerated. There is a colostomy in the right lower quadrant. Pelvic contents are otherwise unremarkable. There is a hematoma in the anterior abdominal wall that has the appearance of a benign-appearing rect us hematoma. Correlation with coagulation studies is suggested. CONCLUSION: 1. Apparent rectus hematoma on the left measuring 6.7 cm x 6.7 cm. 2. Hernia containing bowel without incarceration. 3. Minimal bilbasilar parenchymal changes worse on the left than the right. Hiram Magallanes MD FACR on July 07, 2016 at 21:23 Board Certified Radiologist. This report was verified electronically.
[2016-07-07 21:45] VITALS: BP 127/66; PULSE 101; RESP 16; TEMP 97.4; O2SAT 94
[2016-07-08] VITALS: BP 120/70; PULSE 102; RESP 17; TEMP 98.8; O2SAT 94
[2016-07-08 01:28] LABS: HEMATOCRIT 30.8 % (35.0-46.0); REVIEW FLAG FINAL
[2016-07-08] MEDS: oxyCODONE/ACETAMINOPHEN 5 MG/325 MG TAB PO PRN ×3 (03:45→13:30)
[2016-07-08 04:00] VITALS: BP 142/65; PULSE 98; RESP 18; TEMP 98.8; O2SAT 94
[2016-07-08] MEDS: LEVOTHYROXINE SODIUM 25 MCG TAB PO SCH (06:45)
[2016-07-08] MEDS: QUEtiapine FUMARATE 100 MG TAB PO SCH (06:45)
[2016-07-08] MEDS: INSULIN ASPART SUPPLEMENTAL SCALE SQ SCH ×2 (06:48→11:00)
[2016-07-08 08:00] VITALS: BP 164/87; PULSE 85; RESP 18; TEMP 98.7; O2SAT 91
[2016-07-08 08:02] LABS: AUTOMATED NEUTROPHIL # 4.2 TH/MM3 (1.8-7.7); BASOPHIL # 0.1 TH/MM3 (0-0.2); BASOPHIL % 0.8 % (0.0-2.0); EOSINOPHIL # 0.2 TH/MM3 (0-0.4); EOSINOPHIL % 3.6 % (0.0-4.0); HEMATOCRIT 32.5 % (35.0-46.0); HEMO FLAGS DIFF FINAL; LYMPH % 19.2 % (9.0-44.0); LYMPHOCYTE # 1.3 TH/MM3 (1.0-4.8); MEAN CELL VOLUME 91.8 FL (80.0-100.0); MEAN CORPUSCULAR HGB CONC 33.8 % (32.0-36.0); MONO % 13.2 % (0.0-8.0); NEUT % 63.2 % (16.0-70.0); PLATELET COUNT 220 TH/MM3 (150-450); RED BLOOD COUNT 3.55 MIL/MM3 (4.00-5.30); RED CELL DISTRIBUTION WIDTH 16.8 % (11.6-17.2); WHITE BLOOD COUNT 6.7 TH/MM3 (4.0-11.0)
[2016-07-08] MEDS: FERROUS SULFATE 325 MG (65 MG ELEMENTAL IRON) TAB PO SCH (08:11)
[2016-07-08] MEDS: amLODIPine BESYLATE 5 MG TAB PO SCH (08:11)
[2016-07-08] MEDS: LORazepam 0.5 MG TAB PO PRN (08:11)
[2016-07-08] MEDS: FAMOTIDINE 20 MG TAB PO SCH (08:11)
[2016-07-08] MEDS: predniSONE 5 MG TAB PO SCH (08:11)
[2016-07-08] MEDS: ESCITALOPRAM OXALATE 10 MG TAB PO SCH (08:11)
[2016-07-08] MEDS: NYSTATIN 100,000 U/GM PWD 15 GM BTL TOPICAL SCH (08:12)
[2016-07-08] MEDS: SODIUM CHLORIDE 0.9% FLUSH 5 ML FLUSH FLUSH SCH (08:12)
[2016-07-08] MEDS: COLLAGENASE OINT 30 GM TUBE TOP SCH (08:12)
[2016-07-08 08:22] LABS: BICARBONATE 24.2 MEQ/L (21.0-32.0); POTASSIUM 3.5 MEQ/L (3.5-5.1)
--- NOTE | 2016-07-08 09:01 | HHI.PR ---
Subjective Remarks f/u for abdominal pain abdominal pain about the same, no chest pain, no n/v, no diarrhea or fever, still in the LLQ. Denies any shortness of breath, no fever or chills. No other complaints. However patient does not want to get discharge, she wants to stay here 1 more day not for any other reason other than she does want to get discharge. Objective Vitals Vital Signs Date Time Temp Pulse Resp B/P Pulse Ox O2 Delivery O2 Flow Rate FiO2 07/08/16 08:00 98.7 85 18 164/87 91 07/08/16 04:00 98.8 98 18 142/65 94 07/08/16 00:00 98.8 102 17 120/70 94 07/07/16 21:45 97.4 101 16 127/66 94 07/07/16 16:00 97.3 113 16 134/65 93 07/07/16 12:44 98.8 102 16 120/80 93 I/O 07/07/16 07/07/16 07/07/16 07/08/16 07/08/16 07/08/16 07:00 15:00 23:00 07:00 15:00 23:00 Intake Total 240 ml 600 ml 120 ml 0 ml Output Total 200 ml 900 ml 900 ml 150 ml Balance 40 ml -300 ml -780 ml -150 ml Intake Oral 240 ml 600 ml 120 ml 0 ml Output Urine Total 200 ml 900 ml 900 ml 150 ml # Bowel Movements 0 0 Result Diagram: 07/08/16 0706 07/08/16 0706 Imaging Last Impressions Abdomen/Pelvis CT 07/07/16 0000 Signed Impressions: Service Date/Time: June 20:38 - CONCLUSION: 1. Apparent rectus hematoma on the left measuring 6.7 cm x 6.7 cm. 2. Hernia containing bowel without incarceration. 3. Minimal bilbasilar parenchymal changes worse on the left than the right. Hiram Magallanes MD FACR Liver Ultrasound 06/25/16 0000 Signed Impressions: Service Date/Time: Saturday, June 25, 2016 15:51 - CONCLUSION: Enlarged liver with fatty infiltration. Right upper quadrant ultrasound otherwise within normal limits. Andres Veras MD Hip and Pelvis X-Ray 06/17/16 0000 Signed Impressions: Service Date/Time: Friday, June 17, 2016 10:02 - CONCLUSION: 1. No acute fracture or dislocation of the bony pelvis. 2. Mild degenerative changes involving the hip joints bilaterally. 3. Mild degenerative changes and scoliosis of the lower lumbar spine. Diogenes Lynch MD Head CT 06/13/167 Signed Impressions: Service Date/Time: Monday, June 13, 2016 18:49 - CONCLUSION: Normal examination for a patient of this age. No significant change has occurred. Nba Marion MD Chest X-Ray 06/13/169 Signed Impressions: Service Date/Time: Monday, June 13, 2016 17:36 - CONCLUSION: Bibasilar streakiness consistent with probable atelectasis. Diogenes Lynch MD Objective Remarks Not in distress, well-nourished, looks stated age PERRL, pink conjunctiva without injection, anicteric Nose without bleeding, airway patent, oropharynx clear Supple neck, no masses or thyromegaly, trachea midline Normal rate and regular rhythm, no murmurs gallops or rubs appreciated. Clear to auscultation and symmetric bilaterally, normal respiratory effort. Normal bowel sounds, soft, left lower quadrant mildly tender, there is a hematoma, no guarding. Extremities without clubbing, cyanosis, or edema. No rash of generalized distribution. Skin is warm and dry. AAO x3, no cranial nerve deficits, moves all 4 extremities, no focal neurologic deficits Normal mood, appropriate affect Procedures None. Date of Insertion: Jun 14, 2016 A/P Problem List: (1) Sepsis ICD Code: A41.9 Status: Acute (2) UTI (urinary tract infection) ICD Code: N39.0 Status: Acute (3) HTN (hypertension) ICD Code: I10 Status: Chronic (4) Diabetes ICD Code: E11.9 Status: Acute (5) Hypothyroidism ICD Code: E03.9 Status: Chronic (6) Metabolic encephalopathy ICD Code: G93.41 Status: Acute (7) Transaminitis ICD Code: R74.0 Status: Chronic (8) Subconjunctival hemorrhage, non-traumatic ICD Code: H11.30 Status: Acute Assessment and Plan Sepsis- S/P zosyn course 07/03 - Sepsis secondary to urinary tract infection. Urine culture grew Escherichia coli, MRSA, Raoultella Orniyhinolytica. Blood cultures negative to date. Severe Abdominal pain-left lower quadrant, could be from hematoma, versus stones , CT scan of the abdomen personally reviewed, showed a huge hematoma. No other pathology. CBC and BMP remains unremarkable. UTI (urinary tract infection) S/P antibiotic course-Moon catheter in place. Patient still refusing removal before discharge, patient is aware of the risk. HTN (hypertension)-relatively stable, monitor, continue Norvasc. DM type 2 Plan: This is a new onset diabetes, hemoglobin A1c 5.0 in 2014. Blood sugars stable. Continue necessary with insulin NovoLog. Decrease to 2.5 mg and then stop after 3 days. Hypothyroidism-continue Synthroid Metabolic encephalopathy- resolved Plan: Likely secondary to sepsis with UTI. Now resolved. Head CT unremarkable. Continue Lexapro, trazodone, Seroquel hydroxy signed. Site consulted increase Seroquel to 100 mg in a.m. and 200 mg at at bedtime. Patient doing well. Transaminitis- trending down Plan: Patient has had elevated liver enzymes since 2014, now actually lower. However AST on admission 72 trending up to 93. ALT trending up from 123-211. Patient had a negative hepatitis profile in 2014. Continue to monitor LFTs, check hepatitis profile and liver ultrasound. 06/26/16 liver us showed fatty liver, patient has never had this worked up. LFT's stable continue to monitor. 06/27/16 appreciate GI recommendations. Transaminitis likely secondary to fatty liver. . Hepatitis profile negative. ff up as OP GI ff- cleared for DC- OP ff up with them Subconjunctival hemorrhage, non-traumatic resolved Plan: Patient has a is spontaneous conjunctival hemorrhage of the right eye. This is self-limited and has not treatment. Sacral decubitus- wound care team ff GI prophylaxis:pPI. DVT prophylaxis: Lovenox subcutaneous. Discharge Planning Discharge today Problem Qualifiers (1) Sepsis: Qualified Code: A41.9 - Sepsis, due to unspecified organism (2) UTI (urinary tract infection): (3) HTN (hypertension): Qualified Code: I10 - Essential hypertension (4) Diabetes: Qualified Code: E11.8 - Type 2 diabetes mellitus with complication, without long-term current use of insulin (5) Hypothyroidism: Qualified Code: E03.9 - Hypothyroidism, unspecified type (6) Subconjunctival hemorrhage, non-traumatic: Qualified Code: H11.31 - Subconjunctival hemorrhage, non-traumatic, right Fang Lopez MD Jul 08, 2016 09:01
[2016-07-08 12:00] VITALS: BP 158/88; PULSE 77; RESP 16; TEMP 97.4; O2SAT 90
[2016-07-08 13:30] VITALS: BP 146/68
--- NOTE | 2016-07-16 15:44 | PQ ---
Physician Query Response Document PATIENT: CHINO MAYERS : 1955 ADMIT DATE: 06/16/2016 1:13 PM DISCH DATE: 07/08/2016 2:14 PM RESPONDING PROVIDER #: terrence QUERY TEXT: Cause and Effect Relationship Please clarify in documentation in the Medical Record the relationship, if any, between _SEPSIS WITH UTI ___and_INDWELLING VALIENTE CATHETER POA__ utilizing terminology such as: -- Conditions are due to or associated with each other -- Conditions are unrelated to each other -- Other (please specify in the medical record) The patient's Clinical Indicators include: Metabolic Encephalopathy with Psychosis/Delirium: suspect secondary to UTI in addition to patient's u nderlying personality Sepsis with UTI: +leukocytosis, tachycardic. CATH speciemen Urine culture growing Escherichia coli, MRSA, and Raoultella Ornithinolytica Query created by: Martha Azul on 06/20/2016 1:33 PM RESPONSE TEXT: Sepsis due to urinary tract infection Urinary tract infection likely related to indwelling valiente catheter that was present at the time of a dmission. Electronically signed by: Josemanuel Limon DO 07/16/2016 3:40 PM
== END 2016-07-08 14:14 | DRG 698 ==
LOC: NEPA 16:34 → NEDA 19:57 → NEPGCP 22:05 → OBSVTOIN 06-16 13:13 → N07B 06-18 11:53 → HOCA 06-23 17:27
PROVIDERS: ADMIT Hospitalist; ATTEND Hospitalist
DX: T83.518A Infection and inflammatory reaction due to other urinary catheter, initial encounter (principal); A41.9 Sepsis, unspecified organism; G93.41 Metabolic encephalopathy; L89.159 Pressure ulcer of sacral region, unspecified stage; F05 Delirium due to known physiological condition; E11.8 Type 2 diabetes mellitus with unspecified complications; K76.0 Fatty (change of) liver, not elsewhere classified; N39.0 Urinary tract infection, site not specified; I10 Essential (primary) hypertension; B96.20 Unspecified Escherichia coli [E. coli] as the cause of diseases classified elsewhere; J44.9 Chronic obstructive pulmonary disease, unspecified; E03.9 Hypothyroidism, unspecified; F25.9 Schizoaffective disorder, unspecified; J45.909 Unspecified asthma, uncomplicated; K58.9 Irritable bowel syndrome, unspecified; N39.3 Stress incontinence (female) (male); R74.8 Abnormal levels of other serum enzymes; D64.9 Anemia, unspecified; H11.31 Conjunctival hemorrhage, right eye; E87.6 Hypokalemia; B95.62 Methicillin resistant Staphylococcus aureus infection as the cause of diseases classified elsewhere; Z93.3 Colostomy status; Y84.6 Urinary catheterization as the cause of abnormal reaction of the patient, or of later complication, without mention of misadventure at the time of the procedure
CPT/HCPCS: 70450; 71010; 73502; 74176; 76705; 76937; 80048; 80053; 80074; 80076; 80202; 80301; 80320; 81001; 82103; 82105; 82390; 82533; 82565; 82728; 82948; 83036; 83516; 83520; 83540; 83550; 83605; 84443; 85007; 85014; 85018; 85025; 85027; 86038; 86256; 86403; 86850; 86900; 86901; 87040; 87077; 87086; 87147; 87186; 93005; 94664; 96360; G0378; G0479; J0744; J1650; J1815; J2270; J2405; J2543; J3370; J7030; J7050; J7512; J7613; Q9963

== ENCOUNTER 2017-10-04 09:52 | Inpatient (IN) | payer OTHER ==
[2017-10-04] VITALS (18 sets, daily range): BP systolic 52–129; BP diastolic 34–86; PULSE 3–112; RESP 15–28; TEMP 95.4–99; O2SAT 98–100
[~2017-10-04] VITALS: Ht 157.5 cm; Wt 62.6 kg
[~2017-10-04 09:52] MED LIST changes: +ACET650S4 RECTAL; -AMIT10 PO; +AMLO2.5T PO; +ASCO500C PO; +CALC1TAB12 PO; +CHLO.12%30 SWISH-SPIT; +COLL30T TOPICAL; +FAMO20TA2 PO; +FERR325T PO; +HYDR50TA94 PO; +LAC-12LO3 TOPICAL; -LANSO15 PO; -LEVO.025 PO; +LEVO25TA4 PO; +LEXA10TA PO; +LORA-392 PO; +MULTTAB67 PO; +NOVOLOGP2 SQ; +OXYC1TAB63 PO; +PRED5TAB PO; -PROM25TA5 PO; +QUET1TAB9 PO; +SERO100T PO; +TRAZ50TA12 PO; +VITA1000 PO; +VITA500012 PO; -ZOFR8TAB PO
[2017-10-04] MEDS ORDERED: ATROPINE SULFATE 1 MG/10 ML SYRINGE ONE (10:00)
[2017-10-04] MEDS ORDERED: GLUCAGON 1 MG/ML VIAL ONE (10:07)
[2017-10-04] MEDS ORDERED: SODIUM CHLOR 0.9% 1000 ML INJ 1,000 ML IV ONE ×2 (10:30)
[2017-10-04] MEDS ORDERED: TERBUTALINE INJ 1 MG/ML AMP SQ PRN (10:30)
[2017-10-04] MEDS: DOPamine 800 MG/500 ML INJ 500 ML IV PRN ×2 (10:36→17:13)
[2017-10-04 10:38] LABS: AUTOMATED NEUTROPHIL # 10.1 TH/MM3 (1.8-7.7); BASOPHIL % 0.4 % (0.0-2.0); EOSINOPHIL # 0.1 TH/MM3 (0-0.4); EOSINOPHIL % 1.2 % (0.0-4.0); HEMATOCRIT 34.8 % (35.0-46.0); HEMOGLOBIN 11.4 GM/DL (11.6-15.3); LYMPH % 7.8 % (9.0-44.0); LYMPHOCYTE # 0.9 TH/MM3 (1.0-4.8); MEAN CELL VOLUME 94.2 FL (80.0-100.0); MEAN CORPUSCULAR HEMOGLOBIN 30.9 PG (27.0-34.0); MEAN CORPUSCULAR HGB CONC 32.8 % (32.0-36.0); MEAN PLATELET VOLUME 8.7 FL (7.0-11.0); MONO % 4.8 % (0.0-8.0); MONOCYTE # 0.6 TH/MM3 (0-0.9); NEUT % 85.8 % (16.0-70.0); PLATELET COUNT 293 TH/MM3 (150-450); RED CELL DISTRIBUTION WIDTH 13.3 % (11.6-17.2); WHITE BLOOD COUNT 11.8 TH/MM3 (4.0-11.0)
[2017-10-04 10:48] LABS: INTERNATIONAL NORMALIZED RATIO 1.1 RATIO
--- NOTE | 2017-10-04 11:06 | RADRPT ---
EXAM DATE/TIME: 10/04/2017 10:52 [facility] COMPARISON: CHEST SINGLE AP, June 13, 2016, 17:36. INDICATIONS : Difficulty breathing. MEDICAL HISTORY : Gastroesophageal reflux disease. SURGICAL HISTORY : None. ENCOUNTER: Initial ACUITY: 1 day PAIN SCORE: Non-responsive. LOCATION: Bilateral chest FINDINGS: Cardia megaly with overt congestive failure or rogelio inflammatory infiltrates. Lungs are clear. The portion of the bony skeleton visualized is unremarkable. CONCLUSION: Mild compensated cardiomegaly Hiram Magallanes MD FACR on October 04, 2017 at 11:02 Board Certified Radiologist. This report was verified electronically.
[2017-10-04 11:14] LABS: BACTERIA, URINE MANY /hpf; BILIRUBIN, URINE NEG (NEG); BLOOD, URINE LARGE (NEG); GLUCOSE,URINE NEG (NEG); HYALINE CAST, URINE 51 /lpf (RARE); KETONE, URINE NEG (NEG); MUCUS URINE FEW /lpf (OCC); NITRITE,URINE NEG (NEG); URINE COLOR YELLOW (YELLW/STRAW); URINE LEUKOCYTE ESTERASE LARGE (NEG); WHITE BLOOD CELL CLUMPS MANY
[2017-10-04 11:48] LABS: BLOOD UREA NITROGEN 118 MG/DL (7-18); CREATININE 6.62 MG/DL (0.50-1.00); GLOMERULAR FILTRATION RATE 6 ML/MIN (>89)
[2017-10-04 11:49] LABS: ALBUMIN 3.5 GM/DL (3.4-5.0); ALKALINE PHOSPHATASE 151 U/L (45-117); ALT (GPT) 18 U/L (10-53); AST (GOT) 18 U/L (15-37); CALCIUM 8.7 MG/DL (8.5-10.1); GLUCOSE,RANDOM 83 MG/DL (74-106); MAGNESIUM 3.6 MG/DL (1.5-2.5); PHOSPHORUS 10.3 MG/DL (2.5-4.9); SODIUM (NA) 132 MEQ/L (136-145); TOTAL BILIRUBIN ADULT 0.5 MG/DL (0.2-1.0); TOTAL PROTEIN 7.7 GM/DL (6.4-8.2)
[2017-10-04 11:50] LABS: BICARBONATE 10.9 MEQ/L (21.0-32.0); CHLORIDE 109 MEQ/L (98-107)
[2017-10-04 11:51] LABS: TROPONIN I LESS THAN 0.02 NG/ML (0.02-0.05)
[2017-10-04] MEDS ORDERED: DEXTROSE 50% IN WATER 50 ML VIAL(D50) IV PUSH ONE (12:00)
[2017-10-04] MEDS: SODIUM POLYSTYRENE SULFONATE SUSP 15 GM/60 ML CUP PO ONE ×2 (12:00→12:44)
[2017-10-04] MEDS ORDERED: CALCIUM GLUCONATE 10% 1 GM/10 ML VIAL SLOW IVP ONE (12:00)
[2017-10-04] MEDS ORDERED: SODIUM BICARBONATE 8.4% SOLN 50 MEQ/50 ML VIAL SLOW IVP ONE (12:00)
[2017-10-04] MEDS ORDERED: INSULIN HUMAN REGULAR 1,000 UNITS/10 ML VIAL IV PUSH ONE (12:15)
[2017-10-04] MEDS ORDERED: LIDOCAINE HCL 2% 50 ML VIAL ONE (12:45)
[2017-10-04] MEDS ORDERED: TOPR25TA PO (13:13)
[2017-10-04] MEDS ORDERED: BUTA1CAP PO (13:13)
[2017-10-04] MEDS ORDERED: VITA100T54 PO (13:13)
[2017-10-04] MEDS ORDERED: ARIP1TAB12 PO (13:13)
[2017-10-04] MEDS ORDERED: FERR325T18 PO (13:13)
[2017-10-04] MEDS ORDERED: ASPI81TA23 PO (13:13)
[2017-10-04] MEDS ORDERED: FURO20TA PO (13:13)
[2017-10-04] MEDS ORDERED: MIRTA15 PO (13:13)
[2017-10-04] MEDS ORDERED: NEUR100C PO (13:13)
[2017-10-04] MEDS ORDERED: LOMO2.5T PO (13:13)
[2017-10-04] MEDS ORDERED: HALO5TAB IM (13:13)
[2017-10-04] MEDS ORDERED: ABIL10TA8 PO (13:13)
[2017-10-04] MEDS ORDERED: LISI2.5T3 PO (13:13)
[2017-10-04] MEDS ORDERED: METH500T3 PO (13:13)
[2017-10-04] MEDS ORDERED: TOPI25TA7 PO (13:13)
[2017-10-04] MEDS ORDERED: ANAF25CA PO (13:13)
[2017-10-04] MEDS ORDERED: CLOM25CA PO (13:13)
[2017-10-04] MEDS ORDERED: FOLI400T PO (13:13)
[2017-10-04] MEDS ORDERED: DILT30TA PO (13:13)
[2017-10-04] MEDS ORDERED: AMMO12CR4 TOP (13:13)
[2017-10-04] MEDS ORDERED: COLL30T TOPICAL (13:13)
[2017-10-04] MEDS ORDERED: GLUCAGON 1 MG/ML VIAL OTHER PRN (13:15)
[2017-10-04] MEDS ORDERED: DEXTROSE 50% IN WATER 50 ML VIAL(D50) IV PUSH PRN (13:15)
[2017-10-04] MEDS ORDERED: MISCELLANEOUS NURSING INFORMATION XX SCH (13:15)
[2017-10-04] MEDS ORDERED: RESP: ALBUTEROL 2.5 MG/IPRATROPIUM 0.5 MG NEB (PRN) INH (13:15)
--- NOTE | 2017-10-04 13:28 | PD ---
HPI Chief Complaint: Neuro Symptoms/ Deficits Time Seen by Provider: 10:26 Travel History International Travel<30 days: No Contact w/Intl Traveler<30days: No Traveled to known affect area: No History of Present Illness HPI 61-year-old female was brought in by EMS for altered mental status. detention staff reported patient fell about 130 last night at the long term. Patient was put back to bed last night. detention staff noted altered mental status with increasing lethargy and almost unresponsive this morning. EMS was called. Patient was noticed with mild right facial drooping. Patient also noticed with mild slurred speech. Patient reportedly normally ambulatory. Patient was found to be hypotensive and heart rate in the 30s and 40s. Patient was transferred to ED for evaluation. Patient states that she has mild aching headache and neck pain. Patient complained of whole body ache. Patient denies any shortness of breath. Patient states that she has some abdominal cramping. Patient states that she has some mild weakness on the right arm and left leg. Patient denies any speech problem. Unable to obtain past medical information on medications. detention list will be reviewed. PFSH Past Medical History Anemia: Yes Asthma: Yes Blood Disorders: No Anxiety: Yes Heart Rhythm Problems: Yes Cancer: No Cardiovascular Problems: No High Cholesterol: No Chemotherapy: No Congestive Heart Failure: No COPD: Yes Dementia: Yes Diabetes: No Diminished Hearing: No Endocrine: No Gastrointestinal Disorders: Yes (IBS) GERD: Yes Genitourinary: Yes (stress incontinence , UTI ) Headaches: Yes Hypertension: Yes Implanted Vascular Access Dvce: Yes Medical other: Yes (Hx : ETOH ABUSE ) Musculoskeletal: Yes Neurologic: Yes (ENCEPHALOPATHY ) Psychiatric: Yes (delusional , Hx of Pinedo Act ) Respiratory: Yes Integumentary: Yes (ULCER IN THE BUTTOCKS ) Radiation Therapy: No Schizophrenia: Yes Thyroid Disease: Yes (HYPOTHYROIDISM ) Menopausal: Yes Past Surgical History Abdominal Surgery: Yes (REPAIR OF ABD MUSCLE, COLOSTOMY ) Body Medical Devices: breast implants Hysterectomy: Yes Joint Replacement: Yes (LEFT TKR) Other Surgery: Yes (abdomen/left knee/abdominal/partial hysterectomy) Social History Alcohol Use: Yes (2-3 GLASSES PER DAY ) Tobacco Use: No Substance Use: No Allergies-Medications (Allergen,Severity, Reaction): Coded Allergies: Sulfa (Sulfonamide Antibiotics) (Unverified Allergy, Severe, 10/04/17) cefepime (Unverified Allergy, Severe, 10/04/17) ceftaroline fosamil (Unverified Allergy, Severe, 10/04/17) iodine (Unverified Allergy, Severe, Anaphylaxis, 10/04/17) latex (Unverified Allergy, Severe, 10/04/17) metoclopramide (Unverified Allergy, Severe, 10/04/17) potassium iodide (Unverified Allergy, Severe, Anaphylaxis, 10/04/17) povidone-iodine (Unverified Allergy, Severe, Anaphylaxis, 10/04/17) sodium iodide (Unverified Allergy, Severe, Anaphylaxis, 10/04/17) sodium iodide (Unverified Allergy, Severe, Anaphylaxis, 10/04/17) *MDRO Multi-Drug Resistant Organism (Verified Adverse Reaction, Unknown, MRSA, 10/04/17) MRSA (urine) - 06/15/16 Reported Meds & Prescriptions Reported Meds & Active Scripts Active Oxycodone-Acetaminophen 5-325 mg Tab 1 Tab PO Q6HR PRN Ativan (Lorazepam) 0.5 Mg Tab 0.5 Mg PO BID PRN Reported Aripiprazole 10 Mg Tab 10 Mg PO DAILY Clomipramine (Clomipramine HCl) 25 Mg Cap 25 Mg PO HS Furosemide 20 Mg Tab 20 Mg PO DAILY Mirtazapine 15 Mg Tab 15 Mg PO HS Topiramate 25 Mg Tab 25 Mg PO BID Diltiazem (Diltiazem HCl) 30 Mg Tab 30 Mg PO TID Methocarbamol 500 Mg Tab 500 Mg PO Q12HR Aspirin EC (Aspirin) 81 Mg Tabdr 81 Mg PO DAILY Neurontin (Gabapentin) 100 Mg Cap 100 Mg PO TID Lomotil (Diphenoxylate-Atropine) 2.5-0.025 Mg Tab 1 Tab PO Q12HR PRN Lisinopril 2.5 Mg Tab 2.5 Mg PO DAILY Toprol XL (Metoprolol Succinate) 25 Mg Tab 25 Mg PO HS Fioricet (Tyqsbqvqsa-Jxhgogguhnako-Jjmuhepo) 50-300-40 Mg Cap 1 Cap PO Q12HR PRN Anafranil (Clomipramine HCl) 25 Mg Cap 25 Mg PO DAILY Abilify (Aripiprazole) 10 Mg Tab 10 Mg PO BID Haloperidol 5 Mg Tab 5 Mg IM BID Vitamin B-1 (Thiamine HCl) 100 Mg Tab 100 Mg PO DAILY Folic Acid 0.4 Mg Tab 1,000 Mcg PO DAILY Ammonium Lactate (Lactic Acid) 12 % Cre 1 Applic TOP BID APPLY TO: Ferrous Sulfate 325 Mg (65 Mg Iron) Tablet 325 Mg PO DAILY Santyl Topical (Collagenase) 250 Unit/Gm Oint 1 Applic TOPICAL DAILY Trazodone (Trazodone HCl) 50 Mg Tab 25 Mg PO HS Novolog Inj (Insulin Aspart) 1,000 Unit/10 Ml Vial 0 SQ DIRECTED Sliding Scale as directed. Multiple Vitamin 1 Tab 1 Tab PO DAILY Lexapro (Escitalopram Oxalate) 10 Mg Tab 10 Mg PO DAILY Levothyroxine (Levothyroxine Sodium) 25 Mcg Tab 25 Mcg PO DAILY Famotidine 20 Mg Tab 20 Mg PO BID Calcium 500 +D (Calcium Carbonate-Cholecalciferol) 500-400 Mg-Unit Tab 1 Tab PO BID Review of Systems General / Constitutional: No: Fever Eyes: No: Visual changes HENT: Positive: Headaches, Neck Pain Cardiovascular: No: Chest Pain or Discomfort Respiratory: No: Shortness of Breath Gastrointestinal: No: Abdominal Pain Genitourinary: No: Dysuria Musculoskeletal: No: Pain Skin: No Rash Neurologic: No: Weakness Psychiatric: No: Depression Endocrine: No: Polydipsia Hematologic/Lymphatic: No: Easy Bruising Physical Exam Narrative GENERAL: Well-nourished, well-developed patient. SKIN: Focused skin assessment warm/dry. HEAD: Normocephalic. EYES: No scleral icterus. No injection or drainage. Pupils 1.5 mm equal reactive. NECK: Supple, trachea midline. No JVD or lymphadenopathy. Mild tenderness on palpation paraspinal area cervical spine. No midline tenderness. CARDIOVASCULAR: Regular rate and rhythm without murmurs, gallops, or rubs. RESPIRATORY: Breath sounds equal bilaterally. No accessory muscle use. GASTROINTESTINAL: Abdomen soft, non-tender, nondistended. MUSCULOSKELETAL: No cyanosis, or edema. BACK: Nontender without obvious deformity. No CVA tenderness. Patient has weakness of the right arm on raising off the bed and weak handgrip on the right arm. Patient had weakness in the left leg, unable to raise left left leg much of the back. Sensory function intact. Different reflex 1+ and equal. Negative Babinski. Data Data Last Documented VS Vital Signs Date Time Temp Pulse Resp B/P (MAP) Pulse Ox O2 Delivery O2 Flow Rate FiO2 10/04/17 13:00 105 25 121/86 (98) 100 Nasal Cannula 2.00 10/04/17 12:00 97.5 Orders Orders Atropine Inj (Atropine Inj) (10/04/17 10:00) Glucagon Inj (Glucagon Inj) (10/04/17 10:07) Lactic Acid (10/04/17 10:20) Complete Blood Count With Diff (10/04/17 10:20) Comprehensive Metabolic Panel (10/04/17 10:20) Magnesium (Mg) (10/04/17 10:20) Troponin I (10/04/17 10:20) Act Partial Throm Time (Ptt) (10/04/17 10:20) Prothrombin Time / Inr (Pt) (10/04/17 10:20) Blood Culture (10/04/17 10:20) Ckmb (Isoenzyme) Profile (10/04/17 10:20) Electrocardiogram (10/04/17 10:27) Blood Culture (10/04/17 10:27) Urinalysis - C+S If Indicated (10/04/17 10:27) Chest, Single Ap (10/04/17 10:27) Ct Brain W/O Iv Contrast(Rout) (10/04/17 10:27) Iv Access Insert/Monitor (10/04/17 10:27) Ecg Monitoring (10/04/17 10:27) Oximetry (10/04/17 10:27) Ct Cerv Spine W/O Contrast (10/04/17 10:27) Dopamine 800 Mg/500 Ml Inj (Dopamine 800 (10/04/17 10:30) Terbutaline Inj (Brethine Inj) (10/04/17 10:30) Sodium Chlor 0.9% 1000 Ml Inj (Ns 1000 M (10/04/17 10:30) Sodium Chlor 0.9% 1000 Ml Inj (Ns 1000 M (10/04/17 10:30) Urinary Catheter Insert/Apply (10/04/17 10:40) Phosphorus (Po4) (10/04/17 10:23) Thyroid Stimulating Hormone (10/04/17 10:23) Urine Culture (10/04/17 10:35) CKMB (10/04/17 10:23) CKMB% (10/04/17 10:23) Potassium, Serum (K) (10/04/17 15:00) Calcium Gluconate Inj (Calcium Gluconate (10/04/17 12:00) Insulin Human Regular Inj (Novolin R Inj (10/04/17 12:15) Dextrose 50% In Luís (Vial) Inj (D50w (Vi (10/04/17 12:00) Sodium Bicarbonate 8.4% Inj (Sodium Bica (10/04/17 12:00) Sodium Polysty Sulfate Liq (Kayexalate L (10/04/17 12:00) Potassium, Serum (K) (10/04/17 12:14) Lidocaine 2% Inj (Xylocaine 2% Inj) (10/04/17 12:45) Admit Order (Ed Use Only) (10/04/17 13:00) Labs Laboratory Tests Test 10/04/17 10:23 10/04/17 10:35 10/04/17 12:30 White Blood Count 11.8 TH/MM3 Red Blood Count 3.70 MIL/MM3 Hemoglobin 11.4 GM/DL Hematocrit 34.8 % Mean Corpuscular Volume 94.2 FL Mean Corpuscular Hemoglobin 30.9 PG Mean Corpuscular Hemoglobin Concent 32.8 % Red Cell Distribution Width 13.3 % Platelet Count 293 TH/MM3 Mean Platelet Volume 8.7 FL Neutrophils (%) (Auto) 85.8 % Lymphocytes (%) (Auto) 7.8 % Monocytes (%) (Auto) 4.8 % Eosinophils (%) (Auto) 1.2 % Basophils (%) (Auto) 0.4 % Neutrophils # (Auto) 10.1 TH/MM3 Lymphocytes # (Auto) 0.9 TH/MM3 Monocytes # (Auto) 0.6 TH/MM3 Eosinophils # (Auto) 0.1 TH/MM3 Basophils # (Auto) 0.0 TH/MM3 CBC Comment DIFF FINAL Differential Comment Prothrombin Time 11.0 SEC Prothromb Time International Ratio 1.1 RATIO Activated Partial Thromboplast Time 25.0 SEC Blood Urea Nitrogen 118 MG/DL Creatinine 6.62 MG/DL Random Glucose 83 MG/DL Total Protein 7.7 GM/DL Albumin 3.5 GM/DL Calcium Level 8.7 MG/DL Phosphorus Level 10.3 MG/DL Magnesium Level 3.6 MG/DL Alkaline Phosphatase 151 U/L Aspartate Amino Transf (AST/SGOT) 18 U/L Alanine Aminotransferase (ALT/SGPT) 18 U/L Total Bilirubin 0.5 MG/DL Sodium Level 132 MEQ/L Potassium Level 9.1 MEQ/L Chloride Level 109 MEQ/L Carbon Dioxide Level 10.9 MEQ/L Anion Gap 12 MEQ/L Estimat Glomerular Filtration Rate 6 ML/MIN Lactic Acid Level 0.7 mmol/L Total Creatine Kinase 135 U/L Creatine Kinase MB 3.4 NG/ML Troponin I LESS THAN 0.02 NG/ML Thyroid Stimulating Hormone 3rd Gen 1.090 uIU/ML Urine Color YELLOW Urine Turbidity CLOUDY Urine pH 6.0 Urine Specific [place] 1.023 Urine Protein 300 mg/dL Urine Glucose (UA) NEG mg/dL Urine Ketones NEG mg/dL Urine Occult Blood LARGE Urine Nitrite NEG Urine Bilirubin NEG Urine Urobilinogen LESS THAN 2.0 MG/DL Urine Leukocyte Esterase LARGE Urine RBC /hpf Urine WBC /hpf Urine WBC Clumps MANY Urine Bacteria MANY /hpf Urine Hyaline Casts 51 /lpf Urine Mucus FEW /lpf Microscopic Urinalysis Comment CATH-CULTURE IND MDM Medical Decision Making Medical Screen Exam Complete: Yes Emergency Medical Condition: Yes Interpretation(s) Last Impressions Chest X-Ray 10/04/17 1027 Signed Impressions: Service Date/Time: Wednesday, October 04, 2017 10:52 - CONCLUSION: Mild compensated cardiomegaly Hiram Magallanes MD FACR Differential Diagnosis Differential diagnosis including acute renal failure, severe hypokalemia, sepsis , head injury, neck injury, TIA, CVA. Narrative Course 61-year-old female with altered mental status, headache neck pain, weakness of right arm and left leg, hypotensive, bradycardia. Right femoral central line inserted. Normal saline solution 2 L IV bolus given. Glucagon 1 g IV. Atropine 1 amp IV. D50 50 cc IV given. Insulin 10 units IV given. Calcium gluconate 1 g IV. Bicarb 3 A IV given. Compounder and tool engine lathe set up operator was called stat. Vas-Cath was inserted in the left femoral by airborne sensor specialist. Patient will be taken to intensive care to be dialyzed immediately. Dopamine drip as needed for hypotension. Diagnosis Primary Impression: Acute hyperkalemia Additional Impressions: Acute renal failure Qualified Codes: N17.9 - Acute kidney failure, unspecified Metabolic acidosis Closed head injury Qualified Codes: S09.90XA - Unspecified injury of head, initial encounter Neck injury Qualified Codes: S19.9XXA - Unspecified injury of neck, initial encounter Andre Keith MD Oct 04, 2017 13:28
[2017-10-04] MEDS: INSULIN NovoLIN REGULAR SUPPLEMENTAL SCALE SQ SCH ×4 (14:00→20:37)
[2017-10-04] MEDS ORDERED: SODIUM BICARBONATE 8.4% INJ 100 MEQ in DEXTROSE 5% IN WATE 1000ML INJ 1,000 ML IV SCH ×2 (14:00)
--- NOTE | 2017-10-04 14:17 | MH ---
cc: Marina Escobar MD DATE OF ADMISSION: 10/04/2017 HISTORY OF PRESENT ILLNESS: The patient is a 61-year-old female with past medical history of hypertension, hypothyroidism, anxiety/depression, schizoaffective disorder, who presented from a local retirement due to altered mental status and lethargy. When EMS arrived, they noticed that she had a slight right facial droop. The patient is status post fall at 1:30 this morning. On arrival to the ER, she was hypotensive with a systolic blood pressure 70s-80s and bradycardic with heart rate in the 30s and 40s. EKG in the ED showed atrial fibrillation with a moderate intraventricular conduction delay. Her laboratory data is significant for hyperkalemia with a potassium of 9.1, which was slightly hemolyzed, and acute renal failure with a BUN of 118 and creatinine 6.62. In the ED, she is currently receiving a third liter of IV fluids. In addition, she was treated for hyperkalemia with 10 units of IV insulin, calcium, D50, 3 amps of sodium bicarbonate. A left femoral central line was placed by ED physician, and I placed a right femoral Vas-Cath. Nephrology service was notified for initiation of emergent hemodialysis due to hyperkalemia with EKG changes. She was also started on dopamine, currently at 20 mcg. The patient is awake, alert, however, confused at times. Her lactic acid level measured at 0.7. C-collar is in place. A chest x-ray in the ED showed mild compensated cardiomegaly. Most of the history was obtained from reviewing medical records as patient is a poor historian. She is about to undergo hemodialysis. PAST MEDICAL HISTORY: Significant for hypertension, hypothyroidism, schizoaffective disorder, anxiety and depression. PAST SURGICAL HISTORY: Previous EGD with dilation, colostomy bag in place. ALLERGIES: CEFEPIME, SULFA, IODINE, LATEX, REGLAN. REPORTED MEDICATIONS: Toprol-XL, diltiazem, aspirin, Fioricet, Neurontin, Lexapro, levothyroxine, multivitamins, folic acid. FAMILY HISTORY: Not contributing to present illness. SOCIAL HISTORY: Nonsmoker, drinker per records. REVIEW OF SYSTEMS: As per HPI. Rest of review of systems limited as patient is a poor historian. PHYSICAL EXAMINATION: GENERAL: A 61-year-old female, critically ill, on dopamine. VITAL SIGNS: Temperature 97.5, pulse of 106, blood pressure 124/50, saturation 100% on 2 liter oxygen. HEENT: Atraumatic, normocephalic. Pupils are equal, round, reactive to light and accommodation. Extraocular muscles intact. Conjunctivae pink. Nonicteric sclerae. Dry mucous membranes. NECK: Supple. No JVD, adenopathy, thyromegaly. Trachea in the midline. CARDIOVASCULAR: Regular rate and rhythm. Normal S1, S2. No murmurs, rubs or gallops noted. PULMONARY: Bilateral equal entry. No rales or wheezing. ABDOMEN: Soft, nontender, no distention, positive bowel sounds. Colostomy bag in place. EXTREMITIES: No cyanosis, clubbing, edema. NEUROLOGIC: No focal sensory deficit. LABORATORY DATA: WBC 11.8, hemoglobin 11.4, hematocrit 34, platelet count 293. Sodium 132, potassium 9.1, chloride 109, CO2 of 10, BUN 118, creatinine 6.62. Lactic acid 0.7, phosphorus 10.3, magnesium 3.6, total bilirubin 0.5. Troponin less than 0.02. Total CK 135. TSH 1.09. INR 1.1, PT 11, PTT 25. Urinalysis: Large leukocyte esterase, many bacteria. Chest x-ray showed mild compensated cardiomegaly. IMPRESSION: 1. Acute renal failure. 2. Hyperkalemia. 3. Hypotension. 4. Dehydration. 5. Urinary tract infection. 6. Altered mental status. 7. Respiratory insufficiency. 8. Hypothyroidism. 9. History of hypertension. 10. History of schizoaffective disorder. 11. History of anxiety and depression. RECOMMENDATIONS: 1. Monitor neuro status closely and avoid any sedatives. Patient is for a CT scan of the brain without IV contrast and CT of the cervical spine. 2. Continue with oxygen and maintain sats above 92%. 3. Bronchodilators in the form of DuoNeb q. 4 plus q. 2 p.r.n. for shortness of breath. 4. Wean off dopamine and maintain MAP greater than 65 mmHg. Lactic acid level measured at 0.7. She was given 3 liters of crystalloids in the ED. Will place on a bicarbonate drip of D5W with 2 amps of bicarbonate 125 mL an hour. 5. I will obtain a 2-D echo to evaluate LV function. 6. Monitor renal function, I's and O's and avoid nephrotoxins. She was treated for hyperkalemia in the ED with 10 units of IV insulin, D50, bicarb and calcium. The patient to undergo emergent hemodialysis for hyperkalemia. 7. Place on aztreonam and monitor for signs of infection, which include fever and WBC. Follow up on blood and urine cultures. A chest x-ray in the ED showed a mild compensated cardiomegaly. 8. Monitor CBC. 9. Place on sliding scale insulin with Accu-Cheks q. [address] on stress dose steroids, hydrocortisone 50 mg IV q. 6. 11. GI prophylaxis with Pepcid 10 mg q. 12 and DVT prophylaxis with SCDs. Start chemical anticoagulation prophylaxis if CT scan of the brain negative for acute process. 12. Left femoral central line was placed by the ED physician and right femoral Vas-Cath placed in the ED. 13. The patient is critically ill with hyperkalemia, acute renal failure, altered mental status, hypotension, on dopamine. CRITICAL CARE TIME: 50 minutes, excluding procedures. MD ROBERT Chaparro/LOREN , 01:37 PM , 02:15 PM
[2017-10-04] MEDS ORDERED: SODIUM CHLOR 0.9% 1000 ML INJ 1,000 ML OTHER PRN ×2 (14:52)
[2017-10-04] MEDS ORDERED: SODIUM CHLOR 0.9% 1000 ML INJ 1,000 ML IV PRN (14:52)
--- NOTE | 2017-10-04 14:52 | PD.CONS ---
HPI Service Nephrology Consult Requested By ER Reason for Consult Hyperkalemia, acute renal failure Primary Care Physician No Primary Care Physician History of Present Illness Patient is a 61-year-old resident of group home with history of fall, there is history of atrial fibrillation with intraventricular conduction delay, the potassium came up as 9.1 patient was given calcium, D50, insulin, started on bicarbonate drip Transferred for to ICU for emergent dialysis Patient unable to provide any history confused moving around she has schizoaffective disorder Review of Systems ROS Limitations: Clinical Condition Past Family Social History Allergies: Coded Allergies: Sulfa (Sulfonamide Antibiotics) (Unverified Allergy, Severe, 10/04/17) cefepime (Unverified Allergy, Severe, 10/04/17) ceftaroline fosamil (Unverified Allergy, Severe, 10/04/17) iodine (Unverified Allergy, Severe, Anaphylaxis, 10/04/17) latex (Unverified Allergy, Severe, 10/04/17) metoclopramide (Unverified Allergy, Severe, 10/04/17) potassium iodide (Unverified Allergy, Severe, Anaphylaxis, 10/04/17) povidone-iodine (Unverified Allergy, Severe, Anaphylaxis, 10/04/17) sodium iodide (Unverified Allergy, Severe, Anaphylaxis, 10/04/17) sodium iodide (Unverified Allergy, Severe, Anaphylaxis, 10/04/17) *MDRO Multi-Drug Resistant Organism (Verified Adverse Reaction, Unknown, MRSA, 10/04/17) MRSA (urine) - 06/15/16 Past Medical History Hypertension Schizoaffective disorder UTI Arthritis Hypertension Schizoaffective disorder Anemia Diabetes Depression Anxiety Hypothyroidism Past Surgical History Colostomy Knee surgery Partial hysterectomy December 2015 colostomy and ileostomy, status post bowel perforation expiratory lap Breast augmentation hysterectomy LTKR Reported Medications Reported Meds & Active Scripts Active Oxycodone-Acetaminophen 5-325 mg Tab 1 Tab PO Q6HR PRN Ativan (Lorazepam) 0.5 Mg Tab 0.5 Mg PO BID PRN Reported Aripiprazole 10 Mg Tab 10 Mg PO DAILY Clomipramine (Clomipramine HCl) 25 Mg Cap 25 Mg PO HS Furosemide 20 Mg Tab 20 Mg PO DAILY Mirtazapine 15 Mg Tab 15 Mg PO HS Topiramate 25 Mg Tab 25 Mg PO BID Diltiazem (Diltiazem HCl) 30 Mg Tab 30 Mg PO TID Methocarbamol 500 Mg Tab 500 Mg PO Q12HR Aspirin EC (Aspirin) 81 Mg Tabdr 81 Mg PO DAILY Neurontin (Gabapentin) 100 Mg Cap 100 Mg PO TID Lomotil (Diphenoxylate-Atropine) 2.5-0.025 Mg Tab 1 Tab PO Q12HR PRN Lisinopril 2.5 Mg Tab 2.5 Mg PO DAILY Toprol XL (Metoprolol Succinate) 25 Mg Tab 25 Mg PO HS Fioricet (Slodlbrotw-Selsjhhpeqfnf-Ezbqfibw) 50-300-40 Mg Cap 1 Cap PO Q12HR PRN Anafranil (Clomipramine HCl) 25 Mg Cap 25 Mg PO DAILY Abilify (Aripiprazole) 10 Mg Tab 10 Mg PO BID Haloperidol 5 Mg Tab 5 Mg IM BID Vitamin B-1 (Thiamine HCl) 100 Mg Tab 100 Mg PO DAILY Folic Acid 0.4 Mg Tab 1,000 Mcg PO DAILY Ammonium Lactate (Lactic Acid) 12 % Cre 1 Applic TOP BID APPLY TO: Ferrous Sulfate 325 Mg (65 Mg Iron) Tablet 325 Mg PO DAILY Santyl Topical (Collagenase) 250 Unit/Gm Oint 1 Applic TOPICAL DAILY Trazodone (Trazodone HCl) 50 Mg Tab 25 Mg PO HS Novolog Inj (Insulin Aspart) 1,000 Unit/10 Ml Vial 0 SQ DIRECTED Sliding Scale as directed. Multiple Vitamin 1 Tab 1 Tab PO DAILY Lexapro (Escitalopram Oxalate) 10 Mg Tab 10 Mg PO DAILY Levothyroxine (Levothyroxine Sodium) 25 Mcg Tab 25 Mcg PO DAILY Famotidine 20 Mg Tab 20 Mg PO BID Calcium 500 +D (Calcium Carbonate-Cholecalciferol) 500-400 Mg-Unit Tab 1 Tab PO BID Family History Current Medications Medications (Trade) Dose Ordered Sig/Trent Route Start Time Stop Time Status Last Admin Dopamine HCl/ Dextrose 500 ml @ 0 mls/hr TITRATE PRN IV 10/04/17 10:30 10/04/17 10:36 (Brethine Inj) 1 mg UNSCH PRN SQ 10/04/17 10:30 (Pepcid Inj) 10 mg Q12HR IV PUSH 10/04/17 14:00 (Duoneb Neb) 1 ampule Q4HR NEB INH 10/04/17 16:00 (Duoneb Neb) 1 ampule Q2HR NEB PRN INH 10/04/17 13:15 Miscellaneous Information 1 Q361D XX 10/04/17 13:15 Aztreonam 1000 mg/ Sodium Chloride 100 ml @ 200 mls/hr Q8H IV 10/04/17 14:00 (SoluCORTEF INJ) 50 mg Q6H IV PUSH 10/04/17 14:00 Sodium Bicarbonate 100 meq/Dextrose 1,100 ml @ 125 mls/hr Q8H48M IV 10/04/17 14:00 (D50w (Vial) Inj) 50 ml UNSCH PRN IV PUSH 10/04/17 13:15 (Glucagon Inj) 1 mg UNSCH PRN OTHER 10/04/17 13:15 (NovoLIN R SUPPLEMENTAL SCALE) 1 Q4H SQ 10/04/17 14:00 Social History There is a group home patient Physical Exam Vital Signs Vital Signs Date Time Temp Pulse Resp B/P (MAP) Pulse Ox O2 Delivery O2 Flow Rate FiO2 10/04/17 14:00 109 10/04/17 14:00 97.5 109 27 97/51 (66) 100 10/04/17 13:36 105 174/108 10/04/17 13:10 99 10/04/17 13:00 105 25 121/86 (98) 100 Nasal Cannula 2.00 10/04/17 12:47 112 16 95/51 (66) 99 Nasal Cannula 2.00 10/04/17 12:30 78 99/42 (61) 10/04/17 12:00 97.5 79 19 73/45 (54) 99 Nasal Cannula 2.00 10/04/17 11:41 71/41 (51) 10/04/17 11:31 85/47 (60) 10/04/17 11:00 76 54/34 (41) 10/04/17 10:55 77 15 62/38 (46) 98 Nasal Cannula 2.00 10/04/17 10:48 65 27 64/37 (46) 98 Nasal Cannula 10/04/17 10:36 48 80/53 10/04/17 10:13 48 52/ 10/04/17 09:54 95.4 38 20 80/53 (62) 100 10/04/17 09:54 38 16 80/53 (62) 100 Physical Exam GENERAL: Well-nourished, well-developed patient was confused. SKIN: Warm and dry. HEAD: Normocephalic. EYES: No scleral icterus. No injection or drainage. NECK: Supple, trachea midline. No JVD or lymphadenopathy. CARDIOVASCULAR: Tachycardic RESPIRATORY: Breath sounds equal bilaterally. No accessory muscle use. GASTROINTESTINAL: Abdomen soft, non-tender, nondistended. EXTREMITIES: No cyanosis, or edema. NEUROLOGICAL: Confused noncooperative moving around Laboratory Laboratory Tests Test 10/04/17 10:23 10/04/17 10:35 10/04/17 12:30 White Blood Count 11.8 Red Blood Count 3.70 Hemoglobin 11.4 Hematocrit 34.8 Mean Corpuscular Volume 94.2 Mean Corpuscular Hemoglobin 30.9 Mean Corpuscular Hemoglobin Concent 32.8 Red Cell Distribution Width 13.3 Platelet Count 293 Mean Platelet Volume 8.7 Neutrophils (%) (Auto) 85.8 Lymphocytes (%) (Auto) 7.8 Monocytes (%) (Auto) 4.8 Eosinophils (%) (Auto) 1.2 Basophils (%) (Auto) 0.4 Neutrophils # (Auto) 10.1 Lymphocytes # (Auto) 0.9 Monocytes # (Auto) 0.6 Eosinophils # (Auto) 0.1 Basophils # (Auto) 0.0 CBC Comment DIFF FINAL Differential Comment Prothrombin Time 11.0 Prothromb Time International Ratio 1.1 Activated Partial Thromboplast Time 25.0 Blood Urea Nitrogen 118 Creatinine 6.62 Random Glucose 83 Total Protein 7.7 Albumin 3.5 Calcium Level 8.7 Phosphorus Level 10.3 Magnesium Level 3.6 Alkaline Phosphatase 151 Aspartate Amino Transf (AST/SGOT) 18 Alanine Aminotransferase (ALT/SGPT) 18 Total Bilirubin 0.5 Sodium Level 132 Potassium Level 9.1 7.8 Chloride Level 109 Carbon Dioxide Level 10.9 Anion Gap 12 Estimat Glomerular Filtration Rate 6 Lactic Acid Level 0.7 Total Creatine Kinase 135 Creatine Kinase MB 3.4 Troponin I LESS THAN 0.02 Thyroid Stimulating Hormone 3rd Gen 1.090 Urine Color YELLOW Urine Turbidity CLOUDY Urine pH 6.0 Urine Specific [place] 1.023 Urine Protein 300 Urine Glucose (UA) NEG Urine Ketones NEG Urine Occult Blood LARGE Urine Nitrite NEG Urine Bilirubin NEG Urine Urobilinogen LESS THAN 2.0 Urine Leukocyte Esterase LARGE Urine RBC Urine WBC Urine WBC Clumps MANY Urine Bacteria MANY Urine Hyaline Casts 51 Urine Mucus FEW Microscopic Urinalysis Comment CATH-CULTURE IND Date/Time Source Procedure Growth Status 10/04/17 10:23 Blood Arterial Line Aerobic Blood Culture Pending Received 10/04/17 10:23 Blood Arterial Line Anaerobic Blood Culture Pending Received 10/04/17 10:35 Urine Catheterized Urine Urine Culture Pending Received Result Diagram: 10/04/17 1023 10/04/17 1230 Imaging Last Impressions Chest X-Ray 10/04/17 1027 Signed Impressions: Service Date/Time: Wednesday, October 04, 2017 10:52 - CONCLUSION: Mild compensated cardiomegaly Hiram Magallanes MD FACR Assessment and Plan Problem List: (1) Acute renal failure ICD Codes: N17.9 - Acute kidney failure, unspecified Status: Acute Plan: Patient is seen during hemodialysis trying to correct hyperkalemia and acidosis We will continue to monitor Follow BMP (2) Acute hyperkalemia ICD Codes: E87.5 - Hyperkalemia Status: Acute Plan: Patient is treated potassium is declining 7.8 and she is on hemodialysis now (3) Metabolic encephalopathy ICD Codes: G93.41 - Metabolic encephalopathy Status: Acute Plan: Unclear etiology Problem Qualifiers (1) Acute renal failure: Qualified Codes: N17.9 - Acute kidney failure, unspecified Rafaela Dawson MD Oct 04, 2017 14:52
[2017-10-04] MEDS ORDERED: HEPARIN SODIUM - IV 10,000 UNITS/10 ML VIAL IV FLUSH PRN (15:00)
[2017-10-04] MEDS ORDERED: GELATIN 12 MM/7 MM FOAM TOP PRN (15:00)
[2017-10-04] MEDS ORDERED: cloNIDine HCL 0.1 MG TAB PO PRN (15:00)
[2017-10-04] MEDS ORDERED: HEPARIN SODIUM - IV 10,000 UNITS/10 ML VIAL PRN (15:00)
[2017-10-04] MEDS ORDERED: ACETAMINOPHEN 325 MG TAB PO PRN (15:00)
[2017-10-04] MEDS ORDERED: GENTAMICIN SULFATE 20 MG/2 ML VIAL OTHER PRN (15:00)
[2017-10-04] MEDS ORDERED: diphenhydrAMINE HCL 25 MG CAP PO PRN (15:00)
[2017-10-04] MEDS ORDERED: ONDANSETRON HCL 4 MG/2 ML VIAL IV PUSH PRN (15:00)
[2017-10-04] MEDS ORDERED: SODIUM CHLORIDE 0.9% FLUSH 10 ML FLUSH IV FLUSH PRN (15:00)
[2017-10-04] MEDS ORDERED: NITROGLYCERIN 0.4 MG SL 25 TABS/BTL SL PRN (15:00)
[2017-10-04] MEDS ORDERED: ALBUMIN 25% INJ 100 ML IV PRN (15:00)
[2017-10-04] MEDS ORDERED: MANNITOL 12.5 GM/50 ML VIAL IV PRN (15:00)
[2017-10-04] MEDS ORDERED: MORPHINE SULFATE 2 MG/ML SYRINGE ONE (15:11)
[2017-10-04] MEDS: RESP: ALBUTEROL 2.5 MG/IPRATROPIUM 0.5 MG NEB (SCH) INH ×3 (16:00→23:12)
[2017-10-04] MEDS ORDERED: MORPHINE SULFATE 2 MG/ML SYRINGE IV PUSH ONE (16:00)
[2017-10-04] MEDS: HYDROCORTISONE SOD SUCCINATE 100 MG VIAL IV PUSH SCH ×2 (16:19→19:53)
[2017-10-04] MEDS: AZTREONAM INJ 1,000 MG in SODIUM CHLORIDE 0.9% INJ 100 ML IV SCH ×2 (16:19→19:53)
[2017-10-04] MEDS: FAMOTIDINE 20 MG/2 ML VIAL IV PUSH SCH ×2 (16:19→19:53)
--- NOTE | 2017-10-04 16:50 | RADRPT ---
EXAM DATE/TIME: 10/04/2017 16:35 [facility] COMPARISON: CT BRAIN W/O CONTRAST, June 13, 2016, 18:49. INDICATIONS : Unrespnsive right facail droop,slurred speech RADIATION DOSE: 30.52 CTDIvol (mGy) MEDICAL HISTORY : Asthma SURGICAL HISTORY : Hysterectomy. ENCOUNTER: Initial ACUITY: 1 day PAIN SCALE: Non-responsive LOCATION: cranial TECHNIQUE: Multiple contiguous axial images were obtained of the head. Using automated exposure control and adj ustment of the mA and/or kV according to patient size, radiation dose was kept as low as reasonably a chievable to obtain optimal diagnostic quality images. DICOM format image data is available electro nically for review and comparison. FINDINGS: CEREBRUM: The ventricles are normal for age. No evidence of midline shift, mass lesion, hemorrhage or acute in farction. No extra-axial fluid collections are seen. POSTERIOR FOSSA: The cerebellum and brainstem are intact. The 4th ventricle is midline. The cerebellopontine angle i s unremarkable. EXTRACRANIAL: The visualized portion of the orbits is intact. SKULL: The calvaria is intact. No evidence of skull fracture. CONCLUSION: No acute disease. iHram Magallanes MD FACR on October 04, 2017 at 16:47 Board Certified Radiologist. This report was verified electronically.
[2017-10-04] MEDS: DEXT 5%-NACL 0.9% 1000 ML INJ 1,000 ML IV SCH (17:30)
--- NOTE | 2017-10-04 17:35 | RADRPT ---
EXAM DATE/TIME: 10/04/2017 16:35 [facility] COMPARISON: No previous studies available for comparison. INDICATIONS : Unresponsive,right facial droop,slurred speech RADIATION DOSE: 17.45 CTDIvol (mGy) MEDICAL HISTORY : Asthma SURGICAL HISTORY : Hysterectomy. ENCOUNTER: Initial ACUITY: 1 day PAIN SCALE: 0/10 LOCATION: neck TECHNIQUE: Volumetric scanning of the cervical spine was performed. Multiplanar reconstructions in the sagittal, coronal and oblique axial planes were performed. Using automated exposure control and adjustment o f the mA and/or kV according to patient size, radiation dose was kept as low as reasonably achievable to obtain optimal diagnostic quality images. DICOM format image data is available electronically f or review and comparison. FINDINGS: Vertebral body heights are maintained. Osseous structures are intact without evidence for acute bony fracture. Dens is intact. Subtle 2 mm anterolisthesis of C3 on C4 and 3 mm anterolisthesis of C4 on C 5. There is a normal C1-2 relationship. Facets are normally aligned. There is no significant preverte bral soft tissue hematoma. Multilevel degenerative spondylosis of the cervical spine most prominently at C5 to 7 with disc space narrowing and osteophyte formation. Multilevel facet arthropathy most pro minently at C3-5. Bony central canal is patent. No significant cervical adenopathy or gross mass. The thyroid appears unremarkable. Visualized lung apices are clear without pneumothorax. CONCLUSION: 1. No acute fracture. 2. Subtle anterolisthesis of C3 on C4 and C4 on C5 likely due to degenerative facet arthrosis. 3. Multilevel degenerative spondylosis of the cervical spine most prominently at C5-7. Yony Hunter MD on October 04, 2017 at 17:21 Board Certified Radiologist. This report was verified electronically.
--- NOTE | 2017-10-04 17:49 | PD.PROCEDR ---
Central Line Procedure REASON FOR PROCEDURE Central venous access PROCEDURE PERFORMED Central line placement: Left Femoral Vascath CONSENT Procedure was done emergently to start HD emergently for hyperkalemia ANESTHESIA Local injection of 1% Lidocaine DESCRIPTION OF THE PROCEDURE The patient was placed in supine, mild Trendelenburg position. The area was exposed and cleansed with ChloraPrep, times two. Large sterile drape was used to cover the patient, with the site exposed, under sterile conditions including cap, face mask, sterile gown, and sterile gloves. On single attempt, the introducer needle was inserted with negative pressure in syringe and venous flash was obtained. The guide wire was then advanced without any restriction and the needle was removed. The dilator was used without any complications. Using Seldinger technique the catheter was advanced over the guide wire to a depth of 20 centimeters. The guide wire was removed. All ports were aspirated with dark venous blood return and flushed easily with sterile saline. All ports were capped. Antibiotic disc was placed around central line at puncture site. The central line was secured to the skin with two interrupted 2.0 silk sutures. The area was bandaged with sterile see-through central line bandage. COMPLICATIONS: No apparent complications ESTIMATED BLOOD LOSS: Less than 1 cc. Marina Escobar MD Oct 04, 2017 17:49
[2017-10-04 18:25] LABS: BICARBONATE 25.7 MEQ/L (21.0-32.0); CALCIUM 7.4 MG/DL (8.5-10.1); CREATININE 2.47 MG/DL (0.50-1.00)
[2017-10-04 18:48] LABS: CALCIUM-PROTEIN CORRECTED 7.8 MG/DL (8.5-10.1); TOTAL PROTEIN 6.3 GM/DL (6.4-8.2)
--- NOTE | 2017-10-04 20:43 | EKG ---
Date Performed: 10/04/2017 Time Performed: 10:07:13 PTAGE: 61 years EKG: ATRIAL FIBRILLATION MODERATE INTRAVENTRICULAR CONDUCTION DELAY ABNORMAL RHYTHM ECG PREVIOUS TRACING : 06/13/2016 19.31 Compared to previous tracing, AFib is new DOCTOR: Timo Brennan Interpretating Date/Time 10/04/2017 20:42:23
[2017-10-04] MEDS: HALOPERIDOL LACTATE 5 MG/ML AMP IV PRN (21:22)
[2017-10-04] MEDS: HYDROmorphone HCL PF 2 MG/ML VIAL IV PUSH PRN (23:20)
[2017-10-05] VITALS (21 sets, daily range): BP systolic 74–125; BP diastolic 48–71; PULSE 91–128; RESP 15–65; TEMP 97.9–99.6; O2SAT 93–98
[2017-10-05] MEDS: INSULIN NovoLIN REGULAR SUPPLEMENTAL SCALE SQ SCH ×6 (00:54→22:00)
[2017-10-05] MEDS: HYDROCORTISONE SOD SUCCINATE 100 MG VIAL IV PUSH SCH ×3 (02:54→20:41)
[2017-10-05] MEDS: DEXT 5%-NACL 0.9% 1000 ML INJ 1,000 ML IV SCH (02:54)
[2017-10-05] MEDS: RESP: ALBUTEROL 2.5 MG/IPRATROPIUM 0.5 MG NEB (SCH) INH ×5 (03:21→20:37)
[2017-10-05] MEDS: HYDROmorphone HCL PF 2 MG/ML VIAL IV PUSH PRN ×5 (04:04→22:53)
[2017-10-05] MEDS: AZTREONAM INJ 1,000 MG in SODIUM CHLORIDE 0.9% INJ 100 ML IV SCH ×3 (04:04→20:44)
[2017-10-05] MEDS: HALOPERIDOL LACTATE 5 MG/ML AMP IV PRN ×3 (05:09→21:00)
[2017-10-05 06:54] LABS: AUTOMATED NEUTROPHIL # 3.7 TH/MM3 (1.8-7.7); BASOPHIL % 0.6 % (0.0-2.0); EOSINOPHIL % 0.5 % (0.0-4.0); HEMATOCRIT 23.1 % (35.0-46.0); HEMOGLOBIN 7.9 GM/DL (11.6-15.3); LYMPH % 18.9 % (9.0-44.0); MEAN CELL VOLUME 91.7 FL (80.0-100.0); MEAN CORPUSCULAR HEMOGLOBIN 31.3 PG (27.0-34.0); MEAN CORPUSCULAR HGB CONC 34.1 % (32.0-36.0); MEAN PLATELET VOLUME 8.1 FL (7.0-11.0); MONO % 10.7 % (0.0-8.0); MONOCYTE # 0.6 TH/MM3 (0-0.9); NEUT % 69.3 % (16.0-70.0); PLATELET COUNT 142 TH/MM3 (150-450); RED BLOOD COUNT 2.52 MIL/MM3 (4.00-5.30); RED CELL DISTRIBUTION WIDTH 12.7 % (11.6-17.2); WHITE BLOOD COUNT 5.4 TH/MM3 (4.0-11.0)
[2017-10-05 07:16] LABS: BICARBONATE 24.7 MEQ/L (21.0-32.0); CALCIUM 7.5 MG/DL (8.5-10.1); CREATININE 1.49 MG/DL (0.50-1.00)
[2017-10-05] MEDS: FAMOTIDINE 20 MG/2 ML VIAL IV PUSH SCH ×2 (08:50→20:44)
--- NOTE | 2017-10-05 08:57 | HHI.CCPN ---
Subjective Remarks/Hospital Course Patient is a 61-year-old female with past medical history of hypertension, hypothyroidism, anxiety/depression, schizoaffective disorder, who presented from a local alf due to altered mental status and lethargy. When EMS arrived, they noticed that she had a slight right facial droop. The patient is status post fall at 1:30 this morning. On arrival to the ER, she was hypotensive with a systolic blood pressure 70s-80s and bradycardic with heart rate in the 30s and 40s. EKG in the ED showed atrial fibrillation with a moderate intraventricular conduction delay. Her laboratory data is significant for hyperkalemia with a potassium of 9.1, which was slightly hemolyzed, and acute renal failure with a BUN of 118 and creatinine 6.62. In the ED, she is currently receiving a third liter of IV fluids. In addition, she was treated for hyperkalemia with 10 units of IV insulin, calcium , D50, 3 amps of sodium bicarbonate. A left femoral central line was placed by ED physician, and I placed a right femoral Vas-Cath. Nephrology service was notified for initiation of emergent hemodialysis due to hyperkalemia with EKG changes. She was also started on dopamine, currently at 20 mcg. The patient is awake, alert, however, confused at times. Her lactic acid level measured at 0.7. C-collar is in place. A chest x-ray in the ED showed mild compensated cardiomegaly. Most of the history was obtained from reviewing medical records as patient is a poor historian. She is about to undergo hemodialysis. 10/05 Patient s/p emergent HD yesterday for hyperkalemia yesterday K 4.1 this morning with Cr: 1.49 from 6.6 on arrival. On Dopamine 10 mics. Afebrile. Objective Vital Signs Date Time Temp Pulse Resp B/P (MAP) Pulse Ox O2 Delivery O2 Flow Rate FiO2 10/05/17 07:47 98 Nasal Cannula 2.00 10/05/17 06:18 100 81/51 10/05/17 04:00 97.9 15 Intake and Output 10/05/17 10/05/17 10/06/17 08:00 16:00 00:00 Intake Total 1100 ml Output Total 900 ml Balance 200 ml Result Diagram: 10/05/17 0550 10/05/17 0550 Other Results Laboratory Tests Test 10/04/17 10:23 10/04/17 10:35 10/04/17 12:30 10/04/17 13:40 White Blood Count 11.8 TH/MM3 Red Blood Count 3.70 MIL/MM3 Hemoglobin 11.4 GM/DL Hematocrit 34.8 % Mean Corpuscular Volume 94.2 FL Mean Corpuscular Hemoglobin 30.9 PG Mean Corpuscular Hemoglobin Concent 32.8 % Red Cell Distribution Width 13.3 % Platelet Count 293 TH/MM3 Mean Platelet Volume 8.7 FL Neutrophils (%) (Auto) 85.8 % Lymphocytes (%) (Auto) 7.8 % Monocytes (%) (Auto) 4.8 % Eosinophils (%) (Auto) 1.2 % Basophils (%) (Auto) 0.4 % Neutrophils # (Auto) 10.1 TH/MM3 Lymphocytes # (Auto) 0.9 TH/MM3 Monocytes # (Auto) 0.6 TH/MM3 Eosinophils # (Auto) 0.1 TH/MM3 Basophils # (Auto) 0.0 TH/MM3 CBC Comment DIFF FINAL Differential Comment Prothrombin Time 11.0 SEC Prothromb Time International Ratio 1.1 RATIO Activated Partial Thromboplast Time 25.0 SEC Blood Urea Nitrogen 118 MG/DL Creatinine 6.62 MG/DL Random Glucose 83 MG/DL Total Protein 7.7 GM/DL Albumin 3.5 GM/DL Calcium Level 8.7 MG/DL Phosphorus Level 10.3 MG/DL Magnesium Level 3.6 MG/DL Alkaline Phosphatase 151 U/L Aspartate Amino Transf (AST/SGOT) 18 U/L Alanine Aminotransferase (ALT/SGPT) 18 U/L Total Bilirubin 0.5 MG/DL Sodium Level 132 MEQ/L Potassium Level 9.1 MEQ/L 7.8 MEQ/L Chloride Level 109 MEQ/L Carbon Dioxide Level 10.9 MEQ/L Anion Gap 12 MEQ/L Estimat Glomerular Filtration Rate 6 ML/MIN Lactic Acid Level 0.7 mmol/L Total Creatine Kinase 135 U/L Creatine Kinase MB 3.4 NG/ML Troponin I LESS THAN 0.02 NG/ML Thyroid Stimulating Hormone 3rd Gen 1.090 uIU/ML Urine Color YELLOW Urine Turbidity CLOUDY Urine pH 6.0 Urine Specific [place] 1.023 Urine Protein 300 mg/dL Urine Glucose (UA) NEG mg/dL Urine Ketones NEG mg/dL Urine Occult Blood LARGE Urine Nitrite NEG Urine Bilirubin NEG Urine Urobilinogen LESS THAN 2.0 MG/DL Urine Leukocyte Esterase LARGE Urine RBC /hpf Urine WBC /hpf Urine WBC Clumps MANY Urine Bacteria MANY /hpf Urine Hyaline Casts 51 /lpf Urine Mucus FEW /lpf Microscopic Urinalysis Comment CATH-CULTURE IND Nasal Screen MRSA (PCR) MRSA DETECTED Test 10/04/17 16:53 10/04/17 17:09 10/04/17 17:32 10/05/17 05:50 Blood Gas Puncture Site RT RADIAL Blood Gas Patient Temperature 98.6 Blood Gas HCO3 23 mmol/L Blood Gas Base Excess -0.4 mmol/L Blood Gas Oxygen Saturation 96 % Arterial Blood pH 7.43 Arterial Blood Partial Pressure CO2 36 mmHg Arterial Blood Partial Pressure O2 91 mmHg Arterial Blood Oxygen Content 14.9 Vol % Arterial Blood Carboxyhemoglobin 0.8 % Arterial Blood Methemoglobin 1.2 % Blood Gas Hemoglobin 11.0 G/DL Oxygen Delivery Device NASAL CANNULA Blood Gas Liter Flow 2 L/M Blood Urea Nitrogen 52 MG/DL 39 MG/DL Creatinine 2.47 MG/DL 1.49 MG/DL Random Glucose 98 MG/DL 107 MG/DL Total Protein 6.3 GM/DL Calcium Level 7.4 MG/DL 7.5 MG/DL Sodium Level 143 MEQ/L 148 MEQ/L Potassium Level 4.2 MEQ/L 4.1 MEQ/L Chloride Level 109 MEQ/L 115 MEQ/L Carbon Dioxide Level 25.7 MEQ/L 24.7 MEQ/L Anion Gap 8 MEQ/L 8 MEQ/L Estimat Glomerular Filtration Rate 20 ML/MIN 35 ML/MIN Protein Corrected Calcium 7.8 MG/DL Hepatitis A IgM Antibody NONREACTIVE Hepatitis B Surface Antigen NONREACTIVE Hepatitis B Core IgM Antibody NONREACTIVE Hepatitis C IgG Antibody NONREACTIVE White Blood Count 5.4 TH/MM3 Red Blood Count 2.52 MIL/MM3 Hemoglobin 7.9 GM/DL Hematocrit 23.1 % Mean Corpuscular Volume 91.7 FL Mean Corpuscular Hemoglobin 31.3 PG Mean Corpuscular Hemoglobin Concent 34.1 % Red Cell Distribution Width 12.7 % Platelet Count 142 TH/MM3 Mean Platelet Volume 8.1 FL Neutrophils (%) (Auto) 69.3 % Lymphocytes (%) (Auto) 18.9 % Monocytes (%) (Auto) 10.7 % Eosinophils (%) (Auto) 0.5 % Basophils (%) (Auto) 0.6 % Neutrophils # (Auto) 3.7 TH/MM3 Lymphocytes # (Auto) 1.0 TH/MM3 Monocytes # (Auto) 0.6 TH/MM3 Eosinophils # (Auto) 0.0 TH/MM3 Basophils # (Auto) 0.0 TH/MM3 CBC Comment DIFF FINAL Differential Comment Imaging Last Impressions Head CT 10/04/17 1027 Signed Impressions: Service Date/Time: Wednesday, October 04, 2017 16:35 - CONCLUSION: No acute disease. Hiram Magallanes MD FACR Chest X-Ray 10/04/17 1027 Signed Impressions: Service Date/Time: Wednesday, October 04, 2017 10:52 - CONCLUSION: Mild compensated cardiomegaly Hiram Magallanes MD FACR Cervical Spine CT 10/04/17 1027 Signed Impressions: Service Date/Time: Wednesday, October 04, 2017 16:35 - CONCLUSION: 1. No acute fracture. 2. Subtle anterolisthesis of C3 on C4 and C4 on C5 likely due to degenerative facet arthrosis. 3. Multilevel degenerative spondylosis of the cervical spine most prominently at C5-7. Yony Hunter MD Objective Remarks GENERAL: Patient is lying in bed in NAD. SKIN: Warm and dry. HEAD: Normocephalic. EYES: No scleral icterus. No injection or drainage. NECK: Supple, trachea midline. No JVD or lymphadenopathy. CARDIOVASCULAR: Tachycardic without murmurs, gallops, or rubs. RESPIRATORY: Breath sounds equal bilaterally. No accessory muscle use. GASTROINTESTINAL: Abdomen soft, non-tender, nondistended. MUSCULOSKELETAL: No cyanosis, or edema. Neuro: Awake, alert and agitated at times A/P Assessment and Plan 1. Acute renal failure. 2. s/p Hyperkalemia requiring emergent HD 3. Septic shock 4. Gram + Bacteremia. 5. Urinary tract infection. 6. Altered mental status. 7. Respiratory insufficiency. 8. Hypothyroidism. 9. History of hypertension. 10. History of schizoaffective disorder. 11. History of anxiety and depression. Plan Neuro: Monitor neuro status closely and avoid any sedatives. CT brain: No acute disease CT cervical spine: No acute fracture. Will d/c C-collar Consult Psych Pulm: Continue with oxygen and maintain sats above 92%. Bronchodilators , decrease HC 50mg Q12 CV: Wean off dopamine and switch to Neosyn if needed maintain MAP>65 mmHg. Lactic acid level: 0.7. For 2-D echo to evaluate LV function. : Monitor renal function, I's and O's and avoid nephrotoxins. treated for hyperkalemia in the ED with 10 units of IV insulin, D50, bicarb and calcium. s/p emergent hemodialysis for hyperkalemia. K 4.1 today with Cr: 1.49 from 6.6 Change IVF D5W@84ml/hr, monitor sodium level ID: Continue aztreonam add vanco and monitor for signs of infection(fever and WBC). Follow up on blood and urine cultures. BC 10/04: GPC 07/30 bottles. Check BC x sets today Heme: Monitor CBC. Endo: SSI with Accu-Cheks q. 4 hours. GI prophylaxis with Pepcid 10 mg q. 12 and DVT prophylaxis with SCDs./add Heparin SQ Left femoral central line was placed by ED 10/04 right femoral Vas-Cath placed 10/04 Level 3 Marina Escobar MD Oct 05, 2017 08:57
[2017-10-05] MEDS ORDERED: SODIUM CHLOR 0.9% 1000 ML INJ 1,000 ML IV ONE (09:00)
[2017-10-05] MEDS ORDERED: TERBUTALINE INJ 1 MG/ML AMP SQ PRN (09:00)
[2017-10-05] MEDS ORDERED: PHENYLEPHRINE INJ 40 MG in DEXTROSE 5% IN WATE 500 ML INJ 496 ML IV PRN ×2 (09:00)
[2017-10-05] MEDS: DEXTROSE 5% IN WATE 1000ML INJ 1,000 ML IV SCH ×2 (10:14→20:42)
[2017-10-05] MEDS: VANCOMYCIN INJ 1,000 MG in SODIUM CHLOR 0.9% 250 ML INJ 250 ML IV SCH ×2 (10:39→21:29)
--- NOTE | 2017-10-05 11:58 | ECHRPT ---
Indication: eval LV function CONCLUSIONS The left ventricular systolic function is hyperdynamic with an estimated ejection fraction in the ra nge of 65- 70%. Normal left ventricular size. Wall thickness is normal. BP: 94 / 58 HR: 100 Rhythm: Sinus MEASUREMENTS (Male / Female) Normal Values Technical Quality:Technically difficult study 2D ECHO LV Diastolic Diameter PLAX 4.0 cm 4.2 - 5.9 / 3.9 - 5.3 cm LV Systolic Diameter PLAX 2.0 cm IVS Diastolic Thickness 0.9 cm 0.6 - 1.0 / 0.6 - 0.9 cm LVPW Diastolic Thickness 0.9 cm 0.6 - 1.0 / 0.6 - 0.9 cm LV Relative Wall Thickness 0.5 LVOT Diameter 1.9 cm M-MODE Aortic Root Diameter MM 2.9 cm LA Systolic Diameter MM 3.2 cm LA Ao Ratio MM 1.1 AV Cusp Separation MM 1.9 cm DOPPLER PV Peak Velocity 130.0 cm/s PV Peak Gradient 6.8 mmHg FINDINGS LEFT VENTRICLE The left ventricular systolic function is hyperdynamic with an estimated ejection fraction in the ra nge of 65- 70%. Normal left ventricular size. Wall thickness is normal. RIGHT VENTRICLE Normal right ventricular size and systolic function. LEFT ATRIUM The left atrial size is normal. RIGHT ATRIUM The right atrial size is normal. ATRIAL SEPTUM Normal atrial septal thickness without atrial level shunting by limited color doppler interrogation. AORTA The aortic root and proximal ascending aorta are normal in size on limited imaging. MITRAL VALVE Structurally normal mitral valve. No mitral valve stenosis or regurgitation. AORTIC VALVE Trileaflet aortic valve. No aortic valve stenosis or regurgitation. TRICUSPID VALVE Structurally normal tricuspid valve. No tricuspid valve stenosis or regurgitation. PULMONARY VALVE The pulmonary valve is not well visualized. VESSELS The inferior vena cava is normal in size. PERICARDIUM No pericardial effusion. Andi Rivera MD, FACC (Electronically Signed) Final Date:05 October 2017 11:56
--- NOTE | 2017-10-05 18:24 | HHI.NPPN ---
Subjective History of Present Illness 61 year old who is confused Objective Data Data 10/05/17 10/06/17 19:00 07:00 Intake Total 2711 ml Output Total 650 ml Balance 2061 ml Intake Oral 60 ml IV Total 2651 ml Output Urine Total 650 ml Stool Total 0 ml Vital Signs Date Time Temp Pulse Resp B/P (MAP) Pulse Ox O2 Delivery O2 Flow Rate FiO2 10/05/17 18:00 110 10/05/17 17:07 18 10/05/17 17:00 128 30 97/56 (70) 93 10/05/17 16:00 122 10/05/17 16:00 99.2 122 30 90/54 (66) 95 10/05/17 15:01 120 34 93/55 (68) 95 10/05/17 14:00 122 65 86/55 (65) 93 10/05/17 14:00 122 10/05/17 13:00 108 20 94/52 (66) 93 10/05/17 12:00 126 10/05/17 12:00 99.6 126 35 74/48 (57) 95 10/05/17 11:00 100 25 85/51 (62) 93 10/05/17 10:00 106 46 81/48 (59) 93 10/05/17 10:00 106 10/05/17 09:00 100 18 91/52 (65) 97 10/05/17 08:00 98 10/05/17 08:00 99.4 98 17 91/54 (66) 97 10/05/17 07:47 98 Nasal Cannula 2.00 10/05/17 07:00 114 50 92/50 (64) 97 10/05/17 06:18 100 81/51 10/05/17 06:00 101 17 95/53 (67) 98 10/05/17 06:00 105 10/05/17 05:00 106 30 89/71 (77) 97 10/05/17 04:00 97.9 91 15 94/58 (70) 98 10/05/17 04:00 91 10/05/17 02:04 95 10/05/17 00:00 96 10/05/17 00:00 97.9 96 15 93/52 (66) 98 10/04/17 22:00 99 10/04/17 22:00 90 79/55 10/04/17 21:30 99 115/66 10/04/17 21:00 99 112/84 10/04/17 20:11 100 Nasal Cannula 2.00 10/04/17 20:00 97.9 103 28 112/60 (77) 100 10/04/17 20:00 103 -: 10/05/17 0550 10/05/17 0550 Microbiology 10/05/17 Aerobic Blood Culture, Received Pending 10/05/17 Anaerobic Blood Culture, Received Pending 10/05/17 Aerobic Blood Culture, Received Pending 10/05/17 Anaerobic Blood Culture, Received Pending Physical Exam General Appearance: Well Developed, Well Nourished Pulmonary Resp Exam: Clear Bilaterally Cardiology CV Exam: Regular Gastrointestinal/Abdomen GI Exam: Soft, Non-Tender, Bowel Sounds Present Extremeties Extremities Exam: No Edema Assessment/Plan Problem List: (1) Acute renal failure ICD Codes: N17.9 - Acute kidney failure, unspecified Status: Acute Plan: Patient renal failure improved K normal dehydrated will follow as needed (2) Acute hyperkalemia ICD Codes: E87.5 - Hyperkalemia Status: Resolved (3) Metabolic encephalopathy ICD Codes: G93.41 - Metabolic encephalopathy Status: Acute Plan: Unclear etiology Problem Qualifiers (1) Acute renal failure: Qualified Codes: N17.9 - Acute kidney failure, unspecified Rafaela Dawson MD Oct 05, 2017 18:24
[2017-10-05] MEDS: HEPARIN SODIUM - SQ 10,000 UNITS/ML VIAL SQ SCH (20:42)
[2017-10-06] VITALS (21 sets, daily range): BP systolic 115–137; BP diastolic 60–94; PULSE 71–126; RESP 20–32; TEMP 98.2–100.2; O2SAT 92–100
[2017-10-06] MEDS: INSULIN NovoLIN REGULAR SUPPLEMENTAL SCALE SQ SCH ×6 (01:56→22:00)
[2017-10-06] MEDS ORDERED: ZIPRASIDONE MESYLATE 20 MG VIAL IM ONE (02:15)
[2017-10-06] MEDS: RESP: ALBUTEROL 2.5 MG/IPRATROPIUM 0.5 MG NEB (SCH) INH ×5 (03:07→20:18)
[2017-10-06 04:15] LABS: AUTOMATED NEUTROPHIL # 6.6 TH/MM3 (1.8-7.7); BASOPHIL % 0.3 % (0.0-2.0); HEMATOCRIT 22.2 % (35.0-46.0); HEMOGLOBIN 7.6 GM/DL (11.6-15.3); LYMPH % 7.3 % (9.0-44.0); LYMPHOCYTE # 0.6 TH/MM3 (1.0-4.8); MEAN CELL VOLUME 92.2 FL (80.0-100.0); MEAN CORPUSCULAR HEMOGLOBIN 31.6 PG (27.0-34.0); MEAN CORPUSCULAR HGB CONC 34.3 % (32.0-36.0); MEAN PLATELET VOLUME 8.1 FL (7.0-11.0); MONO % 5.6 % (0.0-8.0); MONOCYTE # 0.4 TH/MM3 (0-0.9); NEUT % 86.8 % (16.0-70.0); PLATELET COUNT 130 TH/MM3 (150-450); RED BLOOD COUNT 2.41 MIL/MM3 (4.00-5.30); RED CELL DISTRIBUTION WIDTH 13.3 % (11.6-17.2); WHITE BLOOD COUNT 7.6 TH/MM3 (4.0-11.0)
[2017-10-06 04:39] LABS: BICARBONATE 22.5 MEQ/L (21.0-32.0); CALCIUM 7.9 MG/DL (8.5-10.1)
[2017-10-06] MEDS: AZTREONAM INJ 1,000 MG in SODIUM CHLORIDE 0.9% INJ 100 ML IV SCH ×2 (06:18→14:23)
[2017-10-06] MEDS: DEXTROSE 5% IN WATE 1000ML INJ 1,000 ML IV SCH ×2 (06:21→21:46)
[2017-10-06] MEDS: HALOPERIDOL LACTATE 5 MG/ML AMP IV PRN (08:00)
[2017-10-06] MEDS: HYDROCORTISONE SOD SUCCINATE 100 MG VIAL IV PUSH SCH ×2 (08:00→21:45)
--- NOTE | 2017-10-06 08:34 | MB ---
cc: Alex Pineda MD, Franklyn F MD DATE: 10/05/2017 REQUESTING PHYSICIAN: Dr. Herndon REASON FOR CONSULTATION: Bacteremia, UTI. HISTORY OF PRESENT ILLNESS: This is a 61-year-old white female who was brought to the emergency department from a long-term facility on 10/04. The patient presented with altered mental status. She reportedly fell out of bed in the policy director hours prior to being brought to the emergency department. She was noted to be increasingly lethargic the following morning after the fall. She was also noted to have right facial drooping and mild slurring of the speech. In the emergency department heart rate was 105. White count was 11.8 and lactic acid level was 0.7. Cultures were taken on admission and the blood culture has Enterococcus faecalis in 1 bottle and another bottle has gram-positive cocci. The second set of blood cultures have no growth in 1 day. The urine culture has gram-negative ladi. Blood cultures repeated on 10/05 are pending. The patient was noted to have hypokalemia and acute renal failure. PAST MEDICAL HISTORY: Hypertension, hypothyroidism, schizoaffective disorder, anxiety, depression, history of colostomy, history of urinary tract infections. History of arthritis, partial hysterectomy, history of bowel perforation, history of ileostomy. ALLERGIES: SULFA, CEFEPIME, CEFTAROLINE, IODINE, LATEX, POTASSIUM IODIDE, METOCLOPRAMIDE, SODIUM IODIDE. MEDICATIONS: 1. Vancomycin. 2. Hydrocortisone. 3. Pepcid. 4. Aztreonam. 5. Dopamine. SOCIAL HISTORY: The patient is a long-term resident. No tobacco. She drinks 2 to 3 glasses of alcohol per day. No illicit drugs. FAMILY HISTORY: Noncontributory. REVIEW OF SYSTEMS: Difficult to obtain since the patient is confused. PHYSICAL EXAMINATION: GENERAL: Well-developed female who appears chronically ill. She is confused, but awake. VITAL SIGNS: Temperature 99.2, BP 97/56, heart rate 110, respirations 16. HEENT: Head atraumatic. Extraocular movements are grossly intact. Pupils reactive to light. No icterus. Oropharynx has moist mucosa without lesions. NECK: Supple. No adenopathy. LUNGS: Clear breath sounds with very slight rhonchi at the bases. HEART: Regular S1 and S2. No audible murmurs. ABDOMEN: Bowel sounds present. Soft, no tenderness appreciated on palpation. The patient has an ileostomy bag in place. RECTAL: Not performed. EXTREMITIES: No clubbing, cyanosis or edema. SKIN: No rash. NEUROLOGIC: Difficult to assess since the patient is confused. PSYCHIATRIC: The patient is calm and cooperative. LABORATORY DATA: WBC 5.4, platelets 142, 69% neutrophils, 18% lymphocytes, 10% monocytes, hemoglobin 7.9. Creatinine 1.49, BUN 39, estimated GFR 35, sodium 148, potassium 4.1. IMPRESSION: 1. Urinary tract infection due to negative bacteria. 2. Bacteremia. Enterococcus faecalis and gram-positive cocci in 1 set. The gram-positive cocci, not yet fully identified and therefore, if it is a different organism from the Enterococcus faecalis, it could be contamination. 3. Altered mental status. The patient also carries history of schizoaffective disorder, which could be contributing to her mental status issue or she also could have sepsis and altered mental status on the basis of sepsis. 4. Acute kidney disease. RECOMMENDATIONS: 1. Monitor urine culture. 2. Monitor blood cultures. 3. Continue vancomycin. 4. Continue aztreonam 5. Monitor clinical status. 6. Follow the new blood cultures, which have been repeated today. Thank you for this consultation. I will follow the patient's progress along with you and will make further recommendations on followup if necessary. MD MO Sánchez/ , 06:21 PM , 07:50 PM
[2017-10-06] MEDS: HEPARIN SODIUM - SQ 10,000 UNITS/ML VIAL SQ SCH ×2 (09:00→21:46)
[2017-10-06] MEDS: FAMOTIDINE 20 MG/2 ML VIAL IV PUSH SCH ×2 (09:00→21:46)
[2017-10-06] MEDS: VANCOMYCIN INJ 1,000 MG in SODIUM CHLOR 0.9% 250 ML INJ 250 ML IV SCH (10:50)
--- NOTE | 2017-10-06 12:50 | HHI.CCPN ---
Subjective Remarks/Hospital Course Patient is a 61-year-old female with past medical history of hypertension, hypothyroidism, anxiety/depression, schizoaffective disorder, who presented from a local [facility] due to altered mental status and lethargy. When EMS arrived, they noticed that she had a slight right facial droop. The patient is status post fall at 1:30 this morning. On arrival to the ER, she was hypotensive with a systolic blood pressure 70s-80s and bradycardic with heart rate in the 30s and 40s. EKG in the ED showed atrial fibrillation with a moderate intraventricular conduction delay. Her laboratory data is significant for hyperkalemia with a potassium of 9.1, which was slightly hemolyzed, and acute renal failure with a BUN of 118 and creatinine 6.62. In the ED, she is currently receiving a third liter of IV fluids. In addition, she was treated for hyperkalemia with 10 units of IV insulin, calcium , D50, 3 amps of sodium bicarbonate. A left femoral central line was placed by ED physician, and I placed a right femoral Vas-Cath. Nephrology service was notified for initiation of emergent hemodialysis due to hyperkalemia with EKG changes. She was also started on dopamine, currently at 20 mcg. The patient is awake, alert, however, confused at times. Her lactic acid level measured at 0.7. C-collar is in place. A chest x-ray in the ED showed mild compensated cardiomegaly. Most of the history was obtained from reviewing medical records as patient is a poor historian. She is about to undergo hemodialysis. 10/05 Patient s/p emergent HD yesterday for hyperkalemia yesterday K 4.1 this morning with Cr: 1.49 from 6.6 on arrival. On Dopamine 10 mics. Afebrile. 10/06 Patient was given Haldol and Geodon for agitation. Off pressor. Renal function continue to improve with Cr:1.0 today, T:100.2 Objective Vital Signs Date Time Temp Pulse Resp B/P (MAP) Pulse Ox O2 Delivery O2 Flow Rate FiO2 10/06/17 10:00 96 10/06/17 09:28 96 Nasal Cannula 2.00 10/06/17 08:00 99.8 23 132/65 (87) Intake and Output 10/06/17 10/06/17 10/06/17 07:59 15:59 23:59 Intake Total 1304 ml Output Total 425 ml Balance 879 ml Result Diagram: 10/06/17 0320 10/06/17 0320 Other Results Laboratory Tests Test 10/06/17 03:20 White Blood Count 7.6 TH/MM3 Red Blood Count 2.41 MIL/MM3 Hemoglobin 7.6 GM/DL Hematocrit 22.2 % Mean Corpuscular Volume 92.2 FL Mean Corpuscular Hemoglobin 31.6 PG Mean Corpuscular Hemoglobin Concent 34.3 % Red Cell Distribution Width 13.3 % Platelet Count 130 TH/MM3 Mean Platelet Volume 8.1 FL Neutrophils (%) (Auto) 86.8 % Lymphocytes (%) (Auto) 7.3 % Monocytes (%) (Auto) 5.6 % Eosinophils (%) (Auto) 0.0 % Basophils (%) (Auto) 0.3 % Neutrophils # (Auto) 6.6 TH/MM3 Lymphocytes # (Auto) 0.6 TH/MM3 Monocytes # (Auto) 0.4 TH/MM3 Eosinophils # (Auto) 0.0 TH/MM3 Basophils # (Auto) 0.0 TH/MM3 CBC Comment DIFF FINAL Differential Comment Blood Urea Nitrogen 25 MG/DL Creatinine 1.00 MG/DL Random Glucose 114 MG/DL Calcium Level 7.9 MG/DL Sodium Level 148 MEQ/L Potassium Level 4.0 MEQ/L Chloride Level 118 MEQ/L Carbon Dioxide Level 22.5 MEQ/L Anion Gap 8 MEQ/L Estimat Glomerular Filtration Rate 56 ML/MIN Imaging Last Impressions Head CT 10/04/17 1027 Signed Impressions: Service Date/Time: Wednesday, October 04, 2017 16:35 - CONCLUSION: No acute disease. Hiram Magallanes MD FACR Chest X-Ray 10/04/17 1027 Signed Impressions: Service Date/Time: Wednesday, October 04, 2017 10:52 - CONCLUSION: Mild compensated cardiomegaly Hiram Magallanes MD FACR Cervical Spine CT 10/04/17 1027 Signed Impressions: Service Date/Time: Wednesday, October 04, 2017 16:35 - CONCLUSION: 1. No acute fracture. 2. Subtle anterolisthesis of C3 on C4 and C4 on C5 likely due to degenerative facet arthrosis. 3. Multilevel degenerative spondylosis of the cervical spine most prominently at C5-7. Yony Hunter MD Objective Remarks GENERAL: Patient is lying in bed in NAD. SKIN: Warm and dry. HEAD: Normocephalic. EYES: No scleral icterus. No injection or drainage. NECK: Supple, trachea midline. No JVD or lymphadenopathy. CARDIOVASCULAR: Tachycardic without murmurs, gallops, or rubs. RESPIRATORY: Breath sounds equal bilaterally. No accessory muscle use. GASTROINTESTINAL: Abdomen soft, non-tender, nondistended. MUSCULOSKELETAL: No cyanosis, or edema. Neuro: Drowsy A/P Assessment and Plan 1. Acute renal failure. 2. s/p Hyperkalemia requiring emergent HD 3. Septic shock 4. Gram + Bacteremia. 5. Urinary tract infection. 6. Altered mental status. 7. Respiratory insufficiency. 8. Hypothyroidism. 9. History of hypertension. 10. History of schizoaffective disorder. 11. History of anxiety and depression. Plan Neuro: Monitor neuro status closely CT brain: No acute disease CT cervical spine: No acute fracture. Will d/c C-collar Psych is following Pulm: Continue with oxygen and maintain sats above 92%. Bronchodilators , decrease HC 25mg Q12 CV: Wean off dopamine and switch to Neosyn if needed maintain MAP>65 mmHg. Lactic acid level: 0.7. Echo showed EF 65-70% : Monitor renal function, I's and O's and avoid nephrotoxins. treated for hyperkalemia in the ED with 10 units of IV insulin, D50, bicarb and calcium. s/p emergent hemodialysis for hyperkalemia on arrival IVF D5W@84ml/hr, monitor sodium level ID: Continue aztreonam add vanco and monitor for signs of infection(fever and WBC). Follow up on blood and urine cultures. BC 10/04: GPC : Strep Viridans, Group D enterococcus Urine cx 10/04: E.coli ESBL Follow up on BC from 10/05 ID is following Heme: Monitor CBC, check Hemoccult Endo: SSI with Accu-Cheks q. 4 hours. GI prophylaxis with Pepcid 10 mg q. 12 and DVT prophylaxis with SCDs./ Heparin SQ Left femoral central line was placed by ED 10/04 right femoral Vas-Cath placed 10/04 d/c femoral lines and place peripheral IV's Will sign off and transfer care to [facility] 2 Marina Escobar MD Oct 06, 2017 12:49
--- NOTE | 2017-10-06 15:01 | PD.PSY.CON ---
Provisional Diagnosis Admission Date Oct 04, 2017 at 13:04 [place]. Delirium due to another underlying medical condition History of Present Illness Service Psychiatry Consult Requested By Critical care Reason for Consult Agitation Primary Care Physician No Primary Care Physician HPI Patient is a 61-year-old female with past medical history of hypertension, hypothyroidism, anxiety/depression, schizoaffective disorder, who presented from a local long term due to altered mental status and lethargy. When EMS arrived, they noticed that she had a slight right facial droop. The patient is status post fall at 1:30 this morning. On arrival to the ER, she was hypotensive with a systolic blood pressure 70s-80s and bradycardic with heart rate in the 30s and 40s. EKG in the ED showed atrial fibrillation with a moderate intraventricular conduction delay. Her laboratory data is significant for hyperkalemia with a potassium of 9.1, which was slightly hemolyzed, and acute renal failure with a BUN of 118 and creatinine 6.62. In the ED, she is currently receiving a third liter of IV fluids. In addition, she was treated for hyperkalemia with 10 units of IV insulin, calcium, D50, 3 amps of sodium bicarbonate. A left femoral central line was placed by ED physician, and I placed a right femoral Vas-Cath. Nephrology service was notified for initiation of emergent hemodialysis due to hyperkalemia with EKG changes. She was also started on dopamine, currently at 20 mcg. The patient is awake, alert, however, confused at times. Her lactic acid level measured at 0.7. C-collar is in place. A chest x-ray in the ED showed mild compensated cardiomegaly. Most of the history was obtained from reviewing medical records as patient is a poor historian. She is about to undergo hemodialysis. Patient was consulted to psychiatry due to severe agitation and psychosis. As per chart review I have seen that the patient has history of schizoaffective disorder and she has been on multiple psychotropics including Abilify 10, Haldol 5 twice daily, Lexapro 10 mg daily, Remeron 50 mg daily. On psychiatric evaluation today patient is agitated, disorganized, restrained. She is unable to provide any meaningful information for the psychiatric assessment due to the level of disorganization. The patient is persistently screaming, responding to internal stimuli, completely disoriented, having active visual hallucinations, talking with people that are not present in the room. As per conversation with nurse in charge the patient has been quite agitated for a long time now. Past Family Social History Coded Allergies: Sulfa (Sulfonamide Antibiotics) (Unverified Allergy, Severe, 10/04/17) cefepime (Unverified Allergy, Severe, 10/04/17) ceftaroline fosamil (Unverified Allergy, Severe, 10/04/17) iodine (Unverified Allergy, Severe, Anaphylaxis, 10/04/17) latex (Unverified Allergy, Severe, 10/04/17) metoclopramide (Unverified Allergy, Severe, 10/04/17) potassium iodide (Unverified Allergy, Severe, Anaphylaxis, 10/04/17) povidone-iodine (Unverified Allergy, Severe, Anaphylaxis, 10/04/17) sodium iodide (Unverified Allergy, Severe, Anaphylaxis, 10/04/17) sodium iodide (Unverified Allergy, Severe, Anaphylaxis, 10/04/17) *MDRO Multi-Drug Resistant Organism (Verified Adverse Reaction, Unknown, MRSA, 10/04/17) MRSA (urine) - 06/15/16 Active Scripts Oxycodone-Acetaminophen (Oxycodone-Acetaminophen) 5-325 mg Tab, 1 TAB PO Q6HR Y for pain >5, #20 TAB 0 Refills Prov:Nicolasa Mckeon MD 07/05/16 Lorazepam (Ativan) 0.5 Mg Tab, 0.5 MG PO BID Y for For mild anxiety / dyspnea, # 10 TAB Prov:Nicolasa Mckeon MD 07/05/16 Reported Medications Aripiprazole (Aripiprazole) 10 Mg Tab, 10 MG PO DAILY, TAB 0 Refills 10/04/17 Clomipramine (Clomipramine) 25 Mg Cap, 25 MG PO HS for OCD, CAP 0 Refills 10/04/17 Furosemide (Furosemide) 20 Mg Tab, 20 MG PO DAILY, TAB 0 Refills 10/04/17 Mirtazapine (Mirtazapine) 15 Mg Tab, 15 MG PO HS for Depression Control, TAB 0 Refills 10/04/17 Topiramate (Topiramate) 25 Mg Tab, 25 MG PO BID for Control Seizures, TAB 0 Refills 10/04/17 Diltiazem (Diltiazem) 30 Mg Tab, 30 MG PO TID for Angina, TAB 0 Refills 10/04/17 Methocarbamol (Methocarbamol) 500 Mg Tab, 500 MG PO Q12HR for Muscle Spasm, TAB 0 Refills 10/04/[address] (Aspirin EC) 81 Mg Tabdr, 81 MG PO DAILY, TAB 0 Refills 10/04/17 Gabapentin (Neurontin) 100 Mg Cap, 100 MG PO TID, CAP 0 Refills 10/04/17 Diphenoxylate-Atropine (Lomotil) 2.5-0.025 Mg Tab, 1 TAB PO Q12HR Y for DIARRHEA , TAB 0 Refills 10/04/17 Lisinopril (Lisinopril) 2.5 Mg Tab, 2.5 MG PO DAILY, TAB 0 Refills 10/04/17 Metoprolol Succinate ER 24 HR (Toprol XL) 25 Mg Tab, 25 MG PO HS, TAB 0 Refills 10/04/17 Ncrodpnajj-Vhmhdcfygicja-Hmrofbwa (Fioricet) 50-300-40 Mg Cap, 1 CAP PO Q12HR Y for HEADACHE, CAP 0 Refills 10/04/17 Clomipramine (Anafranil) 25 Mg Cap, 25 MG PO DAILY for OCD, CAP 0 Refills 10/04/17 Aripiprazole (Abilify) 10 Mg Tab, 10 MG PO BID, TAB 0 Refills 10/04/17 Haloperidol (Haloperidol) 5 Mg Tab, 5 MG IM BID, 0 Refills 10/04/17 Thiamine (Vitamin B-1) 100 Mg Tab, 100 MG PO DAILY for Nutritional Supplement, TAB 0 Refills 10/04/17 Folic Acid (Folic Acid) 0.4 Mg Tab, 1000 MCG PO DAILY for Nutritional Supplement , TAB 0 Refills 10/04/17 Lactic Acid (Ammonium Lactate) (Ammonium Lactate) 12 % Cre, 1 APPLIC TOP BID, CRE APPLY TO: 10/04/17 Ferrous Sulfate (Ferrous Sulfate) 325 Mg (65 Mg Iron) Tablet, 325 MG PO DAILY for Nutritional Supplement, TAB 0 Refills 10/04/17 Collagenase Topical (Santyl Topical) 250 Unit/Gm Oint, 1 APPLIC TOPICAL DAILY for Wound Management, GM 0 Refills 10/04/17 Trazodone (Trazodone) 50 Mg Tab, 25 MG PO HS for Control Depression, #30 TAB 0 Refills 06/13/16 Insulin Aspart Inj (Novolog Inj) 1,000 Unit/10 Ml Vial, 0 SQ DIRECTED for Blood Sugar Management, #10 ML 0 Refills Sliding Scale as directed. 06/13/16 Multiple Vitamin (Multiple Vitamin) 1 Tab, 1 TAB PO DAILY for Nutritional Supplement, TAB 0 Refills 06/13/16 Escitalopram (Lexapro) 10 Mg Tab, 10 MG PO DAILY, #30 TAB 0 Refills 06/13/16 Levothyroxine (Levothyroxine) 25 Mcg Tab, 25 MCG PO DAILY for Thyroid, #30 TAB 0 Refills 06/13/16 Famotidine (Famotidine) 20 Mg Tab, 20 MG PO BID, #60 TAB 0 Refills 06/13/16 Calcium Carbonate-Cholecalciferol (Calcium 500 +D) 500-400 Mg-Unit Tab, 1 TAB PO BID for Calcium Supplement, TAB 0 Refills 06/13/16 Discontinued Reported Medications Cholecalciferol (Vitamin D-1000) 1,000 Unit Tab, 5000 UNITS PO DAILY for Nutritional Supplement, #1 BOTTLE 0 Refills 06/13/16 Collagenase Topical (Santyl Topical) 250 Unit/Gm Oint, 1 APPLIC TOPICAL DAILY for Wound Management, #15 GM 0 Refills 06/13/16 Hydroxyzine HCl (Hydroxyzine HCl) 50 Mg Tab, 50 MG PO HS, TAB 0 Refills 06/13/16 Ergocalciferol (Ergocalciferol) 50,000 Unit Cap, 46656 UNITS PO Q7D for Nutritional Supplement, #30 CAP 0 Refills 06/13/16 Chlorhexidine Gluconate (Mouth) Liq (Chlorhexidine Gluconate (Mouth) Liq) 0.12% Soln, 15 ML SWISH-SPIT BID, #473 ML 0 Refills 06/13/16 Amlodipine (Amlodipine) 2.5 Mg Tab, 2.5 MG PO DAILY for Blood Pressure Management, #30 TAB 0 Refills 06/13/16 Acetaminophen Supp (Acetaminophen Supp) 650 Mg Supp, 650 MG RECTAL Q6H Y for FEVER, SUPP 0 Refills 06/13/16 Discontinued Scripts Prednisone (Prednisone) 5 Mg Tab, 2.5 MG PO DAILY for taper, #3 TAB 0 Refills Prov:Nicolasa Mckeon MD 07/05/16 Quetiapine (Seroquel) 100 Mg Tab, 100 MG PO DAILY@0600 for psychi, #30 TAB Prov:Nicolasa Mckeon MD 07/05/16 Quetiapine (Quetiapine) 200 Mg Tab, 200 MG PO HS for psych for 30 Days, TAB Prov:Nicolasa Mckeon MD 07/05/16 Current Medications Medications (Trade) Dose Ordered Sig/Trent Route Start Time Stop Time Status Last Admin (Pepcid Inj) 10 mg Q12HR IV PUSH 10/04/17 14:00 10/06/17 09:00 (Duoneb Neb) 1 ampule Q4HR NEB INH 10/04/17 16:00 10/05/17 20:37 (Duoneb Neb) 1 ampule Q2HR NEB PRN INH 10/04/17 13:15 Miscellaneous Information 1 Q361D XX 10/04/17 13:15 10/04/17 13:15 Aztreonam 1000 mg/ Sodium Chloride 100 ml @ 200 mls/hr Q8H IV 10/04/17 14:00 10/06/17 14:23 (D50w (Vial) Inj) 50 ml UNSCH PRN IV PUSH 10/04/17 13:15 (Glucagon Inj) 1 mg UNSCH PRN OTHER 10/04/17 13:15 (NovoLIN R SUPPLEMENTAL SCALE) 1 Q4H SQ 10/04/17 14:00 Sodium Chloride 1,000 ml @ 0 mls/hr Q0M PRN OTHER 10/04/17 14:52 (Heparin Inj) 8,000 units UNSCH PRN IV FLUSH 10/04/17 15:00 Sodium Chloride 1,000 ml @ 200 mls/hr Q5H PRN IV 10/04/17 14:52 Sodium Chloride 1,000 ml @ 0 mls/hr Q0M PRN OTHER 10/04/17 14:52 (Mannitol Inj) 12.5 gm UNSCH PRN IV 10/04/17 15:00 Albumin Human 100 ml @ 60 mls/hr UNSCH PRN IV 10/04/17 15:00 (NS Flush) 5 ml UNSCH PRN IV FLUSH 10/04/17 15:00 (Heparin Inj) UNSCH PRN .XX 10/04/17 15:00 (Gentamicin Inj) 20 mg UNSCH PRN OTHER 10/04/17 15:00 (Zofran Inj) 4 mg UNSCH PRN IV PUSH 10/04/17 15:00 (Tylenol) 650 mg UNSCH PRN PO 10/04/17 15:00 (Benadryl) 25 mg UNSCH PRN PO 10/04/17 15:00 (Nitrostat Sl) 0.4 mg UNSCH PRN SL 10/04/17 15:00 (Catapres) 0.1 mg UNSCH PRN PO 10/04/17 15:00 (Gelfoam 12 Mm/7 Mm Top) 1 foam UNSCH PRN TOP 10/04/17 15:00 (Dilaudid Pf Inj) 1 mg Q4H PRN IV PUSH 10/04/17 21:00 10/05/17 22:53 (Haldol Inj) 5 mg Q6H PRN IV 10/04/17 21:00 10/06/17 08:00 (Brethine Inj) 1 mg UNSCH PRN SQ 10/05/17 09:00 Dextrose 1,000 ml @ 84 mls/hr [id number] IV 10/05/17 09:00 10/06/17 06:21 (Heparin Inj) 5,000 units Q12HR SQ 10/05/17 21:00 10/06/17 09:00 Vancomycin HCl 1000 mg/Sodium Chloride 250 ml @ 250 mls/hr Q12H IV 10/05/17 10:00 10/06/17 10:50 (SoluCORTEF INJ) 25 mg Q12H IV PUSH 10/06/17 20:00 Physical Exam Vital Signs Vital Signs Date Time Temp Pulse Resp B/P (MAP) Pulse Ox O2 Delivery O2 Flow Rate FiO2 10/06/17 14:00 89 10/06/17 12:00 99.0 20 132/69 (90) 99 10/06/17 09:28 Nasal Cannula 2.00 I/O 10/06/17 10/06/17 10/07/17 08:00 16:00 00:00 Intake Total 1304 ml Output Total 425 ml Balance 879 ml Lab Results Test 10/06/17 03:20 White Blood Count 7.6 TH/MM3 Red Blood Count 2.41 MIL/MM3 Hemoglobin 7.6 GM/DL Hematocrit 22.2 % Mean Corpuscular Volume 92.2 FL Mean Corpuscular Hemoglobin 31.6 PG Mean Corpuscular Hemoglobin Concent 34.3 % Red Cell Distribution Width 13.3 % Platelet Count 130 TH/MM3 Mean Platelet Volume 8.1 FL Neutrophils (%) (Auto) 86.8 % Lymphocytes (%) (Auto) 7.3 % Monocytes (%) (Auto) 5.6 % Eosinophils (%) (Auto) 0.0 % Basophils (%) (Auto) 0.3 % Neutrophils # (Auto) 6.6 TH/MM3 Lymphocytes # (Auto) 0.6 TH/MM3 Monocytes # (Auto) 0.4 TH/MM3 Eosinophils # (Auto) 0.0 TH/MM3 Basophils # (Auto) 0.0 TH/MM3 CBC Comment DIFF FINAL Differential Comment Blood Urea Nitrogen 25 MG/DL Creatinine 1.00 MG/DL Random Glucose 114 MG/DL Calcium Level 7.9 MG/DL Sodium Level 148 MEQ/L Potassium Level 4.0 MEQ/L Chloride Level 118 MEQ/L Carbon Dioxide Level 22.5 MEQ/L Anion Gap 8 MEQ/L Estimat Glomerular Filtration Rate 56 ML/MIN Date/Time Source Procedure Growth Status 10/05/17 12:50 Blood Peripheral Aerobic Blood Culture - Preliminary NO GROWTH IN 1 DAY Resulted 10/05/17 12:50 Blood Peripheral Anaerobic Blood Culture - Preliminary NO GROWTH IN 1 DAY Resulted 10/04/17 10:35 Urine Catheterized Urine Urine Culture - Final Escherichia Coli Esbl Positive Complete Mental Status Examination Appearance: Appropriate Consciousness: Clouded Orientation: Person Motor Activity: Abnormal gait Speech: Incoherent Language: Perseveration Fund of Knowledge: Inadequate Memory: Impaired Mood: Angry Affect: Irritable Thought Process & Associations: Loose associations Thought Content: Bizarre thinking, Derealization Hallucination Type: Visual Delusion Type: None Suicidal Ideation: No Suicidal Plan: No Suicidal Intention: No Homicidal Ideation: No Homicidal Plan: No Homicidal Intention: No Insight: Poor Judgment: Poor Assessment & Plan Problem List: (1) Delirium due to another medical condition ICD Codes: F05 - Delirium due to known physiological condition Assessment & Plan: Patient is acutely delirium. Hold outpatient psychotropics . The patient is having active visual hallucinations, she is agitated, forcing the restraints. Continue Haldol 5 mg IM/IV every 8 hours as needed aggressive behavior and agitation. Haldol 5 mg p.o. twice daily to control behavior. QTc interval is 419. If psychosis and agitation persist beyond medical clearance the patient might benefit of psychiatric admission for stabilization. I will follow-up Assessment & Plan Estimated LOS: Ronaldo Hdz MD Oct 06, 2017 15:00
[2017-10-06] MEDS: HALOPERIDOL 1 MG TAB PO SCH (18:00)
[2017-10-06] MEDS ORDERED: ASP: Path resistant to other antimicrobials, culture proven PRN (19:45)
[2017-10-06] MEDS ORDERED: MISCELLANEOUS PHARMACY INFORMATION XX PRN ×2 (19:45)
--- NOTE | 2017-10-06 19:48 | HHI.IDPN ---
Note Infectious Disease Note Patient is calm and no distress. More alert. Afebrile. Denies chills. Urine culture has ESBL E. coli. Blood cultures from 10/05 has no growth. Presented with altered mental status. She reportedly fell out of bed in the global marketing specialist hours prior to being brought to the emergency department. She was noted to be increasingly lethargic the following morning after the fall. She was also noted to have right facial drooping and mild slurring of the speech. PAST MEDICAL HISTORY: Hypertension, hypothyroidism, schizoaffective disorder, anxiety, depression, history of colostomy, history of urinary tract infections. History of arthritis, partial hysterectomy, history of bowel perforation, history of ileostomy. ALLERGIES: SULFA, CEFEPIME, CEFTAROLINE, IODINE, LATEX, POTASSIUM IODIDE, METOCLOPRAMIDE, SODIUM IODIDE. MEDICATIONS: Current Medications Medications (Trade) Dose Ordered Sig/Trent Route PRN Reason Start Time Stop Time Status Last Admin Dose Admin Famotidine (Pepcid Inj) 10 mg Q12HR IV PUSH 10/04/17 14:00 10/06/17 09:00 Albuterol/ Ipratropium (Duoneb Neb) 1 ampule Q4HR NEB INH 10/04/17 16:00 10/05/17 20:37 Albuterol/ Ipratropium (Duoneb Neb) 1 ampule Q2HR NEB PRN INH WHEEZING 10/04/17 13:15 Miscellaneous Information 1 Q361D XX 10/04/17 13:15 10/04/17 13:15 Aztreonam 1000 mg/ Sodium Chloride 100 ml @ 200 mls/hr Q8H IV 10/04/17 14:00 10/06/17 14:23 Dextrose (D50w (Vial) Inj) 50 ml UNSCH PRN IV PUSH HYPOGLYCEMIA-SEE COMMENTS 10/04/17 13:15 Glucagon (Glucagon Inj) 1 mg UNSCH PRN OTHER HYPOGLYCEMIA-SEE COMMENTS 10/04/17 13:15 Insulin Human Regular (NovoLIN R SUPPLEMENTAL SCALE) 1 Q4H SQ 10/04/17 14:00 Sodium Chloride 1,000 ml @ 0 mls/hr Q0M PRN OTHER For Prime & Rinse Back 10/04/17 14:52 Heparin Sodium (Porcine) (Heparin Inj) 8,000 units UNSCH PRN IV FLUSH WITH DIALYSIS 10/04/17 15:00 Sodium Chloride 1,000 ml @ 200 mls/hr Q5H PRN IV WITH DIALYSIS 10/04/17 14:52 Sodium Chloride 1,000 ml @ 0 mls/hr Q0M PRN OTHER WITH DIALYSIS 10/04/17 14:52 Mannitol (Mannitol Inj) 12.5 gm UNSCH PRN IV WITH DIALYSIS 10/04/17 15:00 Albumin Human 100 ml @ 60 mls/hr UNSCH PRN IV WITH DIALYSIS 10/04/17 15:00 Sodium Chloride (NS Flush) 5 ml UNSCH PRN IV FLUSH WITH DIALYSIS 10/04/17 15:00 Heparin Sodium (Porcine) (Heparin Inj) UNSCH PRN .XX WITH DIALYSIS 10/04/17 15:00 Gentamicin Sulfate (Gentamicin Inj) 20 mg UNSCH PRN OTHER WITH DIALYSIS 10/04/17 15:00 Ondansetron HCl (Zofran Inj) 4 mg UNSCH PRN IV PUSH WITH DIALYSIS 10/04/17 15:00 Acetaminophen (Tylenol) 650 mg UNSCH PRN PO for headach, pain 1-10,T> 101F 10/04/17 15:00 Diphenhydramine HCl (Benadryl) 25 mg UNSCH PRN PO for hives/itching/anaphylaxis 10/04/17 15:00 Nitroglycerin (Nitrostat Sl) 0.4 mg UNSCH PRN SL CHEST PAIN 10/04/17 15:00 Clonidine (Catapres) 0.1 mg UNSCH PRN PO for BP > 180/100 X 2 readings 10/04/17 15:00 Gelatin (Gelfoam 12 Mm/7 Mm Top) 1 foam UNSCH PRN TOP SEE LABEL COMMENTS 10/04/17 15:00 Hydromorphone HCl (Dilaudid Pf Inj) 1 mg Q4H PRN IV PUSH Pain 6-10 10/04/17 21:00 10/05/17 22:53 Haloperidol Lactate (Haldol Inj) 5 mg Q6H PRN IV agitation 10/04/17 21:00 10/06/17 08:00 Terbutaline Sulfate (Brethine Inj) 1 mg UNSCH PRN SQ For Extravasation 10/05/17 09:00 Dextrose 1,000 ml @ 84 mls/hr [id number] IV 10/05/17 09:00 10/06/17 06:21 Heparin Sodium (Porcine) (Heparin Inj) 5,000 units Q12HR SQ 10/05/17 21:00 10/06/17 09:00 Vancomycin HCl 1000 mg/Sodium Chloride 250 ml @ 250 mls/hr Q12H IV 10/05/17 10:00 10/06/17 10:50 Hydrocortisone Sodium Succinate (SoluCORTEF INJ) 25 mg Q12H IV PUSH 10/06/17 20:00 Haloperidol (Haldol) 1 mg TID PO 10/06/17 18:00 SOCIAL HISTORY: The patient is a [facility] resident. No tobacco. She drinks 2 to 3 glasses of alcohol per day. No illicit drugs. Objective: Vital Signs Date Time Temp Pulse Resp B/P (MAP) Pulse Ox O2 Delivery O2 Flow Rate FiO2 10/06/17 18:00 89 10/06/17 17:00 74 10/06/17 16:00 91 10/06/17 16:00 98.8 91 21 130/94 (106) 98 10/06/17 15:00 71 10/06/17 14:00 89 10/06/17 13:00 99 10/06/17 12:00 89 10/06/17 12:00 99.0 89 20 132/69 (90) 99 10/06/17 11:00 86 10/06/17 10:00 96 10/06/17 09:28 96 Nasal Cannula 2.00 10/06/17 09:00 104 10/06/17 08:00 100 10/06/17 08:00 99.8 100 23 132/65 (87) 99 10/06/17 07:00 105 10/06/17 06:00 108 10/06/17 04:00 100.2 109 30 137/72 (93) 95 10/06/17 04:00 109 10/06/17 02:00 114 10/06/17 01:00 119 10/06/17 00:00 98.8 126 32 115/60 (78) 92 10/06/17 00:00 126 10/05/17 23:23 30 10/05/17 22:00 109 10/05/17 20:38 94 10/05/17 20:00 117 10/05/17 20:00 99.0 117 28 125/59 (81) 94 Laboratory Tests Test 10/06/17 03:20 White Blood Count 7.6 TH/MM3 Red Blood Count 2.41 MIL/MM3 Hemoglobin 7.6 GM/DL Hematocrit 22.2 % Mean Corpuscular Volume 92.2 FL Mean Corpuscular Hemoglobin 31.6 PG Mean Corpuscular Hemoglobin Concent 34.3 % Red Cell Distribution Width 13.3 % Platelet Count 130 TH/MM3 Mean Platelet Volume 8.1 FL Neutrophils (%) (Auto) 86.8 % Lymphocytes (%) (Auto) 7.3 % Monocytes (%) (Auto) 5.6 % Eosinophils (%) (Auto) 0.0 % Basophils (%) (Auto) 0.3 % Neutrophils # (Auto) 6.6 TH/MM3 Lymphocytes # (Auto) 0.6 TH/MM3 Monocytes # (Auto) 0.4 TH/MM3 Eosinophils # (Auto) 0.0 TH/MM3 Basophils # (Auto) 0.0 TH/MM3 CBC Comment DIFF FINAL Differential Comment Blood Urea Nitrogen 25 MG/DL Creatinine 1.00 MG/DL Random Glucose 114 MG/DL Calcium Level 7.9 MG/DL Sodium Level 148 MEQ/L Potassium Level 4.0 MEQ/L Chloride Level 118 MEQ/L Carbon Dioxide Level 22.5 MEQ/L Anion Gap 8 MEQ/L Estimat Glomerular Filtration Rate 56 ML/MIN Imaging: Head CT 10/04/17 1027 Signed Impressions: Service Date/Time: Wednesday, October 04, 2017 16:35 - CONCLUSION: No acute disease. Hiram Magallanes MD FACR Chest X-Ray 10/04/17 1027 Signed Impressions: Service Date/Time: Wednesday, October 04, 2017 10:52 - CONCLUSION: Mild compensated cardiomegaly Hiram Magallanes MD FACR Cervical Spine CT 10/04/17 1027 Signed Impressions: Service Date/Time: Wednesday, October 04, 2017 16:35 - CONCLUSION: 1. No acute fracture. 2. Subtle anterolisthesis of C3 on C4 and C4 on C5 likely due to degenerative facet arthrosis. 3. Multilevel degenerative spondylosis of the cervical spine most prominently at C5-7. Yony Hunter MD PHYSICAL EXAMINATION: GENERAL: Well-developed female who appears chronically ill. Appears more alert. HEENT: Head atraumatic. Extraocular movements are grossly intact. Pupils reactive to light. No icterus. Oropharynx has moist mucosa without lesions. NECK: Supple. No adenopathy. LUNGS: Clear breath sounds with very slight rhonchi at the bases. HEART: Regular S1 and S2. No audible murmurs. ABDOMEN: Bowel sounds present. Soft, no tenderness appreciated on palpation. The patient has an ileostomy bag in place. EXTREMITIES: No clubbing, cyanosis or edema. SKIN: No rash. NEUROLOGIC: No gross focal findings. PSYCHIATRIC: The patient is calm and cooperative. IMPRESSION: 1. Urinary tract infection due to ESBL E. coli. 2. Bacteremia. Enterococcus faecalis and gram-positive cocci in 1 set. The gram-positive cocci, not yet fully identified and therefore, if it is a different organism from the Enterococcus faecalis, it could be contamination. 3. Altered mental status. The patient also carries history of schizoaffective disorder, which could be contributing to her mental status issue or she also could have sepsis and altered mental status on the basis of sepsis. Mental status improved. 4. Acute kidney disease. Improving. Overall appears to be improving. RECOMMENDATIONS: 1. Follow the blood cultures. 2. Stop vancomycin. 3. Stop aztreonam 4. Begin ertapenem for ESBL E. coli in the urine. 5. Monitor clinical status. lAex Pineda MD Oct 06, 2017 19:48
[2017-10-06] MEDS: HYDROmorphone HCL PF 2 MG/ML VIAL IV PUSH PRN (21:46)
[2017-10-06] MEDS: ERTAPENEM INJ 1,000 MG in SODIUM CHLORIDE 0.9% INJ 100 ML IV SCH (22:38)
[2017-10-07] VITALS (14 sets, daily range): BP systolic 109–141; BP diastolic 58–65; PULSE 73–93; RESP 12–24; TEMP 97.7–99; O2SAT 97–99
[2017-10-07] MEDS: RESP: ALBUTEROL 2.5 MG/IPRATROPIUM 0.5 MG NEB (SCH) INH ×7 (00:03→23:02)
[2017-10-07] MEDS: INSULIN NovoLIN REGULAR SUPPLEMENTAL SCALE SQ SCH ×6 (02:00→20:19)
[2017-10-07] MEDS: HYDROmorphone HCL PF 2 MG/ML VIAL IV PUSH PRN ×3 (02:46→21:47)
[2017-10-07] MEDS: DEXTROSE 5% IN WATE 1000ML INJ 1,000 ML IV SCH ×2 (05:13→18:15)
[2017-10-07 06:22] LABS: BICARBONATE 23.8 MEQ/L (21.0-32.0); CALCIUM 7.5 MG/DL (8.5-10.1); CREATININE 0.81 MG/DL (0.50-1.00)
[2017-10-07 06:45] LABS: AUTOMATED NEUTROPHIL # 5.1 TH/MM3 (1.8-7.7); BASOPHIL % 0.6 % (0.0-2.0); EOSINOPHIL % 0.2 % (0.0-4.0); HEMATOCRIT 23.7 % (35.0-46.0); LYMPH % 17.6 % (9.0-44.0); LYMPHOCYTE # 1.2 TH/MM3 (1.0-4.8); MEAN CELL VOLUME 93.3 FL (80.0-100.0); MEAN CORPUSCULAR HEMOGLOBIN 31.4 PG (27.0-34.0); MEAN CORPUSCULAR HGB CONC 33.6 % (32.0-36.0); MONO % 9.4 % (0.0-8.0); MONOCYTE # 0.7 TH/MM3 (0-0.9); NEUT % 72.2 % (16.0-70.0); PLATELET COUNT 126 TH/MM3 (150-450); RED BLOOD COUNT 2.54 MIL/MM3 (4.00-5.30); WHITE BLOOD COUNT 7.1 TH/MM3 (4.0-11.0)
[2017-10-07] MEDS: HALOPERIDOL 1 MG TAB PO SCH ×3 (07:41→17:33)
[2017-10-07] MEDS: FAMOTIDINE 20 MG/2 ML VIAL IV PUSH SCH ×2 (07:41→20:18)
[2017-10-07] MEDS: HEPARIN SODIUM - SQ 10,000 UNITS/ML VIAL SQ SCH ×2 (07:41→20:17)
[2017-10-07] MEDS: HYDROCORTISONE SOD SUCCINATE 100 MG VIAL IV PUSH SCH ×2 (07:41→20:18)
[2017-10-07] MEDS: ERTAPENEM INJ 1,000 MG in SODIUM CHLORIDE 0.9% INJ 100 ML IV SCH (20:18)
--- NOTE | 2017-10-07 21:40 | HHI.PR ---
Subjective Remarks Patient is a 61-year-old female with past medical history of hypertension, hypothyroidism, anxiety/depression, schizoaffective disorder, who presented from a local long term due to altered mental status and lethargy. When EMS arrived, they noticed that she had a slight right facial droop. The patient is status post fall at 1:30 this morning. On arrival to the ER, she was hypotensive with a systolic blood pressure 70s-80s and bradycardic with heart rate in the 30s and 40s. EKG in the ED showed atrial fibrillation with a moderate intraventricular conduction delay. Her laboratory data is significant for hyperkalemia with a potassium of 9.1, which was slightly hemolyzed, and acute renal failure with a BUN of 118 and creatinine 6.62. In the ED, she is currently receiving a third liter of IV fluids. In addition, she was treated for hyperkalemia with 10 units of IV insulin, calcium , D50, 3 amps of sodium bicarbonate. A left femoral central line was placed by ED physician, and I placed a right femoral Vas-Cath. Nephrology service was notified for initiation of emergent hemodialysis due to hyperkalemia with EKG changes. She was also started on dopamine, currently at 20 mcg. The patient is awake, alert, however, confused at times. Her lactic acid level measured at 0.7. C-collar is in place. A chest x-ray in the ED showed mild compensated cardiomegaly. Most of the history was obtained from reviewing medical records as patient is a poor historian. She is about to undergo hemodialysis. 10/05 Patient s/p emergent HD yesterday for hyperkalemia yesterday K 4.1 this morning with Cr: 1.49 from 6.6 on arrival. On Dopamine 10 mics. Afebrile. 10/06 Patient was given Haldol and Geodon for agitation. Off pressor. Renal function continue to improve with Cr:1.0 today, T:100.2 = 10/07. Patient says she is feeling all right. Denies any chest pain or shortness of breath.. Denies any pain. Objective Vital Signs Date Time Temp Pulse Resp B/P (MAP) Pulse Ox O2 Delivery O2 Flow Rate FiO2 10/07/17 20:00 80 10/07/17 20:00 97.7 75 13 137/65 (89) 99 10/07/17 19:47 98 21 10/07/17 18:00 85 10/07/17 16:00 99.0 86 23 141/62 (88) 99 10/07/17 16:00 86 10/07/17 14:00 91 10/07/17 12:00 98.4 93 24 123/58 (79) 98 10/07/17 12:00 93 10/07/17 10:00 80 10/07/17 08:17 98 10/07/17 08:00 98.2 73 14 128/62 (84) 99 10/07/17 08:00 73 10/07/17 06:00 78 10/07/17 04:00 83 10/07/17 04:00 98.1 83 12 109/58 (75) 97 10/07/17 02:00 83 10/07/17 00:00 98.2 91 17 130/64 (86) 98 10/07/17 00:00 91 10/06/17 22:00 99 I/O 10/06/17 10/06/17 10/06/17 10/07/17 10/07/17 10/07/17 07:00 15:00 23:00 07:00 15:00 23:00 Intake Total 1304 ml 300 ml 2472 ml 1100 ml Output Total 425 ml 700 ml 300 ml 1500 ml Balance 879 ml -400 ml 2172 ml -400 ml Intake Oral 120 ml 300 ml 120 ml IV Total 1184 ml 2472 ml 980 ml Output Urine Total 425 ml 500 ml 300 ml 1500 ml Stool Total 200 ml 0 ml # Bowel Movements 0 Result Diagram: 10/07/17 0540 10/07/17 05 Objective Remarks GENERAL: patient sitting up in bed. Appears comfortable.she is somnolent but oriented 3. SKIN: Warm and dry. HEAD: Normocephalic. EYES: No scleral icterus. No injection or drainage. NECK: Supple, trachea midline. No JVD. CARDIOVASCULAR: Regular rate and rhythm without murmurs, gallops, or rubs. RESPIRATORY: Breath sounds equal bilaterally. No accessory muscle use. GASTROINTESTINAL: Abdomen soft, non-tender, nondistended. colostomy with some surrounding leakage. no surrounding erythema. Nursing informed. MUSCULOSKELETAL: No cyanosis, or edema. BACK: Nontender without obvious deformity. No CVA tenderness. A/P Assessment and Plan ===10/07 //Gram-positive bacteremia. Septic shock has resolved. Continue IV anti- biotics as per infectious disease. //UTI with ESBL Escherichia coli. Continue antibiotics as per infectious disease. //Extreme hyperkalemia 9.1 on admission. Resolved after dialysis. //Hypernatremia. Sodium 146 despite being on D5W fluids for several days. If persists tomorrow, would plan to re-consult nephrology. //Altered mental status on admission secondary to sepsis, and appears to have resolved. 1. Acute renal failure. 2. s/p Hyperkalemia requiring emergent HD 3. Septic shock 4. Gram + Bacteremia. 5. Urinary tract infection. 6. Altered mental status. 7. Respiratory insufficiency. 8. Hypothyroidism. 9. History of hypertension. 10. History of schizoaffective disorder. 11. History of anxiety and depression. Plan Neuro: Monitor neuro status closely CT brain: No acute disease CT cervical spine: No acute fracture. Will d/c C-collar Psych is following Pulm: Continue with oxygen and maintain sats above 92%. Bronchodilators , decrease HC 25mg Q12 CV: Wean off dopamine and switch to Neosyn if needed maintain MAP>65 mmHg. Lactic acid level: 0.7. Echo showed EF 65-70% : Monitor renal function, I's and O's and avoid nephrotoxins. treated for hyperkalemia in the ED with 10 units of IV insulin, D50, bicarb and calcium. s/p emergent hemodialysis for hyperkalemia on arrival IVF D5W@84ml/hr, monitor sodium level ID: Continue aztreonam add vanco and monitor for signs of infection(fever and WBC). Follow up on blood and urine cultures. BC 10/04: GPC : Strep Viridans, Group D enterococcus Urine cx 10/04: E.coli ESBL Follow up on BC from 10/05 ID is following Heme: Monitor CBC, check Hemoccult Endo: SSI with Accu-Cheks q. 4 hours. GI prophylaxis with Pepcid 10 mg q. 12 and DVT prophylaxis with SCDs./ Heparin SQ Discharge Planning transfer to floor. Will need infectious disease clearance Craig Fernando MD Oct 07, 2017 21:40
[2017-10-08] VITALS (8 sets, daily range): BP systolic 115–135; BP diastolic 56–86; PULSE 78–86; RESP 18–22; TEMP 98.4–99; O2SAT 97–100
[2017-10-08] MEDS: INSULIN NovoLIN REGULAR SUPPLEMENTAL SCALE SQ SCH ×3 (02:00→08:51)
[2017-10-08] MEDS: RESP: ALBUTEROL 2.5 MG/IPRATROPIUM 0.5 MG NEB (SCH) INH ×3 (02:43→12:11)
[2017-10-08] MEDS: HYDROmorphone HCL PF 2 MG/ML VIAL IV PUSH PRN ×3 (03:46→13:52)
[2017-10-08] MEDS: DEXTROSE 5% IN WATE 1000ML INJ 1,000 ML IV SCH (06:20)
[2017-10-08] MEDS: HYDROCORTISONE SOD SUCCINATE 100 MG VIAL IV PUSH SCH (08:37)
[2017-10-08] MEDS: FAMOTIDINE 20 MG/2 ML VIAL IV PUSH SCH ×2 (08:41→20:47)
[2017-10-08] MEDS: HALOPERIDOL 1 MG TAB PO SCH ×3 (08:42→18:22)
[2017-10-08] MEDS: HEPARIN SODIUM - SQ 10,000 UNITS/ML VIAL SQ SCH ×2 (08:44→20:47)
[2017-10-08 13:02] LABS: BICARBONATE 23.3 MEQ/L (21.0-32.0); CALCIUM 7.7 MG/DL (8.5-10.1); CREATININE 0.67 MG/DL (0.50-1.00)
--- NOTE | 2017-10-08 15:27 | HHI.PR ---
Subjective Remarks Patient is a 61-year-old female with past medical history of hypertension, hypothyroidism, anxiety/depression, schizoaffective disorder, who presented from a local senior care due to altered mental status and lethargy. When EMS arrived, they noticed that she had a slight right facial droop. The patient is status post fall at 1:30 this morning. On arrival to the ER, she was hypotensive with a systolic blood pressure 70s-80s and bradycardic with heart rate in the 30s and 40s. EKG in the ED showed atrial fibrillation with a moderate intraventricular conduction delay. Her laboratory data is significant for hyperkalemia with a potassium of 9.1, which was slightly hemolyzed, and acute renal failure with a BUN of 118 and creatinine 6.62. In the ED, she is currently receiving a third liter of IV fluids. In addition, she was treated for hyperkalemia with 10 units of IV insulin, calcium , D50, 3 amps of sodium bicarbonate. A left femoral central line was placed by ED physician, and I placed a right femoral Vas-Cath. Nephrology service was notified for initiation of emergent hemodialysis due to hyperkalemia with EKG changes. She was also started on dopamine, currently at 20 mcg. The patient is awake, alert, however, confused at times. Her lactic acid level measured at 0.7. C-collar is in place. A chest x-ray in the ED showed mild compensated cardiomegaly. Most of the history was obtained from reviewing medical records as patient is a poor historian. She is about to undergo hemodialysis. 10/05 Patient s/p emergent HD yesterday for hyperkalemia yesterday K 4.1 this morning with Cr: 1.49 from 6.6 on arrival. On Dopamine 10 mics. Afebrile. 10/06 Patient was given Haldol and Geodon for agitation. Off pressor. Renal function continue to improve with Cr:1.0 today, T:100.2 = 10/07. Patient says she is feeling all right. Denies any chest pain or shortness of breath.. Denies any pain. = 10/08. Patient reports poor appetite. Says that food does not really want to go down. Says she is feeling all right. Objective Vital Signs Date Time Temp Pulse Resp B/P (MAP) Pulse Ox O2 Delivery O2 Flow Rate FiO2 10/08/17 12:23 98.7 79 18 115/56 (75) 97 10/08/17 08:24 98.7 78 18 123/56 (78) 98 10/08/17 08:09 97 21 10/08/17 05:26 98.8 80 18 122/59 (80) 99 10/08/17 01:00 99.0 79 18 134/64 (87) 10/08/17 00:00 81 10/08/17 00:00 98.4 86 22 135/86 (102) 99 10/07/17 22:00 84 10/07/17 20:00 80 10/07/17 20:00 98.6 75 13 137/65 (89) 99 10/07/17 19:47 98 21 10/07/17 18:00 85 10/07/17 16:00 99.0 86 23 141/62 (88) 99 10/07/17 16:00 86 I/O 10/07/17 10/07/17 10/07/17 10/08/17 10/08/17 10/08/17 07:00 15:00 23:00 07:00 15:00 23:00 Intake Total 2472 ml 1100 ml Output Total 300 ml 1500 ml 200 ml Balance 2172 ml -400 ml -200 ml Intake Oral 120 ml IV Total 2472 ml 980 ml Output Urine Total 300 ml 1500 ml 200 ml Stool Total 0 ml # Bowel Movements 0 Result Diagram: 10/07/17 0540 10/08/17 1147 Objective Remarks GENERAL: patient sitting up in bed. Appears comfortable. she is somnolent but oriented 3. No change on exam. SKIN: Warm and dry. HEAD: Normocephalic. EYES: No scleral icterus. No injection or drainage. NECK: Supple, trachea midline. No JVD. CARDIOVASCULAR: Regular rate and rhythm without murmurs, gallops, or rubs. RESPIRATORY: Breath sounds equal bilaterally. No accessory muscle use. GASTROINTESTINAL: Abdomen soft, non-tender, nondistended. colostomy with some surrounding leakage. no surrounding erythema. Nursing informed. MUSCULOSKELETAL: No cyanosis, or edema. BACK: Nontender without obvious deformity. No CVA tenderness. A/P Assessment and Plan ===10/08 //Gram-positive bacteremia. Septic shock has resolved. Continue IV anti- biotics as per infectious disease. //UTI with ESBL Escherichia coli. Continue antibiotics as per infectious disease. //Extreme hyperkalemia 9.1 on admission. Resolved after dialysis. //Hypokalemia. 3.2. Replace. Watch closely. //Hypernatremia. Sodium 142 improved. Start on one half normal saline. //Altered mental status on admission secondary to sepsis, and appears to have resolved. //Dysphagia. Poor p.o. intake. Likely causing dehydration leading to admission. Previous history of esophageal dysmotility. Consult GI. Barium swallow. 1. Acute renal failure. Likely secondary to dehydration resolved after dialysis. Continue to monitor. 2. s/p Hyperkalemia requiring emergent HD. Resolved. Continue to monitor. 3. Septic shock. Resolved. Continue to treat infection. 4. Gram + Bacteremia. On antibiotics as per ID. 5. Urinary tract infection. ESBL E. coli. Continue antibiotics as per ID. 6. Altered mental status. Resolved. 7. Respiratory insufficiency. Resolved. 8. Hypothyroidism. Chronic. TSH within normal limits continue home medications. 9. History of hypertension. 10. History of schizoaffective disorder.= Continue home medications 11. History of anxiety and depression. Plan Neuro: Monitor neuro status closely CT brain: No acute disease CT cervical spine: No acute fracture. Will d/c C-collar Psych is following Pulm: Continue with oxygen and maintain sats above 92%. Bronchodilators , decrease HC 25mg Q12 CV: Wean off dopamine and switch to Neosyn if needed maintain MAP>65 mmHg. Lactic acid level: 0.7. Echo showed EF 65-70% : Monitor renal function, I's and O's and avoid nephrotoxins. treated for hyperkalemia in the ED with 10 units of IV insulin, D50, bicarb and calcium. s/p emergent hemodialysis for hyperkalemia on arrival IVF D5W@84ml/hr, monitor sodium level ID: Continue aztreonam add vanco and monitor for signs of infection(fever and WBC). Follow up on blood and urine cultures. BC 10/04: GPC : Strep Viridans, Group D enterococcus Urine cx 10/04: E.coli ESBL Follow up on BC from 10/05 ID is following Heme: Monitor CBC, check Hemoccult Endo: SSI with Accu-Cheks q. 4 hours. GI prophylaxis with Pepcid 10 mg q. 12 and DVT prophylaxis with SCDs./ Heparin SQ Discharge Planning transfer to floor. Will need infectious disease clearance Discharge Planning Workup for dehydration likely patient has esophageal dysmotility. Will need infectious disease clearance Craig Fernando MD Oct 08, 2017 15:27
[2017-10-08] MEDS ORDERED: POTASSIUM CHLOR 10 MEQ PREMIX 100 ML IV ONE (15:30)
[2017-10-08] MEDS: D5-1/2 NS + KCL 10 MEQ INJ 1,000 ML IV SCH (15:49)
--- NOTE | 2017-10-08 16:36 | RADRPT ---
EXAM DATE/TIME: 10/08/2017 15:57 [facility] COMPARISON: No previous studies available for comparison. INDICATIONS : Abdominal distention and discmofort. MEDICAL HISTORY : None. SURGICAL HISTORY : None. ENCOUNTER: Subsequent ACUITY: 4 - 6 days PAIN SCORE: 3/10 LOCATION: Abdomen. FINDINGS: Supine view of the abdomen was performed. The abdominal bowel gas pattern is normal. There appears t o be an ostomy site in the right lower quadrant. Calcifications are seen in the pelvis likely relate to phleboliths. There is degenerative change in the lumbar spine. CONCLUSION: Negative KUB. Andres Veronica MD on October 08, 2017 at 16:33 Board Certified Radiologist. This report was verified electronically.
[2017-10-08] MEDS: NYSTATIN SUSP 500,000 U/5 ML CUP SWISH-SWAL SCH ×2 (18:21→20:47)
[2017-10-08] MEDS: ERTAPENEM INJ 1,000 MG in SODIUM CHLORIDE 0.9% INJ 100 ML IV SCH (20:47)
[2017-10-08] MEDS ORDERED: SODIUM CHLORID 0.9% 500 ML IV PRN (22:45)
[2017-10-08] MEDS ORDERED: LACTATED RINGER'S 1000 ML IV PRN (22:45)
[2017-10-08] MEDS ORDERED: INSULIN HUMAN REGULAR 1,000 UNITS/10 ML VIAL SQ PRN (22:45)
[2017-10-08] MEDS ORDERED: METOPROLOL TARTRATE 25 MG TAB PO PRN (22:45)
[2017-10-09 01:14] VITALS: BP 145/60; PULSE 74; RESP 18; TEMP 99; O2SAT 97
[2017-10-09] MEDS ORDERED: ACETAMINOPHEN/HYDROcodone 325 MG/5 MG TAB PO ONE (01:45)
[2017-10-09 05:25] VITALS: BP 136/63; PULSE 71; RESP 18; TEMP 99.5; O2SAT 98
[2017-10-09 07:52] VITALS: BP 120/57; PULSE 69; RESP 17; TEMP 98.9; O2SAT 97
[2017-10-09] MEDS: NYSTATIN SUSP 500,000 U/5 ML CUP SWISH-SWAL SCH ×4 (08:48→21:08)
[2017-10-09] MEDS: HALOPERIDOL 1 MG TAB PO SCH ×3 (08:48→17:44)
[2017-10-09] MEDS: HEPARIN SODIUM - SQ 10,000 UNITS/ML VIAL SQ SCH (08:48)
[2017-10-09] MEDS: FAMOTIDINE 20 MG/2 ML VIAL IV PUSH SCH (08:48)
[2017-10-09] MEDS ORDERED: FLUCONAZOLE 200 MG TAB PO SCH (09:00)
--- NOTE | 2017-10-09 10:20 | HHI.PR ---
Subjective Remarks Says she is feeling all right. Swallowing is about the same as yesterday. Denies any chest pain or shortness of breath. Objective Vital Signs Date Time Temp Pulse Resp B/P (MAP) Pulse Ox O2 Delivery O2 Flow Rate FiO2 10/09/17 07:52 98.9 69 17 120/57 (78) 97 10/09/17 05:25 99.5 71 18 136/63 (87) 98 10/09/17 01:14 99.0 74 18 145/60 (88) 97 10/08/17 20:00 99.0 78 18 131/64 (86) 97 10/08/17 15:56 98.9 80 18 115/58 (77) 100 10/08/17 12:23 98.7 79 18 115/56 (75) 97 I/O 10/08/17 10/08/17 10/08/17 10/09/17 10/09/17 10/09/17 07:00 15:00 23:00 07:00 15:00 23:00 Intake Total 600 ml Output Total 200 ml 100 ml 850 ml Balance -200 ml -100 ml -250 ml IV Total 600 ml Output Urine Total 200 ml 850 ml Stool Total 100 ml # Voids 2 Result Diagram: 10/07/17 0540 10/08/17 1147 Objective Remarks GENERAL: patient sitting up in bed. Appears comfortable. she is somnolent but oriented 3. SKIN: Warm and dry. HEAD: Normocephalic. Patient does have oral thrush as yesterday. EYES: No scleral icterus. No injection or drainage. NECK: Supple, trachea midline. No JVD. CARDIOVASCULAR: Regular rate and rhythm without murmurs, gallops, or rubs. RESPIRATORY: Breath sounds equal bilaterally. No accessory muscle use. GASTROINTESTINAL: Abdomen soft, non-tender, nondistended. colostomy with some surrounding leakage. no surrounding erythema. Nursing informed. MUSCULOSKELETAL: No cyanosis, or edema. BACK: Nontender without obvious deformity. No CVA tenderness. A/P Assessment and Plan Patient presented with severe hyperkalemia 9.1 requiring dialysis. Patient also said he was septic shock, enterococcus bacteremia, ESBL E. coli. Continues on antibiotics as per infectious disease. Patient likely has dehydration secondary to dysphagia. Undergoing workup. ===10/09 //UTI with ESBL Escherichia coli. Continue antibiotics as per infectious disease. //Enterococcus bacteremia. Continue antibiotics as per infectious disease sensitive only to vancomycin, linezolid, daptomycin. //Extreme hyperkalemia 9.1 on admission. Resolved after dialysis. Repeat labs pending. //Hypokalemia. 3.2. Replace. Watch closely. Repeat labs pending. //Hypernatremia. Sodium 142 improved. Start on one half normal saline. Repeat labs today pending. //Altered mental status on admission secondary to sepsis, and appears to have resolved. //Thrush. Together with dysphasia will treat for esophageal candidiasis. IV fluconazole. //Dysphagia. //Malnutrition = poor p.o. intake. Likely causing dehydration leading to admission. Previous history of esophageal dysmotility. = EGD pending today. 1. Acute renal failure. Likely secondary to dehydration resolved after dialysis. Continue to monitor. 2. s/p Hyperkalemia requiring emergent HD. Resolved. Continue to monitor. 3. Septic shock. Resolved. Continue to treat infection. 4. Gram + Bacteremia. On antibiotics as per ID. 5. Urinary tract infection. ESBL E. coli. Continue antibiotics as per ID. 6. Altered mental status. Resolved. 7. Respiratory insufficiency. Resolved. 8. Hypothyroidism. Chronic. TSH within normal limits continue home medications. 9. History of hypertension. 10. History of schizoaffective disorder.= Continue home medications 11. History of anxiety and depression. Plan Neuro: Monitor neuro status closely CT brain: No acute disease CT cervical spine: No acute fracture. Will d/c C-collar Psych is following Pulm: Continue with oxygen and maintain sats above 92%. Bronchodilators , decrease HC 25mg Q12 CV: Wean off dopamine and switch to Neosyn if needed maintain MAP>65 mmHg. Lactic acid level: 0.7. Echo showed EF 65-70% : Monitor renal function, I's and O's and avoid nephrotoxins. treated for hyperkalemia in the ED with 10 units of IV insulin, D50, bicarb and calcium. s/p emergent hemodialysis for hyperkalemia on arrival IVF D5W@84ml/hr, monitor sodium level ID: Continue aztreonam add vanco and monitor for signs of infection(fever and WBC). Follow up on blood and urine cultures. BC 10/04: GPC : Strep Viridans, Group D enterococcus Urine cx 10/04: E.coli ESBL Follow up on BC from 10/05 ID is following Heme: Monitor CBC, check Hemoccult Endo: SSI with Accu-Cheks q. 4 hours. GI prophylaxis with Pepcid 10 mg q. 12 and DVT prophylaxis with SCDs./ Heparin SQ Discharge Planning transfer to floor. Will need infectious disease clearance Discharge Planning Continue IV antibiotics for enterococcus bacteremia, ESBL E. coli UTI. Workup for dehydration likely patient has esophageal dysmotility. Will need infectious disease clearance Craig Fernando MD Oct 09, 2017 10:20
[2017-10-09 10:30] LABS: AUTOMATED NEUTROPHIL # 3.4 TH/MM3 (1.8-7.7); BASOPHIL % 0.4 % (0.0-2.0); EOSINOPHIL # 0.4 TH/MM3 (0-0.4); HEMATOCRIT 22.2 % (35.0-46.0); HEMOGLOBIN 7.6 GM/DL (11.6-15.3); LYMPH % 19.7 % (9.0-44.0); MEAN CELL VOLUME 92.5 FL (80.0-100.0); MEAN CORPUSCULAR HEMOGLOBIN 31.7 PG (27.0-34.0); MEAN CORPUSCULAR HGB CONC 34.3 % (32.0-36.0); MEAN PLATELET VOLUME 8.1 FL (7.0-11.0); MONO % 7.1 % (0.0-8.0); MONOCYTE # 0.4 TH/MM3 (0-0.9); NEUT % 65.8 % (16.0-70.0); PLATELET COUNT 154 TH/MM3 (150-450); RED CELL DISTRIBUTION WIDTH 12.9 % (11.6-17.2); WHITE BLOOD COUNT 5.2 TH/MM3 (4.0-11.0)
[2017-10-09 10:52] LABS: PHOSPHORUS 1.9 MG/DL (2.5-4.9)
[2017-10-09 10:57] LABS: ALBUMIN 2.4 GM/DL (3.4-5.0); BICARBONATE 22.5 MEQ/L (21.0-32.0); CREATININE 0.68 MG/DL (0.50-1.00); MAGNESIUM 1.8 MG/DL (1.5-2.5)
[2017-10-09] MEDS ORDERED: LIDOCAINE HCL 1% PF 5 ML SYRINGE OTHER ONE (12:00)
[2017-10-09] MEDS ORDERED: DO NOT ADM ANY ANTICOAGULANT DRUGS PRN (12:00)
[2017-10-09] MEDS ORDERED: PROPOFOL 200 MG/20 ML AMP IV ONE (12:00)
[2017-10-09 12:38] VITALS: BP 141/62; PULSE 66; RESP 20; TEMP 98.7; O2SAT 98
[2017-10-09] MEDS: D5-1/2 NS + KCL 10 MEQ INJ 1,000 ML IV SCH (13:53)
--- NOTE | 2017-10-09 14:35 | PD.CONS ---
HPI History of Present Illness This is a 61 year old female who was admitted on October 04, 2017 with symptoms of altered mental status and lethargy patient was noted to have a slight right facial droop according to the record and was status post a fall early in the morning. Patient was treated for hypotension and bradycardia. Heart rhythm was irregular atrial fib with slow ventricular response. According to the patient and the record she had had EGD with dilatation many years ago but could not remember the date. Patient also noted unsure of the date of last colonoscopy was several years ago. Currently patient has symptoms of nausea but no vomiting. Today she is status post EGD with dilatation without any complications. Before today's date patient has noticed dysphasia for at least 6 months onset and states that in the past 2 months she has had 2 choking events one of them with rice. She did note increased mucus and saliva with some altered mental status during the event but finally subsided on its own. On admission patient's hemoglobin was 11.4 and is now 7.6 on 10/09/2017. KUB was performed on 10/08/2017 which was unremarkable. Hepatitis panel is negative. Patient currently has ileostomy in place and is discussing her hopes for a possible reversal in the near future. Currently patient is awake, answering simple questions, but a poor historian. Currently patient denies any diarrhea, constipation, and no known upper or lower GI bleeding. Patient's symptoms noted today post EGD with dilatation include weakness and fatigue which could be secondary to her anemia. (Brenna Pryor) [facility] Past Medical History History of hypertension Hypothyroidism Schizoaffective disorder Anxiety Depression Dysphasia Nausea related to her dysphasia Past Surgical History EGD with dilatation and colonoscopy several years ago, unknown date Ileostomy hemodialysis this admission (Brenna Pryor) Coded Allergies: Sulfa (Sulfonamide Antibiotics) (Unverified Allergy, Severe, 10/04/17) cefepime (Unverified Allergy, Severe, 10/04/17) ceftaroline fosamil (Unverified Allergy, Severe, 10/04/17) iodine (Unverified Allergy, Severe, Anaphylaxis, 10/04/17) latex (Unverified Allergy, Severe, 10/04/17) metoclopramide (Unverified Allergy, Severe, 10/04/17) potassium iodide (Unverified Allergy, Severe, Anaphylaxis, 10/04/17) povidone-iodine (Unverified Allergy, Severe, Anaphylaxis, 10/04/17) sodium iodide (Unverified Allergy, Severe, Anaphylaxis, 10/04/17) sodium iodide (Unverified Allergy, Severe, Anaphylaxis, 10/04/17) *MDRO Multi-Drug Resistant Organism (Verified Adverse Reaction, Unknown, MRSA, 10/04/17) MRSA (urine) - 06/15/16 Medications Administered Medications Medications (Trade) Dose Ordered Sig/Trent Route PRN Reason Start Time Stop Time Status Last Admin Dose Admin Famotidine (Pepcid Inj) 10 mg Q12HR IV PUSH 10/04/17 14:00 10/09/17 08:48 Miscellaneous Information 1 Q361D XX 10/04/17 13:15 10/04/17 13:15 Sodium Chloride (NS Flush) 5 ml UNSCH PRN IV FLUSH WITH DIALYSIS 10/04/17 15:00 10/08/17 08:40 Heparin Sodium (Porcine) (Heparin Inj) 5,000 units Q12HR SQ 10/05/17 21:00 Future Hold 10/09/17 08:48 Haloperidol (Haldol) 1 mg TID PO 10/06/17 18:00 10/09/17 13:51 Ertapenem 1000 mg/ Sodium Chloride 100 ml @ 200 mls/hr Q24H IV 10/06/17 20:00 10/08/17 20:47 Nystatin (Mycostatin Liq) 5 ml QID SWISH-SWAL 10/08/17 18:00 10/09/17 13:51 Potassium Chloride/Dextrose/ Sod Cl 1,000 ml @ 125 mls/hr Q8H IV 10/08/17 17:00 10/09/17 13:53 Family History No known colon cancer Social History Patient is single Non-smoker History of EtOH daily quit approximately 4 years ago Illicit drugs unknown (Brenna Pryor) Review of Systems Constitutional: COMPLAINS OF: Fatigue Gastrointestinal: COMPLAINS OF: Difficulty Swallowing (Brenna Pryor) GI Exam Vitals I&O Vital Signs Date Time Temp Pulse Resp B/P (MAP) Pulse Ox O2 Delivery O2 Flow Rate FiO2 10/09/17 12:38 98.7 66 20 141/62 (88) 98 10/09/17 12:05 98.8 73 22 118/55 (76) 98 10/09/17 07:52 98.9 69 17 120/57 (78) 97 10/09/17 05:25 99.5 71 18 136/63 (87) 98 10/09/17 01:14 99.0 74 18 145/60 (88) 97 10/08/17 20:00 99.0 78 18 131/64 (86) 97 10/08/17 15:56 98.9 80 18 115/58 (77) 100 I/O 10/08/17 10/08/17 10/08/17 10/09/17 10/09/17 10/09/17 07:00 15:00 23:00 07:00 15:00 23:00 Intake Total 600 ml 100 ml Output Total 200 ml 100 ml 850 ml 100 ml Balance -200 ml -100 ml -250 ml 0 ml IV Total 600 ml Other 100 ml Output Urine Total 200 ml 850 ml Stool Total 100 ml 100 ml # Voids 2 Imaging Last Impressions Abdomen X-Ray 10/08/17 0000 Signed Impressions: Service Date/Time: Sunday, October 08, 2017 15:57 - CONCLUSION: Negative KUB. Andres Veronica MD Head CT 10/04/17 1027 Signed Impressions: Service Date/Time: Wednesday, October 04, 2017 16:35 - CONCLUSION: No acute disease. Hiarm Magallanes MD FACR Chest X-Ray 10/04/17 1027 Signed Impressions: Service Date/Time: Wednesday, October 04, 2017 10:52 - CONCLUSION: Mild compensated cardiomegaly Hiram Magallanes MD FACR Cervical Spine CT 10/04/17 1027 Signed Impressions: Service Date/Time: Wednesday, October 04, 2017 16:35 - CONCLUSION: 1. No acute fracture. 2. Subtle anterolisthesis of C3 on C4 and C4 on C5 likely due to degenerative facet arthrosis. 3. Multilevel degenerative spondylosis of the cervical spine most prominently at C5-7. Yony Hunter MD Laboratory Test 10/09/17 07:17 White Blood Count 5.2 TH/MM3 Red Blood Count 2.40 MIL/MM3 Hemoglobin 7.6 GM/DL Hematocrit 22.2 % Mean Corpuscular Volume 92.5 FL Mean Corpuscular Hemoglobin 31.7 PG Mean Corpuscular Hemoglobin Concent 34.3 % Red Cell Distribution Width 12.9 % Platelet Count 154 TH/MM3 Mean Platelet Volume 8.1 FL Neutrophils (%) (Auto) 65.8 % Lymphocytes (%) (Auto) 19.7 % Monocytes (%) (Auto) 7.1 % Eosinophils (%) (Auto) 7.0 % Basophils (%) (Auto) 0.4 % Neutrophils # (Auto) 3.4 TH/MM3 Lymphocytes # (Auto) 1.0 TH/MM3 Monocytes # (Auto) 0.4 TH/MM3 Eosinophils # (Auto) 0.4 TH/MM3 Basophils # (Auto) 0.0 TH/MM3 CBC Comment DIFF FINAL Differential Comment Blood Urea Nitrogen 6 MG/DL Creatinine 0.68 MG/DL Random Glucose 75 MG/DL Albumin 2.4 GM/DL Calcium Level 8.0 MG/DL Phosphorus Level 1.9 MG/DL Magnesium Level 1.8 MG/DL Sodium Level 147 MEQ/L Potassium Level 3.4 MEQ/L Chloride Level 116 MEQ/L Carbon Dioxide Level 22.5 MEQ/L Anion Gap 9 MEQ/L Estimat Glomerular Filtration Rate 88 ML/MIN Date/Time Source Procedure Growth Status 10/05/17 12:50 Blood Peripheral Aerobic Blood Culture - Preliminary NO GROWTH IN 4 DAYS Resulted 10/05/17 12:50 Blood Peripheral Anaerobic Blood Culture - Preliminary NO GROWTH IN 4 DAYS Resulted 10/06/17 22:47 Stool Stool Stool Occult Blood (SKYLAR) - Final HEMOCCULT NEGATIVE Complete 10/04/17 10:35 Urine Catheterized Urine Urine Culture - Final Escherichia Coli Esbl Positive Complete Physical Examination HEENT: Pupils round and reactive to light; normocephalic; atraumatic; no jaundice. Throat is clear., Pale NECK: Neck is supple, no JVD, no lymphadenopathy. CHEST: Chest is clear to auscultation and percussion. Low volumes but no audible rhonchi or wheezing CARDIAC: Irregular rhythm, soft systolic murmur ABDOMEN: Soft, nondistended, nontender; no hepatosplenomegaly; bowel sounds are present in all four quadrants. EXTREMITIES: No clubbing, cyanosis, or edema. SKIN: Pale, normal; no rash; no jaundice. 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 2 episodes within the past couple of months of choking on rice. Patient was evaluated per speech therapy and was found to be aspirating on thin liquids. Patient was placed on nectar thick/honey thick liquids and foods. Endoscopy with dilatation performed on 10/09/[address] Shea. No complications Anemia, possibly due to chronic disease versus GI bleed. KUB performed on 2017 unremarkable hepatitis panel negative. History of renal disease and renal failure Ileostomy bag, currently with increased flatus post EGD, laura brown stool noted. Patient states she is hoping in the near future to have reversal done Poor historian Plan PPI initiated. Anti-emetics Monitor hemoglobin and other labs Colonoscopy, possible out patient setting, versus while in hospital, TBA Monitor for any acute bleeding and transfuse as necessary Speech therapy to reassess swallow now that EGD with dilatation has been done and recommend any diet changes Supportive care This patient was seen per myself and Dr. Shea, this note was written on her behalf (Brenna Pryor) Physician Comments seen, examined agree with above (Simona Shea MD) Brenna Pryor Oct 09, 2017 14:35 Simona Shea MD Oct 09, 2017 15:59
[2017-10-09] MEDS: PANTOPRAZOLE SOD 40 MG DELAYED RELEASE TAB PO SCH (14:45)
--- NOTE | 2017-10-09 15:21 | RADRPT ---
EXAM DATE/TIME: 10/09/2017 14:51 [place] COMPARISON: BARIUM SWALLOW, June 11, 2015, 8:30. INDICATIONS : Dysphagia. FLUORO TIME: 1.3 minutes IMAGE COUNT: 10 CONTRAST: 1. Liquid E-Z Paque Barium Sulfate (60% w/v, 41% w.w) MEDICAL HISTORY : Gastroesophageal reflux disease. asthma, skin cancer, IBS SURGICAL HISTORY : Hysterectomy. ENCOUNTER: Initial ACUITY: 4 - 6 months PAIN SCORE: 10/10 LOCATION: Bilateral neck FINDINGS: Barium swallow is limited because of inability to position patient. There is no rogelio aspiration or constricting or obstructing lesions. Gastroesophageal junction appears unremarkable. CONCLUSION: Negative or obstructing lesion. If symptoms persist regulation may be of benefit. The exam is sever tyrone limited by the inability to properly position patient. Hiram Magallanes MD FACR on October 09, 2017 at 15:17 Board Certified Radiologist. This report was verified electronically.
[2017-10-09] MEDS: traMADol HCL 50 MG TAB PO PRN ×2 (15:25→21:09)
[2017-10-09 15:44] VITALS: BP 139/63; PULSE 55; RESP 18; TEMP 98.8; O2SAT 100
--- NOTE | 2017-10-09 15:49 | HHI.IDPN ---
Note Infectious Disease Note Patient is awake and alert. Notes achiness all over. Afebrile. Denies chills. Urine culture 10/04 had ESBL E. coli. Blood cultures from 10/05 has no growth. Presented with altered mental status. She reportedly fell out of bed in the population health manager hours prior to being brought to the emergency department. She was noted to be increasingly lethargic the following morning after the fall. She was also noted to have right facial drooping and mild slurring of the speech. PAST MEDICAL HISTORY: Hypertension, hypothyroidism, schizoaffective disorder, anxiety, depression, history of colostomy, history of urinary tract infections. History of arthritis, partial hysterectomy, history of bowel perforation, history of ileostomy. ALLERGIES: SULFA, CEFEPIME, CEFTAROLINE, IODINE, LATEX, POTASSIUM IODIDE, METOCLOPRAMIDE, SODIUM IODIDE. MEDICATIONS: Current Medications Medications (Trade) Dose Ordered Sig/Trent Route PRN Reason Start Time Stop Time Status Last Admin Dose Admin Albuterol/ Ipratropium (Duoneb Neb) 1 ampule Q2HR NEB PRN INH WHEEZING 10/04/17 13:15 Miscellaneous Information 1 Q361D XX 10/04/17 13:15 10/04/17 13:15 Sodium Chloride 1,000 ml @ 0 mls/hr Q0M PRN OTHER For Prime & Rinse Back 10/04/17 14:52 Heparin Sodium (Porcine) (Heparin Inj) 8,000 units UNSCH PRN IV FLUSH WITH DIALYSIS 10/04/17 15:00 Sodium Chloride 1,000 ml @ 200 mls/hr Q5H PRN IV WITH DIALYSIS 10/04/17 14:52 Sodium Chloride 1,000 ml @ 0 mls/hr Q0M PRN OTHER WITH DIALYSIS 10/04/17 14:52 Mannitol (Mannitol Inj) 12.5 gm UNSCH PRN IV WITH DIALYSIS 10/04/17 15:00 Albumin Human 100 ml @ 60 mls/hr UNSCH PRN IV WITH DIALYSIS 10/04/17 15:00 Sodium Chloride (NS Flush) 5 ml UNSCH PRN IV FLUSH WITH DIALYSIS 10/04/17 15:00 10/08/17 08:40 Heparin Sodium (Porcine) (Heparin Inj) UNSCH PRN .XX WITH DIALYSIS 10/04/17 15:00 Gentamicin Sulfate (Gentamicin Inj) 20 mg UNSCH PRN OTHER WITH DIALYSIS 10/04/17 15:00 Ondansetron HCl (Zofran Inj) 4 mg UNSCH PRN IV PUSH WITH DIALYSIS 10/04/17 15:00 Acetaminophen (Tylenol) 650 mg UNSCH PRN PO for headach, pain 1-10,T> 101F 10/04/17 15:00 Diphenhydramine HCl (Benadryl) 25 mg UNSCH PRN PO for hives/itching/anaphylaxis 10/04/17 15:00 Nitroglycerin (Nitrostat Sl) 0.4 mg UNSCH PRN SL CHEST PAIN 10/04/17 15:00 Clonidine (Catapres) 0.1 mg UNSCH PRN PO for BP > 180/100 X 2 readings 10/04/17 15:00 Gelatin (Gelfoam 12 Mm/7 Mm Top) 1 foam UNSCH PRN TOP SEE LABEL COMMENTS 10/04/17 15:00 Terbutaline Sulfate (Brethine Inj) 1 mg UNSCH PRN SQ For Extravasation 10/05/17 09:00 Heparin Sodium (Porcine) (Heparin Inj) 5,000 units Q12HR SQ 10/05/17 21:00 Future Hold 10/09/17 08:48 Haloperidol (Haldol) 1 mg TID PO 10/06/17 18:00 10/09/17 13:51 Ertapenem 1000 mg/ Sodium Chloride 100 ml @ 200 mls/hr Q24H IV 10/06/17 20:00 10/08/17 20:47 Nystatin (Mycostatin Liq) 5 ml QID SWISH-SWAL 10/08/17 18:00 10/09/17 13:51 Potassium Chloride/Dextrose/ Sod Cl 1,000 ml @ 125 mls/hr Q8H IV 10/08/17 17:00 10/09/17 13:53 Fluconazole/ Sodium Chloride 100 ml @ 100 mls/hr Q24H IV 10/09/17 20:00 Lactated Ringer's 1,000 ml @ 30 mls/hr Q24H PRN IV SEE LABEL COMMENTS 10/08/17 22:45 10/11/17 22:44 Sodium Chloride 500 ml @ 30 mls/hr [id number] PRN IV SEE LABEL COMMENTS 10/08/17 22:45 10/11/17 22:44 Metoprolol Tartrate (Lopressor) 25 mg SUSTAINABLE LANDSCAPE ARCHITECT PRN PO SEE LABEL COMMENTS 10/08/17 22:45 10/11/17 22:44 Insulin Human Regular (NovoLIN R INJ) See Protocol Table ... SUSTAINABLE LANDSCAPE ARCHITECT PRN SQ SEE PROTOCOL TABLE 10/08/17 22:45 10/11/17 22:44 Miscellaneous Information ALL NURSING DEPARTME... UNSCH PRN .XX SEE LABEL COMMENTS 10/09/17 12:00 10/10/17 11:59 Tramadol HCl (Ultram) 50 mg Q6H PRN PO PAIN SCALE 1 TO 10 10/09/17 14:30 10/09/17 15:25 Pantoprazole Sodium (Protonix) 40 mg DAILY PO 10/09/17 14:45 SOCIAL HISTORY: The patient is a retirement resident. No tobacco. She drinks 2 to 3 glasses of alcohol per day. No illicit drugs. Objective: Vital Signs Date Time Temp Pulse Resp B/P (MAP) Pulse Ox O2 Delivery O2 Flow Rate FiO2 10/09/17 12:38 98.7 66 20 141/62 (88) 98 10/09/17 12:05 98.8 73 22 118/55 (76) 98 10/09/17 07:52 98.9 69 17 120/57 (78) 97 10/09/17 05:25 99.5 71 18 136/63 (87) 98 10/09/17 01:14 99.0 74 18 145/60 (88) 97 10/08/17 20:00 99.0 78 18 131/64 (86) 97 10/08/17 15:56 98.9 80 18 115/58 (77) 100 Laboratory Tests Test 10/09/17 07:17 White Blood Count 5.2 TH/MM3 Red Blood Count 2.40 MIL/MM3 Hemoglobin 7.6 GM/DL Hematocrit 22.2 % Mean Corpuscular Volume 92.5 FL Mean Corpuscular Hemoglobin 31.7 PG Mean Corpuscular Hemoglobin Concent 34.3 % Red Cell Distribution Width 12.9 % Platelet Count 154 TH/MM3 Mean Platelet Volume 8.1 FL Neutrophils (%) (Auto) 65.8 % Lymphocytes (%) (Auto) 19.7 % Monocytes (%) (Auto) 7.1 % Eosinophils (%) (Auto) 7.0 % Basophils (%) (Auto) 0.4 % Neutrophils # (Auto) 3.4 TH/MM3 Lymphocytes # (Auto) 1.0 TH/MM3 Monocytes # (Auto) 0.4 TH/MM3 Eosinophils # (Auto) 0.4 TH/MM3 Basophils # (Auto) 0.0 TH/MM3 CBC Comment DIFF FINAL Differential Comment Laboratory Tests Test 10/08/17 11:47 10/09/17 07:17 Blood Urea Nitrogen 7 MG/DL 6 MG/DL Creatinine 0.67 MG/DL 0.68 MG/DL Random Glucose 116 MG/DL 75 MG/DL Calcium Level 7.7 MG/DL 8.0 MG/DL Sodium Level 142 MEQ/L 147 MEQ/L Potassium Level 3.2 MEQ/L 3.4 MEQ/L Chloride Level 112 MEQ/L 116 MEQ/L Carbon Dioxide Level 23.3 MEQ/L 22.5 MEQ/L Anion Gap 7 MEQ/L 9 MEQ/L Estimat Glomerular Filtration Rate 89 ML/MIN 88 ML/MIN Magnesium Level 1.7 MG/DL 1.8 MG/DL Albumin 2.4 GM/DL Phosphorus Level 1.9 MG/DL Microbiology Date/Time Source Procedure Growth Status 10/06/17 22:47 Stool Stool Stool Occult Blood (SKYLAR) - Final HEMOCCULT NEGATIVE Complete Imaging: Barium Swallow X-Ray 10/09/17 0000 Signed Impressions: Service Date/Time: Monday, October 09, 2017 14:51 - CONCLUSION: Negative or obstructing lesion. If symptoms persist regulation may be of benefit. The exam is severely limited by the inability to properly position patient. Hiram Magallanes MD FACR Abdomen X-Ray 10/08/17 0000 Signed Impressions: Service Date/Time: Sunday, October 08, 2017 15:57 - CONCLUSION: Negative KUB. Andres Veronica MD Head CT 10/04/17 1027 Signed Impressions: Service Date/Time: Wednesday, October 04, 2017 16:35 - CONCLUSION: No acute disease. Hiram Magallanes MD FACR Chest X-Ray 10/04/17 1027 Signed Impressions: Service Date/Time: Wednesday, October 04, 2017 10:52 - CONCLUSION: Mild compensated cardiomegaly Hiram Magallanes MD FACR Cervical Spine CT 10/04/17 1027 Signed Impressions: Service Date/Time: Wednesday, October 04, 2017 16:35 - CONCLUSION: 1. No acute fracture. 2. Subtle anterolisthesis of C3 on C4 and C4 on C5 likely due to degenerative facet arthrosis. 3. Multilevel degenerative spondylosis of the cervical spine most prominently at C5-7. Yony Hunter MD PHYSICAL EXAMINATION: GENERAL: Awake and alert. No acute distress. HEENT: No icterus. Oropharynx has moist mucosa without lesions. NECK: Supple. No adenopathy. LUNGS: Clear diminished breath sounds. HEART: Regular S1 and S2. No audible murmurs. ABDOMEN: Bowel sounds present. Soft, no tenderness appreciated on palpation. Ileostomy site appears intact. EXTREMITIES: No clubbing, cyanosis or edema. SKIN: No rash. NEUROLOGIC: No gross focal findings. PSYCHIATRIC: Calm and cooperative. IMPRESSION: 1. Urinary tract infection due to ESBL E. coli. 2. Bacteremia. Enterococcus faecalis, Enterococcus faecium, staph coag negative And strep viridans. Repeat blood culture is negative. I think the organisms In the bloodstream culture is due to contamination. 3. Altered mental status. Mental status improved. Patient is lucid. 4. Acute kidney disease. Improving. RECOMMENDATIONS: 1. Continue Ertapenem for ESBL E. coli in the urine. 2. Repeat the urine culture. 3. Discontinue fluconazole. 4. Monitor clinical status. 5. If the repeat urine culture is negative, the ertapenem can be discontinued. Alex Pineda MD Oct 09, 2017 15:49
--- NOTE | 2017-10-09 18:29 | HHI.NPPN ---
Subjective History of Present Illness 61 year old with ileostomy Objective Data Data 10/09/17 10/10/17 19:00 07:00 Intake Total 100 ml Output Total 100 ml Balance 0 ml Other 100 ml Stool Total 100 ml Vital Signs Date Time Temp Pulse Resp B/P (MAP) Pulse Ox O2 Delivery O2 Flow Rate FiO2 10/09/17 15:44 98.8 55 18 139/63 (88) 100 10/09/17 12:38 98.7 66 20 141/62 (88) 98 10/09/17 12:05 98.8 73 22 118/55 (76) 98 10/09/17 07:52 98.9 69 17 120/57 (78) 97 10/09/17 05:25 99.5 71 18 136/63 (87) 98 10/09/17 01:14 99.0 74 18 145/60 (88) 97 10/08/17 20:00 99.0 78 18 131/64 (86) 97 -: 10/09/17 0717 10/09/17 0717 Physical Exam General Appearance: Well Developed, Well Nourished Pulmonary Resp Exam: Clear Bilaterally Cardiology CV Exam: Regular Gastrointestinal/Abdomen GI Exam: Soft, Non-Tender, Bowel Sounds Present (ileostomy) Extremeties Extremities Exam: No Edema Assessment/Plan Problem List: (1) Acute renal failure ICD Codes: N17.9 - Acute kidney failure, unspecified Status: Acute Plan: Patient renal failure improved K low dehydrated again I reviewed her records she has ileostomy loss of water/ Na elevated due water loss via ileostomy agree with IVF increase K replacement Follow PRN bases (2) Acute hyperkalemia ICD Codes: E87.5 - Hyperkalemia Status: Resolved (3) Metabolic encephalopathy ICD Codes: G93.41 - Metabolic encephalopathy Status: Acute Plan: Unclear etiology Problem Qualifiers (1) Acute renal failure: Qualified Codes: N17.9 - Acute kidney failure, unspecified Rafaela Dawson MD Oct 09, 2017 18:29
[2017-10-09 20:00] VITALS: BP 126/59; PULSE 64; RESP 18; TEMP 98.3; O2SAT 96
[2017-10-09] MEDS ORDERED: FLUCONAZOLE 200 MG PREMIX BAG 100 ML IV SCH (20:00)
[2017-10-09] MEDS: ERTAPENEM INJ 1,000 MG in SODIUM CHLORIDE 0.9% INJ 100 ML IV SCH (21:08)
[2017-10-10] VITALS (7 sets, daily range): BP systolic 110–136; BP diastolic 49–65; PULSE 64–79; RESP 16–20; TEMP 97.8–98.9; O2SAT 93–99
[2017-10-10] MEDS: D5-1/2 NS + KCL 10 MEQ INJ 1,000 ML IV SCH ×6 (00:56→23:05)
[2017-10-10] MEDS: traMADol HCL 50 MG TAB PO PRN ×3 (03:21→16:11)
[2017-10-10 07:27] LABS: BASOPHIL % 0.5 % (0.0-2.0); EOSINOPHIL # 0.3 TH/MM3 (0-0.4); EOSINOPHIL % 5.5 % (0.0-4.0); HEMATOCRIT 22.2 % (35.0-46.0); HEMOGLOBIN 7.5 GM/DL (11.6-15.3); LYMPH % 20.5 % (9.0-44.0); LYMPHOCYTE # 1.2 TH/MM3 (1.0-4.8); MEAN CORPUSCULAR HEMOGLOBIN 31.5 PG (27.0-34.0); MEAN CORPUSCULAR HGB CONC 33.9 % (32.0-36.0); MEAN PLATELET VOLUME 7.7 FL (7.0-11.0); MONOCYTE # 0.5 TH/MM3 (0-0.9); NEUT % 65.5 % (16.0-70.0); PLATELET COUNT 154 TH/MM3 (150-450); RED BLOOD COUNT 2.38 MIL/MM3 (4.00-5.30); WHITE BLOOD COUNT 6.1 TH/MM3 (4.0-11.0)
[2017-10-10 07:58] LABS: ALBUMIN 2.2 GM/DL (3.4-5.0); BICARBONATE 24.9 MEQ/L (21.0-32.0); CREATININE 0.58 MG/DL (0.50-1.00); MAGNESIUM 1.7 MG/DL (1.5-2.5); PHOSPHORUS 1.5 MG/DL (2.5-4.9)
[2017-10-10 08:05] LABS: CALCIUM 7.4 MG/DL (8.5-10.1)
--- NOTE | 2017-10-10 08:16 | HHI.PR ---
Subjective Remarks Follow-up for UTI, bacteremia, acute kidney disease with hyperkalemia. She feels well but wants to eat real food. Waiting for speech eval today. No fever, chills. Objective Vitals Vital Signs Date Time Temp Pulse Resp B/P (MAP) Pulse Ox O2 Delivery O2 Flow Rate FiO2 10/10/17 07:15 98.3 66 18 110/49 (69) 97 10/10/17 04:21 18 10/10/17 00:00 98.9 68 20 132/60 (84) 97 10/10/17 00:00 98.9 68 20 132/60 (84) 97 10/09/17 20:00 98.3 64 18 126/59 (81) 96 10/09/17 15:44 98.8 55 18 139/63 (88) 100 10/09/17 12:38 98.7 66 20 141/62 (88) 98 10/09/17 12:05 98.8 73 22 118/55 (76) 98 I/O 10/09/17 10/09/17 10/09/17 10/10/17 10/10/17 10/10/17 07:00 15:00 23:00 07:00 15:00 23:00 Intake Total 600 ml 100 ml 975 ml 1420 ml Output Total 850 ml 100 ml 400 ml 300 ml Balance -250 ml 0 ml 975 ml 1020 ml -300 ml Intake Oral 120 ml IV Total 600 ml 975 ml 1300 ml Other 100 ml Output Urine Total 850 ml 100 ml 300 ml Stool Total 100 ml 300 ml # Voids 3 Result Diagram: 10/10/17 0615 10/10/17 0615 Imaging Last Impressions Barium Swallow X-Ray 10/09/17 0000 Signed Impressions: Service Date/Time: Monday, October 09, 2017 14:51 - CONCLUSION: Negative or obstructing lesion. If symptoms persist regulation may be of benefit. The exam is severely limited by the inability to properly position patient. Hiram Magallanes MD FACR Abdomen X-Ray 10/08/17 0000 Signed Impressions: Service Date/Time: Sunday, October 08, 2017 15:57 - CONCLUSION: Negative KUB. Andres Veronica MD Head CT 10/04/17 1027 Signed Impressions: Service Date/Time: Wednesday, October 04, 2017 16:35 - CONCLUSION: No acute disease. Hiram Magallanes MD FACR Chest X-Ray 10/04/17 1027 Signed Impressions: Service Date/Time: Wednesday, October 04, 2017 10:52 - CONCLUSION: Mild compensated cardiomegaly Hiram Magallanes MD FACR Cervical Spine CT 10/04/17 1027 Signed Impressions: Service Date/Time: Wednesday, October 04, 2017 16:35 - CONCLUSION: 1. No acute fracture. 2. Subtle anterolisthesis of C3 on C4 and C4 on C5 likely due to degenerative facet arthrosis. 3. Multilevel degenerative spondylosis of the cervical spine most prominently at C5-7. Yony Hunter MD Objective Remarks GENERAL: SKIN: Warm and dry. HEAD: Normocephalic. EYES: No scleral icterus. No injection or drainage. NECK: Supple, trachea midline. No JVD or lymphadenopathy. CARDIOVASCULAR: Regular rate and rhythm without murmurs, gallops, or rubs. RESPIRATORY: Breath sounds equal bilaterally. No accessory muscle use. GASTROINTESTINAL: Abdomen soft, non-tender, nondistended. MUSCULOSKELETAL: No cyanosis, or edema. BACK: Nontender without obvious deformity. No CVA tenderness. Procedures 10/05/2017 Echo The left ventricular systolic function is hyperdynamic with an estimated ejection fraction in the range of 65- 70%. Normal left ventricular size. Wall thickness is normal. A/P Problem List: (1) Metabolic encephalopathy ICD Code: G93.41 - Metabolic encephalopathy Status: Acute (2) Bacteremia due to Enterococcus ICD Code: R78.81 - Bacteremia; B95.2 - Enterococcus as the cause of diseases classified elsewhere (3) UTI (urinary tract infection) ICD Code: N39.0 - Urinary tract infection, site not specified Status: Acute (4) Acute hyperkalemia ICD Code: E87.5 - Hyperkalemia Status: Resolved Assessment and Plan Ms. Eduardo is a 61-year-old female with past medical history of hypertension, hypothyroidism, anxiety/depression, schizoaffective disorder, who presented from a local intermediate due to altered mental status and lethargy on 10/04/2017. On arrival to the ER, she was hypotensive with a systolic blood pressure 70s-80s and bradycardic with heart rate in the 30s and 40s. EKG in the ED showed atrial fibrillation with a moderate intraventricular conduction delay. Her laboratory data is significant for hyperkalemia with a potassium of 9.1, which was slightly hemolyzed, and acute renal failure with a BUN of 118 and creatinine 6.62. In the ED patient received IV fluid as well as insulin and D50 and sodium bicarb. Nephrology was consulted for emergent dialysis. Patient was started on dopamine. Creatinine improved to 1.4 and potassium improved to 4.1. Patient was managed in the ICU. She was agitated and required Haldol and Geodon for agitation. Infectious disease was consulted for UTI and bacteremia. Culture grew Enterococcus faecalis, Enterococcus faecium, staph coag negative. Urine culture shows ESBL E. coli. Patient was given ertapenem for ESBL E. coli. Septic shock - resolved. Bacteremia polymicrobial Urinary tract infection - Shock likely due to ESBL E. Coli UTI - ID following. Continue Ertapenem per ID. - ID indicated that if repeat cx negative, we can d/c abx. Acute kidney injury Hyperkalemia Mild hypernatremia - Transiently required dialysis. Off dialysis now. - Cr 6.62 --> 0.58. Resolved. Nephrology following - Hyperkalemia resolved. Patient is actually hypokalemic now. Receiving replacement with K-Phos. - Also receiving 1/2NS + KCL Hypothyroidism - continue levothyroxine 25mcg Qday. History of schizoaffective disorder - continue haldol. Full code. SCDs. We may need to re-start heparin SQ for DVT prophylaxis. Nikhil Limon DO Oct 10, 2017 08:16
[2017-10-10] MEDS: PANTOPRAZOLE SOD 40 MG DELAYED RELEASE TAB PO SCH (08:23)
[2017-10-10] MEDS: HALOPERIDOL 1 MG TAB PO SCH ×3 (08:23→17:55)
[2017-10-10] MEDS: NYSTATIN SUSP 500,000 U/5 ML CUP SWISH-SWAL SCH ×4 (08:23→23:04)
[2017-10-10 09:45] LABS: CALCIUM 7.5 MG/DL (8.5-10.1)
[2017-10-10 09:52] LABS: CALCIUM-PROTEIN CORRECTED 8.6 MG/DL (8.5-10.1); TOTAL PROTEIN 5.1 GM/DL (6.4-8.2)
--- NOTE | 2017-10-10 11:49 | HHI.NPPN ---
Subjective History of Present Illness 61 year old with ileostomy Objective Data Data 10/10/17 10/11/17 19:00 07:00 Output Total 300 ml Balance -300 ml Output Urine Total 300 ml Vital Signs Date Time Temp Pulse Resp B/P (MAP) Pulse Ox O2 Delivery O2 Flow Rate FiO2 10/10/17 08:00 98.3 70 18 125/58 (80) 96 10/10/17 07:15 98.3 66 18 110/49 (69) 97 10/10/17 04:21 18 10/10/17 00:00 98.9 68 20 132/60 (84) 97 10/10/17 00:00 98.9 68 20 132/60 (84) 97 10/09/17 20:00 98.3 64 18 126/59 (81) 96 10/09/17 15:44 98.8 55 18 139/63 (88) 100 10/09/17 12:38 98.7 66 20 141/62 (88) 98 10/09/17 12:05 98.8 73 22 118/55 (76) 98 -: 10/10/17 0615 10/10/17 0615 Physical Exam General Appearance: Well Developed, Well Nourished Pulmonary Resp Exam: Clear Bilaterally Cardiology CV Exam: Regular Gastrointestinal/Abdomen GI Exam: Soft, Non-Tender, Bowel Sounds Present (ileostomy) Extremeties Extremities Exam: No Edema Assessment/Plan Problem List: (1) Acute renal failure ICD Codes: N17.9 - Acute kidney failure, unspecified Status: Acute Plan: Patient renal failure improved K low dehydrated again I reviewed her records she has ileostomy loss of water/ Na elevated due water loss via ileostomy agree with IVF increase K replacement PO4 down to 1.5 K Phos 250 mg q 8 Na improving (2) Acute hyperkalemia ICD Codes: E87.5 - Hyperkalemia Status: Resolved (3) Metabolic encephalopathy ICD Codes: G93.41 - Metabolic encephalopathy Status: Acute Plan: Unclear etiology Problem Qualifiers (1) Acute renal failure: Qualified Codes: N17.9 - Acute kidney failure, unspecified Rafaela Dawson MD Oct 10, 2017 11:49
--- NOTE | 2017-10-10 13:23 | HHI.GIFU ---
Subjective Remarks Pt resting in bed. Asking for help eating b/c she cannot see food. Unable to position herself in bed or reach tray. Says she is swallowing better now. (Sarah Colon) Objective Vitals I&O Vital Signs Date Time Temp Pulse Resp B/P (MAP) Pulse Ox O2 Delivery O2 Flow Rate FiO2 10/10/17 08:00 98.3 70 18 125/58 (80) 96 10/10/17 07:15 98.3 66 18 110/49 (69) 97 10/10/17 04:21 18 10/10/17 00:00 98.9 68 20 132/60 (84) 97 10/10/17 00:00 98.9 68 20 132/60 (84) 97 10/09/17 20:00 98.3 64 18 126/59 (81) 96 10/09/17 15:44 98.8 55 18 139/63 (88) 100 I/O 10/09/17 10/09/17 10/09/17 10/10/17 10/10/17 10/10/17 07:00 15:00 23:00 07:00 15:00 23:00 Intake Total 600 ml 100 ml 975 ml 1420 ml Output Total 850 ml 100 ml 400 ml 300 ml Balance -250 ml 0 ml 975 ml 1020 ml -300 ml Intake Oral 120 ml IV Total 600 ml 975 ml 1300 ml Other 100 ml Output Urine Total 850 ml 100 ml 300 ml Stool Total 100 ml 300 ml # Voids 2 3 Laboratory Laboratory Tests Test 10/10/17 06:15 White Blood Count 6.1 Red Blood Count 2.38 Hemoglobin 7.5 Hematocrit 22.2 Mean Corpuscular Volume 93.0 Mean Corpuscular Hemoglobin 31.5 Mean Corpuscular Hemoglobin Concent 33.9 Red Cell Distribution Width 13.0 Platelet Count 154 Mean Platelet Volume 7.7 Neutrophils (%) (Auto) 65.5 Lymphocytes (%) (Auto) 20.5 Monocytes (%) (Auto) 8.0 Eosinophils (%) (Auto) 5.5 Basophils (%) (Auto) 0.5 Neutrophils # (Auto) 4.0 Lymphocytes # (Auto) 1.2 Monocytes # (Auto) 0.5 Eosinophils # (Auto) 0.3 Basophils # (Auto) 0.0 CBC Comment DIFF FINAL Differential Comment Blood Urea Nitrogen 5 Creatinine 0.58 Random Glucose 96 Albumin 2.2 Calcium Level 7.4 Phosphorus Level 1.5 Magnesium Level 1.7 Sodium Level 146 Potassium Level 3.0 Chloride Level 114 Carbon Dioxide Level 24.9 Anion Gap 7 Estimat Glomerular Filtration Rate 105 Protein Corrected Calcium 8.6 Total Protein 5.1 Date/Time Source Procedure Growth Status 10/05/17 12:50 Blood Peripheral Aerobic Blood Culture - Final NO GROWTH IN 5 DAYS Complete 10/05/17 12:50 Blood Peripheral Anaerobic Blood Culture - Final NO GROWTH IN 5 DAYS Complete 10/06/17 22:47 Stool Stool Stool Occult Blood (SKYLAR) - Final HEMOCCULT NEGATIVE Complete 10/04/17 10:35 Urine Catheterized Urine Urine Culture - Final Escherichia Coli Esbl Positive Complete Imaging Last Impressions Barium Swallow X-Ray 10/09/17 0000 Signed Impressions: Service Date/Time: Monday, October 09, 2017 14:51 - CONCLUSION: Negative or obstructing lesion. If symptoms persist regulation may be of benefit. The exam is severely limited by the inability to properly position patient. Hiram Magallanes MD FACR Abdomen X-Ray 10/08/17 0000 Signed Impressions: Service Date/Time: Sunday, October 08, 2017 15:57 - CONCLUSION: Negative KUB. Andres Veronica MD Head CT 10/04/17 1027 Signed Impressions: Service Date/Time: Wednesday, October 04, 2017 16:35 - CONCLUSION: No acute disease. Hiram Magallanes MD FACR Chest X-Ray 10/04/17 1027 Signed Impressions: Service Date/Time: Wednesday, October 04, 2017 10:52 - CONCLUSION: Mild compensated cardiomegaly Hiram Magallanes MD FACR Cervical Spine CT 10/04/17 1027 Signed Impressions: Service Date/Time: Wednesday, October 04, 2017 16:35 - CONCLUSION: 1. No acute fracture. 2. Subtle anterolisthesis of C3 on C4 and C4 on C5 likely due to degenerative facet arthrosis. 3. Multilevel degenerative spondylosis of the cervical spine most prominently at C5-7. Yony Hunter MD Physical Exam HEENT: PERRL; normocephalic; atraumatic; no jaundice. CHEST: CTA CARDIAC: RRR ABDOMEN: Soft, nondistended, nontender; no hepatosplenomegaly; bowel sounds are present in all four quadrants. EXTREMITIES: No clubbing, cyanosis, or edema. SKIN: cheri; no rash; no jaundice. MANAGER ACTIVITIES: No focal deficits; alert and oriented times three. weak (Sarah Colon) Assessment and Plan Assessment: (1) Dysphagia ICD Codes: R13.10 - Dysphagia Status: Acute (2) Generalized weakness ICD Codes: R53.1 - Weakness Status: Acute Plan Dysphasia onset of symptoms off and on for years but worsening noted approximately 6 months ago. 2 episodes within the past couple of months of choking on rice. Patient was evaluated per speech therapy and was found to be aspirating on thin liquids. Patient was placed on nectar thick/honey thick liquids and foods. Endoscopy with dilatation performed on 10/09/[address] Shea. No complications Anemia, possibly due to chronic disease versus GI bleed. KUB performed on 2017 unremarkable hepatitis panel negative. History of renal disease and renal failure Ileostomy bag, currently with increased flatus post EGD, laura brown stool noted. Patient states she is hoping in the near future to have reversal done Poor historian 10/10/17 Ba swallow neg. s/p EGD and dilatation --> gastritis, esophagitis, duodenitis, esophageal stricture. Pt says swallowing is better although she can 't eat b/c she can't reach her food and she can't see well and needs someone to feed her. bx pending. Plan diet per attending & [employer] EXEC[employer]IVE await BX continue PPI Supportive care f/u with GI after d/c GI will sign off. please reconsult if needed. This patient was seen per myself and Dr. Shea, this note was written on her behalf (Sarah Colon) Sarah Colon Oct 10, 2017 13:23 Simona Shea MD Oct 10, 2017 20:44
[2017-10-10] MEDS: POTASSIUM PHOSPHATE MONOBASIC 500 MG TAB PO SCH ×2 (13:54→23:04)
[2017-10-10] MEDS: ERTAPENEM INJ 1,000 MG in SODIUM CHLORIDE 0.9% INJ 100 ML IV SCH (23:04)
[2017-10-11] VITALS: BP 138/63; PULSE 80; RESP 16; TEMP 97.3; O2SAT 99
[2017-10-11 04:00] VITALS: BP 134/63; PULSE 69; RESP 16; TEMP 98.6; O2SAT 99
[2017-10-11] MEDS: traMADol HCL 50 MG TAB PO PRN ×4 (04:23→22:30)
[2017-10-11] MEDS: LEVOTHYROXINE SODIUM 25 MCG TAB PO SCH (06:23)
[2017-10-11] MEDS: POTASSIUM PHOSPHATE MONOBASIC 500 MG TAB PO SCH ×3 (06:23→21:00)
[2017-10-11] MEDS: D5-1/2 NS + KCL 10 MEQ INJ 1,000 ML IV SCH ×3 (06:51→21:08)
[2017-10-11 08:28] VITALS: BP 135/66; PULSE 73; RESP 18; TEMP 98.3; O2SAT 96
[2017-10-11] MEDS: PANTOPRAZOLE SOD 40 MG DELAYED RELEASE TAB PO SCH (08:54)
[2017-10-11] MEDS: NYSTATIN SUSP 500,000 U/5 ML CUP SWISH-SWAL SCH ×4 (08:54→20:59)
[2017-10-11] MEDS: HALOPERIDOL 1 MG TAB PO SCH ×3 (08:54→18:47)
--- NOTE | 2017-10-11 10:29 | HHI.PR ---
Subjective Remarks Follow-up for UTI, bacteremia, acute kidney disease with hyperkalemia. Patient is resting in bed. No acute concerns. No fever or chills. Objective Vitals Vital Signs Date Time Temp Pulse Resp B/P (MAP) Pulse Ox O2 Delivery O2 Flow Rate FiO2 10/11/17 08:28 98.3 73 18 135/66 (89) 96 10/11/17 06:09 18 10/11/17 04:00 98.6 69 16 134/63 (86) 99 10/11/17 00:00 97.3 80 16 138/63 (88) 99 10/10/17 20:30 21 10/10/17 20:00 97.8 75 16 135/65 (88) 93 10/10/17 16:00 98.4 79 18 115/58 (77) 99 10/10/17 12:00 96 Nasal Cannula 2.00 10/10/17 12:00 98.0 67 18 136/63 (87) 96 I/O 10/10/17 10/10/17 10/10/17 10/11/17 10/11/17 10/11/17 07:00 15:00 23:00 07:00 15:00 23:00 Intake Total 1420 ml 1220 ml 960 ml 1200 ml Output Total 400 ml 400 ml 300 ml 800 ml Balance 1020 ml 820 ml 660 ml 400 ml Intake Oral 120 ml 240 ml IV Total 1300 ml 980 ml 960 ml 1200 ml Output Urine Total 100 ml 400 ml 800 ml Stool Total 300 ml 300 ml # Voids 3 2 # Bowel Movements 1 Result Diagram: 10/10/17 0615 10/10/17614 Objective Remarks GENERAL: SKIN: Warm and dry. HEAD: Normocephalic. EYES: No scleral icterus. No injection or drainage. NECK: Supple, trachea midline. No JVD or lymphadenopathy. CARDIOVASCULAR: Regular rate and rhythm without murmurs, gallops, or rubs. RESPIRATORY: Breath sounds equal bilaterally. No accessory muscle use. GASTROINTESTINAL: Abdomen soft, non-tender, nondistended. MUSCULOSKELETAL: No cyanosis, or edema. BACK: Nontender without obvious deformity. No CVA tenderness. Procedures 10/05/2017 Echo The left ventricular systolic function is hyperdynamic with an estimated ejection fraction in the range of 65- 70%. Normal left ventricular size. Wall thickness is normal. A/P Problem List: (1) Metabolic encephalopathy ICD Code: G93.41 - Metabolic encephalopathy Status: Acute (2) Bacteremia due to Enterococcus ICD Code: R78.81 - Bacteremia; B95.2 - Enterococcus as the cause of diseases classified elsewhere (3) UTI (urinary tract infection) ICD Code: N39.0 - Urinary tract infection, site not specified Status: Acute (4) Acute hyperkalemia ICD Code: E87.5 - Hyperkalemia Status: Resolved Assessment and Plan Ms. Eduardo is a 61-year-old female with past medical history of hypertension, hypothyroidism, anxiety/depression, schizoaffective disorder, who presented from a local residential due to altered mental status and lethargy on 10/04/2017. On arrival to the ER, she was hypotensive with a systolic blood pressure 70s-80s and bradycardic with heart rate in the 30s and 40s. EKG in the ED showed atrial fibrillation with a moderate intraventricular conduction delay. Her laboratory data is significant for hyperkalemia with a potassium of 9.1, which was slightly hemolyzed, and acute renal failure with a BUN of 118 and creatinine 6.62. In the ED patient received IV fluid as well as insulin and D50 and sodium bicarb. Nephrology was consulted for emergent dialysis. Patient was started on dopamine. Creatinine improved to 1.4 and potassium improved to 4.1. Patient was managed in the ICU. She was agitated and required Haldol and Geodon for agitation. Infectious disease was consulted for UTI and bacteremia. Culture grew Enterococcus faecalis, Enterococcus faecium, staph coag negative. Urine culture shows ESBL E. coli. Patient was given ertapenem for ESBL E. coli. Septic shock - resolved. Bacteremia polymicrobial Urinary tract infection - Shock likely due to ESBL E. Coli UTI - ID following. Continue Ertapenem per ID. - ID indicated that if repeat cx negative, we can d/c abx. - It has been difficult to obtain Urine sample for repeat cx. ID agrees with completing a course of total 7 days of ertapenem. Acute kidney injury Hyperkalemia Mild hypernatremia Mild hypomagnesemia - Transiently required dialysis. Off dialysis now. - Cr 6.62 --> 0.58. Resolved. Nephrology following - Hyperkalemia resolved. Patient is actually hypokalemic now. Receiving replacement with K-Phos. - Also receiving 1/2NS + KCL - We will replace with 2 g magnesium sulfate IV. - Will check BMP today. Dysphagia - s/p EGD with dilatation on 10/09/2017. Barium swallow study on 2017 unremarkable. Hypothyroidism - continue levothyroxine 25mcg Qday. History of schizoaffective disorder - continue haldol. Full code. SCDs. Start Lovenox for DVT prophylaxis. Patient can return to [facility] in [place], [place]. Will see if we can discharge patient today. Nikhil Limon DO Oct 11, 2017 10:29 am
[2017-10-11] MEDS: MAGNESIUM SULFATE 1 GM PREMIX 100 ML IV SCH ×2 (11:47→13:09)
[2017-10-11 12:00] VITALS: BP 125/58; PULSE 78; RESP 18; TEMP 98.2; O2SAT 99
[2017-10-11 14:14] LABS: BICARBONATE 23.1 MEQ/L (21.0-32.0); CALCIUM 7.9 MG/DL (8.5-10.1); CREATININE 0.62 MG/DL (0.50-1.00)
[2017-10-11 16:48] VITALS: BP 155/71; PULSE 79; RESP 18; TEMP 99.4; O2SAT 98
[2017-10-11 20:00] VITALS: BP 135/65; PULSE 67; RESP 17; TEMP 99.2; O2SAT 97
[2017-10-11] MEDS: ERTAPENEM INJ 1,000 MG in SODIUM CHLORIDE 0.9% INJ 100 ML IV SCH (21:00)
[2017-10-11] MEDS ORDERED: PILL SPLITTER OTHER PRN (23:45)
[2017-10-11] MEDS: traZODone HCL 50 MG TAB PO SCH (23:53)
[2017-10-12] VITALS: BP 123/63; PULSE 75; RESP 18; TEMP 99.1; O2SAT 95
[2017-10-12] MEDS: traMADol HCL 50 MG TAB PO PRN ×3 (05:00→22:20)
[2017-10-12] MEDS: LEVOTHYROXINE SODIUM 25 MCG TAB PO SCH (06:02)
[2017-10-12] MEDS: POTASSIUM PHOSPHATE MONOBASIC 500 MG TAB PO SCH ×3 (06:02→22:20)
[2017-10-12] MEDS: D5-1/2 NS + KCL 10 MEQ INJ 1,000 ML IV SCH ×3 (06:02→22:22)
[2017-10-12 06:28] VITALS: BP 142/62; PULSE 70; RESP 17; TEMP 99.2; O2SAT 98
[2017-10-12 07:45] VITALS: BP 137/61; PULSE 74; RESP 17; TEMP 99.4; O2SAT 99
[2017-10-12] MEDS: PANTOPRAZOLE SOD 40 MG DELAYED RELEASE TAB PO SCH (09:20)
[2017-10-12] MEDS: HALOPERIDOL 1 MG TAB PO SCH ×3 (09:20→17:46)
[2017-10-12] MEDS: NYSTATIN SUSP 500,000 U/5 ML CUP SWISH-SWAL SCH ×4 (09:20→22:20)
[2017-10-12] MEDS ORDERED: TRAM50 PO (10:39)
[2017-10-12] MEDS ORDERED: HALO1TAB PO (10:39)
[2017-10-12] MEDS ORDERED: ACET325T15 PO (10:39)
[2017-10-12] MEDS ORDERED: PANT40TA3 PO (10:39)
[2017-10-12] MEDS ORDERED: INVA1INJ IV (10:41)
[2017-10-12 11:47] VITALS: BP 145/63; PULSE 76; RESP 18; TEMP 98.9; O2SAT 99
[2017-10-12] MEDS ORDERED: POTA1TAB4 PO (12:05)
--- NOTE | 2017-10-12 12:11 | HHI.DS ---
Discharge Summary Admission Date Oct 04, 2017 at 1:04 pm Discharge Date: Oct 12, 2017 Admitting Diagnosis Severe hyperkalemia. Head and neck injury. Acute renal failure (1) Metabolic encephalopathy ICD Code: G93.41 - Metabolic encephalopathy Status: Acute (2) Bacteremia due to Enterococcus ICD Code: R78.81 - Bacteremia; B95.2 - Enterococcus as the cause of diseases classified elsewhere (3) UTI (urinary tract infection) ICD Code: N39.0 - Urinary tract infection, site not specified Status: Acute (4) Acute hyperkalemia ICD Code: E87.5 - Hyperkalemia Status: Resolved Procedures 10/05/2017 Echo The left ventricular systolic function is hyperdynamic with an estimated ejection fraction in the range of 65- 70%. Normal left ventricular size. Wall thickness is normal. Brief History - From Admission The patient is a 61-year-old female with past medical history of hypertension, hypothyroidism, anxiety/depression, schizoaffective disorder, who presented from a local custodial due to altered mental status and lethargy. When EMS arrived, they noticed that she had a slight right facial droop. The patient is status post fall at 1:30 this morning. On arrival to the ER, she was hypotensive with a systolic blood pressure 70s-80s and bradycardic with heart rate in the 30s and 40s. EKG in the ED showed atrial fibrillation with a moderate intraventricular conduction delay. Her laboratory data is significant for hyperkalemia with a potassium of 9.1, which was slightly hemolyzed, and acute renal failure with a BUN of 118 and creatinine 6.62. In the ED, she is currently receiving a third liter of IV fluids. In addition, she was treated for hyperkalemia with 10 units of IV insulin, calcium, D50, 3 amps of sodium bicarbonate. A left femoral central line was placed by ED physician, and I placed a right femoral Vas-Cath. Nephrology service was notified for initiation of emergent hemodialysis due to hyperkalemia with EKG changes. She was also started on dopamine, currently at 20 mcg. The patient is awake, alert, however, confused at times. Her lactic acid level measured at 0.7. C-collar is in place. A chest x-ray in the ED showed mild compensated cardiomegaly. Most of the history was obtained from reviewing medical records as patient is a poor historian. She is about to undergo hemodialysis. CBC/BMP: 10/10/17 0615 10/11/17 1319 Significant Findings Laboratory Tests Test 10/10/17 06:15 10/11/17 13:19 Red Blood Count 2.38 MIL/MM3 (4.00-5.30) Hemoglobin 7.5 GM/DL (11.6-15.3) Hematocrit 22.2 % (35.0-46.0) Eosinophils (%) (Auto) 5.5 % (0.0-4.0) Blood Urea Nitrogen 5 MG/DL (7-18) 2 MG/DL (7-18) Albumin 2.2 GM/DL (3.4-5.0) Calcium Level 7.4 MG/DL (8.5-10.1) 7.9 MG/DL (8.5-10.1) Phosphorus Level 1.5 MG/DL (2.5-4.9) Sodium Level 146 MEQ/L (136-145) Potassium Level 3.0 MEQ/L (3.5-5.1) 3.3 MEQ/L (3.5-5.1) Chloride Level 114 MEQ/L (98-107) 112 MEQ/L (98-107) Total Protein 5.1 GM/DL (6.4-8.2) Imaging Last Impressions Barium Swallow X-Ray 10/09/17 0000 Signed Impressions: Service Date/Time: Monday, October 09, 2017 14:51 - CONCLUSION: Negative or obstructing lesion. If symptoms persist regulation may be of benefit. The exam is severely limited by the inability to properly position patient. Hiram Magallanes MD FACR Abdomen X-Ray 10/08/17 0000 Signed Impressions: Service Date/Time: Sunday, October 08, 2017 15:57 - CONCLUSION: Negative KUB. Andres Veronica MD Head CT 10/04/17 1027 Signed Impressions: Service Date/Time: Wednesday, October 04, 2017 16:35 - CONCLUSION: No acute disease. Hiram Magallanes MD FACR Chest X-Ray 10/04/17 1027 Signed Impressions: Service Date/Time: Wednesday, October 04, 2017 10:52 - CONCLUSION: Mild compensated cardiomegaly Hiram Magallanes MD FACR Cervical Spine CT 10/04/17 1027 Signed Impressions: Service Date/Time: Wednesday, October 04, 2017 16:35 - CONCLUSION: 1. No acute fracture. 2. Subtle anterolisthesis of C3 on C4 and C4 on C5 likely due to degenerative facet arthrosis. 3. Multilevel degenerative spondylosis of the cervical spine most prominently at C5-7. Yony Hunter MD PE at Discharge GENERAL: SKIN: Warm and dry. HEAD: Normocephalic. EYES: No scleral icterus. No injection or drainage. NECK: Supple, trachea midline. No JVD or lymphadenopathy. CARDIOVASCULAR: Regular rate and rhythm without murmurs, gallops, or rubs. RESPIRATORY: Breath sounds equal bilaterally. No accessory muscle use. GASTROINTESTINAL: Abdomen soft, non-tender, nondistended. MUSCULOSKELETAL: No cyanosis, or edema. BACK: Nontender without obvious deformity. No CVA tenderness. Pt update on day of discharge Patient is currently doing well. Resting in bed. No acute concerns. Hospital Course Ms. Eduardo is a 61-year-old female with past medical history of hypertension, hypothyroidism, anxiety/depression, schizoaffective disorder, who presented from a local custodial due to altered mental status and lethargy on 10/04/2017. On arrival to the ER, she was hypotensive with a systolic blood pressure 70s-80s and bradycardic with heart rate in the 30s and 40s. EKG in the ED showed atrial fibrillation with a moderate intraventricular conduction delay. Her laboratory data is significant for hyperkalemia with a potassium of 9.1, which was slightly hemolyzed, and acute renal failure with a BUN of 118 and creatinine 6.62. In the ED patient received IV fluid as well as insulin and D50 and sodium bicarb. Nephrology was consulted for emergent dialysis. Patient was started on dopamine. Creatinine improved to 1.4 and potassium improved to 4.1. Patient was managed in the ICU. She was agitated and required Haldol and Geodon for agitation. Infectious disease was consulted for UTI and bacteremia. Culture grew Enterococcus faecalis, Enterococcus faecium, staph coag negative. Urine culture shows ESBL E. coli. Patient was given ertapenem for ESBL E. coli. Septic shock - resolved. Bacteremia polymicrobial Urinary tract infection - Shock likely due to ESBL E. Coli UTI - ID following. Continue Ertapenem per ID. - Discussed with ID who recommended total 7 days of ertapenem. Last dose of Ertapenem 1g can be given at the [facility] tonight 10/12/2017. Acute kidney injury Hyperkalemia Mild hypernatremia Mild hypomagnesemia - Transiently required dialysis. Off dialysis now. - Cr 6.62 --> 0.58. Resolved. Nephrology following - Also receiving 1/2NS + KCL - Received 2 g magnesium sulfate IV. PO KCL on discharge for 3 days. Dysphagia - s/p EGD with dilatation on 10/09/2017. Barium swallow study on 2017 unremarkable. Hypothyroidism - continue levothyroxine 25mcg Qday. History of schizoaffective disorder - continue Haldol per psychiatry recommendations. Full code. Received Lovenox for DVT prophylaxis. Pt Condition on Discharge: Good Discharge Disposition: Discharge to SNF Discharge Time: > 30 minutes Discharge Instructions DIET: Follow Instructions for: Heart Healthy Diet Activities you can perform: Regular-No Restrictions Follow up Referrals: SNF/[facility]/ New Medications: Ertapenem Inj (Invanz Inj) 1 Gm Addvial 1 GM IV Q24H for Infection, #1 INJECTION 0 Refills ADMINISTER IN 100ML NS Potassium Chloride ER (K-Tab) 20 Meq Tab 20 MEQ PO BID for Electrolyte Replacement, #6 TAB 0 Refills Acetaminophen (Eq Acetaminophen) 325 Mg Tab 650 MG PO UNSCH PRN for Headache, fever, pain 1-4, #20 TAB Haloperidol (Haloperidol) 1 Mg Tab 1 MG PO BID for Agitation, #60 TAB Pantoprazole (Pantoprazole) 40 Mg Tab 40 MG PO DAILY for Reflux, #30 TAB Tramadol (Ultram) 50 Mg Tab 50 MG PO Q6H PRN for PAIN SCALE 5 TO 10, #12 TAB Continued Medications: Aspirin DR (Aspirin EC) 81 Mg Tabdr 81 MG PO DAILY, TAB 0 Refills Calcium Carbonate-Cholecalciferol (Calcium 500 +D) 500-400 Mg-Unit Tab 1 TAB PO BID for Calcium Supplement, TAB 0 Refills Collagenase Topical (Santyl Topical) 250 Unit/Gm Oint 1 APPLIC TOPICAL DAILY for Wound Management, GM 0 Refills Ferrous Sulfate (Ferrous Sulfate) 325 Mg (65 Mg Iron) Tablet 325 MG PO DAILY for Nutritional Supplement, TAB 0 Refills Folic Acid (Folic Acid) 0.4 Mg Tab 1000 MCG PO DAILY for Nutritional Supplement, TAB 0 Refills Lactic Acid (Ammonium Lactate) (Ammonium Lactate) 12 % Cre 1 APPLIC TOP BID, CRE APPLY TO: Levothyroxine (Levothyroxine) 25 Mcg Tab 25 MCG PO DAILY for Thyroid, #30 TAB 0 Refills Multiple Vitamin (Multiple Vitamin) 1 Tab 1 TAB PO DAILY for Nutritional Supplement, TAB 0 Refills Thiamine (Vitamin B-1) 100 Mg Tab 100 MG PO DAILY for Nutritional Supplement, TAB 0 Refills Discontinued Medications: Aripiprazole (Abilify) 10 Mg Tab 10 MG PO BID, TAB 0 Refills Aripiprazole (Aripiprazole) 10 Mg Tab 10 MG PO DAILY, TAB 0 Refills Andtilyson-Ieaixapnrblcw-Iaxofiua (Fioricet) 50-300-40 Mg Cap 1 CAP PO Q12HR PRN for HEADACHE, CAP 0 Refills Clomipramine (Anafranil) 25 Mg Cap 25 MG PO DAILY for OCD, CAP 0 Refills Clomipramine (Clomipramine) 25 Mg Cap 25 MG PO HS for OCD, CAP 0 Refills Diltiazem (Diltiazem) 30 Mg Tab 30 MG PO TID for Angina, TAB 0 Refills Diphenoxylate-Atropine (Lomotil) 2.5-0.025 Mg Tab 1 TAB PO Q12HR PRN for DIARRHEA, TAB 0 Refills Escitalopram (Lexapro) 10 Mg Tab 10 MG PO DAILY, #30 TAB 0 Refills Famotidine (Famotidine) 20 Mg Tab 20 MG PO BID, #60 TAB 0 Refills Furosemide (Furosemide) 20 Mg Tab 20 MG PO DAILY, TAB 0 Refills Gabapentin (Neurontin) 100 Mg Cap 100 MG PO TID, CAP 0 Refills Haloperidol (Haloperidol) 5 Mg Tab 5 MG IM BID, 0 Refills Insulin Aspart Inj (Novolog Inj) 1,000 Unit/10 Ml Vial 0 SQ DIRECTED for Blood Sugar Management, #10 ML 0 Refills Sliding Scale as directed. Lisinopril (Lisinopril) 2.5 Mg Tab 2.5 MG PO DAILY, TAB 0 Refills Lorazepam (Ativan) 0.5 Mg Tab 0.5 MG PO BID PRN for For mild anxiety / dyspnea, #10 TAB Methocarbamol (Methocarbamol) 500 Mg Tab 500 MG PO Q12HR for Muscle Spasm, TAB 0 Refills Metoprolol Succinate ER 24 HR (Toprol XL) 25 Mg Tab 25 MG PO HS, TAB 0 Refills Mirtazapine (Mirtazapine) 15 Mg Tab 15 MG PO HS for Depression Control, TAB 0 Refills Oxycodone-Acetaminophen (Oxycodone-Acetaminophen) 5-325 mg Tab 1 TAB PO Q6HR PRN for pain >5, #20 TAB 0 Refills Topiramate (Topiramate) 25 Mg Tab 25 MG PO BID for Control Seizures, TAB 0 Refills Trazodone (Trazodone) 50 Mg Tab 25 MG PO HS for Control Depression, #30 TAB 0 Refills Nikhil Limon DO Oct 12, 2017 12:11 pm
[2017-10-12] MEDS ORDERED: ERTAPENEM INJ 1,000 MG in SODIUM CHLORIDE 0.9% INJ 100 ML IV SCH (16:15)
[2017-10-12 16:23] VITALS: BP 138/63; PULSE 73; RESP 18; TEMP 98.6; O2SAT 99
[2017-10-12 20:00] VITALS: BP 131/75; PULSE 69; RESP 18; TEMP 98.7; O2SAT 94
[2017-10-12] MEDS: traZODone HCL 50 MG TAB PO SCH (22:20)
[2017-10-13] VITALS: BP 125/66; PULSE 70; RESP 18; TEMP 97.9; O2SAT 95
[2017-10-13 05:00] VITALS: BP 135/74; PULSE 67; RESP 18; TEMP 98.1; O2SAT 96
[2017-10-13] MEDS: traMADol HCL 50 MG TAB PO PRN (05:07)
[2017-10-13] MEDS: LEVOTHYROXINE SODIUM 25 MCG TAB PO SCH (05:07)
[2017-10-13] MEDS: POTASSIUM PHOSPHATE MONOBASIC 500 MG TAB PO SCH (05:07)
[2017-10-13] MEDS: D5-1/2 NS + KCL 10 MEQ INJ 1,000 ML IV SCH (05:12)
[2017-10-13] MEDS: PANTOPRAZOLE SOD 40 MG DELAYED RELEASE TAB PO SCH (07:34)
[2017-10-13] MEDS: NYSTATIN SUSP 500,000 U/5 ML CUP SWISH-SWAL SCH (07:35)
[2017-10-13] MEDS: HALOPERIDOL 1 MG TAB PO SCH (07:35)
== END 2017-10-13 09:55 | DRG 682 ==
LOC: NEPC 09:52 → NEDA 13:04 → HIMN 13:15 → N05A 10-08 00:46
PROVIDERS: ADMIT Internal Medicine Critical Care Medicine; ATTEND Hospitalist
PROC: 06HN33Z Insertion of Infusion Device into Left Femoral Vein, Percutaneous Approach (ICD-10-PCS; principal; 2017-10-04)
PROC: 06HM33Z Insertion of Infusion Device into Right Femoral Vein, Percutaneous Approach (ICD-10-PCS; 2017-10-04)
PROC: 5A1D70Z Performance of Urinary Filtration, Intermittent, Less than 6 Hours Per Day (ICD-10-PCS; 2017-10-04)
PROC: 0DB98ZX Excision of Duodenum, Via Natural or Artificial Opening Endoscopic, Diagnostic (ICD-10-PCS; 2017-10-09)
PROC: 0DB68ZX Excision of Stomach, Via Natural or Artificial Opening Endoscopic, Diagnostic (ICD-10-PCS; 2017-10-09)
PROC: 0DB38ZX Excision of Lower Esophagus, Via Natural or Artificial Opening Endoscopic, Diagnostic (ICD-10-PCS; 2017-10-09)
PROC: 0D758ZZ Dilation of Esophagus, Via Natural or Artificial Opening Endoscopic (ICD-10-PCS; 2017-10-09)
DX: N17.9 Acute kidney failure, unspecified (principal); G93.41 Metabolic encephalopathy; R65.21 Severe sepsis with septic shock; A41.9 Sepsis, unspecified organism; E46 Unspecified protein-calorie malnutrition; E87.0 Hyperosmolality and hypernatremia; B37.81 Candidal esophagitis; I48.91 Unspecified atrial fibrillation; E87.2 Acidosis; N39.0 Urinary tract infection, site not specified; F05 Delirium due to known physiological condition; K22.2 Esophageal obstruction; E86.0 Dehydration; E87.5 Hyperkalemia; E03.9 Hypothyroidism, unspecified; B96.20 Unspecified Escherichia coli [E. coli] as the cause of diseases classified elsewhere; Z16.12 Extended spectrum beta lactamase (ESBL) resistance; I45.9 Conduction disorder, unspecified; B95.2 Enterococcus as the cause of diseases classified elsewhere; F25.9 Schizoaffective disorder, unspecified; E83.42 Hypomagnesemia; R53.1 Weakness; D64.9 Anemia, unspecified; E87.6 Hypokalemia; K21.9 Gastro-esophageal reflux disease without esophagitis; K29.70 Gastritis, unspecified, without bleeding; K29.80 Duodenitis without bleeding; Z68.25 Body mass index [BMI] 25.0-25.9, adult; Z93.2 Ileostomy status
CPT/HCPCS: 36556; 36600; 51702; 70450; 71045; 72125; 74018; 74230; 76937; 80048; 80053; 80069; 80074; 81001; 82272; 82550; 82552; 82805; 82948; 83605; 83735; 84100; 84132; 84155; 84443; 84484; 85025; 85610; 85730; 87040; 87077; 87086; 87186; 87205; 87641; 88305; 88312; 90935; 93005; 93306; 94640; 96365; 96374; 96375; 99292; C1752; C1769; J0461; J0610; J1170; J1265; J1335; J1610; J1630; J1644; J1720; J1815; J2270; J3370; J3475; J3480; J3486; J7030; J7042; J7050; J7070; L0150